=== PATIENT | male | born 1935 | race Caucasian/White ===

== ENCOUNTER → 2019-11-07 13:06 | Outpatient (BNVA) | payer MEDICARE, BC, SELFPAY | PROVIDERS: Family Provider Family Medicine; PCP Family Medicine; Visit Provider Psychiatry & Neurology Neurology | DX: G20 Parkinson's disease (principal); F02.81 Dementia in other diseases classified elsewhere, unspecified severity, with behavioral disturbance | CPT/HCPCS: 99213 ==

== ENCOUNTER → 2020-02-04 14:58 | Outpatient (BNVA) | payer MEDICARE, BC, SELFPAY | PROVIDERS: Family Provider Family Medicine; PCP Family Medicine; Visit Provider Nurse Practitioner Family | DX: N40.1 Benign prostatic hyperplasia with lower urinary tract symptoms (principal) | CPT/HCPCS: 81001 ==

== ENCOUNTER → 2020-04-08 14:56 | Outpatient (BNVA) | payer MEDICARE, BC, SELFPAY | PROVIDERS: Family Provider Family Medicine; PCP Family Medicine; Visit Provider Urology | DX: N40.1 Benign prostatic hyperplasia with lower urinary tract symptoms (principal); N39.41 Urge incontinence | CPT/HCPCS: 81001 ==

== ENCOUNTER → 2020-05-08 15:31 | Outpatient (BNVA) | payer MEDICARE, BC, SELFPAY | PROVIDERS: Family Provider Family Medicine; PCP Family Medicine; Visit Provider Psychiatry & Neurology Neurology | DX: G20 Parkinson's disease (principal) | CPT/HCPCS: 99213 ==

== ENCOUNTER 2020-06-06 15:26 | Inpatient (IN) | payer MEDICARE, BC, SELFPAY ==
[2020-06-06] VITALS (9 sets, daily range): BP systolic 98–161; BP diastolic 60–99; PULSE 69–78; RESP 15–24; TEMP 36.7; O2SAT 93–97; BMI 30.1
--- NOTE | 2020-06-06 16:01 | XRR_ITS ---
PROCEDURE INFORMATION: Exam: XR Chest, 1 View Exam date and time: 06/06/2020 5:39 PM Age: 85 years old Clinical indication: Cough and shortness of breath; Patient HX: SOB, cough, covid positive; Additional info: Positive covid, SOB TECHNIQUE: Imaging protocol: XR of the chest Views: 1 view. COMPARISON: No relevant prior studies available. FINDINGS: Lungs: Unremarkable. No consolidation. Pleural space: Unremarkable. No pleural effusion. No pneumothorax. Heart/Mediastinum: Unremarkable. No cardiomegaly. Bones/joints: Unremarkable. XR/XR chest 1V portable [id number] IMPRESSION: No acute findings.
--- NOTE | 2020-06-06 16:12 | ECG_ITS ---
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 Measurements Intervals [place] Rate: 65 P: 53 DC: 168 QRS: -50 QRSD: 92 T: 2 QT: 421 QTc: 441 Interpretive Statements SINUS RHYTHM LEFT AXIS DEVIATION [QRS AXIS < -30] No previous ECG available for comparison Electronically Signed On 06-07-2020 8:14:56 CDT by Isis Null M.D. [id number]
--- NOTE | 2020-06-06 17:34 | W.ED.SOB ---
Documented by User: Elsi Steele MD 06/09/20 12:55 HPI - SOB/Dyspnea General: Chief Complaint: Shortness of Breath/Dyspnea Stated Complaint: SOB,COVID POSITIVE PER DOCTOR OFFICE Time Seen by Provider: 06/06/20 16:12 History of Present Illness: HPI Narrative: This patient is an 85-year-old male who presents today with a positive COVID test. His is currently hospitalized in our viral ICU. He said he had a rapid COVID test done at [facility] today and it was positive. We called [facility] and confirmed that and are waiting for it to be faxed to us. His complaint to me is weakness, nausea. He does admit to some cough and some shortness of breath. He is not sure if he is had some fever or not. He has Parkinson's and reports that he has trouble with his memory. He has had trouble getting around. I asked to help some at home and he says his who is currently hospitalized. MD elicited complaint: shortness of breath and cough Pertinent past history: other (Parkinson's) Onset (ago): unknown Context: recent illness Timing: progressively worsening Severity: severe Exacerbating factors: nothing Relieving factors: nothing Associated symptoms: Reports nausea Review of Systems General: Reports: ROS unobtainable due to mental status Const: Reports: fatigue and malaise GI: Reports: nausea and diarrhea : Reports: difficulty urinating (Chronic) Neuro: Reports: weakness in extremities and difficulty walking (Secondary to Parkinson's) PFSH ED PFSH: Medical History (Updated 06/07/20 @ 01:32 by Lei Hercules MD) Balanitis 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 Depression Hypotension Parkinsons disease PVD (peripheral vascular disease) Urgency incontinence Surgical History History of bilateral knee replacement History of varicose vein stripping Hx of hemorrhoidectomy Family History Family/Other Dementia Hypertension Social History Smoking and tobacco status: never smoked Alcohol intake: never Household members: spouse Marital status: Current occupational status: retired History of recent travel: No Physical Exam Const: COMMON NORMALS: no acute distress, patient oriented x3, no limitations and alert GENERAL APPEARANCE: cooperative and comfortable HENMT: HEAD & SCALP: normal to inspection FACE & SINUS: normal facial exam Eye: GENERAL EYE: appearance normal, both eyes and all related structures Neck/C-Spine: COMMON NORMALS: supple, no meningeal signs and no JVD Chest: COMMONS NORMALS: normal inspection of the chest Resp: COMMON NORMALS: normal respiratory effort, No use of accessory muscles and clear to auscultation bilaterally AUSCULTATION: clear to auscultation bilaterally Cardio: COMMON NORMALS: no JVD, regular rate, regular rhythm and No murmurs present (Cardio) RATE: regular rate RHYTHM: regular rhythm GI: COMMON NORMALS: Normal to inspection, nondistended, normoactive bowel sounds present, Soft to palpation and non-tender INSPECTION: Yes normal to inspection AUSCULTATION: Yes normoactive bowel sounds PALPATION: Yes Soft to palpation Back/Pelvis: COMMON NORMALS: thoracic and lumbar spine normal to inspection Extremity: COMMON NORMALS: normal to inspection Neuro: COMMON NORMALS: patient oriented x3, moves all extremities, no focal motor deficits and no sensory deficits noted SENSORIUM/ORIENTATION: Yes alert MENINGEAL SIGNS: Yes no meningeal signs Psych: COMMON NORMALS: mental status grossly normal, cooperative and normal affect Skin: COMMON NORMALS: no rashes or lesions noted and turgor normal GENERAL SKIN EXAM: no rashes or lesions noted and turgor normal Course Vital Signs: Vital signs: Vital Signs Temperature 96.7 F L 06/09/20 08:00 Pulse Rate 70 06/09/20 11:00 Respiratory Rate 17 06/09/20 11:00 Blood Pressure 111/67 06/09/20 11:00 Pulse Oximetry 91 06/09/20 11:00 MDM - SOB/Dyspnea Lab Data: Labs: Lab Results 06/06/20 06/06/20 06/06/20 Range/Units 17:22 17:31 17:31 WBC 5.5 (4.0-10.0) 10^3/ uL RBC 4.24 (4.1-5.3) 10^6/u L Hgb 13.1 (11.7-16.6) g/dL Hct 40.3 L (42.0-52.0) % MCV 95.0 H (80-94) fL MCH 30.9 (28.0-34.0) pg MCHC 32.5 (30.0-36.0) g/dL RDW 13.3 (12.1-15.1) % Plt Count 299 (130-400) 10^3/c mm MPV 9.8 (7.4-10.4) fL Neut % (Auto) 74.4 % Lymph % (Auto) 14.3 % [place] % (Auto) 9.6 % Eos % (Auto) 1.1 % Baso % (Auto) 0.2 % Neut # (Auto) 4.10 (1.8-7.7) 10^3/u L Lymph # (Auto) 0.8 (0.8-4.8) 10^3/u L [place] # (Auto) 0.5 (0.2-0.9) 10^3/u L Eos # (Auto) 0.1 (0.0-0.8) 10^3/u L Baso # (Auto) 0.0 (0.0-0.1) 10^3/u L Nucleated RBC % (a uto) 0 % Nucleated RBCs # 0.0 /100WBC PT 13.30 (12.1-14.9) SECO NDS INR 0.98 (0.8-1.2) D-Dimer 2.27 H (0-0.59) ug/mIFE U Sodium (136-145) mmol/L Potassium (3.5-5.1) mmol/L Chloride (98-107) mmol/L Carbon Dioxide (22-29) mmol/L Anion Gap (5-19) BUN (8-23) mg/dL Creatinine (0.7-1.2) mg/dL GFR Calculation Glucose (65-115) mg/dL Calculated Osmolal ity (285-295) mOsm/k g Lactate (0.5-2.2) mmol/L Calcium (8.5-10.5) mg/dL Total Bilirubin (0.15-1.2) mg/dL AST (0-40) U/L ALT (0-41) U/L Alkaline Phosphata se (40-130) IU/L Troponin T Gen 5 n g/L (0-15) ng/L C-Reactive Protein (0.0-4.9) mg/L NT-Pro-B Natriuret Pep (0-450) pg/mL Total Protein (6.6-8.7) g/dL Albumin (3.5-5.2) g/dL Globulin (1.3-4.6) g/dL Procalcitonin (0-0.5) ng/mL Urine Color Yellow (Yellow) Urine Appearance Sl hazy (CLEAR) Urine pH 5 (5-7) Ur Specific Gravit y 1.025 (1.005-1.030) Urine Protein 1+ H (Negative) Urine Glucose (UA) Norm (Normal) Urine Ketones 1+ H (Negative) Urine Blood Neg (Negative) Urine Nitrate Negative (Negative) Urine Bilirubin 1+ H (Negative) Urine Urobilinogen 1 H (Negative) mg/dL Ur Leukocyte Kayy ase Negative (Negative) Urine RBC None (0-2) /hpf Urine WBC 0-4 H (0-5) /hpf Ur Squamous Epith Cells 0-4 H (0-5) /hpf Amorphous Sediment Not Reportable Urine Bacteria 1+ H (NONE) /hpf Hyaline Casts 5-10 H /lpf Fine Granular Cast s 0-4 H /lpf Urine Mucus Trace /hpf 06/06/20 06/06/20 06/06/20 Range/Units 17:31 17:31 17:31 WBC (4.0-10.0) 10^3/ uL RBC (4.1-5.3) 10^6/u L Hgb (11.7-16.6) g/dL Hct (42.0-52.0) % MCV (80-94) fL MCH (28.0-34.0) pg MCHC (30.0-36.0) g/dL RDW (12.1-15.1) % Plt Count (130-400) 10^3/c mm MPV (7.4-10.4) fL Neut % (Auto) % Lymph % (Auto) % [place] % (Auto) % Eos % (Auto) % Baso % (Auto) % Neut # (Auto) (1.8-7.7) 10^3/u L Lymph # (Auto) (0.8-4.8) 10^3/u L [place] # (Auto) (0.2-0.9) 10^3/u L Eos # (Auto) (0.0-0.8) 10^3/u L Baso # (Auto) (0.0-0.1) 10^3/u L Nucleated RBC % (a uto) % Nucleated RBCs # /100WBC PT (12.1-14.9) SECO NDS INR (0.8-1.2) D-Dimer (0-0.59) ug/mIFE U Sodium 134 L (136-145) mmol/L Potassium 3.9 (3.5-5.1) mmol/L Chloride 100 (98-107) mmol/L Carbon Dioxide 17 L (22-29) mmol/L Anion Gap 20.9 H (5-19) BUN 36 H (8-23) mg/dL Creatinine 1.7 H (0.7-1.2) mg/dL GFR Calculation Not Reportable Glucose 104 (65-115) mg/dL Calculated Osmolal ity 287 (285-295) mOsm/k g Lactate 1.3 (0.5-2.2) mmol/L Calcium 9.1 (8.5-10.5) mg/dL Total Bilirubin 0.6 (0.15-1.2) mg/dL AST 25 (0-40) U/L ALT 17 (0-41) U/L Alkaline Phosphata se 53 (40-130) IU/L Troponin T Gen 5 n g/L 147 H* (0-15) ng/L C-Reactive Protein 19.5 H (0.0-4.9) mg/L NT-Pro-B Natriuret Pep 1169 H (0-450) pg/mL Total Protein 8.5 (6.6-8.7) g/dL Albumin 4.3 (3.5-5.2) g/dL Globulin 4.2 (1.3-4.6) g/dL Procalcitonin 0.15 (0-0.5) ng/mL Urine Color (Yellow) Urine Appearance (CLEAR) Urine pH (5-7) Ur Specific Gravit y (1.005-1.030) Urine Protein (Negative) Urine Glucose (UA) (Normal) Urine Ketones (Negative) Urine Blood (Negative) Urine Nitrate (Negative) Urine Bilirubin (Negative) Urine Urobilinogen (Negative) mg/dL Ur Leukocyte Kayy ase (Negative) Urine RBC (0-2) /hpf Urine WBC (0-5) /hpf Ur Squamous Epith Cells (0-5) /hpf Amorphous Sediment Urine Bacteria (NONE) /hpf Hyaline Casts /lpf Fine Granular Cast s /lpf Urine Mucus /hpf Discharge Plan Discharge Patient Disposition: Admitted As Inpatient Admit Provider: Lei Hercules Clinical Impression: COVID-19 Condition: Stable Referrals: North Mancini MD [Primary Care Provider] - Discharge Date/Time: 06/07/20 02:46 Coding Level of Care Code ED Cooler Service Supervisor for Chg Fwd Exam Comprehensive Documented by User: Rajat Hand MD 06/07/20 00:26 HPI - SOB/Dyspnea General: Chief Complaint: Shortness of Breath/Dyspnea Stated Complaint: SOB,COVID POSITIVE PER DOCTOR OFFICE Time Seen by Provider: 06/06/20 16:12 PFSH ED PFSH: Medical History (Updated 06/07/20 @ 01:32 by Lei Hercules MD) Balanitis 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 Depression Hypotension Parkinsons disease PVD (peripheral vascular disease) Urgency incontinence Surgical History History of bilateral knee replacement History of varicose vein stripping Hx of hemorrhoidectomy Family History Family/Other Dementia Hypertension Social History Smoking and tobacco status: never smoked Alcohol intake: never Household members: spouse Marital status: Current occupational status: retired History of recent travel: No Course Vital Signs: Vital signs: Vital Signs Temperature 96.7 F L 06/09/20 08:00 Pulse Rate 70 06/09/20 11:00 Respiratory Rate 17 06/09/20 11:00 Blood Pressure 111/67 06/09/20 11:00 Pulse Oximetry 91 06/09/20 11:00 MDM - SOB/Dyspnea MDM Narrative: Medical decision making narrative: I took patient over from Dr. Steele. Patient has generalized weakness and is unable to take care of himself at home due to coronavirus. I spoke to hospitalist will admit to the viral ICU. Lab Data: Labs: Lab Results 06/06/20 06/06/20 06/06/20 Range/Units 17:22 17:31 17:31 WBC 5.5 (4.0-10.0) 10^3/ uL RBC 4.24 (4.1-5.3) 10^6/u L Hgb 13.1 (11.7-16.6) g/dL Hct 40.3 L (42.0-52.0) % MCV 95.0 H (80-94) fL MCH 30.9 (28.0-34.0) pg MCHC 32.5 (30.0-36.0) g/dL RDW 13.3 (12.1-15.1) % Plt Count 299 (130-400) 10^3/c mm MPV 9.8 (7.4-10.4) fL Neut % (Auto) 74.4 % Lymph % (Auto) 14.3 % [place] % (Auto) 9.6 % Eos % (Auto) 1.1 % Baso % (Auto) 0.2 % Neut # (Auto) 4.10 (1.8-7.7) 10^3/u L Lymph # (Auto) 0.8 (0.8-4.8) 10^3/u L [place] # (Auto) 0.5 (0.2-0.9) 10^3/u L Eos # (Auto) 0.1 (0.0-0.8) 10^3/u L Baso # (Auto) 0.0 (0.0-0.1) 10^3/u L Nucleated RBC % (a uto) 0 % Nucleated RBCs # 0.0 /100WBC PT 13.30 (12.1-14.9) SECO NDS INR 0.98 (0.8-1.2) D-Dimer 2.27 H (0-0.59) ug/mIFE U Sodium (136-145) mmol/L Potassium (3.5-5.1) mmol/L Chloride (98-107) mmol/L Carbon Dioxide (22-29) mmol/L Anion Gap (5-19) BUN (8-23) mg/dL Creatinine (0.7-1.2) mg/dL GFR Calculation Glucose (65-115) mg/dL Calculated Osmolal ity (285-295) mOsm/k g Lactate (0.5-2.2) mmol/L Calcium (8.5-10.5) mg/dL Total Bilirubin (0.15-1.2) mg/dL AST (0-40) U/L ALT (0-41) U/L Alkaline Phosphata se (40-130) IU/L Troponin T Gen 5 n g/L (0-15) ng/L C-Reactive Protein (0.0-4.9) mg/L NT-Pro-B Natriuret Pep (0-450) pg/mL Total Protein (6.6-8.7) g/dL Albumin (3.5-5.2) g/dL Globulin (1.3-4.6) g/dL Procalcitonin (0-0.5) ng/mL Urine Color Yellow (Yellow) Urine Appearance Sl hazy (CLEAR) Urine pH 5 (5-7) Ur Specific Gravit y 1.025 (1.005-1.030) Urine Protein 1+ H (Negative) Urine Glucose (UA) Norm (Normal) Urine Ketones 1+ H (Negative) Urine Blood Neg (Negative) Urine Nitrate Negative (Negative) Urine Bilirubin 1+ H (Negative) Urine Urobilinogen 1 H (Negative) mg/dL Ur Leukocyte Kayy ase Negative (Negative) Urine RBC None (0-2) /hpf Urine WBC 0-4 H (0-5) /hpf Ur Squamous Epith Cells 0-4 H (0-5) /hpf Amorphous Sediment Not Reportable Urine Bacteria 1+ H (NONE) /hpf Hyaline Casts 5-10 H /lpf Fine Granular Cast s 0-4 H /lpf Urine Mucus Trace /hpf 06/06/20 06/06/20 06/06/20 Range/Units 17:31 17:31 17:31 WBC (4.0-10.0) 10^3/ uL RBC (4.1-5.3) 10^6/u L Hgb (11.7-16.6) g/dL Hct (42.0-52.0) % MCV (80-94) fL MCH (28.0-34.0) pg MCHC (30.0-36.0) g/dL RDW (12.1-15.1) % Plt Count (130-400) 10^3/c mm MPV (7.4-10.4) fL Neut % (Auto) % Lymph % (Auto) % [place] % (Auto) % Eos % (Auto) % Baso % (Auto) % Neut # (Auto) (1.8-7.7) 10^3/u L Lymph # (Auto) (0.8-4.8) 10^3/u L [place] # (Auto) (0.2-0.9) 10^3/u L Eos # (Auto) (0.0-0.8) 10^3/u L Baso # (Auto) (0.0-0.1) 10^3/u L Nucleated RBC % (a uto) % Nucleated RBCs # /100WBC PT (12.1-14.9) SECO NDS INR (0.8-1.2) D-Dimer (0-0.59) ug/mIFE U Sodium 134 L (136-145) mmol/L Potassium 3.9 (3.5-5.1) mmol/L Chloride 100 (98-107) mmol/L Carbon Dioxide 17 L (22-29) mmol/L Anion Gap 20.9 H (5-19) BUN 36 H (8-23) mg/dL Creatinine 1.7 H (0.7-1.2) mg/dL GFR Calculation Not Reportable Glucose 104 (65-115) mg/dL Calculated Osmolal ity 287 (285-295) mOsm/k g Lactate 1.3 (0.5-2.2) mmol/L Calcium 9.1 (8.5-10.5) mg/dL Total Bilirubin 0.6 (0.15-1.2) mg/dL AST 25 (0-40) U/L ALT 17 (0-41) U/L Alkaline Phosphata se 53 (40-130) IU/L Troponin T Gen 5 n g/L 147 H* (0-15) ng/L C-Reactive Protein 19.5 H (0.0-4.9) mg/L NT-Pro-B Natriuret Pep 1169 H (0-450) pg/mL Total Protein 8.5 (6.6-8.7) g/dL Albumin 4.3 (3.5-5.2) g/dL Globulin 4.2 (1.3-4.6) g/dL Procalcitonin 0.15 (0-0.5) ng/mL Urine Color (Yellow) Urine Appearance (CLEAR) Urine pH (5-7) Ur Specific Gravit y (1.005-1.030) Urine Protein (Negative) Urine Glucose (UA) (Normal) Urine Ketones (Negative) Urine Blood (Negative) Urine Nitrate (Negative) Urine Bilirubin (Negative) Urine Urobilinogen (Negative) mg/dL Ur Leukocyte Kayy ase (Negative) Urine RBC (0-2) /hpf Urine WBC (0-5) /hpf Ur Squamous Epith Cells (0-5) /hpf Amorphous Sediment Urine Bacteria (NONE) /hpf Hyaline Casts /lpf Fine Granular Cast s /lpf Urine Mucus /hpf Imaging Data^: CT Chest: Radiologist's impression: [place] [address] CT Scan Report Signed Patient: Jay Peguero Unit #: [id number] : 1935 Age/Sex: 85 / M ADM Date: 06/06/20 Loc: ER Room/Bed: Attending Dr: Ordering Provider/Ordering MD: Rajat Hand MD Date of Service: 06/06/20 Procedure(s): CT angio chest PE protcl [id number] Accession Number(s): [id number] Report Number: [id number] PROCEDURE INFORMATION: Exam: CT Angiography Chest With Contrast Exam date and time: 06/06/2020 6:34 PM Age: 85 years old Clinical indication: Cough and shortness of breath; Patient HX: Weakness, nausea, cough, SOB, covid +, elevated d-dimer TECHNIQUE: Imaging protocol: Computed tomographic angiography of the chest with intravenous contrast. Sagittal and coronal reformatted images were created and reviewed. 3D rendering (Not supervised by radiologist): MIP and/or 3D reconstructed images were created by the technologist. Radiation optimization: All CT scans at this facility use at least one of these dose optimization techniques: automated exposure control; mA and/or kV adjustment per patient size (includes targeted exams where dose is matched to clinical indication); or iterative reconstruction. Contrast material: [id number]; Contrast volume: 95 ml; Contrast route: INTRAVENOUS (IV); COMPARISON: CR XR chest 1V portable [id number] 06/06/2020 5:28 PM RADIATION DOSE METRICS: Total DLP (mGy-cm): 566.33 FINDINGS: Limitations: Respiratory motion artifact on multiple images that can limit evaluation. Pulmonary arteries: Evaluation of peripheral pulmonary arteries is limited secondary to the phase of contrast enhancement and respiratory motion. No filling defects in the central pulmonary arteries to suggest a large pulmonary embolism. Aorta: Mild atherosclerotic changes in the visualized arteries. No evidence for aortic aneurysm. Lungs: Tracheobronchial structures are patent. Dependent atelectasis in the lungs bilaterally. Calcified granuloma in the the right middle lobe. Pleural space: No pneumothorax. No pleural effusion. Heart: Stable mild enlargement of the heart. Mild atherosclerotic calcification in the coronary arteries. Mediastinal space: The esophagus is unremarkable. No mediastinal hematoma. No pneumomediastinum. Lymph nodes: No lymphadenopathy. Left hilar calcified lymph nodes. Liver: The liver is unremarkable. Gallbladder and bile ducts: The gallbladder is unremarkable. No biliary ductal dilatation. Pancreas: Mild atrophy of the pancreatic parenchyma. 5.4 cm. Spleen: The spleen is unremarkable. Adrenals: The right and left adrenal glands are unremarkable. Kidneys and ureters: Multiple simple cysts in the visualized right and left kidneys. The largest on the right measures 4.7 cm. The largest on the left measures 5.4 cm. Bones/joints: Degenerative changes in the spine and shoulders. 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 There is also calcification of the supraspinous ligament at multiple levels. Soft tissues: No acute abnormality in the extrathoracic soft tissues. CT/CT angio chest PE protcl [id number] IMPRESSION: 1. Evaluation of peripheral pulmonary arteries is limited secondary to the phase of contrast enhancement and respiratory motion. No filling defects in the central pulmonary arteries to suggest a large pulmonary embolism. 2. Dependent atelectasis in the lungs bilaterally. 3. Incidental/nonacute findings are listed in the report. EKG Data^: EKG 1: Attestation: I personally reviewed and interpreted this EKG as follows: EKG Interpretation Date: 06/06/20 EKG interpretation time: 17:11 Interpretation: nsr hr [address] or t wave abnormalities qrs 92 qtc 433 Discharge Plan Discharge Patient Disposition: Admitted As Inpatient Admit Provider: Lei Hercules Clinical Impression: COVID-19 Condition: Stable Referrals: North Mancini MD [Primary Care Provider] - Discharge Date/Time: 06/07/20 02:46 Coding Level of Care Code ED Cooler Service Supervisor for Chg Fwd Exam Comprehensive
[2020-06-06 17:38] LABS: Basophils % 0.2 %; Eosinophils # 0.1 10^3/uL (0.0-0.8); Eosinophils % 1.1 %; Hematocrit 40.3 % (42.0-52.0); Hemoglobin 13.1 g/dL (11.7-16.6); Lymphocytes # 0.8 10^3/uL (0.8-4.8); Lymphocytes % 14.3 %; Mean Corpuscular HGB Conc 32.5 g/dL (30.0-36.0); Mean Corpuscular Hemoglobin 30.9 pg (28.0-34.0); Mean Platelet Volume 9.8 fL (7.4-10.4); Monocytes # 0.5 10^3/uL (0.2-0.9); Monocytes % 9.6 %; Neutrophils % 74.4 %; Nucleated Red Blood Cells % 0 %; Platelet Count 299 10^3/cmm (130-400); Red Blood Count 4.24 10^6/uL (4.1-5.3); Red Cell Distribution Width 13.3 % (12.1-15.1); White Blood Count 5.5 10^3/uL (4.0-10.0)
[2020-06-06 17:56] LABS: Urine Color Yellow (Yellow)
[2020-06-06 17:57] LABS: Add Urine Microscopic? YES; Bilirubin Urine 1+ (Negative); Blood Urine Neg (Negative); Glucose Urine UA Norm (Normal); Ketones Urine 1+ (Negative); Leukocyte Esterase Urine Negative (Negative); Nitrate Urine Negative (Negative); Protein Urine 1+ (Negative); Specific Gravity, Urine 1.025 (1.005-1.030); Urine Appearance SL Hazy (CLEAR); Urobilinogen Urine 1 mg/dL (Negative); pH Urine 5 (5-7)
[2020-06-06 18:02] LABS: Mucus Urine TRACE /hpf
[2020-06-06 18:03] LABS: Add Urine Culture? No; Bacteria Urine 1+ /hpf; Fine Granular Casts Urine 0-4 /lpf; Squamous Epithelial Cell Urine 0-4 /hpf (0-5); WBC Urine 0-4 /hpf (0-5)
[2020-06-06 18:03] LABS: INR 0.98 (0.8-1.2)
[2020-06-06 18:06] LABS: D Dimer 2.27 ug/mIFEU (0-0.59)
[2020-06-06 18:15] LABS: Lactate (Lactic Acid level) 1.3 mmol/L (0.5-2.2)
[2020-06-06 18:23] LABS: Troponin T (5th) Once 147 ng/L (0-15)
--- NOTE | 2020-06-06 18:25 | CTR_ITS ---
PROCEDURE INFORMATION: Exam: CT Angiography Chest With Contrast Exam date and time: 06/06/2020 6:34 PM Age: 85 years old Clinical indication: Cough and shortness of breath; Patient HX: Weakness, nausea, cough, SOB, covid +, elevated d-dimer TECHNIQUE: Imaging protocol: Computed tomographic angiography of the chest with intravenous contrast. Sagittal and coronal reformatted images were created and reviewed. 3D rendering (Not supervised by radiologist): MIP and/or 3D reconstructed images were created by the technologist. Radiation optimization: All CT scans at this facility use at least one of these dose optimization techniques: automated exposure control; mA and/or kV adjustment per patient size (includes targeted exams where dose is matched to clinical indication); or iterative reconstruction. Contrast material: [id number]; Contrast volume: 95 ml; Contrast route: INTRAVENOUS (IV); COMPARISON: CR XR chest 1V portable [id number] 06/06/2020 5:28 PM RADIATION DOSE METRICS: Total DLP (mGy-cm): 566.33 FINDINGS: Limitations: Respiratory motion artifact on multiple images that can limit evaluation. Pulmonary arteries: Evaluation of peripheral pulmonary arteries is limited secondary to the phase of contrast enhancement and respiratory motion. No filling defects in the central pulmonary arteries to suggest a large pulmonary embolism. Aorta: Mild atherosclerotic changes in the visualized arteries. No evidence for aortic aneurysm. Lungs: Tracheobronchial structures are patent. Dependent atelectasis in the lungs bilaterally. Calcified granuloma in the the right middle lobe. Pleural space: No pneumothorax. No pleural effusion. Heart: Stable mild enlargement of the heart. Mild atherosclerotic calcification in the coronary arteries. Mediastinal space: The esophagus is unremarkable. No mediastinal hematoma. No pneumomediastinum. Lymph nodes: No lymphadenopathy. Left hilar calcified lymph nodes. Liver: The liver is unremarkable. Gallbladder and bile ducts: The gallbladder is unremarkable. No biliary ductal dilatation. Pancreas: Mild atrophy of the pancreatic parenchyma. 5.4 cm. Spleen: The spleen is unremarkable. Adrenals: The right and left adrenal glands are unremarkable. Kidneys and ureters: Multiple simple cysts in the visualized right and left kidneys. The largest on the right measures 4.7 cm. The largest on the left measures 5.4 cm. Bones/joints: Degenerative changes in the spine and shoulders. 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 There is also calcification of the supraspinous ligament at multiple levels. Soft tissues: No acute abnormality in the extrathoracic soft tissues. CT/CT angio chest PE protcl [id number] IMPRESSION: 1. Evaluation of peripheral pulmonary arteries is limited secondary to the phase of contrast enhancement and respiratory motion. No filling defects in the central pulmonary arteries to suggest a large pulmonary embolism. 2. Dependent atelectasis in the lungs bilaterally. 3. Incidental/nonacute findings are listed in the report. COMMENTS: Consistent with the [employer]'s Incidental Findings Committee white paper (J Am Karol Radiol 2018): Any incidental renal lesion less than 1 cm or classified as too small to characterize, or any incidental cystic renal lesion characterized as simple-appearing, is likely benign. No follow-up imaging is recommended for these lesions per consensus recommendations based on imaging criteria. Radiation Dose CTDIVOL = (mGy): DLP = 566.33 (mGy-cm)
[2020-06-06 19:10] LABS: NT Pro B Type Natriuretic Pept 1169 pg/mL (0-450); Procalcitonin 0.15 ng/mL (0-0.5)
[2020-06-06 19:21] LABS: Alanine Aminotransferase 17 U/L (0-41); Albumin Level 4.3 g/dL (3.5-5.2); Alkaline Phosphatase 53 IU/L (40-130); Anion Gap 20.9 (5-19); Aspartate Amino Transferase 25 U/L (0-40); Blood Urea Nitrogen 36 mg/dL (8-23); C Reactive Protein 19.5 mg/L (0.0-4.9); Calcium 9.1 mg/dL (8.5-10.5); Carbon Dioxide 17 mmol/L (22-29); Chloride 100 mmol/L (98-107); Globulin 4.2 g/dL (1.3-4.6); Glucose 104 mg/dL (65-115); Osmolality Calculated 287 mOsm/kg (285-295); Potassium 3.9 mmol/L (3.5-5.1); Sodium 134 mmol/L (136-145); Total Bilirubin 0.6 mg/dL (0.15-1.2); Total Protein 8.5 g/dL (6.6-8.7)
--- NOTE | 2020-06-06 19:24 | PC.NURSE ---
REPORT GIVEN TO [facility] ASSUMED CARE.
--- NOTE | 2020-06-06 19:31 | PC.NURSE ---
report received from ELSA Stark and care transferred to ELSA Nguyen
[2020-06-06] MEDS: sodium chloride 0.9% 1,000 ML 150 ML IV (19:39)
--- NOTE | 2020-06-06 20:50 | PC.NURSE ---
patient up in room, placed patient back in bed and brought patient water to drink with hcp approval. patient covered with blanket for comfort by nurse
--- NOTE | 2020-06-06 23:29 | P.HP_ITS ---
Providers/Chief Complaint Primary Care Provider: North Mancini MD Chief Complaint: SOB,COVID POSITIVE PER DOCTOR OFFICE History of Present Illness Jay Peguero is a 85 year old male who carries history of Parkinson's disease came to the hospital after a positive COVID test which was done at the [facility]. His is currently hospitalized in our viral ICU. Mr. Peguero is stating that he has been experiencing diarrhea for last 3 weeks, his health has been deteriorating gradually now he does not have any energy to carry out daily activities on his own, prior to this his was helping him out for most of daily activities now unfortunately she is admitted in the hospital. He has been noticing respiratory distress along extreme fatigue and lethargy. He has not noticed any fever. Diagnosis in the ER revealed normal hemodynamics, he was saturating well on room air, no leukocytosis or leukopenia, high d-dimer, mild hyponatremia, JENNIE, signs of congestive heart failure with BNP 1169, UA reviewed. No active chest pain however troponin 147 EKG does not reveal ischemic or infarctive changes, CTA ruled out PE. Review of Systems Const: Reports: chills, body aches, change in appetite, fatigue and malaise Eyes: Denies: change in vision ENMT: Denies: throat pain Card: Reports: edema, swelling of feet/ankles and dyspnea on exertion; Denies: chest pain Resp: Reports: dyspnea and non-productive cough GI: Reports: diarrhea; Denies: abdominal pain, nausea or vomiting : Denies: flank pain Musc: Denies: neck pain Skin/Breast: Denies: rash Neuro: Reports: difficulty walking Psych: Reports: memory loss; Denies: anxiety Endo: Denies: polyuria Peter/Lymph: Denies: easy bruising All/Imm: Denies: urticaria Medications/Allergies Home Medications Medication Instructions Recorded Confirmed Last Taken Type gabapentin 300 mg capsule 300 mg PO DAILY 11/07/19 06/06/20 06/05/20 History carbidopa ER 25 mg-levodopa 100 mg 1 tab PO TID #90 tab 05/08/20 06/06/20 06/05/20 Rx tablet,extended release entacapone 200 mg tablet 200 mg PO TID #90 tab 05/08/20 06/06/20 06/05/20 Rx ropinirole 6 mg tablet,extended 6 mg PO DAILY #30 tab 05/08/20 06/06/20 06/05/20 Rx release 24 hr sertraline 100 mg tablet 100 mg PO DAILY #30 tab 05/08/20 06/06/20 06/05/20 Rx Allergies Allergy/AdvReac Type Severity Reaction Status Date / Time No Known Allergies Allergy Verified 05/08/20 15:47 PFSH Acute PFSH: Medical History (Updated 06/07/20 @ 01:32 by Lei Hercules MD) Balanitis 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 Depression Hypotension Parkinsons disease PVD (peripheral vascular disease) Urgency incontinence Surgical History History of bilateral knee replacement History of varicose vein stripping Hx of hemorrhoidectomy Family History Family/Other Dementia Hypertension Social History Smoking and tobacco status: never smoked Alcohol intake: never Household members: spouse Marital status: Current occupational status: retired History of recent travel: No Vitals/I&O/Wt Last Vital Signs Temp 98.1 F 06/06/20 15:57 Pulse 69 06/06/20 23:21 Resp 16 06/06/20 23:21 BP 127/63 06/06/20 22:14 Pulse Ox 97 06/06/20 23:21 Weight last 48 hrs Weight 95.254 kg Physical Exam Narrative: EXAM NARRATIVE: Mr. Peguero was standing at the bedside when I entered the room, he was saturating well on room air, no active respiratory distress Bilateral breath sounds without adventitious rhonchi or wheezing S1, S2 no tachycardia, clinical signs of heart failure with bilateral lower extremity edema Alert oriented x3 mild cognitive impairment, Resting tremors Lower extremity pedal edema Abdomen soft, distended bowel sound present EOMI No neurological deficit on gross examination Data : 06/06/20 17:31 06/06/20 17:31 Micro: Microbiology 06/06/20 22:40 Blood Culture - Preliminary Blood SPECIMEN COLLECTED 06/06/20 17:31 Blood Culture - Preliminary Blood SPECIMEN COLLECTED A&P Assessment and plan (1) COVID-19: Status: Acute (2) CHF exacerbation: Status: Acute (3) Chronic diarrhea: Status: Acute Additional A&P Information Mild SARS COVID-19 pneumonia Not requiring oxygen at this point, saturating well on room air, generalized fatigue with diarrhea I would not add dexamethasone or remdesevir at this point Managed conservatively Clinical signs of congestive heart failure exacerbation I will discontinue fluid Clinical signs of fluid overload with bilateral lower extremity edema, BNP 1200 I will give him low-dose Lasix in the morning Might benefit from limited echo study because of COVID-19 Resting tremor secondary to Parkinson's I would continue his dopaminergic medication Chronic diarrhea I do believe the symptoms are secondary to COVID-19 I would not add any antidiarrheal, he is afebrile no blood in stool, DVT prophylaxis Lovenox 40 twice daily secondary to high d-dimer Cardiac diet Attestations Medical Necessity Statement*: Stay in the hospital might cross more than 2 midnights currently need management for COVID-19 pneumonia and CHF exacerbation Time Spent in Patient Care: (>than 50% of time spent in counselling and/or direct pt care on unit) . 40 minutes Coding Level of Care Code Acute Candy Cutter Hand for Ivonne Garcia Diagnoses COVID-19 U07.1 CHF exacerbation I50.9 Chronic diarrhea K52.9
[2020-06-07] VITALS (28 sets, daily range): BP systolic 74–141; BP diastolic 48–87; PULSE 60–83; RESP 14–23; TEMP 36.5–36.8; O2SAT 90–96
--- NOTE | 2020-06-07 00:10 | PC.NURSE ---
PATIENT MOVED TO HOSPITAL BED INSTEAD OF ER BED FOR COMFORT.
[2020-06-07] MEDS: enoxaparin 40 mg/0.4 mL Syringe SUBCUT ×2 (04:14→15:06)
[2020-06-07] MEDS: gabapentin 300 mg Capsule PO ×2 (04:14→21:06)
[2020-06-07 05:52] LABS: Basophils % 0.5 %; Eosinophils # 0.1 10^3/uL (0.0-0.8); Eosinophils % 2.8 %; Hematocrit 35.8 % (42.0-52.0); Hemoglobin 11.7 g/dL (11.7-16.6); Lymphocytes # 0.8 10^3/uL (0.8-4.8); Lymphocytes % 18.3 %; Mean Corpuscular HGB Conc 32.7 g/dL (30.0-36.0); Mean Corpuscular Hemoglobin 30.9 pg (28.0-34.0); Mean Corpuscular Volume 94.5 fL (80-94); Monocytes # 0.5 10^3/uL (0.2-0.9); Monocytes % 11.9 %; Neutrophils # 2.81 10^3/uL (1.8-7.7); Neutrophils % 65.8 %; Nucleated Red Blood Cells % 0 %; Platelet Count 256 10^3/cmm (130-400); Red Blood Count 3.79 10^6/uL (4.1-5.3); Red Cell Distribution Width 13.3 % (12.1-15.1); White Blood Count 4.3 10^3/uL (4.0-10.0)
[2020-06-07 06:16] LABS: D Dimer 1.98 ug/mIFEU (0-0.59)
[2020-06-07 06:17] LABS: Fibrinogen 416 mg/dL (174-498)
[2020-06-07 06:23] LABS: Alanine Aminotransferase 16 U/L (0-41); Albumin Level 3.9 g/dL (3.5-5.2); Alkaline Phosphatase 49 IU/L (40-130); Aspartate Amino Transferase 25 U/L (0-40); Blood Urea Nitrogen 37 mg/dL (8-23); C Reactive Protein 15.8 mg/L (0.0-4.9); Calcium 8.2 mg/dL (8.5-10.5); Carbon Dioxide 17 mmol/L (22-29); Chloride 105 mmol/L (98-107); Glucose 127 mg/dL (65-115); Osmolality Calculated 292 mOsm/kg (285-295); Procalcitonin 0.12 ng/mL (0-0.5); Sodium 136 mmol/L (136-145); Total Bilirubin 0.5 mg/dL (0.15-1.2); Total Protein 6.9 g/dL (6.6-8.7)
[2020-06-07 06:44] LABS: Creatine Phosphokinase 402 U/L (39-308)
--- NOTE | 2020-06-07 06:47 | PC.NURSE ---
Shift Events: Patient arrived to [facility] from ED around 0300. Intermittently confused with memory loss. in room, since she is a patient as well. Patient had one episode of n/v that was relieved with Zofran. Bolus infusing due to hypotension. Patient placed on 2 liters as well. Comfort and safety ensured. Patient remained free of injuries this shift.
[2020-06-07 07:30] LABS: Anion Gap 17.5 (5-19); Potassium 3.5 mmol/L (3.5-5.1)
[2020-06-07] MEDS: sodium chloride 0.9% 250 ML IV (07:55)
[2020-06-07] MEDS: FUROsemide 20 mg Tablet PO (08:56)
[2020-06-07] MEDS: sertraline 100 mg Tablet PO ×2 (08:56→21:07)
[2020-06-07] MEDS: ropinirole 2 mg Tablet 6 MG PO ×2 (08:57→21:06)
[2020-06-07] MEDS: carbidopa-levodopa 25-100mg Tablet 1 EACH PO (08:57)
[2020-06-07] MEDS: iodixanol 320 mg/mL 100mL Btl IV (10:13)
--- NOTE | 2020-06-07 12:18 | PM.PN ---
Subjective Subjective: Interval history: History and physical reviewed. Patient was on oxygen last night. Coughing quite a bit. No vomiting. Attention requiring fluids last night. Medications: Reviewed: Yes Vitals/I&O/Wt Last Vital Signs Temp 98 F 06/07/20 10:46 Pulse 66 06/07/20 12:00 Resp 19 H 06/07/20 12:00 BP 113/64 06/07/20 12:00 Pulse Ox 94 06/07/20 12:00 Weight last 48 hrs Weight 95.254 kg Physical Exam Narrative: EXAM NARRATIVE: General exam is a weak appearing white male, no distress currently Cardiovascular regular rate and rhythm without murmur Lungs a few coarse breath sounds bilaterally. Tachypnea noted Abdomen soft nontender with positive bowel sounds Extremities no cyanosis clubbing or edema Data : 06/07/20 05:20 06/07/20 05:20 Micro: Microbiology 06/06/20 22:40 Blood Culture - Preliminary Blood SPECIMEN COLLECTED 06/06/20 17:31 Blood Culture - Preliminary Blood SPECIMEN COLLECTED A&P Assessment and plan (1) COVID-19: Now hypoxic consistent with Covid 19 pneumonia Initiate dexamethasone Initiate remdesivir Albuterol as needed Status: Acute (2) CHF exacerbation: Currently well compensated. No evidence of CHF exacerbation. Hold Lasix as somewhat dehydrated and hypotensive this morning. Status: Acute (3) Chronic diarrhea: Improved Status: Acute Additional A&P Information Acute respiratory failure. Wean oxygen as tolerated Parkinson's disease. Continue home medication Continue DVT prophylaxis with high dose Lovenox, secondary to concern of elevated d-dimer Full code Attestations Medical Necessity Statement*: Needs continued hospitalization secondary to Covid 19 pneumonia requiring treatment. Coding Level of Care Code Acute Life Science Technician for Chg Fwd Diagnoses COVID-19 U07.1 CHF exacerbation I50.9 Chronic diarrhea K52.9
[2020-06-07] MEDS: dexamethasone 4 mg/mL INJ 6 MG IVP (13:11)
[2020-06-07] MEDS: ondansetron 2 mg/ML SDV 2 mL 4 MG IVP (13:32)
[2020-06-08] VITALS (25 sets, daily range): BP systolic 93–135; BP diastolic 56–78; PULSE 59–80; RESP 11–22; TEMP 36.6–37.1; O2SAT 86–98
[2020-06-08] MEDS: enoxaparin 40 mg/0.4 mL Syringe SUBCUT ×2 (03:43→15:28)
[2020-06-08 05:28] LABS: Hematocrit 35.6 % (42.0-52.0); Hemoglobin 11.6 g/dL (11.7-16.6); Lymphocytes # 0.5 10^3/uL (0.8-4.8); Lymphocytes % 14.7 %; Mean Corpuscular HGB Conc 32.6 g/dL (30.0-36.0); Mean Corpuscular Hemoglobin 30.9 pg (28.0-34.0); Mean Corpuscular Volume 94.9 fL (80-94); Mean Platelet Volume 10.5 fL (7.4-10.4); Monocytes # 0.3 10^3/uL (0.2-0.9); Monocytes % 7.5 %; Neutrophils # 2.79 10^3/uL (1.8-7.7); Neutrophils % 77.2 %; Nucleated Red Blood Cells % 0 %; Platelet Count 287 10^3/cmm (130-400); Red Blood Count 3.75 10^6/uL (4.1-5.3); Red Cell Distribution Width 13.3 % (12.1-15.1); White Blood Count 3.6 10^3/uL (4.0-10.0)
[2020-06-08 05:55] LABS: Alanine Aminotransferase 12 U/L (0-41); Albumin Level 3.9 g/dL (3.5-5.2); Alkaline Phosphatase 48 IU/L (40-130); Anion Gap 20.6 (5-19); Aspartate Amino Transferase 24 U/L (0-40); Blood Urea Nitrogen 42 mg/dL (8-23); Calcium 8.3 mg/dL (8.5-10.5); Carbon Dioxide 17 mmol/L (22-29); Chloride 101 mmol/L (98-107); Globulin 3.7 g/dL (1.3-4.6); Glucose 129 mg/dL (65-115); Osmolality Calculated 292 mOsm/kg (285-295); Potassium 3.6 mmol/L (3.5-5.1); Sodium 135 mmol/L (136-145); Total Bilirubin 0.4 mg/dL (0.15-1.2); Total Protein 7.6 g/dL (6.6-8.7)
[2020-06-08] MEDS: carbidopa-levodopa 25-100mg Tablet 1 EACH PO (08:48)
[2020-06-08] MEDS: ondansetron 2 mg/ML SDV 2 mL 4 MG IVP (10:59)
--- NOTE | 2020-06-08 11:00 | PC.NURSE ---
up in recliner at this time am brk served nausea post and zofran iv given very unsteady on feet at this time
--- NOTE | 2020-06-08 12:46 | P.PN_ITS ---
Subjective Subjective: Interval history: Jay looks better today. He has no specific complaints other than the food is bad. reports he looks stronger. Medications: Reviewed: Yes Vitals/I&O/Wt Last Vital Signs Temp 98.0 F 06/08/20 04:00 Pulse 73 06/08/20 11:00 Resp 21 H 06/08/20 11:00 BP 103/58 06/08/20 11:00 Pulse Ox 94 06/08/20 11:00 06/07/20 06/08/20 06/08/20 22:59 06:59 14:59 Output Total Balance - Weight last 48 hrs Weight 95.254 kg Physical Exam Narrative: EXAM NARRATIVE: General exam no apparent distress, sitting in bed Cardiovascular regular rate and rhythm without murmur Lungs a few coarse breath sounds bilaterally. Tachypnea he had yesterday is improved Abdomen soft nontender with positive bowel sounds Extremities no cyanosis clubbing or edema Data : 06/08/20 04:00 06/08/20 04:00 Micro: Microbiology 06/06/20 22:40 Blood Culture - Preliminary Blood Gram positive cocci 06/06/20 17:31 Blood Culture - Preliminary Blood NEGATIVE TO DATE A&P Assessment and plan (1) COVID-19: Covid 19 pneumonia Continue dexamethasone and remdesivir Albuterol as needed Repeat inflammatory markers tomorrow Status: Acute (2) CHF exacerbation: Currently well compensated. No evidence of CHF exacerbation. Lasix currently secondary to lower blood pressure, decreased p.o. intake. This may need to be restarted tomorrow. Status: Acute (3) Chronic diarrhea: Improved Status: Acute Additional A&P Information Acute respiratory failure. Wean oxygen as tolerated Parkinson's disease. Continue home medication Chronic kidney disease stage III. Creatinine appears to be at baseline compared to laboratory in 2013 when creatinine was 1.8. Continue DVT prophylaxis with high dose Lovenox, secondary to concern of elevated d-dimer Full code Attestations Medical Necessity Statement*: Needs continued hospitalization for IV antiviral and dexamethasone for Covid 19 pneumonia. Coding Level of Care Code Acute Housing Project Manager for Chg Fwd Diagnoses COVID-19 U07.1 CHF exacerbation I50.9 Chronic diarrhea K52.9
[2020-06-08] MEDS: dexamethasone 4 mg/mL INJ 6 MG IVP (13:14)
[2020-06-08] MEDS: gabapentin 300 mg Capsule PO (21:00)
[2020-06-08] MEDS: sertraline 100 mg Tablet PO (21:00)
[2020-06-08] MEDS: ropinirole 2 mg Tablet 6 MG PO (21:00)
[2020-06-09] VITALS (18 sets, daily range): BP systolic 90–136; BP diastolic 51–79; PULSE 57–80; RESP 14–24; TEMP 35.9–36.3; O2SAT 88–96
[2020-06-09] MEDS: enoxaparin 40 mg/0.4 mL Syringe SUBCUT (04:30)
[2020-06-09 07:01] LABS: Basophils % 0.1 %; Eosinophils % 0.1 %; Hematocrit 35.7 % (42.0-52.0); Hemoglobin 11.8 g/dL (11.7-16.6); Lymphocytes # 0.8 10^3/uL (0.8-4.8); Lymphocytes % 11.1 %; Mean Corpuscular HGB Conc 33.1 g/dL (30.0-36.0); Mean Corpuscular Hemoglobin 31.1 pg (28.0-34.0); Mean Corpuscular Volume 94.2 fL (80-94); Monocytes # 0.6 10^3/uL (0.2-0.9); Monocytes % 8.2 %; Neutrophils # 5.53 10^3/uL (1.8-7.7); Neutrophils % 79.9 %; Nucleated Red Blood Cells % 0 %; Platelet Count 310 10^3/cmm (130-400); Red Blood Count 3.79 10^6/uL (4.1-5.3); Red Cell Distribution Width 13.3 % (12.1-15.1); White Blood Count 6.9 10^3/uL (4.0-10.0)
[2020-06-09 07:12] LABS: Alanine Aminotransferase 14 U/L (0-41); Albumin Level 3.8 g/dL (3.5-5.2); Alkaline Phosphatase 48 IU/L (40-130); Aspartate Amino Transferase 22 U/L (0-40); Blood Urea Nitrogen 41 mg/dL (8-23); Calcium 9.1 mg/dL (8.5-10.5); Carbon Dioxide 18 mmol/L (22-29); Chloride 103 mmol/L (98-107); Globulin 3.6 g/dL (1.3-4.6); Glucose 117 mg/dL (65-115); Osmolality Calculated 287 mOsm/kg (285-295); Sodium 133 mmol/L (136-145); Total Bilirubin 0.4 mg/dL (0.15-1.2); Total Protein 7.4 g/dL (6.6-8.7)
[2020-06-09 09:17] LABS: C Reactive Protein 8.9 mg/L (0.0-4.9)
[2020-06-09] MEDS: carbidopa-levodopa 25-100mg Tablet 1 EACH PO (09:40)
[2020-06-09] MEDS: dexamethasone 4 mg/mL INJ 6 MG IVP (14:34)
--- NOTE | 2020-06-09 15:43 | PM.DCS ---
Discharge Providers Date of Admission: 06/07/20 02:44 Date of Discharge: June 09, 2020 Attending Provider at Admission: Lei Hercules MD Attending Provider at Discharge: Phillip Dupont Primary Care Provider: North Mancini MD Diagnoses at Discharge Discharge Diagnosis (1) COVID-19: Status: Acute (2) CHF exacerbation: Status: Acute Problem details: Improved. No additional diuretic for now due to poor oral intake. Please reassess volume status. (3) Chronic diarrhea: Status: Acute Reason for Visit Reason for Visit: SOB,COVID POSITIVE PER DOCTOR OFFICE Hospital Course Hospital Course: Very pleasant 85-year-old gentleman with Parkinson's disease, PVD and other chronic comorbidities was admitted for assessment management due to COVID-19 viral pneumonia, with transiently worsening oxygenation after admission due to which required initiation of from dysuria and dexamethasone, however, with very rapid improvement subsequently stable saturations in the low 90s without oxygen support. Was noted to have some fluid overload on admission with concern for possible congestive heart failure and so received short course of IV Lasix treatment. CTA showed no PE. Dependent atelectasis in lungs bilaterally. Please see full report for additional incidental findings of mild pancreatic atrophy, renal cysts, degenerative changes in the spine and shoulders. He has had no chest pain or pressure, with moderate elevation up to 147 thought to be secondary to demand ischemia in the setting of chronic kidney disease. EKG was not suggestive of ischemia. No aspirin is started for now due to very high fall risk. Once he recovers from his viral pneumonia, possibly additional assessment for coronary artery disease on nonurgent basis may be considered. His renal function has been stable, creatinine down to 1.6. D-dimer has been gradually decreasing. Clinically he has been feeling better. He reports little bit better appetite, feeling well but stronger. Denies any shortness of breath, chest pain or pressure, or any other symptoms that could be associated with COVID-19. His saturations have been little bit softer in the low 90s. He did do well on home oxygen evaluation and did not require oxygen to take home. He has been walking with a walker in the room and to the restroom with supervision and minor guidance/minimal assistance. Per discussion with her who is been roomed in the same room in the hospital, she will have no trouble with this level of assistance with him returning home. As his edema has significantly improved, and due to poor oral intake with somewhat soft blood pressures further diuresis is not continued at this time. Please reassess volume status going forward. Discussed with him, spouse and his son Dr. Peguero additional plan going forward. He has so far received 2 doses of Remdesivir and Decadron. Discussed also with her hospital COVID-19 task force. Given his otherwise stable clinical status with no fever, steady oxygenation not requiring any oxygen we have discussed it is likely he would do better at home in familiar surroundings under supervision of his spouse than prolonging additional hospitalization to complete course of Remdesivir. Considering also his renal function would be rather a contraindication to this therapy. Concern would also be for additional delirium and other complications with prolonging of hospitalization in this frail gentleman. Same goes for additional steroid treatment. Family agree with this since they will be vigilant at home. Family are aware to watch out for any signs of trouble, at which he may need to return to the hospital, although currently he himself reports he is feeling much better, and clinically is doing well. Physical Exam Const: COMMON NORMALS: no acute distress EXAM LIMITATIONS: altered mental status ORIENTATION/CONSCIOUSNESS: Yes awake OTHER: Sitting up in chair. Pleasant. Conversant. Denies any complaints. Asks how long have been in [place] and where I am from. In good spirits. He is happy about returning home. HENMT: COMMON NORMALS: oropharynx normal Neck/C-Spine: COMMON NORMALS: no JVD Resp: COMMON NORMALS: normal respiratory effort and clear to auscultation bilaterally AUSCULTATION: clear to auscultation bilaterally Cardio: COMMON NORMALS: no JVD, regular rhythm, S1 normal heart sound present, S2 normal heart sound present and No murmurs present (Cardio) RHYTHM: regular rhythm HEART SOUNDS: S1 normal heart sound present and S2 normal heart sound present GI: COMMON NORMALS: Normal to inspection, nondistended, normoactive bowel sounds present, Soft to palpation and non-tender PALPATION: Yes Soft to palpation Extremity: COMMON NORMALS: no joint enlargement OTHER: Trace ankle edema. Neuro: COMMON NORMALS: moves all extremities OTHER: Mild pill-rolling tremor. Skin: COMMON NORMALS: no rashes or lesions noted GENERAL SKIN EXAM: no rashes or lesions noted Discharge Data Data Completed and Pending: Completed Studies During Hospitalization Category Date Time Status CT angio chest PE protcl [id number] Urge nt Cat Scan 06/06/20 18:25 Completed XR chest 1V angela ble [id number] Urgent Exams 06/06/20 16:01 Completed Pending at discharge Category Date Time Status Blood Culture Sta t Lab 06/06/20 22:40 Results Labs from last 24 hours 06/09/20 06/09/20 06/09/20 04:58 04:58 04:58 WBC 6.9 RBC 3.79 L Hgb 11.8 Hct 35.7 L MCV 94.2 H MCH 31.1 MCHC 33.1 RDW 13.3 Plt Count 310 MPV 11.0 H Neut % (Auto) 79.9 Lymph % (Auto) 11.1 Taylor % (Auto) 8.2 Eos % (Auto) 0.1 Baso % (Auto) 0.1 Neut # (Auto) 5.53 Lymph # (Auto) 0.8 Taylor # (Auto) 0.6 Eos # (Auto) 0.0 Baso # (Auto) 0.0 Nucleated RBC % (a uto) 0 Nucleated RBCs # 0.0 D-Dimer Sodium 133 L Potassium 4.0 Chloride 103 Carbon Dioxide 18 L Anion Gap 16.0 BUN 41 H Creatinine 1.6 H GFR Calculation Not Reportable Glucose 117 H Calculated Osmolal ity 287 Calcium 9.1 Total Bilirubin 0.4 AST 22 ALT 14 Alkaline Phosphata se 48 C-Reactive Protein Total Protein 7.4 Albumin 3.8 Globulin 3.6 Procalcitonin 0.10 06/09/20 06/09/20 04:58 04:58 WBC RBC Hgb Hct MCV MCH MCHC RDW Plt Count MPV Neut % (Auto) Lymph % (Auto) Taylor % (Auto) Eos % (Auto) Baso % (Auto) Neut # (Auto) Lymph # (Auto) Taylor # (Auto) Eos # (Auto) Baso # (Auto) Nucleated RBC % (a uto) Nucleated RBCs # D-Dimer 1.60 H Sodium Potassium Chloride Carbon Dioxide Anion Gap BUN Creatinine GFR Calculation Glucose Calculated Osmolal ity Calcium Total Bilirubin AST ALT Alkaline Phosphata se C-Reactive Protein 8.9 H Total Protein Albumin Globulin Procalcitonin Vitals: Last Vital Signs Temp 96.7 F L 06/09/20 08:00 Pulse 70 06/09/20 11:00 Resp 17 06/09/20 11:00 BP 111/67 06/09/20 11:00 Pulse Ox 94 06/09/20 14:47 Discharge Plan Discharge Patient Disposition: Home Condition: Stable Prescriptions: Continued ropinirole 6 mg tablet extended release 24 hr 6 mg PO DAILY Qty: 30 RF: 6 sertraline 100 mg tablet 100 mg PO DAILY Qty: 30 RF: 5 gabapentin 300 mg capsule 300 mg PO DAILY RF: 0 entacapone 200 mg Tablet 200 mg PO DAILY RF: 0 carbidopa-levodopa 25-100 mg Tablet 1 tab PO DAILY RF: 0 Discharge Orders: Discharge Order (Routine); Ordered 06/09/20 Ordered By: Phillip Dupont Referrals: North Mancini MD [Primary Care Provider] - 2 weeks Discharge Diet: Advance as tolerated Activity Restrictions/Additional Instructions: Please add protein shakes with meals. Encourage oral intake. Monitor oxygen saturation if possible. If oxygen saturation is decreasing below 88-90%, if you are having significant shortness of breath, chest pain or pressure, fast breathing, any skin color change in fingers lips, etc. turning blue, any dizziness or fainting, severe weakness, high fever, or other abnormal symptoms, please seek medical attention without delay. Please measure blood pressure twice daily. For now no further diuretic is given due to poor appetite. Previously soft blood pressure in the hospital, although this is improved. Please follow-up with your primary care provider with regards to congestive heart failure, as diuretic may need to be resumed in case there is again fluid overload. Follow-up with your primary care provider also with regards to chronic kidney disease. For now maintain isolation. Work with your primary care doctor as to when it is safe to discontinue isolation. Subsequently resume follow-up with regards to Parkinson's disease. Discharge Attestations Time Spent in Discharge Care*: greater than 30 min Quality Metrics Clinical Quality Measures During this hospital stay, did patient experience: None Coding Level of Care Code Acute Waterproof Coating Machine Tender for Chg Fwd Diagnoses COVID-19 U07.1 CHF exacerbation I50.9 Chronic diarrhea K52.9
--- NOTE | 2020-06-09 17:39 | PC.NURSE ---
patient discharged home at this time; patient provided discharge instructions. patient assisted to wheel chair and accompanied to private vehicle all discharge instruction and belongings in hand patient alert oriented and in stable condition,
--- NOTE | 2020-06-13 10:39 | PC.SOCIAL ---
This advertising writer spoke with patients Mrs. Nighat Peguero [phone] on the phone. She stated that both her and her were doing well, all except last night when she was having a pancreatitis attack. She stated that she is doing well now. I asked if she or her had seen their PCP since discharge she stated that their appointment is not until June 24. I informer her that if she would not care, I would like to try to see if I can get their appointment moved up sooner. She stated that she would be fine with that. I called [facility] and they were able to move both their appointments up to this Tuesday at 8:30AM and 8:45AM. I did inform the nurse that Nighat was having the pancreatitis attacks. I spoke a little while about ways to protect their selves from the COVID as well as preventing the spread of the COVID. We spoke about proper face covering, proper hand washing, cleaning surfaces with disinfected, the family plans to have the home fogged to kill any bacteria as well as the car. We also spoke a bit about ways to keep their immune systems up which include healthy eating habits, keeping up on health screenings, lowering stress, and staying up to date with immunizations such as the flu and pneumonia vaccine. Another topic that was discussed was symptoms to monitor. These symptoms were; shortness of breath, trouble breathing, lips and/or face turning blue, tightness and pressure or pain in chest lasting longer then 5 minutes, and fever of 104 or higher. She stated that they did not have any of the symptoms. I also was able to educate both the and on the benefits of plasma donation. They found the information very interesting but feel they will likely not be able to donate.
== END 2020-06-09 17:39 | disposition home or self-care (01) | DRG 177 ==
LOC: ER 06-07 00:26 → ICU 06-07 02:45
PROVIDERS: Internal Medicine; Nurse Practitioner Family; Admitting Provider Internal Medicine; Family Provider Family Medicine; PCP Family Medicine; Visit Provider Internal Medicine
DX: U07.1 COVID-19 (principal); J12.89 Other viral pneumonia; J96.00 Acute respiratory failure, unspecified whether with hypoxia or hypercapnia; N13.8 Other obstructive and reflux uropathy; K52.9 Noninfective gastroenteritis and colitis, unspecified; I50.9 Heart failure, unspecified; G20 Parkinson's disease; F32.9 Major depressive disorder, single episode, unspecified; I73.9 Peripheral vascular disease, unspecified; N40.1 Benign prostatic hyperplasia with lower urinary tract symptoms; N39.498 Other specified urinary incontinence
CPT/HCPCS: 12345; 71045; 71275; 80053; 81001; 82550; 83605; 83880; 84145; 84484; 85025; 85378; 85384; 85610; 86140; 87040; 87205; 93005; 96372; 96375; 97116; 97162; 99284; J1100; J1650; J2405; J7030; J7050; Q9967

== ENCOUNTER → 2020-08-13 13:05 | Outpatient (BNVA) | payer MEDICARE, BC, SELFPAY | PROVIDERS: Family Provider Family Medicine; PCP Family Medicine; Visit Provider Urology | DX: N40.1 Benign prostatic hyperplasia with lower urinary tract symptoms (principal); N39.41 Urge incontinence; K59.09 Other constipation | CPT/HCPCS: 81003 ==

== ENCOUNTER → 2020-10-01 13:21 | Outpatient (BNVA) | payer MEDICARE, BC, SELFPAY | PROVIDERS: Family Provider Family Medicine; PCP Family Medicine; Visit Provider Urology | DX: N39.41 Urge incontinence (principal); N40.1 Benign prostatic hyperplasia with lower urinary tract symptoms; K59.09 Other constipation | CPT/HCPCS: 81003 ==

== ENCOUNTER → 2020-12-31 14:38 | Outpatient (BNVA) | payer MEDICARE, BC, SELFPAY | PROVIDERS: Family Provider Family Medicine; PCP Family Medicine; Visit Provider Urology | DX: N40.1 Benign prostatic hyperplasia with lower urinary tract symptoms (principal); N39.41 Urge incontinence | CPT/HCPCS: 81003 ==

== ENCOUNTER → 2021-07-07 14:53 | Outpatient (BNVA) | payer MEDICARE, BC, SELFPAY | PROVIDERS: Family Provider Family Medicine; PCP Family Medicine; Visit Provider Urology | DX: N40.1 Benign prostatic hyperplasia with lower urinary tract symptoms (principal) | CPT/HCPCS: 81003 ==

== ENCOUNTER → 2021-08-31 14:55 | Outpatient (BNVA) | payer MEDICARE, BC, SELFPAY | PROVIDERS: Family Provider Family Medicine; PCP Family Medicine; Visit Provider Specialist | DX: G20 Parkinson's disease (principal); F02.80 Dementia in other diseases classified elsewhere, unspecified severity, without behavioral disturbance, psychotic disturbance, mood disturbance, and anxiety; R26.81 Unsteadiness on feet | CPT/HCPCS: 96116; 99214; 99215 ==

== ENCOUNTER 2021-11-20 12:23 | Inpatient (IN) | payer MEDICARE, BC, SELFPAY ==
[2021-11-20] VITALS (35 sets, daily range): BP systolic 98–152; BP diastolic 51–88; PULSE 52–71; RESP 12–19; TEMP 36.6–37.1; O2SAT 91–97; BMI 39.4
--- NOTE | 2021-11-20 12:27 | XR_ITS ---
WS: [id number] CHEST XRAY TECHNIQUE: Portable chest. CLINICAL INFORMATION: AMS COMPARISON: June 06, 2020 FINDINGS: Heart: Cardiomegaly. Tortuous thoracic aorta. Lungs: Elevation RIGHT hemidiaphragm. Slight atelectasis RIGHT lower lobe medially. Chronic emphysema tous changes. Bones: Normal visualized bony structures. XR/XR chest 1V portable [id number] IMPRESSION: 1. Cardiomegaly. 2. Elevation RIGHT hemidiaphragm is new from previous with slight atelectasis RIGHT lower lobe medially. 3. Chronic emphysematous changes.
--- NOTE | 2021-11-20 12:28 | ECG_ITS ---
[facility] Test Date: 2021-11-20 Pat Name: Jay Peguero Department: Room: Gender: Male Tanner [employer] Continuous Process: : 1935 Requested By: Brice Truong Order Number: [id number] Claire MD: Isis Null M.D. Measurements Intervals [place] Rate: 57 P: 18 IN: 198 QRS: -40 QRSD: 90 T: 39 QT: 446 QTc: 438 Interpretive Statements SINUS BRADYCARDIA LEFT AXIS DEVIATION [QRS AXIS < -30] LOW QRS VOLTAGE IN EXTREMITY LEADS [QRS DEFLECTION < 0.5 mV IN LIMB LEADS] Compared to ECG 06/06/2020 17:11:05 Low QRS voltage now present Sinus rhythm no longer present Electronically Signed On 11-21-2021 8:33:00 BONDING EQUIPMENT OPERATOR by Isis Null M.D. [id number]
--- NOTE | 2021-11-20 12:28 | CT_ITS ---
WS: [id number] CT HEAD TECHNIQUE: Noncontrast CT of the head obtained from the skullbase to the vertex. CLINICAL INFORMATION: Symptoms of Acute Stroke COMPARISON: None. DLP: All CT scans at [facility] use at least one of these dose optimization techniques: automated e xposure control; mA and/or kV adjustment per patient size (includes targeted exams where dose is matc hed to clinical indication); or iterative reconstruction. FINDINGS: No evidence of intracranial hemorrhage or mass effect. Ventricular system and basal cisterns are murray nt. Mild small vessel changes with mild parenchymal volume loss. 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 No extra-axial fluid collections. No evidence of mass or mass effect Paranasal sinuses and mastoid air cells are well aerated. .Normal visualized soft tissues. CT/CT head wo con* [id number] IMPRESSION: 1. No evidence of intracranial hemorrhage or mass effect. 2. Mild small vessel changes. Mild parenchymal volume loss. 3. No acute intracranial findings. Notified Brice Gomez DO at 11/20/2021 12:41 PM.
--- NOTE | 2021-11-20 12:29 | ED_ITS ---
HPI - Neuro Symptoms/Deficit General: Chief Complaint: Neuro Symptoms/Deficit Stated Complaint: STROKE LIKE SYMPTOMS Time Seen by Provider: 11/20/21 12:27 Source: family and EMS Mode of arrival: EMS Limitations: altered mental status History of Present Illness: 86-year-old male presents via EMS from home. Is a report of altered mental status and flaccid left-sided weakness of the arms and legs. As well as left-sided facial droop difficulty with speaking. Last known well was this morning at 1120 which approximately 1 hour prior to arrival. Initially there is no family at the bedside. Patient is able to answer questions has some dysarthria. Initial NIHSS score is 9. Patient does have some underlying Parkinson's as well according to the chart. Onset (ago): hour(s) (1) Time: 11:20 Timing confirmed by: family member Location: speech, left arm and left leg Severity: moderate Quality: weak and tingling Relieving factors: none Exacerbating factors: none Context: sudden onset Associated symptoms: Reports weakness; Deny chest pain, cough, diaphoresis, fevers/chills, headache(s), anorexia, malaise, nausea, seizures, short of breath, syncope, tingling, vertigo or vomiting Treatments Prior to Arrival: none Review of Systems General: Reports: Other (Review of systems repeated after TPA was given patient symptoms have marked) Const: Denies: malaise or diaphoresis ENMT: Denies: throat pain, ear or mastoid pain, nasal discharge or nasal congestion Card: Denies: chest pain or syncope Resp: Denies: dyspnea, productive cough or non-productive cough GI: Denies: nausea or vomiting : Denies: flank pain, dysuria, urinary frequency or urinary urgency Skin/Breast: Denies: rash or pruritus Neuro: Denies: headache(s) or vertigo PFSH ED PFSH: Medical History Balanitis 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 Depression Hypotension Parkinsons disease PVD (peripheral vascular disease) Urgency incontinence Surgical History History of bilateral knee replacement History of varicose vein stripping Hx of hemorrhoidectomy Family History Family/Other Dementia Hypertension Social History Smoking and tobacco status: never smoked Alcohol intake: never Household members: spouse Marital status: Current occupational status: retired History of recent travel: No NIH stroke score NIHSS: Level Of Consciousness - 1a: 1 Level Of Consciousness Questions - 1b: Both Correct Level Of Consciousness Commands - 1c: Both Correct Best Gaze - 2: Normal Visual [place] - 3: No Visual Loss Facial Palsy - 4: Normal Motor Arm Right - 5: No Drift Motor Arm Left - 5: No Effort Against [place] Motor Leg Right - 6: No Drift Motor Leg Left - 6: Drift Limb Ataxia - 7: Present In Two Limbs Sensory - 8: Mild To Moderate Loss Best Language - 9: No Aphasia Dysarthia - 10: Mild/Moderate Dysarthia Extinction And Inattention - 11: 0 Score: Total Score: 9 Physical Exam Const: GENERAL APPEARANCE: cooperative and comfortable ORIENTATION/C ONSCIOUSNESS: Yes awake, Yes oriented to person, Yes oriented to place and Yes oriented to time HENMT: COMMON NORMALS: normocephalic, atraumatic and hearing grossly normal bilaterally HEAD & SCALP: normocephalic and atraumatic Eye: COMMON NORMALS: Equal, round and reactive pupils present, EOMs intact bilaterally, conjunctivae normal and no scleral icterus CONJUNCTIVA: Yes conjunctivae normal PUPIL: Yes Equal, round and reactive pupils present Neck/C-Spine: COMMON NORMALS: full ROM, no lymphadenopathy, supple and no JVD Resp: COMMON NORMALS: normal respiratory effort, No retractions, No use of accessory muscles and clear to auscultation bilaterally AUSCULTATION: clear to auscultation bilaterally Cardio: COMMON NORMALS: no JVD, regular rate, regular rhythm and No murmurs present (Cardio) RATE: regular rate RHYTHM: regular rhythm GI: COMMON NORMALS: Soft to palpation and No hepatosplenomegaly present AUSCULTATION: Yes normoactive bowel sounds PALPATION: Yes Soft to palpation, No Tenderness to palpation present (GI), No Guarding due to palpation present (GI) and Yes No hepatosplenomegaly present Extremity: COMMON NORMALS: normal to inspection, capillary refill normal, no clubbing, cyanosis or edema, no calf tenderness and no pedal edema Neuro: SENSORIUM/ORIENTATION: Yes oriented to person, Yes oriented to place and Yes oriented to time Skin: COMMON NORMALS: no rashes or lesions noted GENERAL SKIN EXAM: no rashes or lesions noted Course Vital Signs: Vital signs: Vital Signs Temperature 97.5 F L 11/21/21 12:00 Pulse Rate 66 11/21/21 12:00 Respiratory Rate 14 11/21/21 12:00 Blood Pressure 107/63 11/21/21 12:00 Pulse Oximetry 91 11/21/21 12:00 MDM - Neuro Symptoms/Deficit Medical Decision Making Acute CVA. Discussed with radiologist he concurs there is no active bleeding. Reviewed patient's chart is not any anticoagulants there is no contraindications. Stroke score may be slightly overly estimated due to his underlying Parkinson's but even accounting for that he still has a stroke score which qualifies he certainly within the timeframe. Discussed with the patient he wishes to proceed. His son is a neurosurgeon I contacted him he also would like us to proceed with a TPA. Patient consented tPA started I also consulted Dr. Torres is on-call via phone prior to initiating TPA she also agreed. Within 30 minutes of initiating the TPA patient had significant improvement complete resolution of his arm weakness and significant relative resolution of his leg weakness. Medical Records I reviewed the patient's medical records. Lab Data I reviewed the patient's lab results. : 11/21/21 02:45 11/21/21 04:24 Radiology Impressions Chest X-Ray 11/20/21 12:27 IMPRESSION: 1. Cardiomegaly. 2. Elevation RIGHT hemidiaphragm is new from previous with slight atelectasis RIGHT lower lobe medially. 3. Chronic emphysematous changes. Head/Neck CTA 11/20/21 13:16 IMPRESSION: 1. No significant ICA stenosis bilaterally. 2. No flow-limiting intracranial stenosis. 3. LEFT dominant vertebral artery. Smaller but patent RIGHT vertebral artery which ends in PICA. Head CT 11/21/21 00:49 IMPRESSION: No acute intracranial abnormality. Laboratory Results WBC 4.4 10^3/uL (4.0-10.0) 11/20/21 12:07 RBC 3.84 10^6/uL (4.1-5.3) L 11/20/21 12:07 Hgb 12.3 g/dL (11.7-16.6) 11/20/21 12:07 Hct 38.2 % (42.0-52.0) L 11/20/21 12:07 MCV 99.5 fl (80-94) H 11/20/21 12:07 MCH 32.0 pg (28.0-34.0) 11/20/21 12:07 MCHC 32.2 g/dL (30.0-36.0) 11/20/21 12:07 RDW 13.2 % (12.1-15.1) 11/20/21 12:07 Plt Count 211 10^3/cmm (130-400) 11/20/21 12:07 MPV 10.3 fL (7.4-10.4) 11/20/21 12:07 Neut % (Auto) 54.0 % 11/20/21 12:07 Lymph % (Auto) 22.5 % 11/20/21 12:07 [place] % (Auto) 12.4 % 11/20/21 12:07 Eos % (Auto) 9.5 % 11/20/21 12:07 Baso % (Auto) 1.1 % 11/20/21 12:07 Neut # (Auto) 2.40 10^3/uL (1.8-7.7) 11/20/21 12:07 Lymph # (Auto) 1.0 10^3/uL (0.8-4.8) 11/20/21 12:07 [place] # (Auto) 0.6 10^3/uL (0.2-0.9) 11/20/21 12:07 Eos # (Auto) 0.4 10^3/uL (0.0-0.8) 11/20/21 12:07 Baso # (Auto) 0.1 10^3/uL (0.0-0.1) 11/20/21 12:07 Nucleated RBC % (auto) 0 % 11/20/21 12:07 Nucleated RBCs # 0.0 /100WBC 11/20/21 12:07 PT 14.00 SECONDS (12.1-14.9) 11/20/21 12:07 INR 1.05 (0.8-1.2) 11/20/21 12:07 APTT 29.5 SECONDS (23.9-36.7) 11/20/21 12:07 Sodium 137 mmol/L (136-145) 11/20/21 12:07 Potassium 4.1 mmol/L (3.5-5.1) 11/20/21 12:07 Chloride 102 mmol/L (98-107) 11/20/21 12:07 Carbon Dioxide 24 mmol/L (22-29) 11/20/21 12:07 Anion Gap 15.1 (5-19) 11/20/21 12:07 BUN 34 mg/dL (8-23) H 11/20/21 12:07 Creatinine 1.5 mg/dL (0.7-1.2) H 11/20/21 12:07 GFR Calculation Not Reportable 11/20/21 12:07 Glucose 115 mg/dL (65-115) 11/20/21 12:07 Calculated Osmolality 293 mOsm/kg (285-295) 11/20/21 12:07 Calcium 8.8 mg/dL (8.5-10.5) 11/20/21 12:07 Total Bilirubin 0.5 mg/dL (0.15-1.2) 11/20/21 12:07 AST 16 U/L (0-40) 11/20/21 12:07 ALT 7 U/L (0-41) 11/20/21 12:07 Alkaline Phosphatase 50 IU/L (40-130) 11/20/21 12:07 Total Protein 6.8 g/dL (6.6-8.7) 11/20/21 12:07 Albumin 4.4 g/dL (3.5-5.2) 11/20/21 12:07 Globulin 2.4 g/dL (1.3-4.6) 11/20/21 12:07 TSH 1.56 uIU/mL (0.27-4.20) 11/20/21 12:07 Critical Care Time Critical Care Time: Critical Care Time: Yes Total Critical Care Time: 45 Attestation: The high probability of a clinically significant, sudden or life threatening deterioration of the patient's neurologic system(s) required my full and direct attention, intervention and personal management. The critical care time is as shown. 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
[2021-11-20 12:38] LABS: Basophils # 0.1 10^3/uL (0.0-0.1); Basophils % 1.1 %; Eosinophils # 0.4 10^3/uL (0.0-0.8); Eosinophils % 9.5 %; Hematocrit 38.2 % (42.0-52.0); Hemoglobin 12.3 g/dL (11.7-16.6); Lymphocytes % 22.5 %; Mean Corpuscular HGB Conc 32.2 g/dL (30.0-36.0); Mean Corpuscular Volume 99.5 fl (80-94); Mean Platelet Volume 10.3 fL (7.4-10.4); Monocytes # 0.6 10^3/uL (0.2-0.9); Monocytes % 12.4 %; Nucleated Red Blood Cells % 0 %; Platelet Count 211 10^3/cmm (130-400); Red Blood Count 3.84 10^6/uL (4.1-5.3); Red Cell Distribution Width 13.2 % (12.1-15.1); White Blood Count 4.4 10^3/uL (4.0-10.0)
[2021-11-20 12:46] LABS: INR 1.05 (0.8-1.2)
[2021-11-20 12:47] LABS: Partial Thromboplastin Time 29.5 SECONDS (23.9-36.7)
[2021-11-20 12:52] LABS: Alanine Aminotransferase 7 U/L (0-41); Albumin Level 4.4 g/dL (3.5-5.2); Alkaline Phosphatase 50 IU/L (40-130); Anion Gap 15.1 (5-19); Aspartate Amino Transferase 16 U/L (0-40); Blood Urea Nitrogen 34 mg/dL (8-23); Calcium 8.8 mg/dL (8.5-10.5); Carbon Dioxide 24 mmol/L (22-29); Chloride 102 mmol/L (98-107); Globulin 2.4 g/dL (1.3-4.6); Glucose 115 mg/dL (65-115); Osmolality Calculated 293 mOsm/kg (285-295); Potassium 4.1 mmol/L (3.5-5.1); Sodium 137 mmol/L (136-145); Total Bilirubin 0.5 mg/dL (0.15-1.2); Total Protein 6.8 g/dL (6.6-8.7)
--- NOTE | 2021-11-20 13:16 | CT_ITS ---
WS: [id number] CTA HEAD AND NECK TECHNIQUE: Contrast enhanced CTA of the head and neck with coronal and sagittal reformatted images an d maximum intensity projection (MIP) images. NASCET criteria utilized. CLINICAL INFORMATION: acute CVA - TPA given COMPARISON: None. DLP: 2108.[address] scans at [facility] use at least one of these dose optimization techniques: automated e xposure control; mA and/or kV adjustment per patient size (includes targeted exams where dose is matc hed to clinical indication); or iterative reconstruction. FINDINGS: RIGHT: RIGHT common carotid artery is patent. Mild atheromatous plaque RIGHT carotid bulb extending i nto the ICA. No significant RIGHT ICA stenosis. ICA is patent to the skull base. LEFT: LEFT common carotid artery is patent. Mild atheromatous plaque LEFT carotid bulb. No significan t LEFT ICA stenosis. LEFT ICA is patent to the skull base. INTRACRANIAL CTA: LEFT dominant vertebral artery. Smaller but patent RIGHT vertebral artery ends in PICA. Mild stenosis LEFT vertebral artery origin. Basilar artery is patent. Normal vascularity to the CAREER GUIDANCE COUNSELOR territory bila terally. Persistent RIGHT CAREER GUIDANCE COUNSELOR. Both ICAs are patent at the skull base. Hypoplastic RIGHT A1 segment. Normal vascularity to the STAR a nd MCA territories bilaterally. No evidence of intracranial flow-limiting stenosis. Mastoid air cells and paranasal sinuses are well aerated. Lung apices are well aerated. Mild to mode rate spondylitic changes cervical spine. CT/CT angio headneck* [id number] IMPRESSION: 1. No significant ICA stenosis bilaterally. 2. No flow-limiting intracranial stenosis. 3. LEFT dominant vertebral artery. Smaller but patent RIGHT vertebral artery w hich ends in PICA.
--- NOTE | 2021-11-20 13:41 | PC.NURSE ---
PATIENT GIVEN BOLUS OF TPA AT 1247 AND INFUSION STARTED AT 1248 AT 68 ML/HR. 15.8 ML WASTED WITH ELSA WETZEL. [id number] NEURO CHECKS COMPLETED. SEE SCANNED DOCUMENTS FOR NEURO CHECKS.
[2021-11-20] MEDS: iodixanol 320 mg/mL 100mL Btl IV (14:02)
--- NOTE | 2021-11-20 14:12 | PC.NURSE ---
PATIENT SPEECH VERIFIED WITH FAMILY THAT SPEECH PATTERN IS NORMAL FOR PATIENT.
--- NOTE | 2021-11-20 14:28 | PC.NURSE ---
PATIENT ABLE TO PERFORM HEEL OMYA SLIDES BUT COMPLAINS OF DISCOMFORT IN HIS RIGHT HIP. PATIENT FAMILY STATES PATIENT COMPLAINS OF RIGHT HIP PAIN FREQUENTLY.
--- NOTE | 2021-11-20 15:52 | PC.NURSE ---
Arrived from ED via stretcher, transferred to bed via lift sheet, AO x3, follows commands, no deficit noted to any extremity, L pupil slightly large than Right, slight speech slur
[2021-11-20 16:45] LABS: Add Urine Microscopic? NO; Charge for UA Resulting for Rev
--- NOTE | 2021-11-20 16:48 | USCV_ITS ---
Jay Peguero Age: 86 Gender: M : 1935 Exam Date: 11/20/2021 17:32 Ordering Phys: Phillip Dupont MD Technologist: MADI Exam Location: [facility] – [place] Indication: CVA BP: 149 / 84 HR: 54 Rhythm: Sinus Technical Quality: Technically difficult study MEASUREMENTS (Male / Female) Normal Values 2D ECHO LV Diastolic Diameter PLAX 3.6 cm 4.2 - 5.9 / 3.9 - 5.3 cm IVS Diastolic Thickness 1.0 cm 0.6 - 1.0 / 0.6 - 0.9 cm LVPW Diastolic Thickness 1.4 cm 0.6 - 1.0 / 0.6 - 0.9 cm LVOT Diameter 2.0 cm LV Ejection Fraction MOD 2C 66.5 % LV Ejection Fraction 2C AL 67.7 % LA Diameter 3.5 cm Aorta at Sinotubular Diameter 3.0 cm M-MODE Aortic Annulus Diameter 3.6 cm LA Ao Ratio MM 0.9 MV E Point Septal Separation 0.7 cm DOPPLER LVOT Peak Velocity 80.0 cm/s MV Area PHT 3.9 cm squared Mitral E to A Ratio 0.8 MV E' Velocity 34.5 cm/s Mitral E to MV E' Ratio 11.8 Mitral E to LV E' Lateral Ratio 13.8 Mitral E to LV E' Septal Ratio 10.3 TR Peak Velocity 269.0 cm/s TR Peak Gradient 28.9 mmHg TV Peak E Velocity 41.0 cm/s Right Atrial Pressure 3.0 mmHg Pulmonary Artery Systolic Pressu 31.9 mmHg PV Peak Velocity 61.0 cm/s RV Acceleration Time 0.1 s RV Ejection Time 0.3 s RV AcT/ET 0.2 FINDINGS Left Ventricle Normal left ventricular cavity size. Normal left ventricular systolic function. Left ventricular ejection fraction is estimated at 60 %. Although no diagnostic regional wall motion are adequate verified, this possibility cannot be completely excluded based on the study. Grade II diastolic dysfunction, moderately elevated filling pressures. Right Ventricle Normal right ventricular size and systolic function. Right Atrium Right atrium not well visualized. Left Atrium Left atrium not well visualized. Normal left atrial size. Mitral Valve Mild mitral annular calcification. No mitral valve stenosis. Aortic Valve Structurally normal trileaflet aortic valve. Tricuspid Valve Tricuspid valve not well visualized. Pulmonic Valve Pulmonic valve not well visualized. Pericardium No pericardial effusion. Aorta Aorta not well visualized. CONCLUSIONS 1. This is a technically difficult study. 2. Normal left ventricular cavity size and systolic function. Left ventricular ejection fraction is estimated at 60 %. Although no diagnostic regional wall motion are adequate verified, this possibility cannot be completely excluded based on the study. Grade II diastolic dysfunction, moderately elevated filling pressures. 3. Normal right ventricular size and systolic function. 4. No prior similar studies to compare. Isis Null MD (Electronically Signed) Final Date: 21 November 2021 15:44 S
[2021-11-20 16:53] LABS: Bilirubin Urine Neg (Negative); Blood Urine Neg (Negative); Glucose Urine UA Norm (Normal); Ketones Urine Negative (Negative); Leukocyte Esterase Urine Negative (Negative); Nitrate Urine Negative (Negative); Protein Urine Neg (Negative); Urine Appearance Clear (CLEAR); Urine Color Yellow (Yellow); Urobilinogen Urine 1 mg/dL (Negative); pH Urine 6.5 (5-7)
[2021-11-20 16:59] LABS: Amphetamines Screen Urine Negative (Negative); Barbiturates Screen Urine Negative (Negative); Benzodiazepines Screen Urine Negative (Negative); Cocaine Screen Urine Negative (Negative); Opiate Screen Urine Negative (Negative); PCP Screen Urine Negative (Negative); THC Screen Urine Negative (Negative)
--- NOTE | 2021-11-20 17:51 | PM.HP ---
Providers/Chief Complaint Admitting Physician: Phillip Dupont Primary Care Provider: North Mancini MD Chief Complaint: STROKE LIKE SYMPTOMS History of Present Illness Pleasant 86-year-old gentleman with history of Parkinson's disease, orthostatic hypotension, recently with somewhat more orthostatic episodes, had a difficult night last night, needing to get up to urinate, but feeling dizzy, this morning around 11:20 AM he got up to try to go to the restroom, but on the way back was found slumped over towards his left side leading on the wall. With noted left side upper and lower weakness, with slurred speech was brought in to ER with confirmed finding of moderate and speech deficits, without bleed on CT head received treatment with TPA for CVA. CT angiogram head and neck obtained with no significant ICA stenosis bilaterally, no flow-limiting intracranial stenosis. Left dominant vertebral artery. Small but patent right vertebral artery which ends in PICA. HE had good response to treatment with imrpovement with resolution of weakness on L side and improvement in slurred speech with some residual although with some chroninc slurred speech with parkinson's disease. Review of Systems Const: Denies: fever(s), chills, body aches or malaise Eyes: Denies: change in vision or eye redness ENMT: Denies: throat pain, oral sores or ear or mastoid pain Card: Denies: chest pain, edema, pre-syncope or dyspnea on exertion Resp: Denies: dyspnea, productive cough, change in phlegm color or hemoptysis GI: Denies: abdominal pain, nausea, vomiting, diarrhea, constipation, hematochezia or melena : Denies: flank pain, difficulty urinating, urinary frequency or hematuria Musc: Denies: back pain, joint swelling or joint redness Skin/Breast: Denies: rash, sores or new lesions Neuro: Reports: weakness in extremities and Slurred speech present; Denies: headache(s), numbness in extremities, dizziness, confusion or seizure-like activity Endo: Denies: polyuria or polydipsia Peter/Lymph: Denies: easy bleeding or purpura All/Imm: Denies: urticaria, throat swelling or tongue swelling Medications/Allergies Home Medications Medication Instructions Recorded Confirmed Last Taken Type gabapentin 300 mg capsule 300 mg PO BEDTIME 11/07/19 11/20/2111/19/22 History Super Beta Prostate 1 cap PO QAM 11/20/21 11/20/21 11/19/21 History Vitamin B-12 1 tab PO QAM 11/20/21 11/20/21 11/19/21 History Vitamin D3 1 cap PO QAM 11/20/21 11/20/21 11/19/21 History alfuzosin 10 mg tablet,extended 10 mg PO QPM 11/20/21 11/20/21 11/19/21 History release 24 hr carbidopa 25 mg-levodopa 100 mg 2 tab PO TID@00,06,12 11/20/21 11/20/21 11/19/21 History tablet donepezil 10 mg tablet 10 mg PO QAM 11/20/21 11/20/21 11/19/21 History sertraline 100 mg tablet 100 mg PO BEDTIME 11/20/21 11/20/21 11/19/21 History Allergies Allergy/AdvReac Type Severity Reaction Status Date / Time No Known Allergies Allergy Verified 11/20/21 13:35 PFSH Acute PFSH: Medical History Balanitis 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 Depression Hypotension Parkinsons disease PVD (peripheral vascular disease) Urgency incontinence Surgical History History of bilateral knee replacement History of varicose vein stripping Hx of hemorrhoidectomy Family History Family/Other Dementia Hypertension Social History (Updated 11/20/21 @ 17:53 by Phillip Dupont MD) Smoking and tobacco status: never smoked Alcohol intake: never Household members: spouse Marital status: Current occupational status: retired History of recent travel: No Vitals/I&O/Wt Last Vital Signs Temp 98.6 F 11/20/21 16:30 Pulse 64 11/20/21 17:30 Resp 16 11/20/21 17:30 BP 149/84 11/20/21 17:30 Pulse Ox 95 11/20/21 17:00 03/01/0811/20/21 11/20/21 06:59 14:59 22:59 Intake Total 84.2 / 84.2 Output Total 200 / 200 Balance 84.2 / 84.2 -200 / -115.8 Weight last 48 hrs Weight 124.738 kg Physical Exam Narrative: 2 people from family at bedside including his Const: COMMON NORMALS: no acute distress and patient oriented x3 GENERAL APPEARANCE: cooperative and frail appearing HENMT: COMMON NORMALS: oropharynx normal Neck/C-Spine: COMMON NORMALS: no JVD Resp: COMMON NORMALS: normal respiratory effort and clear to auscultation bilaterally AUSCULTATION: clear to auscultation bilaterally Cardio: COMMON NORMALS: no JVD, regular rhythm, S1 normal heart sound present, S2 normal heart sound present and No murmurs present (Cardio) RHYTHM: regular rhythm HEART SOUNDS: S1 normal heart sound present and S2 normal heart sound present GI: COMMON NORMALS: Normal to inspection, nondistended, normoactive bowel sounds present, Soft to palpation and non-tender PALPATION: Yes Soft to palpation Extremity: COMMON NORMALS: no joint enlargement and no pedal edema Neuro: COMMON NORMALS: patient oriented x3 and moves all extremities SENSORIUM/ORIENTATION: Yes alert MENINGEAL SIGNS: Yes no meningeal signs CRANIAL NERVES: Yes CN normal except as noted COORDINATION/BALANCE: [id number] test normal SPEECH: abnormal speech Details: slurred SENSORY EXAM: Yes Normal double simultaneous stimulation for sensation MOTOR EXAM: Pronator motor function not present, Tremors during motor activity present, Abnormal muscle tone present cogwheel rigidity: all and Other motor observations present (4/5 BL UE, 3/5 BL LE) PLANTAR REFLEX: equivocal: bilateral COORDINATION: [id number] test normal OTHER: No trouble with responding or following commands. Visual smith full to confrontation. Skin: COMMON NORMALS: no rashes or lesions noted GENERAL SKIN EXAM: no rashes or lesions noted Data : 11/20/21 12:07 11/20/21 12:07 A&P Assessment and plan (1) CVA (cerebral vascular accident): Status post TPA with good improvement in symptoms resolution of left side motor deficits, some residual dysarthria, although does have some baseline dysarthria due to Parkinson's. Admitted to intensive care unit. Close monitoring after TPA. Hold aspirin for now. Monitor blood pressures. CTA without significant stenosis. Monitor on telemetry. Assess TTE. Start statin. Check lipid profile. A1c. ST, PT, OT assessment. Follow-up with neurology in office. Discussed with his family at bedside. Status: Acute Plan CKD: Appears to have CKD, creatinine appears to be at baseline, 1.5. Discussed with family. Would benefit from from follow-up. PD LBD Orthostatic hypotension BPH Depression Other chronic medical conditions also noted Attestations Medical Necessity Statement*: Admission over 2 midnights expected for assessment management of acute CVA, status post TPA. Coding Level of Care Code Acute Energy Conservation Director for Ivonne Garcia Diagnoses CVA (cerebral vascular accident) I63.9
[2021-11-20 19:46] LABS: Thyroid Stimulating Hormone 1.56 uIU/mL (0.27-4.20)
[2021-11-20] MEDS: sertraline 100 mg Tablet PO (20:44)
[2021-11-20] MEDS: gabapentin 300 mg Capsule PO (20:44)
[2021-11-20 20:53] LABS: Estmated Average Glucose 111; Hemoglobin A1C 5.5 % (4.0-6.0)
[2021-11-20] MEDS: carbidopa-levodopa 25-100mg Tablet 2 EACH PO (23:18)
[2021-11-21] VITALS (53 sets, daily range): BP systolic 78–141; BP diastolic 46–78; PULSE 59–144; RESP 1–30; TEMP 36.4–37.3; O2SAT 86–94; BMI 39.3
[2021-11-21 00:35] LABS: Glucose Point of Care 103 mg/dL (70-110)
--- NOTE | 2021-11-21 00:49 | CTR_ITS ---
PROCEDURE INFORMATION: Exam: CT Head Without Contrast Exam date and time: 11/21/2021 12:49 AM Age: 86 years old Clinical indication: Alteration of consciousness; Transient alteration of awareness; Patient HX: 10 hrs p tpa episode of unresponsiveness; Additional info: New onset of AMS post tpa TECHNIQUE: Imaging protocol: Computed tomography of the head without contrast. Radiation optimization: All CT scans at this facility use at least one of these dose optimization techniques: automated exposure control; mA and/or kV adjustment per patient size (includes targeted exams where dose is matched to clinical indication); or iterative reconstruction. COMPARISON: CT head wo con* [id number] 11/20/2021 12:24 PM RADIATION DOSE METRICS: Total DLP (mGy-cm): 1021.71 FINDINGS: Brain: Age appropriate atrophy and small vessel ischemic change. No evidence of intracranial hemorrhage, mass effect, midline shift or extra-axial fluid collections. Midline structures are normal. Joyner-white matter differentiation is normal. Cerebral ventricles: No ventriculomegaly. Paranasal sinuses: Visualized sinuses are unremarkable. No fluid levels. Mastoid air cells: Visualized mastoid air cells are well aerated. Orbital cavity: The patient has had bilateral lens replacement surgery. Vasculature: Carotid atherosclerotic calcification. Bones/joints: Unremarkable. No acute fracture. Soft tissues: Unremarkable. CT/CT head wo con* [id number] IMPRESSION: No acute intracranial abnormality.
--- NOTE | 2021-11-21 01:04 | PC.NURSE ---
0045 RN responded to call light, and pt requested assistance to bedside commode. Pt up to bsc with 2 nurse assist. Once sitting down, pt slumped over unable to support his weight and beginning to drool. RN performed quick neuro assessment. Pt unable to respond to requests by RN or able to answer name/date type questions. Second RN at bed to witness event. MD was notified. Pt placed back into bed by ICU staff. MD came to bedside at time of being placed back into bed, and performed further neuro assessments. Pt became more alert and oriented, and began answering all questions and following all commands requested of him. BG assessment was obtained by RN. New orders for STAT head CT without contrast, EKG, and to continue with previously ordered neuro assessment frequencies. Pt was phoned and updated on his status. verbalized that this occurrence happens regularly at home, to which pt has loss of consciousness. Pt taken to CT without incident by RN X2. Now resting comfortably in ICU bed. A&O3. VSS.
[2021-11-21 03:04] LABS: Basophils # 0.1 10^3/uL (0.0-0.1); Basophils % 0.8 %; Eosinophils # 0.4 10^3/uL (0.0-0.8); Eosinophils % 4.5 %; Hematocrit 38.6 % (42.0-52.0); Hemoglobin 12.5 g/dL (11.7-16.6); Lymphocytes % 10.8 %; Mean Corpuscular HGB Conc 32.4 g/dL (30.0-36.0); Mean Corpuscular Hemoglobin 32.4 pg (28.0-34.0); Mean Platelet Volume 10.7 fL (7.4-10.4); Monocytes # 0.8 10^3/uL (0.2-0.9); Monocytes % 8.5 %; Neutrophils % 75.1 %; Nucleated Red Blood Cells % 0 %; Platelet Count 198 10^3/cmm (130-400); Red Blood Count 3.86 10^6/uL (4.1-5.3); Red Cell Distribution Width 13.3 % (12.1-15.1); White Blood Count 9.2 10^3/uL (4.0-10.0)
--- NOTE | 2021-11-21 05:21 | ECG_ITS ---
[facility] Test Date: 2021-11-21 Pat Name: Jay Peguero Department: Room: ICU12 Gender: Male Advocacy Director: : 1935 Requested By: Phillip Dupont Order Number: [id number] Claire MD: Isis Null M.D. Measurements Intervals [place] Rate: 69 P: 29 WV: 143 QRS: -39 QRSD: 91 T: 30 QT: 424 QTc: 456 Interpretive Statements SINUS RHYTHM LEFT AXIS DEVIATION [QRS AXIS < -30] Compared to ECG 11/20/2021 12:49:48 Sinus bradycardia no longer present Electronically Signed On 11-21-2021 8:26:05 PLASTIC CABLEMAKING MACHINE OPERATOR by Isis Null M.D. [email or web address]
[2021-11-21 06:10] LABS: Alanine Aminotransferase < 5 U/L (0-41); Albumin Level 4.1 g/dL (3.5-5.2); Alkaline Phosphatase 49 IU/L (40-130); Anion Gap 16.3 (5-19); Aspartate Amino Transferase 14 U/L (0-40); Blood Urea Nitrogen 31 mg/dL (8-23); Calcium 9.3 mg/dL (8.5-10.5); Carbon Dioxide 22 mmol/L (22-29); Chloride 107 mmol/L (98-107); Chol HDL Ratio 3.21 mg/dL (1.0-5.00); Cholesterol 151 mg/dL (0-200); Globulin 2.6 g/dL (1.3-4.6); Glucose 77 mg/dL (65-115); HDL Cholesterol 47 mg/dL (60-100); LDL Cholesterol Calculated 88 mg/dL (50-129); LDL HDL Ratio 1.87 RATIO (0.00-3.22); Osmolality Calculated 297 mOsm/kg (285-295); Potassium 4.3 mmol/L (3.5-5.1); Sodium 141 mmol/L (136-145); Total Bilirubin 0.6 mg/dL (0.15-1.2); Total Protein 6.7 g/dL (6.6-8.7); Triglycerides 80 mg/dL (0-150)
[2021-11-21] MEDS: donepezil 5 MG Tablet 10 MG PO (06:22)
[2021-11-21] MEDS: carbidopa-levodopa 25-100mg Tablet 2 EACH PO ×2 (06:23→12:06)
[2021-11-21] MEDS: atorvastatin 40 mg Tablet PO (10:29)
--- NOTE | 2021-11-21 11:04 | P.PNCC_ITS ---
Stroke Alert Activation ED Arrival Date: 11/20/21 ED Arrival Time: 12:27 ED Physican at Bedside: 12:27 Last Known Normal/at Baseline: < 1 hour ago Other Last Known Well Infomation: He got up to get dressed and discovered that he could not move his left side. His called the ambulance. On arrival he was flaccid on the left side and had severe dysarthria. His CT scan of the head was negative. I was in communication with Dr. Gomez and ER personnel from the time that the stroke alert was called. The patient was not on a blood thinner. His blood pressure was under control. His blood sugar was unremarkable. He was treated with TPA at 1247. By the time I saw the patient in the ICU his neurologic exam was normal. His initial NIH stroke scale score was 9. The nurses called Hugh Moore from the ICU to help with protocol. Stroke Alert Activated by: [facility] Stroke Alert Activation Date: 11/20/21 Stroke Alert Activation Time: 12:25 Stroke MD @ Bedside Date: 11/20/21 Stroke MD @ Bedside Time: 12:27 NIH Stroke Scale Score: NIH Stroke Scale Score: 9 Stroke Alert Data/Treatment CT Results Time: 12:41 CT Impression: 1.? No significant ICA stenosis bilaterally. 2.? No flow-limiting intracranial stenosis. 3.? LEFT dominant vertebral artery. Smaller but patent RIGHT vertebral artery which ends in PICA. Signed By: Yoandy Hernandez MD Notified Brice Gomez DO at 11/20/2021 12:41 PM. tPA Started Date: 11/20/21 tPA Started Time: tPA Started - Time: 12:47 tPA Admin Prior to Arrival: No Standardized Stroke Orders Used: Yes Other Information: The patient has something in the Parkinson group of disorders with severe orthostatic hypotension and also suffers from peripheral neuropathy. He has no history of heart disease. 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 He was treated as soon as his CAT scan was completed and following the health syncope protocol that his blood pressure was under control, he was not on a blood thinner and his blood sugar tracer was unremarkable. I saw him an hour later in the ICU and his neurologic exam was remarkable only for chronic findings. 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
--- NOTE | 2021-11-21 11:34 | PC.NURSE ---
Patient wanted to get up to the bedside commode and to a recliner at bedside. Patient is still moderately weak, is still on TPA precautions, and has orthostatic hypotension (38 point drop is systolic bp from laying to sitting). It is not safe for the patient to get up at this time. Nurse explained risk of bleeding, and risk of fall. Patient is agreeable to a bed jones at this time.
[2021-11-21] MEDS: midodrine 5 mg TABLET PO ×3 (12:06→20:03)
--- NOTE | 2021-11-21 14:30 | CTR_ITS ---
PROCEDURE INFORMATION: Exam: CT Head Without Contrast Exam date and time: 11/21/2021 2:30 PM Age: 86 years old Clinical indication: Weakness, extremity and other: After tpa; Left TECHNIQUE: Imaging protocol: Computed tomography of the head without contrast. Radiation optimization: All CT scans at this facility use at least one of these dose optimization techniques: automated exposure control; mA and/or kV adjustment per patient size (includes targeted exams where dose is matched to clinical indication); or iterative reconstruction. COMPARISON: CT head wo con* [id number] 11/21/2021 12:52 AM RADIATION DOSE METRICS: Total DLP (mGy-cm): 922.46 FINDINGS: Brain: No hemorrhage. No edema. Moderate diffuse cerebral atrophy and sequela of chronic small vessel ischemic disease. No mass effect. Cerebral ventricles: No ventriculomegaly. Paranasal sinuses: Visualized sinuses are unremarkable. No fluid levels. Mastoid air cells: Visualized mastoid air cells are well aerated. Bones/joints: Unremarkable. No acute fracture. Soft tissues: Unremarkable. CT/CT head wo con* [id number] IMPRESSION: Stable exam, no acute intracranial abnormality.
--- NOTE | 2021-11-21 15:00 | PM.PN ---
Subjective Subjective: He passed out when he tried to stand up. His is here today and his son and I was able to find out that since I changed his medications in August, he is taken a turn for the worse. When I saw him in August I stopped ropinirole and entcapone and increased his carbidopa levodopa to 25/102 tablets at 11, 3 and 7. Apparently the next time that we can get him back into the clinic was on 01 December but he is not been doing well. He gets very dizzy when he stands up. He has been passing out when he stands up. He is taken a lot of falls. He has been very depressed. He has been more sleepy and sleeps all day now. Dr. Gamboa started him on midodrine because his blood pressure dropped from 114 supine to 85 systolic standing. There has not been no benefit in terms of his motor activity to increasing his carbidopa levodopa. Vitals/I&O/Wt Last Vital Signs Temp 97.5 F L 11/21/21 12:00 Pulse 78 11/21/21 13:58 Resp 14 11/21/21 12:00 BP 107/63 11/21/21 12:00 Pulse Ox 91 11/21/21 12:00 11/21/21 11/21/21 11/21/21 06:59 14:59 22:59 Intake Total 30 / 264.2 300 / 300 Output Total 250 / 700 150 / 150 Balance -220 / -435.8 150 / 150 Weight last 48 hrs Weight 275 lb 0.003 oz Weight 275 lb Physical Exam Narrative: He does not have any residual weakness. He is diffusely bradykinetic to a mild to moderate degree. He has masking of the face. He is mildly demented but behaviorally superior. I did not take him for a walk. Data : 11/21/21 02:45 11/21/21 04:24 Other data: CT scan of the head performed today shows nonspecific white matter disease and a use atrophy. CT angiogram yesterday showed no intracranial or extracranial stenosis. I do not see that he has had an echocardiogram. His monitor shows normal sinus rhythm. 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 Everything has worsened since his carbidopa levodopa was increased. Plan to cut back to 25/101 tablet 3 times daily which is comparable to what he was on before (since he was on entcapone). Strongly agree with midodrine 5 mg 3 times daily. Continue sertraline 100 mg daily but he may require an increase in that. I am to see him in 10 days so I can adjust his midodrine and his antidepressant at that time. It would be better if he would stay overnight and be up and moving around before discharge. Discussed with Dr. Gamboa. I took time to talk with the patient, his and son. Status: Acute (2) Right middle cerebral artery stroke: Status: Acute (3) Orthostatic hypotension: Status: Acute Attestations Medical Necessity Statement*: He has profound orthostatic hypotension to the point that he loses consciousness when he stands up. He just had an acute stroke and received TPA. I think he should spend another night in house as he is started on midodrine and cut his carbidopa levodopa back to 1 tablet instead of 2 in hopes of improving his orthostasis and I would anticipate he can go home in the morning. 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
--- NOTE | 2021-11-21 16:50 | PC.NURSE ---
Patient is off of Bleeding/TPA precautions at 1430 on 11/21/2021. Nurse asisted patient to bedside commode. Patient did experience orthostatic hypotension when going form lying to sitting (40 point systolic drop), but after sitting at side of bed for 5 minutes, his blood pressure recovered and he was able to safely ambulate with a walker and 2 person assist.
--- NOTE | 2021-11-21 17:15 | P.PN_ITS ---
Subjective Subjective: NursingHe is feeling the same. Overnight had an event of syncope when being helped up to the commode. Resolved spontaneously. He denies chest pain or pressure. Episode similar to the ones he has been having at home. Vitals/I&O/Wt Last Vital Signs Temp 97.5 F L 11/21/21 12:00 Pulse 78 11/21/21 13:58 Resp 14 11/21/21 12:00 BP 107/63 11/21/21 12:00 Pulse Ox 91 11/21/21 12:00 11/21/21 11/21/21 11/21/21 06:59 14:59 22:59 Intake Total 30 / 264.2 300 / 300 Output Total 250 / 700 150 / 150 Balance -220 / -435.8 150 / 150 Weight last 48 hrs Weight 124.738 kg Weight 124.738 kg Physical Exam Narrative: 2 people from family at bedside including his Const: COMMON NORMALS: no acute distress, patient oriented x3 and alert GENERAL APPEARANCE: cooperative and frail appearing HENMT: COMMON NORMALS: oropharynx normal Neck/C-Spine: COMMON NORMALS: no meningeal signs and no JVD Resp: COMMON NORMALS: normal respiratory effort and clear to auscultation bilaterally AUSCULTATION: clear to auscultation bilaterally Cardio: COMMON NORMALS: no JVD, regular rhythm, S1 normal heart sound present, S2 normal heart sound present and No murmurs present (Cardio) RHYTHM: regular rhythm HEART SOUNDS: S1 normal heart sound present and S2 normal heart sound present GI: COMMON NORMALS: Normal to inspection, nondistended, normoactive bowel sounds present, Soft to palpation and non-tender PALPATION: Yes Soft to palpation Extremity: COMMON NORMALS: no joint enlargement and no pedal edema Neuro: COMMON NORMALS: patient oriented x3 and moves all extremities SENSORIUM/ORIENTATION: Yes alert MENINGEAL SIGNS: Yes no meningeal signs CRANIAL NERVES: Yes CN normal except as noted COORDINATION/BALANCE: [id number] test normal SPEECH: abnormal speech Details: slurred SENS ORY EXAM: Yes Normal double simultaneous stimulation for sensation MOTOR EXAM: Pronator motor function not present, Tremors during motor activity present, Abnormal muscle tone present cogwheel rigidity: all and Other motor observations present (4/5 BL UE, 3/5 BL LE) PLANTAR REFLEX: equivocal: bilateral COORDINATION: [id number]-[id number]-dwdr test normal OTHER: No trouble with responding or following commands. Visual smith full to confrontation. Skin: COMMON NORMALS: no rashes or lesions noted GENERAL SKIN EXAM: no rashes or lesions noted Data : 11/21/21 02:45 11/21/21 04:24 A&P Assessment and plan (1) Orthostatic hypotension: Quite significant orthostatic hypotension. Systolic blood pressure laying down 116, sitting up he decreases down to 78 mmHg. Syncopal/unresponsive episode when being helped to the commode overnight. From discussions with him and his it also appears that he does not heed the symptoms and pushes through, she states frequently on that passing out when sitting himself upright and not laying back down despite being dizzy, sometimes passing out while on the toilet. Discussed possibility also of transient hypoperfusion/watershed ischemia. Discussed significant concern of risk of fall, injury especially with multiple trips to the restroom at night to urinate. Orthostasis may be multifactorial including his Parkinson's disease, LBD, medications, especially alfuzosin. We discussed different management strategies. Discussed at length to mind the symptoms and if getting lightheaded to lie down immediately as it appears even sitting up with current orthostasis is risk of syncope. Discussed keeping a urinal at the bedside. Condom catheter may be an option to consider. We are also requesting a bedside commode for him, but discussed in case symptomatic to consider bedpan instead. As discussed we are also starting midodrine 5 mg 3 times daily. We will also switch from alfuzosin to finasteride. TTE results noted, discussed with his son, technically difficult study, normal EF, grade 2 diastolic dysfunction noted. Status: Acute (2) CVA (cerebral vascular accident): He is doing well without recurrence of symptoms. Persistent dysarthria, and diet downgraded with speech therapy, but the dysarthria is at baseline from what I am getting from the family. Discussed low-dose aspirin, risk of bleeding in the setting of falls. Discussed statin. A1c is normal. Cardiac monitoring made difficult by his tremor. We will arrange for event monitor for the next 3 weeks. Status post TPA with good improvement in symptoms resolution of left side motor deficits, some residual dysarthria, although does have some baseline dysarthria due to Parkinson's. Admitted to intensive care unit. Close monitoring after TPA. CTA without significant stenosis. ST, PT, OT Follow-up with neurology in office. Discussed with his family at bedside. 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 Status: Acute Plan CKD: Appears to have CKD, creatinine appears to be at baseline, 1.5. Discussed with family. Would benefit from from follow-up. PD LBD Orthostatic hypotension BPH Depression Other chronic medical conditions also noted Attestations Medical Necessity Statement*: Continue admission for assessment management of severe orthostatic hypotension, post CVA and TPA management and monitoring. 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
--- NOTE | 2021-11-21 19:12 | PC.NURSE ---
Shift SUmmary: Uneventful shift. Patient rested in bed for about 75% of the day due to TPA precautions. Up to a chair for remaining 25% of day. Was briefly off of unit for CT which was uneventful. Started on midodrine today due to orthostatic hypotension. THroughout the day, systolic pressures dropped approximately 40 points when going form supine to sitting. Patient is eager to go home tommorow.
[2021-11-21] MEDS: gabapentin 300 mg Capsule PO (20:03)
[2021-11-21] MEDS: sertraline 100 mg Tablet PO (20:03)
[2021-11-21] MEDS: carbidopa-levodopa 25-100mg Tablet 1 EACH PO (23:09)
[2021-11-22] VITALS (32 sets, daily range): BP systolic 87–155; BP diastolic 57–87; PULSE 57–83; RESP 11–30; TEMP 36.1–36.2; O2SAT 90–94
[2021-11-22] MEDS: donepezil 5 MG Tablet 10 MG PO (05:40)
[2021-11-22] MEDS: carbidopa-levodopa 25-100mg Tablet 1 EACH PO ×2 (05:40→12:31)
[2021-11-22] MEDS: atorvastatin 40 mg Tablet PO (08:50)
[2021-11-22] MEDS: midodrine 5 mg TABLET PO ×3 (08:50→20:20)
[2021-11-22] MEDS: aspirin 81 mg EC Tablet PO (08:50)
--- NOTE | 2021-11-22 14:51 | USCV_ITS ---
Sudhir Jay Age: 86 Gender: M : 1935 Exam Date: 11/22/2021 15:33 Ordering Phys: Phillip Dupont MD Technologist: Dotty Rodas [place] [facility] [place] CV[place] BP: 148 / 73 HR: 55 Rhythm: Sinus Technical Quality: Adequate MEASUREMENTS (Male / Female) Normal Values 2D ECHO LVOT Diameter 2.1 cm LV Ejection Fraction MOD 2C 4.7 % LV Ejection Fraction 2C AL 6.9 % DOPPLER LVOT Peak Velocity 81.0 cm/s PV Peak Velocity 56.0 cm/s QpQs Shunt Ratio 1.5 RV Acceleration Time 0.0 s RV Ejection Time 0.4 s RV AcT/ET 0.1 FINDINGS Left Ventricle Right Ventricle Right Atrium Left Atrium Mitral Valve Aortic Valve Tricuspid Valve Pulmonic Valve Pericardium Aorta CONCLUSIONS 1. This is a limited echocardiogram with [employer]. 2. Normal left ventricular size and systolic function. Left ventricular ejection fraction estimated at 55%. No regional wall motion abnormality. No evidence of left ventricular apical thrombus. 3. Bubble (agitated saline) study is suggestive of intracardiac shunt. Isis Null MD (Electronically Signed) Final Date: 22 November 2021 19:18 S
[2021-11-22] MEDS: perflutren protein-a microsphr 0.22 mg/mL SDV 3 mL IV (16:06)
--- NOTE | 2021-11-22 18:51 | P.PN_ITS ---
Subjective Subjective: NursingHe is feeling the same. Overnight had an event of syncope when being helped up to the commode. Resolved spontaneously. He denies chest pain or pressure. Episode similar to the ones he has been having at home. Vitals/I&O/Wt Last Vital Signs Temp 97.0 F L 11/22/21 04:30 Pulse 58 L 11/22/21 16:00 Resp 18 11/22/21 16:00 BP 141/73 11/22/21 16:00 Pulse Ox 93 11/22/21 16:00 11/22/21 11/22/21 11/22/21 06:59 14:59 22:59 Intake Total 400 / 400 Output Total 300 / 300 Balance 400 / 400 -300 / 100 Weight last 48 hrs Weight 124.738 kg Weight 124.738 kg Physical Exam Narrative: He is finally getting some rest. at bedside. Const: COMMON NORMALS: no acute distress GENERAL APPEARANCE: frail appearing HENMT: COMMON NORMALS: oropharynx normal Neck/C-Spine: COMMON NORMALS: no JVD Resp: COMMON NORMALS: normal respiratory effort and clear to auscultation bilaterally AUSCULTATION: clear to auscultation bilaterally Cardio: COMMON NORMALS: no JVD, regular rhythm, S1 normal heart sound present, S2 normal heart sound present and No murmurs present (Cardio) RHYTHM: regular rhythm HEART SOUNDS: S1 normal heart sound present and S2 normal heart sound present GI: COMMON NORMALS: Normal to inspection, nondistended, normoactive bowel sounds present, Soft to palpation and non-tender PALPATION: Yes Soft to palpation Extremity: COMMON NORMALS: no joint enlargement and no pedal edema Neuro: CRANIAL NERVES: Yes CN normal except as noted Skin: COMMON NORMALS: no rashes or lesions noted GENERAL SKIN EXAM: no rashes or lesions noted Data : 11/21/21 02:45 11/21/21 04:24 Micro: Microbiology 11/22/21 10:01 Blood Culture - Preliminary Blood SPECIMEN COLLECTED 11/22/21 10:00 Blood Culture - Preliminary Blood SPECIMEN COLLECTED A&P Assessment and plan (1) CVA (cerebral vascular accident): Unclear etiology of CVA. On cardiac monitoring discussed with his and son noted several runs of what appears to be atrial flutter. Certainly monitoring is made more difficult by his tremor. Does appear to have on those strips extra P waves initially, subsequently with QRSs as well. Again discussed difficult to tell for sure due to uneven baseline. Would benefit from alarm security or surveillance monitor after discharge which is requested. Looking also at his prior admission 2019, it appears that the gram-positive cocci in his blood were identified as strep viridans. At that time his rep orts he had very poor dentition which had been extracted, possibly causing transient translocation. He has not been having symptoms of endocarditis, however, given otherwise unclear etiology of the CVA we are requesting additional echocardiogram assessment with contrast and bubbles. Requested blood culture. Orthostatic hypotension appears to be responding to midodrine, today on recheck orthostatics BP 145/78 lying, 137/75 sitting, 92/57 standing. That is improvement compared to previously 116 systolic laying down to 78 systolic sitting. Focal abnormalities without recurrence after TPA. Continue low-dose aspirin currently, with possible flutter if confirmed with alarm security or surveillance monitor they will be considering additional options to reduce risk of stroke recurrence. Risk of bleeding would be high with regards to anticoagulation. STAR closure may be a consideration. Continue statin. A1c is normal. Cardiac monitoring made difficult by his tremor. We will arrange for event monitor for the next 3 weeks. CTA head and neck without significant stenosis. ST, PT, OT Follow-up with neurology in office on the . Status post TPA with good improvement in symptoms resolution of left side motor deficits, some residual dysarthria, although does have some baseline dysarthria due to Parkinson's. CT head follow-up without bleed. Discussed with his at bedside and his son on the phone. Status: Acute (2) Orthostatic hypotension: Appears to be responding to midodrine. Today on recheck orthostatics BP 145/78 lying, 137/75 sitting, 92/57 standing. That is improvement compared to previously 116 systolic laying down to 78 systolic sitting. Consider reassessment, in case still significantly orthostatic, possibly of increasing midodrine dose to 10 mg may be limited by occasional bradycardia at baseline, dipping down occasionally into high 50s. If further optimization is needed, consider other agents. Quite significant orthostatic hypotension including syncopal/unresponsive episode when being helped to the commode overnight in hospital. From discussions with him and his it also appears that he does not heed the symptoms and pushes through, she states frequently on that passing out when sitting himself upright and not laying back down despite being dizzy, sometimes passing out while on the toilet. Discussed possibility also of transient hypoperfusion/watershed ischemia. Discussed significant concern of risk of fall, injury especially with multiple trips to the restroom at night to urinate. Orthostasis may be multifactorial including his Parkinson's disease, LBD, medications, especially alfuzosin. We discussed different management strategies with aggressive syncope and fall prevention Discussed at length to mind the symptoms and if getting lightheaded to lie down immediately as it appears even sitting up with current orthostasis is risk of syncope. Discussed keeping a urinal at the bedside. Condom catheter may be an option to consider. We are also requesting a bedside commode for him, but discussed in case symptomatic to consider bedpan instead. As discussed we are also starting midodrine 5 mg 3 times daily. We will also switch from alfuzosin to finasteride. TTE results noted, discussed with his son, technically difficult study, normal EF, grade 2 diastolic dysfunction noted. 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 Dose was decreased. Status: Acute Plan CKD: Appears to have CKD, creatinine appears to be at baseline, 1.5. Discussed with family. Would benefit from from follow-up. PD LBD Orthostatic hypotension BPH Depression Other chronic medical conditions also noted Attestations Medical Necessity Statement*: Continue admission for additional assessment for etiology of CVA. Optimization of control of severe orthostatic hypotension with multiple syncopal episodes, falls. 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
[2021-11-22] MEDS: gabapentin 300 mg Capsule PO (20:19)
[2021-11-22] MEDS: sertraline 100 mg Tablet PO (20:20)
[2021-11-23] VITALS (12 sets, daily range): BP systolic 90–138; BP diastolic 61–80; PULSE 55–66; RESP 11–15; TEMP 36.1–36.7; O2SAT 91–93
[2021-11-23] MEDS: carbidopa-levodopa 25-100mg Tablet 1 EACH PO ×2 (00:06→05:47)
[2021-11-23 03:31] LABS: Basophils # 0.1 10^3/uL (0.0-0.1); Basophils % 0.8 %; Eosinophils # 0.6 10^3/uL (0.0-0.8); Eosinophils % 8.8 %; Hematocrit 38.2 % (42.0-52.0); Hemoglobin 12.3 g/dL (11.7-16.6); Lymphocytes # 1.1 10^3/uL (0.8-4.8); Lymphocytes % 15.6 %; Mean Corpuscular HGB Conc 32.2 g/dL (30.0-36.0); Mean Corpuscular Hemoglobin 32.3 pg (28.0-34.0); Mean Corpuscular Volume 100.3 fl (80-94); Mean Platelet Volume 10.2 fL (7.4-10.4); Monocytes # 0.7 10^3/uL (0.2-0.9); Monocytes % 9.2 %; Neutrophils # 4.69 10^3/uL (1.8-7.7); Neutrophils % 65.3 %; Nucleated Red Blood Cells % 0 %; Platelet Count 187 10^3/cmm (130-400); Red Blood Count 3.81 10^6/uL (4.1-5.3); Red Cell Distribution Width 13.3 % (12.1-15.1); White Blood Count 7.2 10^3/uL (4.0-10.0)
[2021-11-23 03:50] LABS: Anion Gap 15.3 (5-19); Blood Urea Nitrogen 29 mg/dL (8-23); Calcium 8.5 mg/dL (8.5-10.5); Carbon Dioxide 22 mmol/L (22-29); Chloride 106 mmol/L (98-107); Glucose 89 mg/dL (65-115); Osmolality Calculated 293 mOsm/kg (285-295); Potassium 4.3 mmol/L (3.5-5.1); Sodium 139 mmol/L (136-145)
[2021-11-23] MEDS: donepezil 5 MG Tablet 10 MG PO (05:45)
--- NOTE | 2021-11-23 06:00 | USCV_ITS ---
Sudhir Jay Age: 86 Gender: M : 1935 Exam Date: 11/23/2021 06:27 Ordering Phys: Phillip Dupont MD Technologist: MIMA Exam Location: [facility] [place] Indication: poss small pfo HISTORY: poss small pfo PROCEDURES: Venous duplex imaging was performed in bilateral lower extremities. The following venous structures were evaluated: common femoral vein, profunda vein, proximal portion of the greater saphenous vein, superficial femoral vein, and the popliteal vein. In addition, the posterior tibial and peroneal trunk were evaluated. Serial compression, augmentation maneuvers, and spectral Doppler flow evaluation were performed. FINDINGS: Normal 2-D Doppler and augmentation and compressibility throughout the lower extremity venous structures. Additional imaging through the proximal calf veins also reveals no thrombus. Limited evaluation of the greater saphenous vein is patent with no thrombus. CONCLUSIONS No DVT bilateral lower extremities. Dr. Mary Robin DO (Electronically Signed) Final Date: 23 November 2021 07:55 S
[2021-11-23] MEDS: midodrine 5 mg TABLET PO (08:51)
[2021-11-23] MEDS: aspirin 81 mg EC Tablet PO (08:51)
[2021-11-23] MEDS: atorvastatin 40 mg Tablet PO (08:51)
--- NOTE | 2021-11-23 09:19 | PC.SOCIAL ---
IMM update IMM updated with patient and at bedside. Copy Pg 2 provided. Initialled, dated, timed, and placed in chart.
--- NOTE | 2021-11-23 09:38 | PM.DCS ---
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 Appears he pushes through the symptoms despite multiple falls and syncopes. Making him a very high risk for additional falls, injury, bleeding. Presented here after left-sided weakness and slurred speech noted after a trip to the restroom at night, was having particularly more trouble walking, leaned on the wall, and then was found to have the weakness. Received TPA with resolution of left side weakness. Persistent dysarthria, but this appears to be at baseline due to Parkinson's. Not a clear etiology of CVA. CT angiogram without stenosis. Thought possibly cardiogenic. Appears possibly have some runs of flutter on monitor, but difficult to interpret given his tremor. Requested event monitor for discharge to see if flutter can be confirmed. He is not a candidate for anticoagulation. Additionally it appears he used to have very poor dentition, during prior admission in 2019 it looks like the gram-positive cocci in his blood were identified as strep viridans. He has not had symptoms of endocarditis, but with unclear etiology assist additionally with echo with contrast and bubbles. PFO Present. No signs of DVT on venous Doppler. During this hospital stay we have been working also on his severe orthostasis. Initially when checked blood pressure went from 116 systolic to 78 from laying to sitting. Standing not attempted. Started on midodrine. Held his alfuzosin. Neurology cut down the dose of his Sinemet to 1 tablet 3 times a day. Blood pressure today appears to be doing better. Had extensive discussion with him and his family to aggressively avoid situations which put him at risk of syncope and fall. Recommended wheelchair, bedside commode. Discussed using urinal at night, possibly even bedpan. He had a syncopal event here while he was being helped to the commode. For his orthostatic hypotension I will add pyridostigmine on top of his midodrine. The reason I am using 2 medications is to avoid syncopal event. For his CVA continue aspirin. He will get event monitor for 3 weeks for cardiac rhythm evaluation. However he is not an ideal candidate for anticoagulation patient and his is well aware of the situation. He will see Dr. Torres in a few weeks. For intracardiac shunt considering age and underlying history I will give him referral to see Dr. Pozo outpatient. I did quote studies to his that there is 3% reduction of embolic stroke seen in people who are young and treated for intracardiac shunt cryptogenic stroke. Physical Exam Narrative: Narrative:?? Patient was laying supine, comfortab le, resting tremor s of hands noted, at bedside. ? Const:?? COMMON NORMALS: no acute distress? G ENERAL APPEARANCE: frail appearing HENMT:?? COMMON NORMALS: or opharynx normal Neck/C-Spine:?? COMMON NORMALS: no JVD Resp:?? COMMON NORMALS: no rmal respiratory e ffort and clear to auscultation bila terally? AUSCULTAT ION: clear to ausc ultation bilateral ly Cardio:?? COMMON NORMALS: no JVD, regular rhyt hm, S1 normal hear t sound present, S 2 normal heart tez nd present and No murmurs present (C ardio)? RHYTHM: re gular rhythm? HEAR T SOUNDS: S1 maegan l heart sound pres ent and S2 normal heart sound presen t GI:?? COMMON NORMALS: No rmal to inspection , nondistended, no rmoactive bowel so unds present, Soft to palpation and non-tender? PALPAT ION: Yes Soft to p alpation Extremity:?? COMMON NORMALS: no joint enlargement and no pedal joss a Neuro:?? CRANIAL NERVES: Ye s CN normal except as noted Skin:?? COMMON NORMALS: no rashes or lesions noted? GENERAL SK IN EXAM: no rashes or lesions noted Discharge Data Studies Completed and Pending Completed Studies During Hospitalization Category Date Time Status CT head wo con* [id number] Routine Cat Scan 11/21/21 14:[address] head wo con* [id number] Stat Cat Scan 11/20/21 12:[address] head wo con* [id number] Stat Cat Scan 11/21/21 00:49 Completed CTA head neck [CT angio headneck* [id number]] Stat Cat Scan 11/20/21 13:16 Completed XR chest 1V portable [id number] Stat Exams 11/20/21 12:27 Completed CV echo lmt wo/w con w color Routine Ultrasound 11/22/21 14:51 [place] [id number] Routine Ultrasound 11/23/21 06:00 Completed US echo complete [CV. echo complete* [id number]] Routine Ultrasound 11/20/21 16:48 Completed Pending at discharge Category Date Time Status Basic Metabolic Panel AM LABS Lab 11/24/21 04:00 Ordered Basic Metabolic Panel AM LABS Lab 11/25/21 04:00 Ordered Blood Culture Stat Lab 11/22/21 10:01 Results Complete Blood Count w/Auto AM LABS Lab 11/24/21 04:00 Ordered Complete Blood Count w/Auto AM LABS Lab 11/25/21 04:00 Ordered Radiology Impressions Chest X-Ray 11/20/21 12:27 IMPRESSION: 1. Cardiomegaly. 2. Elevation RIGHT hemidiaphragm is new from previous with slight atelectasis RIGHT lower lobe medially. 3. Chronic emphysematous changes. Head/Neck CTA 11/20/21 13:16 IMPRESSION: 1. No significant ICA stenosis bilaterally. 2. No flow-limiting intracranial stenosis. 3. LEFT dominant vertebral artery. Smaller but patent RIGHT vertebral artery which ends in PICA. Head CT 11/21/21 14:30 IMPRESSION: Stable exam, no acute intracranial abnormality. Laboratory Results WBC 7.2 10^3/uL (4.0-10.0) 11/23/21 03:22 RBC 3.81 10^6/uL (4.1-5.3) L 11/23/21 03:22 Hgb 12.3 g/dL (11.7-16.6) 11/23/21 03:22 Hct 38.2 % (42.0-52.0) L 11/23/21 03:22 MCV 100.3 fl (80-94) H 11/23/21 03:22 MCH 32.3 pg (28.0-34.0) 11/23/21 03: MCHC 32.2 g/dL (30.0-36.0) 11/23/21 03: RDW 13.3 % (12.1-15.1) 11/23/21 03:22 Plt Count 187 10^3/cmm (130-400) 11/23/21 03:22 MPV 10.2 fL (7.4-10.4) 11/23/21 03:22 Neut % (Auto) 65.3 % 11/23/21 03:22 Lymph % (Auto) 15.6 % 11/23/21 03:22 [place] % (Auto) 9.2 % 11/23/21 03: Eos % (Auto) 8.8 % 11/23/21 03: Baso % (Auto) 0.8 % 11/23/21 03: Neut # (Auto) 4.69 10^3/uL (1.8-7.7) 11/23/21 03:22 Lymph # (Auto) 1.1 10^3/uL (0.8-4.8) 11/23/21 03:22 [place] # (Auto) 0.7 10^3/uL (0.2-0.9) 11/23/21 03:22 Eos # (Auto) 0.6 10^3/uL (0.0-0.8) 11/23/21 03:22 Baso # (Auto) 0.1 10^3/uL (0.0-0.1) 11/23/21 03:22 Nucleated RBC % (auto) 0 % 11/23/21 03: Nucleated RBCs # 0.0 /100WBC 11/23/21 03: PT 14.00 SECONDS (12.1-14.9) 11/20/21 12:07 INR 1.05 (0.8-1.2) 11/20/21 12:07 APTT 29.5 SECONDS (23.9-36.7) 11/20/21 12:07 Sodium 139 mmol/L (136-145) 11/23/21 03:22 Potassium 4.3 mmol/L (3.5-5.1) 11/23/21 03:22 Chloride 106 mmol/L (98-107) 11/23/21 03:22 Carbon Dioxide 22 mmol/L (22-29) 11/23/21 03:22 Anion Gap 15.3 (5-19) 11/23/21 03:22 BUN 29 mg/dL (8-23) H 11/23/21 03:22 Creatinine 1.4 mg/dL (0.7-1.2) H 11/23/21 03:22 GFR Calculation Not Reportable 11/23/21 03:22 Glucose 89 mg/dL (65-115) 11/23/21 03:22 POC Glucose 103 mg/dL (70-110) 11/21/21 00:33 Estimat Average Glucose 111 11/20/21 19:10 Hemoglobin A1c 5.5 % (4.0-6.0) 11/20/21 19:10 Calculated Osmolality 293 mOsm/kg (285-295) 11/23/21 03:22 Calcium 8.5 mg/dL (8.5-10.5) 11/23/21 03:22 Total Bilirubin 0.6 mg/dL (0.15-1.2) 11/21/21 04:24 AST 14 U/L (0-40) 11/21/21 04:24 ALT < 5 U/L (0-41) 11/21/21 04:24 Alkaline Phosphatase 49 IU/L (40-130) 11/21/21 04:24 Total Protein 6.7 g/dL (6.6-8.7) 11/21/21 04:24 Albumin 4.1 g/dL (3.5-5.2) 11/21/21 04:24 Globulin 2.6 g/dL (1.3-4.6) 11/21/21 04:24 Triglycerides 80 mg/dL (0-150) 11/21/21 04:24 Cholesterol 151 mg/dL (0-200) 11/21/21 04:24 LDL Cholesterol, Calc 88 mg/dL (50-129) 11/21/21 04:24 HDL Cholesterol 47 mg/dL (60-100) L 11/21/21 04:24 LDL/HDL Ratio 1.87 RATIO (0.00-3.22) 11/21/21 04:24 Cholesterol/HDL Ratio 3.21 mg/dL (1.0-5.00) 11/21/21 04:24 TSH 1.56 uIU/mL (0.27-4.20) 11/20/21 12:07 Urine Color Yellow (Yellow) 11/20/21 15:05 Urine Appearance Clear (CLEAR) 11/20/21 15:05 Urine pH 6.5 (5-7) 11/20/21 15:05 Ur Specific [place] 1.010 (1.005-1.030) 11/20/21 15:05 Urine Protein Neg (Negative) 11/20/21 15:05 Urine Glucose (UA) Norm (Normal) 11/20/21 15:05 Urine Ketones Negative (Negative) 11/20/21 15:05 Urine Blood Neg (Negative) 11/20/21 15:05 Urine Nitrate Negative (Negative) 11/20/21 15:05 Urine Bilirubin Neg (Negative) 11/20/21 15:05 Urine Urobilinogen 1 mg/dL (Negative) H 11/20/21 15:05 Ur Leukocyte Esterase Negative (Negative) 11/20/21 15:05 Urine Opiates Screen Negative ng/mL (Negative) 11/20/21 15:05 Ur Barbiturates Screen Negative ng/mL (Negative) 11/20/21 15:05 Ur Phencyclidine Scrn Negative ng/mL (Negative) 11/20/21 15:05 Ur Amphetamines Screen Negative ng/mL (Negative) 11/20/21 15:05 U Benzodiazepines Scrn Negative ng/mL (Negative) 11/20/21 15:05 Urine Cocaine Screen Negative ng/mL (Negative) 11/20/21 15:05 U Marijuana (THC) Screen Negative ng/mL (Negative) 11/20/21 15:05 Vitals Last Vital Signs Temp 98.0 F 11/23/21 08:00 Pulse 55 L 11/23/21 08:00 Resp 13 11/23/21 08:00 BP 121/70 11/23/21 08:00 Pulse Ox 91 11/23/21 05:00 Discharge Plan Discharge Patient Disposition: Home Condition: Stable Prescriptions: New atorvastatin 40 mg Tablet 40 mg PO DAILY Qty: 90 0RF midodrine 5 mg Tablet 5 mg PO TID Qty: 90 0RF aspirin 81 mg capsule 81 mg PO DAILY Qty: 90 0RF finasteride 5 mg tablet 5 mg PO DAILY Qty: 90 0RF pyridostigmine bromide 60 mg tablet 60 mg PO BID Qty: 120 1RF carbidopa-levodopa 25-100 mg tablet 1 tab PO TID Qty: 90 0RF Continued gabapentin 300 mg capsule 300 mg PO BEDTIME 0RF donepezil 10 mg tablet 10 mg PO QAM 0RF Vitamin B-12 1 tab PO QAM 0RF Vitamin D3 1 cap PO QAM 0RF Super Beta Prostate 1 cap PO QAM 0RF Changed sertraline 100 mg tablet 100 mg PO BEDTIME Qty: 30 0RF Rx Instructions: APPOINTMENT REQUIRED FOR FUTURE REFILLS Discontinued carbidopa-levodopa 25-100 mg tablet 2 tab PO TID@00,06,12 0RF alfuzosin 10 mg tablet extended release 24 hr 10 mg PO QPM 0RF Rx Instructions: administer after the same meal each day Discharge Orders: Discharge Order (Routine); Ordered 11/23/21 Ordered By: Lei Hercules Other Ambulatory Orders: MCT/Event Monitor 21 Days (Routine) Timeframe: 2 Days Facility: [facility] - Location: Radiology Ordered By: Phillip Dupont DME: Commode (Order) Location: None Selected Ordered By: Phillip Dupont DME: Wheelchair (Order) Location: None Selected Ordered By: Lei Hercules Referrals: [facility] [place] [facility] ([facility]) [Outside] ([facility] has accepted you for services and will be calling you about setting up a time to admit you to their services. If you have any questions or concerns please call them at [phone].) Bethany Torres MD [Physician] - 12/01/21 Donell Pozo MD [Physician] - 12/24/21 1:15 pm (this appointment will be with ) North Mancini MD [Primary Care Provider] - 11/27/21 1:15 pm Discharge Diet: Regular Discharge Activity: Limit activity as instructed Patient Instructions: Aspirin (By mouth), Finasteride (By mouth), Pyridostigmine [place] (By mouth), Midodrine (By mouth), Atorvastatin (By mouth) (Lipitor), Chronic Kidney Disease (GEN), Ischemic Stroke (GEN), Self Care Measures After a Stroke (DC), Hypotension (GEN), Opioid Safety Discharge Attestations Time Spent in Discharge Care*: less than 30 min Quality Metrics Clinical Quality Measures [ Cerebrovascular Accident { Contraindication to Antithrombotic: None; antithrombotic prescribed; Contraindication to Anticoagulation: Medical contraindication; Contraindication to Statin: None; Statin prescribed; Contraindication to antithrombotic day 2: None; Antithrombotic given day 2; Contraindication to tPA: None; TPA given; Reason stroke education not provided: Stroke education provided to patient, Stroke education refused by patient and Stroke education refused by family/guardian;}. 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
--- NOTE | 2021-11-23 11:05 | PC.CHAP ---
Pastoral Care Encounter/Spiritual Assessment Type of Contact [] Declined director stars visit [] Patient/Family/Request visit [] Outpatient visit [] Follow-up visit [] Physician referral [] Code/Alert [x] Routine visit [] Staff referral [] Actively dying [] Patient sleeping [] Family support [] [] Out of room [] Palliative care [] [x] Receiving care in room [] Pre-surgical visit [] Trauma [] Long length of stay [x] ICU visit [] Other: Relational/Emotional Strength [] Patient feels connected with others/family/visitors/staff [] Distress [] Loneliness/isolation [] Abandonment Spirituality of Patient [] Person of Taty [] Attends [employer] of their [place] [] Believes in Prayer [] Reads Bible or Protestant materials [] There are Spiritual issues to be addressed Junior Brand Manager Interventions [x] Prayer [] Active listening [] Non-anxious presence [] Spiritual/emotional support [] Crisis/trauma care [] Spiritual counseling [] Bereavement support [] Provided bereavement packet [] Provided Bible/devotional materials [] Provided toy/stuffed animal, coloring book to patient or family member [] Provided Communion [] Anointing/[place] [] Salvation [x] Completed spiritual assessment [] Other: Impact on Illness or Injury [] Angry [] Fearful [] Anxious [] Often cries [] Exhaustion [] Unable to work [] Unable to attend presybeterian [] Unable to walk/stand [] Unable to read [] Unable to drive [] Unable to eat/drink [] Unable to sleep [] Unable to be with family [] Patient intubated [] Other: Summary Time spent with patient
--- NOTE | 2021-11-23 12:30 | PC.NURSE ---
Discharge Pt was discharged today at 1230 with via wheelchair. Pt was taken to heart care services to get a heart monitor placed and would leave after appointment. All questions answered. Medications brought by pharmacy.
== END 2021-11-23 12:30 | disposition home health service (06) | DRG 63 ==
LOC: ER 13:05 → ICU 14:59
PROVIDERS: Admitting Provider Internal Medicine; Emergency Provider Family Medicine; Family Provider Family Medicine; PCP Family Medicine; Visit Provider Internal Medicine
DX: I63.89 Other cerebral infarction (principal); I95.1 Orthostatic hypotension; G31.83 Neurocognitive disorder with Lewy bodies; F02.80 Dementia in other diseases classified elsewhere, unspecified severity, without behavioral disturbance, psychotic disturbance, mood disturbance, and anxiety; R47.81 Slurred speech; R53.1 Weakness; R29.6 Repeated falls; R29.709 NIHSS score 9; R47.1 Dysarthria and anarthria; N40.1 Benign prostatic hyperplasia with lower urinary tract symptoms; I73.9 Peripheral vascular disease, unspecified; F32.A Depression, unspecified; N18.9 Chronic kidney disease, unspecified; G62.9 Polyneuropathy, unspecified; Z91.81 History of falling; Z96.653 Presence of artificial knee joint, bilateral; Z79.899 Other long term (current) drug therapy
CPT/HCPCS: 36415; 36416; 70450; 70496; 70498; 71045; 80048; 80053; 80061; 80306; 81003; 82962; 83036; 84443; 85025; 85610; 85730; 87040; 92523; 92610; 93005; 93306; 93325; 93970; 97161; 97165; 97530; 99285; C8924; J2997; Q9956; Q9967

== ENCOUNTER → 2021-11-23 12:40 | Outpatient (BNVA) | payer MEDICARE, BC, SELFPAY | PROVIDERS: Family Provider Family Medicine; PCP Family Medicine; Visit Provider Internal Medicine Cardiovascular Disease | DX: Z53.9 Procedure and treatment not carried out, unspecified reason (principal) ==

== ENCOUNTER 2021-11-30 17:24 | Outpatient (CLI) | payer MEDICARE, BC, SELFPAY ==
[2021-11-30 18:26] LABS: Anion Gap 16.4 (5-19); Blood Urea Nitrogen 41 mg/dL (8-23); Calcium 9.9 mg/dL (8.5-10.5); Carbon Dioxide 23 mmol/L (22-29); Chloride 103 mmol/L (98-107); Glucose 128 mg/dL (65-115); Osmolality Calculated 298 mOsm/kg (285-295); Potassium 4.4 mmol/L (3.5-5.1); Sodium 138 mmol/L (136-145)
== END 2021-11-30 17:25 | disposition home or self-care (01) ==
LOC: LAB 17:34
PROVIDERS: PCP Family Medicine; Visit Provider Internal Medicine
DX: N18.9 Chronic kidney disease, unspecified (principal)
CPT/HCPCS: 80048

== ENCOUNTER → 2021-12-02 07:59 | Outpatient (BNVA) | payer MEDICARE, BC, SELFPAY | PROVIDERS: PCP Family Medicine; Visit Provider Specialist | DX: G20 Parkinson's disease (principal); F32.A Depression, unspecified; Z86.73 Personal history of transient ischemic attack (TIA), and cerebral infarction without residual deficits; I95.1 Orthostatic hypotension | CPT/HCPCS: 99214; 99215 ==

== ENCOUNTER → 2021-12-03 08:33 | Outpatient (BNVA) | payer MEDICARE, BC, SELFPAY | PROVIDERS: PCP Family Medicine; Visit Provider Nurse Practitioner Family | DX: N40.1 Benign prostatic hyperplasia with lower urinary tract symptoms (principal) | CPT/HCPCS: 81003 ==

== ENCOUNTER → 2021-12-23 08:34 | Outpatient (BNVA) | payer MEDICARE, BC, SELFPAY | PROVIDERS: PCP Family Medicine; Referring Provider Specialist; Visit Provider Specialist | DX: G20 Parkinson's disease (principal); F02.80 Dementia in other diseases classified elsewhere, unspecified severity, without behavioral disturbance, psychotic disturbance, mood disturbance, and anxiety; G90.3 Multi-system degeneration of the autonomic nervous system; Z86.73 Personal history of transient ischemic attack (TIA), and cerebral infarction without residual deficits | CPT/HCPCS: 99214; 99215 ==

== ENCOUNTER → 2021-12-24 13:11 | Outpatient (BNVA) | payer MEDICARE, BC, SELFPAY | PROVIDERS: PCP Family Medicine; Visit Provider Internal Medicine Cardiovascular Disease | DX: Z09 Encounter for follow-up examination after completed treatment for conditions other than malignant neoplasm (principal); I95.9 Hypotension, unspecified; I63.9 Cerebral infarction, unspecified; N18.9 Chronic kidney disease, unspecified; G31.83 Neurocognitive disorder with Lewy bodies; F02.80 Dementia in other diseases classified elsewhere, unspecified severity, without behavioral disturbance, psychotic disturbance, mood disturbance, and anxiety | CPT/HCPCS: 99204 ==

== ENCOUNTER 2022-02-01 21:45 | Inpatient (IN) | payer MEDICARE, BC, SELFPAY ==
[2022-02-01 21:58] VITALS: BP 98/63; PULSE 83; RESP 16; TEMP 36.6; O2SAT 95; BMI 24.3
[2022-02-02] VITALS (17 sets, daily range): BP systolic 102–164; BP diastolic 59–79; PULSE 61–85; RESP 16–18; TEMP 36.7–37; O2SAT 90–94
[2022-02-02 00:09] LABS: Basophils # 0.1 10^3/uL (0.0-0.1); Basophils % 0.6 %; Eosinophils # 0.3 10^3/uL (0.0-0.8); Hematocrit 37.4 % (42.0-52.0); Hemoglobin 12.3 g/dL (11.7-16.6); Lymphocytes # 1.4 10^3/uL (0.8-4.8); Lymphocytes % 16.1 %; Mean Corpuscular HGB Conc 32.9 g/dL (30.0-36.0); Mean Corpuscular Hemoglobin 32.5 pg (28.0-34.0); Mean Corpuscular Volume 98.9 fl (80-94); Monocytes # 0.6 10^3/uL (0.2-0.9); Monocytes % 6.4 %; Neutrophils % 73.7 %; Nucleated Red Blood Cells % 0 %; Platelet Count 223 10^3/cmm (130-400); Red Blood Count 3.78 10^6/uL (4.1-5.3); Red Cell Distribution Width 13.2 % (12.1-15.1); White Blood Count 8.8 10^3/uL (4.0-10.0)
--- NOTE | 2022-02-02 00:13 | CTR_ITS ---
PROCEDURE INFORMATION: Exam: CT Chest With Contrast; Diagnostic Exam date and time: 02/02/2022 1:11 AM Age: 86 years old Clinical indication: Abdominal pain; Localized; Other: Lower chest and upper abdomen; Patient HX: Diffuse left abd pain. No bm for 3 days; Additional info: Lower chest and abdominal pain, mid abd TECHNIQUE: Imaging protocol: Diagnostic computed tomography of the chest with contrast. Radiation optimization: All CT scans at this facility use at least one of these dose optimization techniques: automated exposure control; mA and/or kV adjustment per patient size (includes targeted exams where dose is matched to clinical indication); or iterative reconstruction. Contrast material: VISI; Contrast volume: 96 ml; Contrast route: INTRAVENOUS (IV); COMPARISON: CT angio chest PE protcl [id number] 06/06/2020 7:46 PM RADIATION DOSE METRICS: Total DLP (mGy-cm): 1211.32 FINDINGS: Lungs: Small densely calcified nodules in the left lower lobe. Negative for airspace consolidation. No spiculated lesion. Negative for endobronchial obstruction. No peripheral honeycombing. Pleural spaces: Unremarkable. No pneumothorax. No pleural effusion. Heart: Unremarkable. No cardiomegaly. No pericardial effusion. Lymph nodes: Unremarkable. No enlarged lymph nodes. Vasculature: Unremarkable. No aortic aneurysm. Bones/joints: Unremarkable. No acute fracture. Soft tissues: Unremarkable. PROCEDURE INFORMATION: Exam: CT Abdomen And Pelvis With Contrast Exam date and time: 02/02/2022 1:11 AM Age: 86 years old Clinical indication: Abdominal pain; Localized; Other: Lower chest and upper abdomen; Patient HX: Diffuse left abd pain. No bm for 3 days; Additional info: Lower chest and abdominal pain, mid abd TECHNIQUE: Imaging protocol: Computed tomography of the abdomen and pelvis with contrast. Radiation optimization: All CT scans at this facility use at least one of these dose optimization techniques: automated exposure control; mA and/or kV adjustment per patient size (includes targeted exams where dose is matched to clinical indication); or iterative reconstruction. Contrast material: VISI; Contrast volume: 96 ml; Contrast route: INTRAVENOUS (IV); COMPARISON: CT angio chest PE protcl [id number] 06/06/2020 7:46 PM RADIATION DOSE METRICS: Total DLP (mGy-cm): 1211.32 FINDINGS: Liver: Normal. No mass. Gallbladder and bile ducts: Normal. No calcified stones. No ductal dilation. Pancreas: Moderately atrophic pancreas without focal lesion. Spleen: Several small subcentimeter hypoattenuating lesions in the spleen which may represent cysts or hemangiomas. Negative for splenomegaly. Adrenal glands: Normal. No mass. Kidneys and ureters: Numerous simple cystic lesions in both kidneys. Moderate cortical volume loss. Nonobstructing right lower pole stone. Nonobstructing right upper pole stone. Negative for hydroureteronephrosis. Negative for perinephric inflammation. Stomach and bowel: Progressive dilation of small bowel loops in the mid abdomen. Decompression of distal small bowel loops. Distinct transition point visible in the left mid abdomen on axial series 3, image 50, coronal image 37, and sagittal image 26. No focal bowel wall mass. Negative for bowel perforation. Appendix: No evidence of appendicitis. Intraperitoneal space: Trace pelvic free fluid without loculation. No free air. Vasculature: Unremarkable. No abdominal aortic aneurysm. Lymph nodes: Unremarkable. No enlarged lymph nodes. Urinary bladder: Unremarkable as visualized. Reproductive: Unremarkable as visualized. 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 No acute fractures. Soft tissues: Unremarkable. CT/CT chest abd pel w con* IMPRESSION: Negative CT chest. No acute abnormality. IMPRESSION: Suspect small bowel obstruction. Distinct transition point visible in the left mid abdomen. COMMENTS: Consistent with the [employer]'s Incidental Findings Committee white paper (J Am Karol Radiol 2018): Any incidental renal lesion less than 1 cm or classified as too small to characterize, or any incidental cystic renal lesion characterized as simple-appearing, is likely benign. No follow-up imaging is recommended for these lesions per consensus recommendations based on imaging criteria.
--- NOTE | 2022-02-02 00:17 | ED_ITS ---
HPI - Abdominal Pain General: Chief Complaint: Abdominal Pain Stated Complaint: abd pain Time Seen by Provider: 02/01/22 23:36 History of Present Illness: Mr. Peguero is an 86-year-old gentleman with significant past medical history of CKD, history of Parkinson's, history of dementia presenting to the emergency department due to abdominal pain. He reports symptom onset was acute on onset approximately 10 day ago. He endorses sharp pain on the left side of his abdomen. He has nausea but no vomiting. He does endorse last bowel movement was a number of days ago and has had issues with constipation in the past. Overall symptoms have been worsening. Intensity is moderate to severe. 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 Parkinsons disease PVD (peripheral vascular disease) PVD (peripheral vascular disease) Right middle cerebral artery stroke Urgency incontinence Surgical History History of bilateral knee replacement History of varicose vein stripping Hx of hemorrhoidectomy Family History Family/Other Dementia Hypertension Social History Smoking and tobacco status: never smoked Alcohol intake: never Household members: spouse Marital status: Current occupational status: retired History of recent travel: No Physical Exam Const: COMMON NORMALS: alert GENERAL APPEARANCE: cooperative and well developed HENMT: COMMON NORMALS: normocephalic and atraumatic HEAD & SCALP: normocephalic and atraumatic Eye: COMMON NORMALS: conjunctivae normal CONJUNCTIVA: Yes conjunctivae normal SCLERA: sclerae normal Neck/C-Spine: COMMON NORMALS: supple GENERAL: Yes trachea midline Resp: COMMON NORMALS: normal respiratory effort EFFORT & INSPECTION: Yes able to speak in complete sentences Cardio: COMMON NORMALS: regular rate and regular rhythm RATE: regular rate RHYTHM: regular rhythm GI: COMMON NORMALS: Soft to palpation PALPATION: Yes Soft to palpation, Yes Tenderness to palpation present (GI), No Guarding due to palpation present (GI) and No Rigid due to palpation PERCUSSION: normal to percussion Extremity: GENERAL: Yes normal exam except as noted and No edema Neuro: COMMON NORMALS: moves all extremities SENSORIUM/ORIENTATION: Yes alert and No Orientation impaired Psych: COMMON NORMALS: mental status grossly normal and Normal thought process present THOUGHT PROCESS: Normal thought process present Course ED course: - Patient was seen and evaluated by me at bedside - Patient placed on cardiac monitors, IV access obtained - Initial evaluation notable for exam as above - Labs personally interpreted by me -Analgesia given - Labs notable for no leukocytosis, normal hemoglobin. Metabolic panel with mild evidence of dehydration, creatinine 1.7 which is slightly increased from baseline. - Imaging notable for no acute pathology identified in chest. CT abdomen notable for small bowel obstruction - Discussed with general surgery who will consult on the patient - Upon serial reexamination after treatment the patient was mildly improved - Based on patient history, evaluation, and testing as interpreted the most likely cause of the patient's condition is small bowel obstruction - The results of ED evaluation were discussed with the patient including plan for admission due to requirement for level of care not available if discharged to prevent significant worsening/deterioration. - Admitting service was contacted and Dr Malagon with the hospitalist service agreed to admit the patient - Patient was admitted without further deterioration or significant events. Note: Click bubbles or prepopulated smith in note writing are used for assistance with data collection and billing and are inherently more limited than narrative and other text portions of this note. Please use narrative for additional clini juan carlos history and defer to narrative/free test for any case of contradictory information. If information appears in only free text or click bubble it should be considered present or absent as reported. Please contact note blog writer for clarifications of clinical information or contradictory information. MDM is a brief summary, contradictory or erroneous seeming information should be clarified and full note should be reviewed. Vital Signs: Vital signs: Vital Signs Temperature 98.6 F 02/08/22 02:45 Pulse Rate 76 02/08/22 03:00 Respiratory Rate 23 H 02/08/22 03:00 Blood Pressure 129/65 02/08/22 03:00 Pulse Oximetry 82 L 02/08/22 03:00 MDM - Abdominal Pain Medical Decision Making 86-year-old gentleman with complex past medical history presenting to the emergency department due to abdominal pain. Patient found to have small bowel obstruction and admitted to the hospital service for further management with surgical consultation. Medical Records I reviewed the patient's medical records. Lab Data I reviewed the patient's lab results. : 02/07/22 05:15 02/07/22 05:15 Labs/Radiology: Radiology Impressions Chest/Abdomen/Pelvis CT 02/02/22 00:13 IMPRESSION: Negative CT chest. No acute abnormality. IMPRESSION: Suspect small bowel obstruction. Distinct transition point visible in the left mid abdomen. COMMENTS: Consistent with the [employer]'s Incidental Findings Committee white paper (J Am Karol Radiol 2018): Any incidental renal lesion less than 1 cm or classified as too small to characterize, or any incidental cystic renal lesion characterized as simple-appearing, is likely benign. No follow-up imaging is recommended for these lesions per consensus recommendations based on imaging criteria. Abdomen X-Ray 02/02/22 08:47 IMPRESSION: 1. The nasogastric tube projects on the stomach. 2. Small-bowel dilatation consistent with obstruction. Small Bowel X-Ray 02/05/22 08:17 Impression: 1. Small bowel obstruction with little progress of Gastrografin into the distal small bowel. 2. Recommend KUB tomorrow morning. Chest X-Ray 02/06/22 00:39 IMPRESSION: Low lung volumes with mild bibasilar atelectasis versus pneumonia. KUB X-Ray 02/07/22 06:00 IMPRESSION: Nonobstructive bowel gas pattern. Enteric contrast is seen in the rectum. Laboratory Results WBC 8.8 10^3/uL (4.0-10.0) 02/01/22 23:59 RBC 3.78 10^6/uL (4.1-5.3) L 02/01/22 23:59 Hgb 12.3 g/dL (11.7-16.6) 02/01/22 23:59 Hct 37.4 % (42.0-52.0) L 02/01/22 23:59 MCV 98.9 fl (80-94) H 02/01/22 23:59 MCH 32.5 pg (28.0-34.0) 02/01/22 23:59 MCHC 32.9 g/dL (30.0-36.0) 02/01/22 23:59 RDW 13.2 % (12.1-15.1) 02/01/22 23:59 Plt Count 223 10^3/cmm (130-400) 02/01/22 23:59 MPV 10.0 fL (7.4-10.4) 02/01/22 23:59 Neut % (Auto) 73.7 % 02/01/22 23:59 Lymph % (Auto) 16.1 % 02/01/22 23:59 [place] % (Auto) 6.4 % 02/01/22 23:59 Eos % (Auto) 3.0 % 02/01/22 23:59 Baso % (Auto) 0.6 % 02/01/22 23:59 Neut # (Auto) 6.50 10^3/uL (1.8-7.7) 02/01/22 23:59 Lymph # (Auto) 1.4 10^3/uL (0.8-4.8) 02/01/22 23:59 [place] # (Auto) 0.6 10^3/uL (0.2-0.9) 02/01/22 23:59 Eos # (Auto) 0.3 10^3/uL (0.0-0.8) 02/01/22 23:59 Baso # (Auto) 0.1 10^3/uL (0.0-0.1) 02/01/22 23:59 Nucleated RBC % (auto) 0 % 02/01/22 23:59 Nucleated RBCs # 0.0 /100WBC 02/01/22 23:59 Sodium 133 mmol/L (136-145) L 02/01/22 23:59 Potassium 4.5 mmol/L (3.5-5.1) 02/01/22 23:59 Chloride 98 mmol/L (98-107) 02/01/22 23:59 Carbon Dioxide 24 mmol/L (22-29) 02/01/22 23:59 Anion Gap 15.5 (5-19) 02/01/22 23:59 BUN 36 mg/dL (8-23) H 02/01/22 23:59 Creatinine 1.7 mg/dL (0.7-1.2) H 02/01/22 23:59 GFR Calculation Not Reportable 02/01/22 23:59 Glucose 109 mg/dL (65-115) 02/01/22 23:59 Calculated Osmolality 285 mOsm/kg (285-295) 02/01/22 23:59 Lactate 0.8 mmol/L (0.5-2.2) 02/02/22 01:25 Calcium 8.9 mg/dL (8.5-10.5) 02/01/22 23:59 Total Bilirubin 0.6 mg/dL (0.15-1.2) 02/01/22 23:59 AST 21 U/L (0-40) 02/01/22 23:59 ALT 6 U/L (0-41) 02/01/22 23:59 Alkaline Phosphatase 47 IU/L (40-130) 02/01/22 23:59 Total Protein 7.3 g/dL (6.6-8.7) 02/01/22 23:59 Albumin 4.6 g/dL (3.5-5.2) 02/01/22 23:59 Globulin 2.7 g/dL (1.3-4.6) 02/01/22 23:59 Lipase 25 U/L (13-60) 02/01/22 23:59 Vitamin B12 1154 pg/mL (232-1245) 02/01/22 23:59 Folate 9.4 ng/mL (4.5-32.2) 02/01/22 23:59 TSH 2.14 uIU/mL (0.27-4.20) 02/01/22 23:59 Free T4 1.19 ng/dL (0.82-1.77) 02/01/22 23:59 Discharge Plan Discharge Patient Disposition: Admitted As Inpatient Admit Provider: See Malagon Clinical Impression: Small bowel obstruction Condition: Stable Coding Level of Care Code ED Deaf Interpreter for Ivonne Garcia
[2022-02-02 00:30] LABS: Alanine Aminotransferase 6 U/L (0-41); Albumin Level 4.6 g/dL (3.5-5.2); Alkaline Phosphatase 47 IU/L (40-130); Anion Gap 15.5 (5-19); Aspartate Amino Transferase 21 U/L (0-40); Blood Urea Nitrogen 36 mg/dL (8-23); Calcium 8.9 mg/dL (8.5-10.5); Carbon Dioxide 24 mmol/L (22-29); Chloride 98 mmol/L (98-107); Globulin 2.7 g/dL (1.3-4.6); Glucose 109 mg/dL (65-115); Lipase 25 U/L (13-60); Osmolality Calculated 285 mOsm/kg (285-295); Potassium 4.5 mmol/L (3.5-5.1); Sodium 133 mmol/L (136-145); Total Bilirubin 0.6 mg/dL (0.15-1.2); Total Protein 7.3 g/dL (6.6-8.7)
[2022-02-02] MEDS: morphine 4 mg/mL SDV 1 mL IVP (00:32)
[2022-02-02] MEDS: iodixanol 320 mg/mL 100mL Btl IV (01:12)
[2022-02-02 01:59] LABS: Lactate (Lactic Acid level) 0.8 mmol/L (0.5-2.2)
--- NOTE | 2022-02-02 03:56 | P.HP_ITS ---
Providers/Chief Complaint Primary Care Provider: North Mancini MD Chief Complaint: abd pain History of Present Illness the patient is an 86-year-old male who percent to Ava abdominal pain which started at noon up on February 01, 2022. He localizes the pain to the suprapubic area. He states it was of sudden onset described as sharp and since the time of onset's been constant. He took Tylenol at home which did not improve the pain. He denies fever, rigors, nausea, vomiting. He denies diarrhea, melena, hematochezia. Indicates that his last bowel movement was possibly 3 days prior to hospitalization. He presents for further evaluation Review of Systems General: Reports: 10 or more systems reviewed and unremarkable except in HPI and below Medications/Allergies Home Medications Medication Instructions Recorded Confirmed Last Taken Type gabapentin 300 mg capsule 300 mg PO BEDTIME 11/07/19 12/23/21 11/19/21 History Super Beta Prostate 1 cap PO QAM 11/20/21 12/23/21 11/19/21 History Vitamin B-12 1 tab PO QAM 11/20/21 12/23/21 11/19/21 History Vitamin D3 1 cap PO QAM 11/20/21 12/23/21 11/19/21 History aspirin 81 mg capsule 81 mg PO DAILY #90 cap 11/21/21 12/23/21 Unknown Rx finasteride 5 mg tablet 5 mg PO DAILY #90 tab 11/21/21 12/23/21 Unknown Rx carbidopa 25 mg-levodopa 100 mg 1 tab PO TID #270 tab 12/23/21 12/23/21 Unknown Rx tablet citalopram 40 mg tablet See Rx Instructions .ROUTE 12/23/21 12/23/21 Unknown Rx .COMPLEX #135 tab galantamine 4 mg tablet 4 mg PO BID #180 tab 12/23/21 12/23/21 Unknown Rx midodrine 10 mg tablet 5 mg PO TID tab 12/24/21 Unknown History Allergies Allergy/AdvReac Type Severity Reaction Status Date / Time No Known Allergies Allergy Verified 12/03/21 08:24 PFSH Acute PFSH: Medical History Balanitis BPH NOS w ur obs/LUTS CKD (chronic kidney disease) 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 CVA (cerebral vascular accident) Depression Hypotension Lewy body dementia 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 Parkinsons disease PVD (peripheral vascular disease) PVD (peripheral vascular disease) Right middle cerebral artery stroke Urgency incontinence Surgical History History of bilateral knee replacement History of varicose vein stripping Hx of hemorrhoidectomy Family History Family/Other Dementia Hypertension Social History Smoking and tobacco status: never smoked Alcohol intake: never Household members: spouse Marital status: Current occupational status: retired History of recent travel: No Vitals/I&O/Wt Last Vital Signs Temp 97.8 F 02/01/22 21:58 Pulse 65 02/02/22 02:32 Resp 18 02/02/22 02:32 BP 105/65 02/02/22 02:32 Pulse Ox 90 02/02/22 02:32 Weight last 48 hrs Weight 77.111 kg Physical Exam Narrative: General: -Alert -No acute distress -No dyspnea -No tachypnea Head: -Atraumatic -Normocephalic Eyes: -Pupils equally round and reactive to light and accommodation -Extraocular muscles intact Neurological: -Cranial nerves II-XII intact Neck: -No jugular venous distention -No thyromegaly -No cervical lymphadenopathy Heart: -Regular rate -Regular rhythm -No murmurs -No gallops -No rubs Lungs: -No wheeze -No rhonchi -No rales ? Abdomen: -Normal bowel sounds in all four quadrants -No rebound -No guarding -No tenderness Extremities: -2/4 pulse in all four extremities -No clubbing -No cyanosis -No edema -No calf tenderness present bilaterally -Negative Christina?s sign bilaterally Musculoskeletal: -5/5 bilateral upper extremity strength -5/5 bilateral lower extremity strength -Sensorium of bilateral upper extremities are equal and intact -Sensorium of bilateral lower extremities are equal and intact ? Additional Details / Additional Findings / Exceptions / Miscellaneous: Data : 02/01/22 23:59 02/01/22 23:59 A&P Assessment and plan (1) Small bowel obstruction: Status: Acute Plan small bowel obstruction. I have been notified by the emergency department physician that a nasogastric tube will be inserted in the emergency department. Will set nasogastric tube to low intermittent suction. Nothing by mouth. IV normal saline at 75 ML's per hour Chronic kidney disease, baseline creatinine [place] 1.6. Will monitor cre atinine intermittently. IV normal saline at 75 ML's per hour Hyponatremia. We will monitor sodium level intermittently. IV normal saline 75 ML's per hour Neuropathy BPH Lewy body dementia Parkinson's disease Constipation History of CVA Orthostatic hypotension Macrocytosis. TSH, free T4, B12, folate level pending Nephrolithiasis, asymptomatic Peripheral vascular disease Patent foramen ovale DVT Proflex is. Heparin 5000 units subcutaneous leak every 12 hours Attestations Medical Necessity Statement*: the patient's anticipate length of stay is greater than 2 midnights for treatment of a small bowel obstruction Coding Level of Care Code Acute Retirement Actuary for Ivonne Garcia Diagnoses Small bowel obstruction K56.609
[2022-02-02 04:41] LABS: Thyroid Stimulating Hormone 2.14 uIU/mL (0.27-4.20); Vitamin B12 1154 pg/mL (232-1245)
[2022-02-02 04:42] LABS: Folate Level 9.4 ng/mL (4.5-32.2)
[2022-02-02 04:48] LABS: Free T4 Free Thyroxine 1.19 ng/dL (0.82-1.77)
--- NOTE | 2022-02-02 04:53 | PC.NURSE ---
Attempted to place 16f NG tube. Right nare coiled in mouth and left nare coil in stomach and was unable to retract tube into correct position. Pt now refusing NG tube. Dr Parks updated
[2022-02-02] MEDS: sodium chloride 0.9% 1,000 ML 75 ML IV (05:35)
[2022-02-02] MEDS: heparin 5,000 unit/mL INJ 1 mL 5000 UNIT SUBCUT (05:35)
[2022-02-02 06:54] LABS: Anion Gap 14.4 (5-19); Blood Urea Nitrogen 38 mg/dL (8-23); Calcium 8.7 mg/dL (8.5-10.5); Carbon Dioxide 26 mmol/L (22-29); Chloride 100 mmol/L (98-107); Glucose 110 mg/dL (65-115); Osmolality Calculated 292 mOsm/kg (285-295); Potassium 4.4 mmol/L (3.5-5.1); Sodium 136 mmol/L (136-145)
[2022-02-02 07:10] LABS: Creatinine Clr Calc Pharmacy 38.0134
--- NOTE | 2022-02-02 08:47 | XRR_ITS ---
PROCEDURE INFORMATION: Exam: XR Abdomen Exam date and time: 02/02/2022 8:58 AM Age: 86 years old Clinical indication: Device placement; Gi device; Nasogastric tube; Additional info: S/P ngt placement TECHNIQUE: Imaging protocol: XR of the abdomen. Views: Frontal supine view of the abdomen. 1 View. COMPARISON: CT chest abd pel w con* 02/02/2022 1:11 AM FINDINGS: Tubes, catheters and devices: A nasogastric tube is present in the projection of the stomach. Gastrointestinal tract: There is dilatation of the small bowel which is similar to what can be seen on the recent CT scan. This is consistent with small bowel obstruction. Bones/joints: Unremarkable. XR/XR abdomen 1V* [id number] IMPRESSION: 1. The nasogastric tube projects on the stomach. 2. Small-bowel dilatation consistent with obstruction.
--- NOTE | 2022-02-02 08:49 | PM.PROC ---
Procedure Note: Pre-procedure diagnosis: small bowel obstruction Post-procedure diagnosis: same Procedure: NGT insertion Performing Provider: Rick Silva Complications: none Other Information: NGT placed to 65 cm by myself. Post placement xray ordered. Coding Level of Care Code Acute Human Resource Consultant for Ivonne Garcia
--- NOTE | 2022-02-02 08:51 | P.CONIM_ITS ---
Providers/Reason For Consult Consulting Physician/Specialty*: Dr. Rick Silva/ General Surgery Reason for Consult*: Small bowel obstruction Attending Physician: Lei Hercules MD Primary Care Provider: North Mancini MD History of Present Illness History of Present Illness Jay Peguero is a 86 year old male who presented to the hospital with a 2-week history of left-sided abdominal pain. He reports that yesterday about noon his pain became sharp and constant, prompting him to come to the hospital. The pain does not radiate. Palpation makes the pain worse. Nothing makes it better. he reports nausea but no emesis. He reports his last bowel movement was 2 or 3 d ays ago and that he has not passed flatus for the last 24 hours. He denies any sick contacts. Denies any fever or chills. Denies hematochezia or melena. He denies any sick contacts. He has never had abdominal surgery. Review of Systems General: Reports: 10 or more systems reviewed and unremarkable except in HPI and below Medications/Allergies Home Medications Medication Instructions Recorded Confirmed Last Taken Type gabapentin 300 mg capsule 300 mg PO BEDTIME 11/07/19 12/23/21 11/19/21 History Super Beta Prostate 1 cap PO QAM 11/20/21 12/23/21 11/19/21 History Vitamin B-12 1 tab PO QAM 11/20/21 12/23/21 11/19/21 History Vitamin D3 1 cap PO QAM 11/20/21 12/23/21 11/19/21 History aspirin 81 mg capsule 81 mg PO DAILY #90 cap 11/21/21 12/23/21 Unknown Rx finasteride 5 mg tablet 5 mg PO DAILY #90 tab 11/21/21 12/23/21 Unknown Rx carbidopa 25 mg-levodopa 100 mg 1 tab PO TID #270 tab 12/23/21 12/23/21 Unknown Rx tablet citalopram 40 mg tablet See Rx Instructions .ROUTE 12/23/21 12/23/21 Unknown Rx .COMPLEX #135 tab galantamine 4 mg tablet 4 mg PO BID #180 tab 12/23/21 12/23/21 Unknown Rx midodrine 10 mg tablet 5 mg PO TID tab 12/24/21 Unknown History Allergies Allergy/AdvReac Type Severity Reaction Status Date / Time No Known Allergies Allergy Verified 12/03/21 08:24 Current Medications Generic Name Dose Route Start Last Admin Trade Name Christianq PRN Reason Stop Dose Admin Heparin Sodium (Porcine) 5,000 unit 02/02/22 05:14 02/02/22 05:35 Heparin 5,000 Unit/Ml Inj 1 Ml SUBCUT 5,000 unit Q12H BRANDY Administration Sodium Chloride 1,000 mls @ 125 mls/hr 02/02/22 05:14 02/02/22 05:35 Sodium Chloride 0.9% IV 75 mls/hr .Q8H BRANDY Administration PFSH Acute PFSH: Medical History Balanitis BPH NOS w ur obs/LUTS CKD (chronic kidney disease) 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 CVA (cerebral vascular accident) Depression Hypotension Lewy body dementia 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 Parkinsons disease PVD (peripheral vascular disease) PVD (peripheral vascular disease) Right middle cerebral artery stroke Urgency incontinence Surgical History History of bilateral knee replacement History of varicose vein stripping Hx of hemorrhoidectomy Family History Family/Other Dementia Hypertension Social History Smoking and tobacco status: never smoked Alcohol intake: never Household members: spouse Marital status: Current occupational status: retired History of recent travel: No Vitals/I&O/Wt Last Vital Signs Temp 98.1 F 02/02/22 07:43 Pulse 65 02/02/22 07:43 Resp 16 02/02/22 07:43 BP 112/67 02/02/22 07:43 Pulse Ox 93 02/02/22 07:43 Weight last 48 hrs Weight 170 lb Physical Exam Narrative: General : Patient is well developed , no acute distress, oriented x3 Head : Normal cephalic, a-traumatic. Ears : TM's are without erythema or bulging, Pinnae and external canal are normal. Hearing is normal. Eyes : PERRLA, Sclera and injection are normal. No conjunctival discharge. Nose : Mucous membranes are without erythema. Throat : buccal mucosa is normal, gums are without significant recession or hypertrophy. Lungs : Equal chest rise bilaterally, no use of accessory muscles, trachea is midline. Cor : Rate and rhythm are normal. Abdomen : Soft, mild distension, moderate left-sided tenderness, no g/r/m Extremities : No edema, no cyanosis or clubbing, dorsalis pedis pulses are present bilaterally, non-tender to palpation of calves. Upper extremities are normal bilaterally. Back : non-tender to palpation, no CVA tenderness. Neuro : CN II - XII intact, Upper and lower extremities have equal and full strength Data : 02/01/22 23:59 02/02/22 06:00 A&P Assessment and plan (1) Small bowel obstruction: Status: Acute Plan IVF and NGT are mainstays of SBO treatment. IVF to 125cc/hr (I would do 150-200 in a younger person) NGT placed by myself, keep to LIWS post-placement xray ordered. Await return of bowel function If he does not open up in the next few days or so (he does have a virgin belly) we will need to consider surgery No acute surgical intervention Thank you for this consultation Coding Level of Care Code New Pt Acute Airline Lounge Receptionist for Chg Fwd Patient Type New History Expanded Problem Focused Exam Expanded Problem Focused Medical Decision Making Low Complexity Diagnoses Small bowel obstruction K56.609
[2022-02-02 08:58] LABS: Add Urine Microscopic? YES; Bilirubin Urine Neg (Negative); Blood Urine 2+ (Negative); Glucose Urine UA Norm (Normal); Ketones Urine Negative (Negative); Leukocyte Esterase Urine Negative (Negative); Nitrate Urine Negative (Negative); Protein Urine Neg (Negative); Urine Appearance Clear (CLEAR); Urine Color Yellow (Yellow); Urobilinogen Urine 4 mg/dL (Negative); pH Urine 7 (5-7)
[2022-02-02 09:07] LABS: Bacteria Urine TRACE /hpf; Mucus Urine TRACE /hpf; Squamous Epithelial Cell Urine 0-4 /hpf (0-5); WBC Urine 0-4 /hpf (0-5)
[2022-02-02 09:08] LABS: Add Urine Culture? Yes
[2022-02-02] MEDS: morphine 4 mg/mL SDV 1 mL 2 MG IVP ×2 (09:15→20:58)
--- NOTE | 2022-02-02 09:27 | PC.PHAR ---
pts verified pts medications-pts states the lipitor 10mg ,pyridostigmine 60mg bid,zoloft 100mg daily,donepezil 10mg daily was all dced-notes are made in the pharmacy comments
--- NOTE | 2022-02-02 10:51 | PC.CHAP ---
Pastoral Care Encounter/Spiritual Assessment Type of Contact [] Declined dinkey engine operator visit [] Patient/Family/Request visit [] Outpatient visit [] Follow-up visit [] Physician referral [] Code/Alert [x] Routine visit [] Staff referral [] Actively dying [x] Patient sleeping [] Family support [] [] Out of room [] Palliative care [] [] Receiving care in room [] Pre-surgical visit [] Trauma [] Long length of stay [] ICU visit [] Other: Relational/Emotional Strength [] Patient feels connected with others/family/visitors/staff [] Distress [] Loneliness/isolation [] Abandonment Spirituality of Patient [] Person of Taty [] Attends Pentecostalism of their Taty [] Believes in Prayer [] Reads Bible or Quaker materials [] There are Spiritual issues to be addressed Bi Technical Lead Interventions [] Prayer [] Active listening [] Non-anxious presence [] Spiritual/emotional support [] Crisis/trauma care [] Spiritual counseling [] Bereavement support [] Provided bereavement packet [] Provided Bible/devotional materials [] Provided toy/stuffed animal, coloring book to patient or family member [] Provided Communion [] Anointing/[place] [] Salvation [] Completed spiritual assessment [] Other: Impact on Illness or Injury [] Angry [] Fearful [] Anxious [] Often cries [] Exhaustion [] Unable to work [] Unable to attend yazidism [] Unable to walk/stand [] Unable to read [] Unable to drive [] Unable to eat/drink [] Unable to sleep [] Unable to be with family [] Patient intubated [] Other: Summary Time spent with patient
--- NOTE | 2022-02-02 12:21 | PM.MISC ---
Miscellaneous Note Note: Patient examined, KUB reviewed, appreciate general surgery recommendations Patient is stating that his last bowel movement was 3 days ago, He is endorsing passing of flatus Patient is laying supine Abdomen is tender to palpate No bowel sounds Does not look extremely dehydrated S1, S2 Nonfocal neuro exam Patient is fatigued and lethargic is at the bedside For SBO conservative management with NG to low intermittent suction, feculent material noted in the container, container has been emptied this morning, serial abdominal exam and KUB, tried to update Dr. Peguero, number is not in service DVT prophylaxis SCDs Chronic kidney disease without acute worsening Continue IV fluid General surgery wants to do aggressive fluid management with monitoring for another hour would like to monitor 4 hours to see if we need to de-escalate to what fluid overload state EF 55% Patient has history of intracardiac shunt
[2022-02-02] MEDS: sodium chloride 0.9% 1,000 ML 125 ML IV ×2 (14:58→22:39)
[2022-02-02] MEDS: diphenhydrAMINE 50 mg/mL SDV 1mL 25 MG IVP (21:01)
[2022-02-03] VITALS (7 sets, daily range): BP systolic 115–157; BP diastolic 63–80; PULSE 70–89; RESP 16–20; TEMP 36.6–37.6; O2SAT 93–96
--- NOTE | 2022-02-03 04:00 | XR_ITS ---
WS: [id number] KUB, AP portable supine, 02/03/2022 Clinical Data: sbo Comparison: KUB, 02/02/2022 Findings: The small bowel remains dilated. There is fecal material in the colon. There is contrast material wit hin the bladder. 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 XR/XR KUB portable [id number] Impression: No change in dilated small bowel.
[2022-02-03] MEDS: sodium chloride 0.9% 1,000 ML 125 ML IV (05:29)
[2022-02-03 06:58] LABS: Basophils % 0.3 %; Eosinophils # 0.1 10^3/uL (0.0-0.8); Eosinophils % 1.5 %; Hematocrit 35.5 % (42.0-52.0); Hemoglobin 11.5 g/dL (11.7-16.6); Lymphocytes # 0.9 10^3/uL (0.8-4.8); Lymphocytes % 10.5 %; Mean Corpuscular HGB Conc 32.4 g/dL (30.0-36.0); Mean Corpuscular Hemoglobin 32.8 pg (28.0-34.0); Mean Corpuscular Volume 101.1 fl (80-94); Mean Platelet Volume 10.2 fL (7.4-10.4); Monocytes # 0.6 10^3/uL (0.2-0.9); Monocytes % 7.2 %; Neutrophils # 6.93 10^3/uL (1.8-7.7); Neutrophils % 80.2 %; Nucleated Red Blood Cells % 0 %; Platelet Count 214 10^3/cmm (130-400); Red Blood Count 3.51 10^6/uL (4.1-5.3); Red Cell Distribution Width 13.2 % (12.1-15.1); White Blood Count 8.7 10^3/uL (4.0-10.0)
[2022-02-03 08:01] LABS: Anion Gap 16.2 (5-19); Blood Urea Nitrogen 30 mg/dL (8-23); Calcium 8.3 mg/dL (8.5-10.5); Carbon Dioxide 21 mmol/L (22-29); Chloride 104 mmol/L (98-107); Glucose 85 mg/dL (65-115); Osmolality Calculated 289 mOsm/kg (285-295); Potassium 4.2 mmol/L (3.5-5.1); Sodium 137 mmol/L (136-145)
--- NOTE | 2022-02-03 10:27 | PM.PN ---
Subjective Subjective: Patient seen and examined. No N/V since NGT insertion. NGT with minimal output overnight. Output increased when suction was increased this morning. Patient is unsure if he has passed flatus. Denies BM. Vitals/I&O/Wt Last Vital Signs Temp 97.9 F 02/03/22 07:49 Pulse 71 02/03/22 07:49 Resp 16 02/03/22 07:49 BP 133/75 02/03/22 07:49 Pulse Ox 93 02/03/22 07:49 02/02/22 02/03/22 02/03/22 22:59 06:59 14:59 Intake Total 960.417 / 2389.504 1006.167 / 3044.167 Output Total 150 / 200 Balance 810.417 / 9141.292 0791.167 / 2844.167 Weight last 48 hrs Weight 170 lb Physical Exam Narrative: Gen: NAD, AAOx3 Abd: S, moderate distension, mild left-sided tenderness, no g/r/m Data : 02/03/22 06:36 02/03/22 06:36 Micro: Microbiology 02/02/22 08:24 Urine Culture - Preliminary Urine,Clean Catch A&P Assessment and plan (1) Small bowel obstruction: Status: Acute Plan IVF and NGT are mainstays of SBO treatment. IVF to 125cc/hr (I would do 150-200 in a younger person) NGT placed by myself, keep to LIWS Await return of bowel function If he does not open up in the next couple days or so (he does have a virgin belly) we will need to consider surgery Ambulate in halls with NGT clamped for 30 minutes at a time No acute surgical intervention Attestations Medical Necessity Statement*: NGT still in place Coding Level of Care Code Acute Executive Officer Special Warfare Team for Ivonne Garcia Diagnoses Small bowel obstruction K56.609
--- NOTE | 2022-02-03 10:29 | PM.PN ---
Subjective Subjective: Repeat KUB has not shown improvement in dilated small bowel, however bowel sounds present today No active emesis Mr. Peguero is stating that his abdominal pain is not too bad, he is not endorsing passage of flatus, he is not endorsing active discomfort as well I increase his suction which drained 70 cc right away it still looks like feculent material Mrs. Peguero asked me whether we can resume his Parkinson's meds, it is very risky at this point to give him anything p.o. because of active drainage from his NG tube, hold off on p.o. medications Change IV fluids to D5 LR blood sugar 85 mg/dL Vitals/I&O/Wt Last Vital Signs Temp 97.9 F 02/03/22 07:49 Pulse 71 02/03/22 07:49 Resp 16 02/03/22 07:49 BP 133/75 02/03/22 07:49 Pulse Ox 93 02/03/22 07:49 02/02/22 02/03/22 02/03/22 22:59 06:59 14:59 Intake Total 960.417 / 2496.608 1466.167 / 3044.167 Output Total 150 / 200 Balance 810.417 / 5766.221 0108.167 / 2844.167 Weight last 48 hrs Weight 77.111 kg Physical Exam Narrative: Patient is laying supine Abdomen is distended, I could hear hyperactive bowel sounds today No signs of edema Signs of dehydration present Patient is lethargic and fatigued No active signs of stroke Muffled voice Verbally redirectable is at the bedside Feculent material suctioned in the container Saturating well on room air Data : 02/03/22 06:36 02/03/22 06:36 Micro: Microbiology 02/02/22 08:24 Urine Culture - Preliminary Urine,Clean Catch A&P Assessment and plan (1) Small bowel obstruction: Status: Acute (2) Lewy body dementia: Status: Acute (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 Potassium 4.2 Magnesium 2.0 Chronic kidney disease creatinine around baseline Hypoglycemia Patient is fatigued lethargic No active signs of confusion, I will change IV fluids to D5 LR DVT prophylaxis SCDs Will follow up with general surgery recommendations today We will continue to monitor with serial abdominal exam and KUB History of Parkinson's: No acute exacerbation hold antiparkinsonian medications for now Intracardiac shunt history Limited resuscitation goals of care Attestations Medical Necessity Statement*: Anticipating stay in continue medical management Time Spent in Patient Care: 35mins Coding Level of Care Code Acute Water Team Leader for [facility] Fwd Diagnoses Small bowel obstruction K56.609 Lewy body dementia G31.83; F02.80 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
[2022-02-03] MEDS: dextrose 5%-lactated ringers 1,000 ML 100 ML IV ×2 (12:02→22:36)
--- NOTE | 2022-02-03 16:14 | XRR_ITS ---
PROCEDURE INFORMATION: Exam: XR Chest Exam date and time: 02/03/2022 4:03 PM Age: 86 years old Clinical indication: Device placement; Ng tube; Additional info: Ng tube placement TECHNIQUE: Imaging protocol: XR of the chest. Views: 1 view. COMPARISON: CT chest abd pel w con* 02/02/2022 1:11 AM FINDINGS: Tubes, catheters and devices: NG tube terminates in the stomach. Lungs: No consolidation. Pleural spaces: No pleural effusion. No pneumothorax. Heart/Mediastinum: No cardiomegaly. Bones/joints: Visualized osseous structures are intact. XR/XR chest 1V portable [id number] IMPRESSION: NG tube terminates in the stomach.
[2022-02-03] MEDS: morphine 4 mg/mL SDV 1 mL 2 MG IVP (20:44)
[2022-02-03] MEDS: diphenhydrAMINE 50 mg/mL SDV 1mL 25 MG IVP (20:44)
[2022-02-03] MEDS: LORazepam 2 mg/mL INJ 1 mL 1 MG IVP (23:12)
[2022-02-04] VITALS (7 sets, daily range): BP systolic 117–157; BP diastolic 68–80; PULSE 70–86; RESP 17–22; TEMP 36.7–37.6; O2SAT 92–95
--- NOTE | 2022-02-04 04:00 | XR_ITS ---
WS: [id number] KUB, AP view, 02/04/2022 Clinical Data: sbo Comparison: KUB, 02/03/2022. Findings: The upper abdominal small bowel loops remain dilated. There is a nasogastric tube which is probably c urled in the fundus of the stomach and barely entering the stomach. There is a calcification overlying the midportion of the right kidney. 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 XR/XR KUB portable [id number] Impression: No change in small bowel obstruction.
[2022-02-04 05:14] LABS: Basophils % 0.2 %; Eosinophils # 0.2 10^3/uL (0.0-0.8); Eosinophils % 2.6 %; Hematocrit 33.9 % (42.0-52.0); Hemoglobin 10.9 g/dL (11.7-16.6); Lymphocytes % 15.8 %; Mean Corpuscular HGB Conc 32.2 g/dL (30.0-36.0); Mean Corpuscular Hemoglobin 32.2 pg (28.0-34.0); Mean Corpuscular Volume 100.3 fl (80-94); Mean Platelet Volume 10.4 fL (7.4-10.4); Monocytes # 0.7 10^3/uL (0.2-0.9); Monocytes % 10.1 %; Neutrophils # 4.59 10^3/uL (1.8-7.7); Nucleated Red Blood Cells % 0 %; Platelet Count 200 10^3/cmm (130-400); Red Blood Count 3.38 10^6/uL (4.1-5.3); Red Cell Distribution Width 13.1 % (12.1-15.1); White Blood Count 6.5 10^3/uL (4.0-10.0)
[2022-02-04 05:40] LABS: Anion Gap 12.7 (5-19); Blood Urea Nitrogen 27 mg/dL (8-23); Calcium 8.9 mg/dL (8.5-10.5); Carbon Dioxide 26 mmol/L (22-29); Chloride 101 mmol/L (98-107); Glucose 153 mg/dL (65-115); Osmolality Calculated 290 mOsm/kg (285-295); Potassium 3.7 mmol/L (3.5-5.1); Sodium 136 mmol/L (136-145)
[2022-02-04] MEDS: dextrose 5%-lactated ringers 1,000 ML 100 ML IV ×2 (07:47→17:50)
--- NOTE | 2022-02-04 10:49 | P.PN_ITS ---
Subjective Subjective: Mr. Peguero is in private room today NG tube was reinserted yesterday Minimal output noted from the NG tube today Abdomen is not severely distended I was able to hear bowel sounds in left lower quadrant however not so any midepigastric or right lower quadrants Mr. Peguero seems very agitated trying to pull his NG tube, He is also showing signs of visual hallucinations He is also clinically out of the bed is at the bedside Also spoke to his son I would only use low-dose intramuscular 5 mg of Zyprexa I have spoken with Dr. Alas who has put him on schedule for tomorrow if his bowel function does not return however family is leaning towards conservative measures and only opt for surgery if it is absolutely necessary Vitals/I&O/Wt Last Vital Signs Temp 98.1 F 02/04/22 04:00 Pulse 72 02/04/22 07:22 Resp 20 H 02/04/22 07:22 BP 119/68 02/04/22 07:22 Pulse Ox 93 02/04/22 07:22 02/03/22 02/04/22 02/04/22 22:59 06:59 14:59 Intake Total 999 918.333 / 918.333 Balance 999 918.333 / 918.333 Physical Exam Narrative: Mr. Peguero is laying flat Signs of dehydration He is agitated Trying to get out of the bed is at the bedside Mr. Peguero does try to pull his NG tube I did not notice significant output from his NG tube today Abdomen does not look severely distended Bowel sound present in left lower quadrant only Abdomen is nontender no signs guarding rigidity or peritonitis Some tenderness elicited with deep palpation in left lower quadrant I do not see active signs of stroke Is verbally redirectable No signs of edema Hemodynamically stable Afebrile Data : 02/04/22 04:36 02/04/22 04:36 Micro: Microbiology 02/02/22 08:24 Urine Culture - Final Urine,Clean Catch A&P Assessment and plan (1) Small bowel obstruction: Status: Acute (2) Lewy body dementia: Status: Acute (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 Silva is aware Dr. Silva is leaning towards surgical intervention if there is no return of bowel function the next 24 hours however Mrs. Peguero is very reluctant and would like to pursue conservative measures for now N.p.o. 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
[2022-02-04] MEDS: OLANZapine 10 mg VIAL 5 MG IM ×2 (12:21→18:38)
--- NOTE | 2022-02-04 18:45 | P.PCN_ITS ---
Procedure Note: Pre-procedure diagnosis: Small bowel obstruction Post- procedure diagnosis: same Procedure: NGT placed to 65 cm by myself. Post placement xray ordered. Coding Level of Care Code Acute Nursing Informatics Clinical Analyst for Ivonne Garcia
--- NOTE | 2022-02-04 18:45 | P.PN_ITS ---
Subjective Subjective: Patient pulled out his NGT due to confusion this morning. He has had no N/V since NGT insertion. Pain improved. Denies BM. He is unsure if he has passed flatus. His spent all night with him. Vitals/I&O/Wt Last Vital Signs Temp 98.2 F 02/04/22 15:50 Pulse 70 02/04/22 15:50 Resp 18 02/04/22 11:11 BP 124/71 02/04/22 15:50 Pulse Ox 95 02/04/22 15:50 02/04/22 02/04/22 02/04/22 06:59 14:59 22:59 Intake Total 918.333 / 234.448 3848 / 1917.333 Balance 918.333 / 897.806 2668 / 1917.333 Physical Exam Narrative: Gen: NAD, well nourished Abd: S, mildly distended (improved), mild diffuse tenderness, no g/r/m Urinary Catheter Management: [place]: Cath Placed During This Visit: yes Urinary Catheter Date of Insertion: 02/04/22 Urinary Catheter Time of Insertion: 13:00 Data : 02/04/22 04:36 02/04/22 04:36 Micro: Microbiology 02/02/22 08:24 Urine Culture - Final Urine,Clean Catch A&P Assessment and plan (1) Small bowel obstruction: Status: Acute Plan IVF and NGT are mainstays of SBO treatment. NGT replaced by myself, keep to LIWS Await return of bowel function His abdominal exam has improved. I spoke at length with Radha Sudhir, Mr. Peguero and Dr. Peguero (his son) about his condition. I offerred diagnostic laparoscopy with possible laparotomy tomorrow if he doesn't regain bowel function by the morning. They would prefer to allow more time for bowel function to return and consider possible surgery Tuesday. Since his abdominal exam has improved and he has a virgin belly, I think this is a reasonable option. I would like to start PPN tomorrow, however, if he doesn't regain bowel function by that time. Ambulate in halls with NGT clamped for 30 minutes at a time No acute surgical intervention Attestations Medical Necessity Statement*: NGT still in place Coding Level of Care Code Acute Development Vice President for g Fwd Diagnoses Small bowel obstruction K56.609
[2022-02-05] VITALS (8 sets, daily range): BP systolic 110–147; BP diastolic 67–76; PULSE 77–83; RESP 16–22; TEMP 36.8–37.6; O2SAT 90–92
[2022-02-05] MEDS: OLANZapine 10 mg VIAL 5 MG IM ×3 (02:16→16:46)
[2022-02-05] MEDS: dextrose 5%-lactated ringers 1,000 ML 100 ML IV (03:49)
--- NOTE | 2022-02-05 04:00 | XR_ITS ---
WS: [id number] KUB, AP supine portable, 02/05/2022 Clinical Data: sbo Comparison: Portable KUB, 02/04/2022 Findings: The upper abdominal small bowel loops remain dilated. The nasogastric tube is probably curled in the fundus of the stomach. There is a calcification overlying the right kidney. There is a small amount of colon gas present. Th ere is osteoarthritic change of both hips. XR/XR KUB portable [id number] Impression: No change in small bowel obstruction.
[2022-02-05 05:10] LABS: Basophils % 0.4 %; Eosinophils # 0.3 10^3/uL (0.0-0.8); Eosinophils % 6.9 %; Hematocrit 32.7 % (42.0-52.0); Hemoglobin 10.6 g/dL (11.7-16.6); Lymphocytes # 1.2 10^3/uL (0.8-4.8); Lymphocytes % 23.5 %; Mean Corpuscular HGB Conc 32.4 g/dL (30.0-36.0); Mean Corpuscular Hemoglobin 32.2 pg (28.0-34.0); Mean Corpuscular Volume 99.4 fl (80-94); Mean Platelet Volume 10.4 fL (7.4-10.4); Monocytes # 0.7 10^3/uL (0.2-0.9); Neutrophils # 2.66 10^3/uL (1.8-7.7); Nucleated Red Blood Cells % 0 %; Platelet Count 207 10^3/cmm (130-400); Red Blood Count 3.29 10^6/uL (4.1-5.3); Red Cell Distribution Width 12.9 % (12.1-15.1); White Blood Count 4.9 10^3/uL (4.0-10.0)
[2022-02-05 05:31] LABS: Anion Gap 13.4 (5-19); Blood Urea Nitrogen 22 mg/dL (8-23); Calcium 8.2 mg/dL (8.5-10.5); Carbon Dioxide 23 mmol/L (22-29); Chloride 102 mmol/L (98-107); Glucose 123 mg/dL (65-115); Osmolality Calculated 285 mOsm/kg (285-295); Potassium 3.4 mmol/L (3.5-5.1); Sodium 135 mmol/L (136-145)
--- NOTE | 2022-02-05 08:17 | FL_ITS ---
WS: [email or web address] Small bowel series, 02/05/2022 Clinical Data: Small bowel obstruction Comparison: KUB, 02/05/2022. Findings: The preliminary film shows dilated small bowel. There is a calcification overlying the right kidney. The nasogastric tube is curled in the fundus of the stomach. Sequential imaging of the abdomen was ob tained after injection of Gastrografin via the nasogastric tube at 15 minute intervals until 45 minut es post injection. Then a 1 hour and 45 minute image was obtained. Gastrografin remains in the stomac h and the dilated proximal small bowel. However there was minimal progress after 1 hour and 45 minute s. FL/[place] gastro [id number] Impression: 1. Small bowel obstruction with little progress of Gastrografin into the distal small bowel. 2. Recommend KUB tomorrow morning.
--- NOTE | 2022-02-05 08:25 | P.PN_ITS ---
Subjective Subjective: Patient reports that his mouth is dry this morning. He has had no N/V since NGT insertion. Pain improved. Denies BM and/or flatus. Family is in the room with hime Vitals/I&O/Wt Last Vital Signs Temp 98.7 F 02/05/22 07:05 Pulse 77 02/05/22 07:05 Resp 16 02/05/22 07:05 BP 120/76 02/05/22 07:05 Pulse Ox 90 02/05/22 07:05 02/04/22 02/05/22 02/05/22 22:59 06:59 14:59 Intake Total 1000 / 1917.333 998.333 / 2916.666 458.333 / 458.333 Output Total 1100 / 1100 Balance 1000 / 1917.333 -101.667 / 1816.666 458.333 / 458.333 Physical Exam Narrative: Gen: NAD, well nourished Abd: S, nondistended (improved), very mild left-sided tenderness, no g/r/m Urinary Catheter Management: [place]: Cath Placed During This Visit: yes Reason for Continuing Indwelling Catheter: Other Urinary Catheter Date of Insertion: 02/04/22 Urinary Catheter Time of Insertion: 13:00 Data : 02/05/22 04:45 02/05/22 04:45 Micro: Microbiology 02/02/22 08:24 Urine Culture - Final Urine,Clean Catch A&P Assessment and plan (1) Small bowel obstruction: Status: Acute Plan IVF and NGT are mainstays of SBO treatment. NGT on LIWS Await return of bowel function I spoke with the hospitalist regarding his electrolytes. We will be starting PPN. I ordered a Gastrografin Challenge Ambulate in halls with NGT clamped for 30 minutes at a time His abdominal exam has improved. I spoke at length with Radha Sudhir, Mr. Peguero and Dr. Peguero (his son) about his condition. I offerred diagnostic laparoscopy with possible laparotomy. They would prefer to allow more time for bowel function to return and consider possible surgery Tuesday. Since his abdominal exam has improved and he has a virgin belly, I think this is a reasonable option for now. The Gastrografin Challenge will give us more information. Dr. England will be covering over the weekend. Attestations Medical Necessity Statement*: Patient still with SBO. Coding Level of Care Code Acute Machine Gunner for [facility] Fwd Diagnoses Small bowel obstruction K56.609
[2022-02-05] MEDS: lidocaine 1% 5 ML in potassium chloride premix 100 ML 25 ML IV (08:46)
[2022-02-05] MEDS: sodium chloride 0.9% 1,000 ML 75 ML IV ×2 (08:48→21:29)
--- NOTE | 2022-02-05 09:05 | PC.SOCIAL ---
IMM update IMM updated with patient's and son at bedside. Verbalized an understanding. Copy Pg 2 provided. Initialled, dated, timed, and placed in chart.
--- NOTE | 2022-02-05 09:23 | PM.PN ---
Subjective Subjective: Mr. Peguero is endorsing that he is hurting in right hip area As per Mrs. Peguero's agitation improved with use of Zyprexa 500 mL dark green output from the NG Abdomen does not seem distended, bowel sound present in all quadrants Today there is plan to start PPN For hyponatremia and hypokalemia change IV fluids to normal saline Dietary consult Potassium repleted this morning Discussed plan in detail with Dr. Peguero and Mrs. Peguero NG tube has been replaced twice by Dr. Silva Vitals/I&O/Wt Last Vital Signs Temp 98.7 F 02/05/22 07:05 Pulse 77 02/05/22 07:05 Resp 16 02/05/22 07:05 BP 120/76 02/05/22 07:05 Pulse Ox 90 02/05/22 07:05 02/04/22 02/05/22 02/05/22 22:59 06:59 14:59 Intake Total 1000 / 8.333 998.333 / 2916.666 458.333 / 458.333 Output Total 1100 / 1100 Balance 1000 / 1918.333 -101.667 / 1816.666 458.333 / 458.333 Physical Exam Narrative: Mr. Peguero is laying supine in his bed No signs of sacral ulcer Saturating well on room air NG tube with dark green output 500 mL Abdomen is nondistended Bowel sound present in all quadrants No signs of edema S1, S2 Clinical signs of dehydration Nonfocal neuro exam He is only oriented to himself Not able to follow commands Urinary Catheter Management: [place]: Cath Placed During This Visit: yes Reason for Continuing Indwelling Catheter: Other Urinary Catheter Date of Insertion: 02/04/22 Urinary Catheter Time of Insertion: 13:00 Data : 02/05/22 04:45 02/05/22 04:45 Micro: Microbiology 02/02/22 08:24 Urine Culture - Final Urine,Clean Catch A&P Assessment and plan (1) Small bowel obstruction: Status: Acute (2) Lewy body dementia: Status: Acute (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: Status: Acute (4) CVA (cerebral vascular accident): Status: Acute (5) CKD (chronic kidney disease): Status: Acute Plan Small bowel obstruction No previous history abdominal surgeries NG tube has been replaced twice Noticing dark green content/output from the NG Abdomen soft Bowel sound present Gastrografin study today Start PPN Change D5 LR IV fluid to normal saline Hyponatremia: Hypokalemia: Repleted Family updated He is hemodynamically stable Afebrile He carries history of Lewy body dementia with Parkinson's, he is only oriented to himself for his agitation I have continued Zyprexa for as needed use along Ativan Is full code N.p.o. Updated family, spoke with Dr. 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
[2022-02-05] MEDS: diatrizoate meglumine 120 mL Sol PO (13:56)
--- NOTE | 2022-02-05 19:08 | PC.NURSE ---
Patient sleepy part of shift with restlessness responding well to medication per NOV. VSS, cui in place and patent with good UOP. Patient repositioned as allowed while remaining 30 degrees or higher. Patient awakens and can verbally answer some questions and makes jokes with eyes closed. Opens them from time to time, c/o pain when being moved or touched. NG clamped since AM when left for SBFT and remains clamped as gastrograffin remains in stomach and patient tolerating being clamped. Not feeling n/v, family at bedside, started PPN/Lipids during shift with oncoming nurse given schedule increases for PPN. Room clean and clutter free with call light in reach. No new events, report at bedside to oncoming nurse.
[2022-02-05] MEDS: LORazepam 2 mg/mL INJ 1 mL 0.5 MG IVP (21:30)
--- NOTE | 2022-02-05 23:02 | PC.NURSE ---
Addendum entered by Beba Mcqueen RN 02/06/22 02:21: Per report from day shift nurse, NG tube was clamped and was to remind clamped. Dr. Gonzalez contacted due to there being no current order in patient chart for NG to be clamped. Original Note: NG tube clamped upon my arrival on shift. I am currently unable to see an order for NG tube to be clamped. Dr. Gonzalez contacted to verify if NG tube needs to stay clamped. Ordered to leave NG tube clamped tonight unless patient c/o nausea/vomiting. If patient c/o nausea/vomiting, ordered to hook back to suction.
[2022-02-06] VITALS (63 sets, daily range): BP systolic 66–137; BP diastolic 39–86; PULSE 78–119; RESP 16–38; TEMP 36.8–39.6; O2SAT 85–100
--- NOTE | 2022-02-06 00:39 | XRR_ITS ---
PROCEDURE INFORMATION: Exam: XR Chest Exam date and time: 02/06/2022 12:57 AM Age: 86 years old Clinical indication: Patient HX: Possible aspiration due to suction issue with ng tube. TECHNIQUE: Imaging protocol: XR of the chest. Views: 1 view. COMPARISON: CR XR chest 1V portable [id number] 02/03/2022 4:03 PM FINDINGS: Tubes, catheters and devices: NG tube in place within the gastric fundus. Lungs: Low lung volumes with mild bibasilar atelectasis versus pneumonia. Pleural spaces: No significant costophrenic angle blunting. No pneumothorax. Heart/Mediastinum: Heart size is normal. Vasculature: Atherosclerotic tortuosity of the thoracic aorta. Bones/joints: No acute osseous abnormality. XR/XR chest 1V portable [id number] IMPRESSION: Low lung volumes with mild bibasilar atelectasis versus pneumonia.
--- NOTE | 2022-02-06 01:46 | PC.NURSE ---
Patient asked twice during shift if his stomach hurt. Patient shook his head no both times. Family member at bedside. During report from day shift nurse, told that patient is oriented x1 and is mostly non-verbal, but will sometimes respond. Family member at bedside stated that he is not like this at baseline, but has been like this during his hospital stay. At beginning of shift, patient's oxygen saturation 92 percent on room air. Patient appeared to be resting comfortably. MEDICAL INFORMATION OFFICER in room to take vital signs around midnight. MEDICAL INFORMATION OFFICER notified nurse of oxygen saturation of 78 percent on room air. Nurse placed nasal cannula on patient. Oxygen saturation came up to 83 percent. Patient vomited witnessed by nurse and MEDICAL INFORMATION OFFICER. It appeared that patient possibly aspirated some. Respiratory to bedside and placed patient on non-rebreather. Oxygen saturation came up to 89 percent. Due to vomiting, NG tube hooked back to suction. Two canisters were filled with brown emesis. Prior to this, no vomiting witnessed by staff or family member since NG tube was clamped. No emesis on gown or linens. Dr. Malagon notified of possible aspiration and increased oxygen need/low oxygen saturation. Ordered to transfer to ICU, [facility], blood cultures, chest x-ray. When NG was hooked back to suction, family member at bedside stated, that is not supposed to be hooked back up, it's supposed to stay clamped because there going to do that image again in the morning and if you hook it up to suction, it will get rid of that dye. Dr. Gonzalez notified. Priority at this time is to keep patient comfortable and prevent aspiration of emesis.
[2022-02-06] MEDS: piperacillin-tazobactam 3.375 GM in sodium chloride 0.9% (plus) 50 ML IV ×3 (03:19→17:39)
--- NOTE | 2022-02-06 04:00 | XRR_ITS ---
PROCEDURE INFORMATION: Exam: XR Abdomen Exam date and time: 02/06/2022 5:26 AM Age: 86 years old Clinical indication: Bloating and constipation; Patient HX: F/u for sbo. Patient had fluoro sb series procedure on 02/05/2022. TECHNIQUE: Imaging protocol: XR of the abdomen. Views: Frontal supine view of the abdomen. 1 View. COMPARISON: CR (ABDOMEN, ) 02/05/2022 5:15 AM FINDINGS: Gastrointestinal tract: No significant or disproportionate large or small bowel distention. Nonspecific nonobstructive bowel gas pattern with GI contrast now seen throughout the colon and rectum. Bones/joints: Multilevel spondylosis, degenerative bony changes and severe right hip arthrosis. XR/XR KUB portable [id number] IMPRESSION: Nonspecific nonobstructive bowel gas pattern with GI contrast now seen throughout the colon and rectum.
--- NOTE | 2022-02-06 04:23 | PC.PHAR ---
Pharmacokinetic dosing service Date: 02/06/22 Time: 429 Objective: Patient: Jay Peguero Floor: ICU-12 Age: 86 yo Serum creatinine: 1.3 mg/dL Height: 70.0 Inches Weight (kg): 77.111 Diagnosis: Relevant medical/social history: Cultures and sensitivities: Other labs: Assessment: IBW (kg): 73.00 Dosing wt(kg): 77.111 Estimated Creatinine clearance (ml/min): 42.9 CRCL method: Cockcroft and Gault using ibw(default). Drug selected: Vancomycin Loading dose (mg): 0 Vd (liters): 69.4 (factor used: 0.9 L/kg) Juan (hr-1): 0.040 Half life (hrs): 17.33 Recommended dose: 1250 mg Interval: 24 hrs Infusion time (hrs): 1.5 Predicted peak (mcg/mL): 28.3 Predicted trough (mcg/mL): 11.51 Total body weight is being used for vancomycin dosing. Renal function is stable [ ] /unstable [ ] Recommendations: Give Vancomycin 1250 mg q 24 hrs with an expected Cpeak of 28.3 mcg/ml and an expected Ctrough of 11.51 mcg/ml Renal dosing of other antibiotics (review renal dosing of other medications and list guidelines here): Thank you for the consult, will continue to follow. Signature: Hiwot Bonilla [facility]
[2022-02-06] MEDS: vancomycin 1,250 MG/250 ML PIGGYBACK 250 MG IV (04:43)
[2022-02-06] MEDS: acetaminophen 650 mg Supp PR (04:43)
[2022-02-06 05:13] LABS: Basophils % 0.6 %; Eosinophils % 0.3 %; Hematocrit 35.3 % (42.0-52.0); Hemoglobin 11.3 g/dL (11.7-16.6); Lymphocytes # 0.5 10^3/uL (0.8-4.8); Lymphocytes % 15.1 %; Mean Corpuscular Hemoglobin 32.9 pg (28.0-34.0); Mean Corpuscular Volume 102.9 fl (80-94); Mean Platelet Volume 10.1 fL (7.4-10.4); Monocytes # 0.2 10^3/uL (0.2-0.9); Monocytes % 4.2 %; Neutrophils # 2.84 10^3/uL (1.8-7.7); Neutrophils % 79.5 %; Nucleated Red Blood Cells % 0 %; Platelet Count 200 10^3/cmm (130-400); Red Blood Count 3.43 10^6/uL (4.1-5.3); White Blood Count 3.6 10^3/uL (4.0-10.0)
[2022-02-06 05:28] LABS: Anion Gap 16.7 (5-19); Blood Urea Nitrogen 30 mg/dL (8-23); Calcium 8.6 mg/dL (8.5-10.5); Carbon Dioxide 23 mmol/L (22-29); Chloride 102 mmol/L (98-107); Glucose 129 mg/dL (65-115); Magnesium 1.7 mg/dL (1.7-2.3); Osmolality Calculated 294 mOsm/kg (285-295); Potassium 3.7 mmol/L (3.5-5.1); Sodium 138 mmol/L (136-145)
[2022-02-06] MEDS: ipratropium-albuterol 3 mL Neb INHALATION (08:20)
[2022-02-06] MEDS: sodium chloride 0.9% 1,000 ML 999 ML IV (09:09)
--- NOTE | 2022-02-06 09:25 | PM.PN ---
Subjective Subjective: First time to interact with the patient, apparently the patient had NG clamped and he started vomiting so it was hooked back to low intermittent wall suction and had a large amount in the canister. There is no evidence of passage of gas or bowel movement. KUB was obtained today and showed contrast all the way to the rectum and the final report came back: Nonspecific nonobstructive bowel gas pattern with GI contrast now seen throughout the colon and rectum. Because of the risk of aspiration patient was moved to the ICU for closer observation. Medications: Reviewed: Yes Vitals/I&O/Wt Last Vital Signs Temp 101.1 F H 02/06/22 08:30 Pulse 101 H 02/06/22 09:00 Resp 20 H 02/06/22 09:00 BP 97/39 02/06/22 09:00 Pulse Ox 96 02/06/22 09:00 02/05/22 02/06/22 02/06/22 22:59 06:59 14:59 Intake Total 1070.467 / 1592.133 558.617 / 2150.750 53.556 / 53.556 Output Total 200 / 200 Balance 1070.467 / 1592.133 358.617 / 1950.750 53.556 / 53.556 Physical Exam Narrative: Patient is sleepy and harder to arouse BMI 24.4 Head and neck examination PERRLA no masses no cervical lymphadenopathy no jaundice NG in place with gastric contents in the canister about 200 and Cardiac examination audible S1-S2 no murmurs no gallops no arrhythmias Chest bilateral rhonchi Abdomen nontender nondistended soft no organomegaly guarding or rigidity/no signs of peritonitis. No previous scars Vegas catheter in place Extremities no cyanosis no clubbing no edema Urinary Catheter Management: Vegas: Cath Placed During This Visit: yes Reason for Continuing Indwelling Catheter: Accurate Measurement of Urinary Output in Critically Ill Patients Urinary Catheter Date of Insertion: 02/04/22 Urinary Catheter Time of Insertion: 13:00 Data : 02/06/22 05:01 02/06/22 05:01 Micro: Microbiology 02/06/22 02:00 Blood Culture - Preliminary Blood SPECIMEN COLLECTED 02/06/22 02:00 Blood Culture - Preliminary Blood SPECIMEN COLLECTED A&P Assessment and plan (1) Small bowel obstruction: After further history taking from the family and physical examination and per my personal interpretation of the KUB I can appreciate the contrast going all the way to the rectum. I do believe that the patient is backed up with a large burden of stool in the colon, having a baseline constipation In the presence of caring nurse Carissa a bedside fecal disimpaction was done by me revealed hard pellets of stool and a gush of liquidy dark green stool in addition to gas were revealed. Digital rectal examination showed no rectal masses. Or blood per rectum. Will monitor the patient closely We will continue NG to low intermittent wall suction until patient demonstrates more bowel function Continue coordinating with Dr. Hercules Appropriate hydration Strict I's and O's Aspiration precautions Concerning for aspiration pneumonitis will defer to Dr. Erickson for further care Assurance and education All questions have been answered and all concerns have been addressed to patient's family satisfaction. Status: Resolved Attestations Medical Necessity Statement*: Continue inpatient hospitalization for medical and surgical care Coding Level of Care Code Acute Gum Scoring Machine Operator for Chg Fwd Diagnoses Small bowel obstruction K56.609
[2022-02-06 09:34] LABS: Lactate (Lactic Acid level) 1.7 mmol/L (0.5-2.2)
[2022-02-06] MEDS: sodium chloride 0.9% 1,000 ML 75 ML IV (11:14)
--- NOTE | 2022-02-06 11:40 | P.PN_ITS ---
Subjective Subjective: Overnight events noted Signs of aspiration pneumonia present Signs of sepsis present Requested lactic acid Leukopenia, fever, tachypnea, tachycardia and low blood pressure creatinine at baseline 1.4 Continue vancomycin and Zosyn for now Disimpaction done by Dr. England at the bedside Obstruction: Resolved Continue NGT suction, did speak with Dr. England this morning Chest x-ray showing aspiration pneumonia Vitals/I&O/Wt Last Vital Signs Temp 101.1 F H 02/06/22 08:30 Pulse 101 H 02/06/22 09:00 Resp 20 H 02/06/22 09:00 BP 97/39 02/06/22 09:00 Pulse Ox 96 02/06/22 09:00 02/05/22 02/06/22 02/06/22 22:59 06:59 14:59 Intake Total 1070.467 / 1592.133 558.617 / 2150.750 1068.542 / 1068.542 Output Total 200 / 200 Balance 1070.467 / 1592.133 358.617 / 7424.497 7183.542 / 1068.542 Physical Exam 2 Narrative: Mr. Peguero is laying supine in his bed NG is draining green bile now Abdomen has bowel sounds in all quadrants Nondistended He is keeping his eyes closed Oriented to himself only Looks dehydrated Tachycardic Nonfocal neuro exam Saturating well on oxygen at 15 L Urinary Catheter Management: [place]: Cath Placed During This Visit: yes Reason for Continuing Indwelling Catheter: Accurate Measurement of Urinary Output in Critically Ill Patients Urinary Catheter Date of Insertion: 02/04/22 Urinary Catheter Time of Insertion: 13:00 Data : 02/06/22 05:01 02/06/22 05:01 Micro: Microbiology 02/06/22 02:00 Blood Culture - Preliminary Blood SPECIMEN COLLECTED 02/06/22 02:00 Blood Culture - Preliminary Blood SPECIMEN COLLECTED A&P Assessment and plan (1) Aspiration pneumonia: Status: Acute (2) Small bowel obstruction: Status: Resolved (3) Lewy body dementia: Status: Acute (4) Sepsis: Status: Acute (5) Hypotension: Status: Acute (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 England this morning Continue IV fluids Sepsis with aspiration pneumonia Continue vancomycin and Zosyn Currently on 15 L oxygen mask which for acute hypoxia related to aspiration NG to suction Sepsis criteria met with fever tachypnea tachycardia and leukopenia Monitor for signs of septic shock and hypoperfusion, will keep Levophed on board in case MAP drops below 65 Please note his blood pressure improved after fecal manual disimpaction Lactic acid 1.7 Monitor for electrolyte imbalance, potassium 3.7, magnesium 1.7 as well :- will replete Patient is full code Family at the bedside Chronic kidney disease creatinine seems to be around baseline Continue ICU management Attestations Medical Necessity Statement*: Continue ICU management for aspiration pneumonia sepsis Time Spent in Patient Care: 35mins Coding Level of Care Code Acute Nurse Tech for [facility] Fwd Diagnoses Aspiration pneumonia J69.0 Small bowel obstruction K56.609 Lewy body dementia G31.83; F02.80 Sepsis A41.9 Hypotension I95.9 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
[2022-02-06] MEDS: lidocaine 1% 5 ML in potassium chloride premix 100 ML 25 ML IV (12:16)
[2022-02-06 12:39] LABS: Procalcitonin 1.54 ng/mL (0-0.5)
[2022-02-06 12:51] LABS: C Reactive Protein 118.7 mg/L (0.0-4.9)
[2022-02-06] MEDS: magnesium citrate Btl 296 mL 50 ML NG-TUBE ×4 (15:56→20:29)
[2022-02-06] MEDS: heparin 5,000 unit/mL INJ 1 mL 5000 UNIT SUBCUT (17:42)
[2022-02-07] VITALS (62 sets, daily range): BP systolic 84–144; BP diastolic 48–88; PULSE 72–109; RESP 16–29; TEMP 36.3–37.6; O2SAT 86–98
[2022-02-07] MEDS: sodium chloride 0.9% 1,000 ML 75 ML IV (00:46)
[2022-02-07] MEDS: piperacillin-tazobactam 3.375 GM in sodium chloride 0.9% (plus) 50 ML IV ×3 (02:53→17:48)
[2022-02-07 03:04] LABS: Glucose Point of Care 103 mg/dL (70-110)
[2022-02-07] MEDS: heparin 5,000 unit/mL INJ 1 mL 5000 UNIT SUBCUT ×2 (04:26→17:48)
[2022-02-07] MEDS: vancomycin 1,250 MG/250 ML PIGGYBACK 250 MG IV (04:33)
[2022-02-07 05:49] LABS: Basophils % 0.4 %; Eosinophils # 0.3 10^3/uL (0.0-0.8); Eosinophils % 2.7 %; Hematocrit 32.2 % (42.0-52.0); Hemoglobin 9.9 g/dL (11.7-16.6); Lymphocytes # 1.2 10^3/uL (0.8-4.8); Mean Corpuscular HGB Conc 30.7 g/dL (30.0-36.0); Mean Corpuscular Volume 104.2 fl (80-94); Mean Platelet Volume 10.4 fL (7.4-10.4); Monocytes # 0.5 10^3/uL (0.2-0.9); Monocytes % 5.1 %; Neutrophils # 7.85 10^3/uL (1.8-7.7); Neutrophils % 78.7 %; Nucleated Red Blood Cells % 0 %; Platelet Count 196 10^3/cmm (130-400); Red Blood Count 3.09 10^6/uL (4.1-5.3); Red Cell Distribution Width 13.2 % (12.1-15.1)
--- NOTE | 2022-02-07 06:00 | XRR_ITS ---
PROCEDURE INFORMATION: Exam: XR Abdomen Exam date and time: 02/07/2022 8:00 AM Age: 86 years old Clinical indication: Other: Sbo TECHNIQUE: Imaging protocol: XR of the abdomen. Views: Frontal supine view of the abdomen. 1 View. COMPARISON: CR (ABDOMEN, ) 02/06/2022 5:26 AM FINDINGS: Tubes, catheters and devices: NG tube terminates in the region of the gastric cardia. Gastrointestinal tract: Nonobstructive bowel gas pattern. Enteric contrast is seen in the rectum. Bones/joints: Severe right hip degenerative changes. XR/XR KUB portable [id number] IMPRESSION: Nonobstructive bowel gas pattern. Enteric contrast is seen in the rectum.
[2022-02-07 06:16] LABS: Anion Gap 11.7 (5-19); Blood Urea Nitrogen 28 mg/dL (8-23); Calcium 7.8 mg/dL (8.5-10.5); Carbon Dioxide 24 mmol/L (22-29); Chloride 106 mmol/L (98-107); Glucose 120 mg/dL (65-115); Magnesium 2.1 mg/dL (1.7-2.3); Osmolality Calculated 293 mOsm/kg (285-295); Potassium 3.7 mmol/L (3.5-5.1); Sodium 138 mmol/L (136-145)
[2022-02-07 06:18] LABS: Slide Review Slide Review Perform
[2022-02-07] MEDS: acetaminophen 325 mg Tablet 650 MG PO (09:00)
--- NOTE | 2022-02-07 09:09 | PC.NURSE ---
NG tube removed per Dr. England.
--- NOTE | 2022-02-07 09:33 | P.PN_ITS ---
Subjective Subjective: Patient remarkably improving, had passed a lot of gas and had multiple bowel movements liquidy brown in nature, not having much in NG. patient responded well to fecal disimpaction at bedside.Also,Responded well to magnesium citrate. Repeat KUB today showed; Nonobstructive bowel gas pattern. Enteric contrast is seen in the rectum. Conscious alert oriented and interacting with the surrounding family members nursing staff and myself, complains of no pain Vitals/I&O/Wt Last Vital Signs Temp 99.2 F 02/07/22 08:00 Pulse 74 02/07/22 08:00 Resp 22 H 02/07/22 08:00 BP 102/60 02/07/22 08:00 Pulse Ox 93 02/07/22 08:00 02/06/22 02/07/22 02/07/22 22:59 06:59 14:59 Intake Total 392.287 / 2555.120 2150.964 / 4706.084 50 / 50 Output Total 575 / 575 725 / 1300 Balance -182.713 / 6882.539 8179.964 / 3406.084 50 / 50 Physical Exam Narrative: Patient is conscious alert oriented X3 No apparent distress BMI 24.4 Head and neck examination PERRLA no masses no cervical lymphadenopathy no jaundice NG in place with gastric content Cardiac examination audible S1-S2 no murmurs no gallops no arrhythmias Chest is clear bilateral,abscence of Rhonchi or wheezes,no surgical emphysema Abdomen nontender nondistended soft no organomegaly guarding or rigidity/no signs of peritonitis, bowel sounds are positive Extremities no cyanosis no clubbing no edema Urinary Catheter Management: [place]: Cath Placed During This Visit: yes Reason for Continuing Indwelling Catheter: Accurate Measurement of Urinary Output in Critically Ill Patients Urinary Catheter Date of Insertion: 02/04/22 Urinary Catheter Time of Insertion: 13:00 Data : 02/07/22 05:15 02/07/22 05:15 Micro: Microbiology 02/06/22 02:00 Blood Culture - Preliminary Blood NEGATIVE TO DATE 02/06/22 02:00 Blood Culture - Preliminary Blood NEGATIVE TO DATE A&P Assessment and plan (1) Small bowel obstruction: Based on history taking physical examination and personal interpretation of the KUB. From surgical standpoint reviewed,condition resolved and will clamp NG for 2 hours and will check residuals if less than 200 will discontinue NG tube. We will follow on speech pathology recommendation and then will start feeding the patient with aspiration precautions. Will continue coordinating with Dr. Hercules Appropriate hydration Strict I's and O's Incentive spirometer every hour Assurance and education All questions have been answered and all concerns have been addressed to patient's family satisfaction. Status: Resolved (2) Dysphagia: Highly recommend to have the patient have speech pathology evaluation and formal modified barium swallow and follow on recommendations. I did discuss with the family on the plan of care and he agreed to proceed accordingly Assurance and education All questions have been answered and all concerns have been addressed to patient's satisfaction. Status: Suspected (3) Impaired mobility: Recommend physical therapy to assist and evaluate the patient. Status: Acute Attestations Medical Necessity Statement*: Per admitting service Time Spent in Patient Care: 16 - 35 minutes Coding Level of Care Code Acute Electronic Scanner Operator for Chg Fwd Diagnoses Small bowel obstruction K56.609 Dysphagia R13.10 Impaired mobility Z74.09
--- NOTE | 2022-02-07 09:52 | PC.SOCIAL ---
IMM UPDATED IMM dated and initialed and copy given to patient
--- NOTE | 2022-02-07 10:52 | P.PN_ITS ---
Subjective Subjective: 86-year-old male who was admitted for management evaluation of emesis, he was diagnosed with small bowel obstruction. He Never had any abdominal surgeries in the past. Father of Dr. Peguero. He was managed conservatively by Dr. Alas. Over the weekend Dr. England took over, Dr. England did manual fecal disimpaction on 02/06, gave him mag citrate, bowel movement regained, NG tube removed on 02/07. Of note his NGT was replaced twice by Dr. Alas, Mr. Peguero does carry history of Parkinson's with Lewy body dementia, he pulled his NG tube because of underlying neuro psychiatric history. Initially there was plan for surgical intervention because of failure to regain bowel movement however family decided to pursue conservative approach and fortunately he has regained his bowel function today. Of note, after Gastrografin study his NG got clamped, he experienced 1 episode of emesis and developed aspiration pneumonia, he has been spiking fever for the last 48 hours, I have kept him on broad-spectrum antibiotics for septic shock, currently he is doing well on room air, vasopressors have been turned off. Today I will discontinue his PPN which was started on third day of his admission for nutrition. Mr. Peguero had 2 bowel movements as per the family last night, semisolid stool Abdomen is much more softer, bowel sounds normal in all quadrants NG tube has been removed by Dr. England We will start diet after speech evaluation today as per Mrs. Peguero he is on soft modified diet at home since his previous stroke Low-grade fever 100.5, white count 10.0 He required Levophed for about 2 to 3 hours between 2 AM to 4 AM This morning he was off vasopressors Mr. Peguero was awake and alert was able to answer my questions appropriately He did not endorse any abdominal pain, he is endorsing feeling hungry and thirsty. Vitals/I&O/Wt Last Vital Signs Temp 99.2 F 02/07/22 08:00 Pulse 74 02/07/22 08:00 Resp 22 H 02/07/22 08:00 BP 102/60 02/07/22 08:00 Pulse Ox 93 02/07/22 08:00 02/06/22 02/07/22 02/07/22 22:59 06:59 14:59 Intake Total 392.287 / 2555.120 2150.964 / 4706.084 273.6 / 273.6 Output Total 575 / 575 725 / 1300 Balance -182.713 / 6694.014 4289.964 / 3406.084 273.6 / 273.6 Physical Exam Narrative: Very pleasant cooperative early male He is answering the question appropriately today Family at the bedside He is much more calm and cooperative today Doing well on room air Abdomen is soft Bowel sound present in all quadrants No signs of edema Clinically does not look dehydrated Urinary Catheter Management: [place]: Cath Placed During This Visit: yes Reason for Continuing Indwelling Catheter: Accurate Measurement of Urinary Output in Critically Ill Patients Urinary Catheter Date of Insertion: 02/04/22 Urinary Catheter Time of Insertion: 13:00 Data : 02/07/22 05:15 02/07/22 05:15 Micro: Microbiology 02/06/22 02:00 Blood Culture - Preliminary Blood NEGATIVE TO DATE 02/06/22 02:00 Blood Culture - Preliminary Blood NEGATIVE TO DATE A&P Assessment and plan (1) Impaired mobility: Status: Acute (2) Dysphagia: Status: Suspected (3) Sepsis: Status: Acute (4) Aspiration pneumonia: Status: Acute (5) Small bowel obstruction: Status: Resolved (6) Lewy body dementia: Status: Acute (7) Hypotension: Status: Acute (8) 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 Lewy body dementia: Waxing and waning mentation today he is mature pleasant and awake, I have kept him on Zyprexa and Ativan for as needed agitation BPH: Resume finasteride once he is able to take p.o. 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
[2022-02-07] MEDS: carbidopa-levodopa 25-100mg Tablet 1 EACH PO ×2 (12:29→17:49)
[2022-02-07 15:35] LABS: C Reactive Protein 214.1 mg/L (0.0-4.9)
[2022-02-07 15:42] LABS: Procalcitonin 9.92 ng/mL (0-0.5)
[2022-02-07] MEDS: midodrine 5 mg TABLET PO ×2 (15:48→20:14)
[2022-02-08] VITALS (25 sets, daily range): BP systolic 99–140; BP diastolic 65–104; PULSE 74–85; RESP 16–31; TEMP 36.9–37.3; O2SAT 82–94
[2022-02-08] MEDS: piperacillin-tazobactam 3.375 GM in sodium chloride 0.9% (plus) 50 ML IV (02:35)
[2022-02-08 04:56] LABS: Basophils % 0.3 %; Eosinophils # 0.5 10^3/uL (0.0-0.8); Eosinophils % 4.9 %; Hematocrit 33.6 % (42.0-52.0); Hemoglobin 10.3 g/dL (11.7-16.6); Lymphocytes # 1.1 10^3/uL (0.8-4.8); Lymphocytes % 10.1 %; Mean Corpuscular HGB Conc 30.7 g/dL (30.0-36.0); Mean Corpuscular Hemoglobin 31.7 pg (28.0-34.0); Mean Corpuscular Volume 103.4 fl (80-94); Mean Platelet Volume 10.8 fL (7.4-10.4); Monocytes # 0.6 10^3/uL (0.2-0.9); Monocytes % 5.4 %; Neutrophils # 8.54 10^3/uL (1.8-7.7); Nucleated Red Blood Cells % 0 %; Platelet Count 208 10^3/cmm (130-400); Red Blood Count 3.25 10^6/uL (4.1-5.3); Red Cell Distribution Width 13.2 % (12.1-15.1); White Blood Count 10.9 10^3/uL (4.0-10.0)
[2022-02-08 05:14] LABS: Anion Gap 15.3 (5-19); Blood Urea Nitrogen 30 mg/dL (8-23); Calcium 8.5 mg/dL (8.5-10.5); Carbon Dioxide 21 mmol/L (22-29); Chloride 106 mmol/L (98-107); Glucose 106 mg/dL (65-115); Osmolality Calculated 295 mOsm/kg (285-295); Potassium 3.3 mmol/L (3.5-5.1); Sodium 139 mmol/L (136-145); Vancomycin Trough 12.2 ug/mL (10-15)
[2022-02-08] MEDS: heparin 5,000 unit/mL INJ 1 mL 5000 UNIT SUBCUT (05:16)
[2022-02-08] MEDS: acetaminophen 325 mg Tablet 650 MG PO (05:16)
[2022-02-08] MEDS: carbidopa-levodopa 25-100mg Tablet 1 EACH PO ×2 (05:17→12:24)
[2022-02-08] MEDS: vancomycin 1,250 MG/250 ML PIGGYBACK 200 MG IV (05:17)
[2022-02-08] MEDS: midodrine 5 mg TABLET PO ×2 (08:47→15:26)
[2022-02-08] MEDS: sennosides-docusate Tablet 1 TAB PO (08:47)
--- NOTE | 2022-02-08 09:45 | P.PN_ITS ---
Subjective Subjective: Mr. Peguero is doing very well this morning. He is doing well on clear liquids with nectar thickened liquids. He denies any nausea or vomiting. He is passing flatus and having bowel movements. Denies any abdominal pain. He has been treated for aspiration pneumonia and is oxygen saturation did drop to 82% at 3:00 this morning. He is pulling 2L on IS this morning. Vitals/I&O/Wt Last Vital Signs Temp 98.4 F 02/08/22 09:22 Pulse 78 02/08/22 09:00 Resp 16 02/08/22 09:00 BP 103/67 02/08/22 09:00 Pulse Ox 90 02/08/22 09:00 02/07/22 02/08/22 02/08/22 22:59 06:59 14:59 Intake Total 954.667 / 2468.267 716.733 / 3185.000 360 / 360 Output Total 650 / 650 400 / 1050 Balance 304.667 / 1818.267 316.733 / 2135.000 360 / 360 Physical Exam Narrative: Gen: NAD, alert Abd: S, NT, ND, no g/r/m Urinary Catheter Management: [place]: Cath Placed During This Visit: yes Reason for Continuing Indwelling Catheter: Accurate Measurement of Urinary Output in Critically Ill Patients Urinary Catheter Date of Insertion: 02/04/22 Urinary Catheter Time of Insertion: 13:00 Data : 02/08/22 04:15 02/08/22 04:15 Micro: Microbiology 02/07/22 11:55 MRSA Culture - Final Nose A&P Assessment and plan (1) Dysphagia: Status: Suspected (2) Small bowel obstruction: Status: Resolved (3) Aspiration pneumonia: Status: Acute Plan SBO has resolved. Will advance to GI Soft diet with nectar thickened liquids Speech path eval pending IS use Abx and medical management per medicine No acute surgical intervention Attestations Medical Necessity Statement*: needs further medical management Coding Level of Care Code Acute Metal Shaping Machine Operator for tanya Garcia Diagnoses Dysphagia R13.10 Small bowel obstruction K56.609 Aspiration pneumonia J69.0
--- NOTE | 2022-02-08 10:18 | PC.CHAP ---
Pastoral Care Encounter/Spiritual Assessment Type of Contact [] Declined men's designer visit [] Patient/Family/Request visit [] Outpatient visit [] Follow-up visit [] Physician referral [] Code/Alert [x] Routine visit [] Staff referral [] Actively dying [] Patient sleeping [] Family support [] [] Out of room [] Palliative care [] [x] Receiving care in room [] Pre-surgical visit [] Trauma [] Long length of stay [x] ICU visit [] Other: Relational/Emotional Strength [] Patient feels connected with others/family/visitors/staff [] Distress [] Loneliness/isolation [] Abandonment Spirituality of Patient [] Person of Taty [] Attends Islam of their Taty [] Believes in Prayer [] Reads Bible or Hoahaoism materials [] There are Spiritual issues to be addressed Personnel Analyst Interventions [x] Prayer [] Active listening [] Non-anxious presence [] Spiritual/emotional support [] Crisis/trauma care [] Spiritual counseling [] Bereavement support [] Provided bereavement packet [] Provided Bible/devotional materials [] Provided toy/stuffed animal, coloring book to patient or family member [] Provided Communion [] Anointing/Trinity [] Salvation [x] Completed spiritual assessment [] Other: Impact on Illness or Injury [] Angry [] Fearful [] Anxious [] Often cries [] Exhaustion [] Unable to work [] Unable to attend catholic [] Unable to walk/stand [] Unable to read [] Unable to drive [] Unable to eat/drink [] Unable to sleep [] Unable to be with family [] Patient intubated [] Other: Summary Time spent with patient
--- NOTE | 2022-02-08 11:14 | P.DS_ITS ---
Discharge Providers Date of Admission: 02/02/22 03:19 Date of Discharge: February 08, 2022 Attending Provider at Admission: See Malagon DO Attending Provider at Discharge: Austin Erickson MD Primary Care Provider: North Mancini MD Diagnoses at Discharge Discharge Diagnosis (1) Dysphagia: Status: Suspected Permanent problem details: pending speech pathology evaluation. (2) Small bowel obstruction: Status: Resolved (3) Aspiration pneumonia: Status: Acute Reason for Visit Reason for Visit: abd pain Hospital Course Hospital Course 86-year-old male with past medical history of Parkinson disease , Lewy body dementia , CVA, chronic hypotension on midodrine, PVD,BPH NOS w ur obs/LUTS, CKD stage III , came in with chief complaint of abdominal pain, was admitted for the management of small bowel obstruction, was managed conservatively With NG tube , IV hydration , he also underwent fecal disimpaction, was also given laxatives, Hospital course was complicated by development of septic shock secondary to aspiration pneumonia, For which she was transiently placed on vasopressors, broad-spectrum antibiotics, blood cultures have been negative so far. At the time of discharge patient was tolerating p.o. intake, he was on GI soft diet, Was not having any nausea vomiting abdominal pain.He was afebrile for more than 48 hours, blood pressure was soft for which he was started on midodrine p.o. Family was interested in taking the patient home today, since he has been fairly stable and has shown significant improvement, he is being discharged home on p.o. Augmentin for another 7 days. Patient will continue to follow with primary care physician as an outpatient. Physical Exam Narrative: Alert awake not in acute distress HENMT: COMMON NORMALS: normocephalic and atraumatic HEAD & SCALP: normocephalic and atraumatic Chest: CHEST: Yes Symmetrical chest wall rise Resp: COMMON NORMALS: normal respiratory effort, No retractions, No use of accessory muscles and clear to auscultation bilaterally EFFORT & INSPECTION: Yes symmetric chest movement AUSCULTATION: clear to auscultation bilaterally Cardio: COMMON NORMALS: regular rate, regular rhythm, S1 normal heart sound present, S2 normal heart sound present, No gallops present (Cardio), No murmurs present (Cardio), No rub (Cardio) and Peripheral pulses 2+ throughout RATE: regular rate RHYTHM: regular rhythm HEART SOUNDS: S1 normal heart sound present and S2 normal heart sound present PERIPHERAL PULSES: Peripheral pulses 2+ throughout GI: COMMON NORMALS: Normal to inspection, nondistended, normoactive bowel sounds present, Soft to palpation, non-tender, No hepatosplenomegaly present and no masses AUSCULTATION: Yes normoactive bowel sounds PALPATION: Yes Soft to palpation and Yes No hepatosplenomegaly present RECTAL EXAM: Yes deferred Extremity: COMMON NORMALS: no clubbing, cyanosis or edema and no pedal edema Urinary Catheter Management: [place]: Cath Placed During This Visit: yes Reason for Continuing Indwelling Catheter: Accurate Measurement of Urinary Output in Critically Ill Patients Urinary Catheter Date of Insertion: 02/04/22 Urinary Catheter Time of Insertion: 13:00 Discharge Data Studies Completed and Pending Completed Studies During Hospitalization Category Date Time Status CT chest abd pel w con* Urgent Cat Scan 02/02/22 00:13 Completed FL small bowel series gastro [FL small bowel FT gastro Exams 02/05/22 08:17 Completed [id number]] Routine XR KUB portable [id number] Routine Exams 02/03/22 04:00 Completed XR KUB portable [id number] Routine Exams 02/04/22 04:00 Completed XR KUB portable [id number] Routine Exams 02/05/22 04:00 Completed XR KUB portable [id number] Routine Exams 02/06/22 04:00 Completed XR KUB portable [id number] Routine Exams 02/07/22 06:00 Completed XR abdomen 1V* [id number] Routine Exams 02/02/22 08:47 Completed XR chest 1V portable [id number] Stat Exams 02/03/22 16:14 Completed XR chest 1V portable [id number] Stat Exams 02/06/22 00:39 Completed Pending at discharge Category Date Time Status Blood Culture Stat Lab 02/06/22 02:00 Results Radiology Impressions Chest/Abdomen/Pelvis CT 02/02/22 00:13 IMPRESSION: Negative CT chest. No acute abnormality. IMPRESSION: Suspect small bowel obstruction. Distinct transition point visible in the left mid abdomen. COMMENTS: Consistent with the [employer]'s Incidental Findings Committee white paper (J Am Karol Radiol 2018): Any incidental renal lesion less than 1 cm or classified as too small to characterize, or any incidental cystic renal lesion characterized as simple-appearing, is likely benign. No follow-up imaging is recommended for these lesions per consensus recommendations based on imaging criteria. Abdomen X-Ray 02/02/22 08:47 IMPRESSION: 1. The nasogastric tube projects on the stomach. 2. Small-bowel dilatation consistent with obstruction. Small Bowel X-Ray 02/05/22 08:17 Impression: 1. Small bowel obstruction with little progress of Gastrografin into the distal small bowel. 2. Recommend KUB tomorrow morning. Chest X-Ray 02/06/22 00:39 IMPRESSION: Low lung volumes with mild bibasilar atelectasis versus pneumonia. KUB X-Ray 02/07/22 06:00 IMPRESSION: Nonobstructive bowel gas pattern. Enteric contrast is seen in the rectum. Laboratory Results WBC 10.9 10^3/uL (4.0-10.0) H 02/08/22 04:15 RBC 3.25 10^6/uL (4.1-5.3) L 02/08/22 04:15 Hgb 10.3 g/dL (11.7-16.6) L 02/08/22 04:15 Hct 33.6 % (42.0-52.0) L 02/08/22 04:15 MCV 103.4 fl (80-94) H 02/08/22 04:15 MCH 31.7 pg (28.0-34.0) 02/08/22 04:15 MCHC 30.7 g/dL (30.0-36.0) 02/08/22 04:15 RDW 13.2 % (12.1-15.1) 02/08/22 04:15 Plt Count 208 10^3/cmm (130-400) 02/08/22 04:15 MPV 10.8 fL (7.4-10.4) H 02/08/22 04:15 Neut % (Auto) 78.0 % 02/08/22 04:15 Lymph % (Auto) 10.1 % 02/08/22 04:15 [place] % (Auto) 5.4 % 02/08/22 04:15 Eos % (Auto) 4.9 % 02/08/22 04:15 Baso % (Auto) 0.3 % 02/08/22 04:15 Neut # (Auto) 8.54 10^3/uL (1.8-7.7) H 02/08/22 04:15 Lymph # (Auto) 1.1 10^3/uL (0.8-4.8) 02/08/22 04:15 [place] # (Auto) 0.6 10^3/uL (0.2-0.9) 02/08/22 04:15 Eos # (Auto) 0.5 10^3/uL (0.0-0.8) 02/08/22 04:15 Baso # (Auto) 0.0 10^3/uL (0.0-0.1) 02/08/22 04:15 Nucleated RBC % (auto) 0 % 02/08/22 04:15 Nucleated RBCs # 0.0 /100WBC 02/08/22 04:15 Sodium 139 mmol/L (136-145) 02/08/22 04:15 Potassium 3.3 mmol/L (3.5-5.1) L 02/08/22 04:15 Chloride 106 mmol/L (98-107) 02/08/22 04:15 Carbon Dioxide 21 mmol/L (22-29) L 02/08/22 04:15 Anion Gap 15.3 (5-19) 02/08/22 04:15 BUN 30 mg/dL (8-23) H 02/08/22 04:15 Creatinine 1.3 mg/dL (0.7-1.2) H 02/08/22 04:15 GFR Calculation Not Reportable 02/08/22 04:15 Glucose 106 mg/dL (65-115) 02/08/22 04:15 POC Glucose 103 mg/dL (70-110) 02/07/22 02:59 Calculated Osmolality 295 mOsm/kg (285-295) 02/08/22 04:15 Lactate 1.7 mmol/L (0.5-2.2) 02/06/22 09:00 Calcium 8.5 mg/dL (8.5-10.5) 02/08/22 04:15 Magnesium 2.1 mg/dL (1.7-2.3) 02/07/22 05:15 Total Bilirubin 0.6 mg/dL (0.15-1.2) 02/01/22 23:59 AST 21 U/L (0-40) 02/01/22 23:59 ALT 6 U/L (0-41) 02/01/22 23:59 Alkaline Phosphatase 47 IU/L (40-130) 02/01/22 23:59 C-Reactive Protein 214.1 mg/L (0.0-4.9) H 02/07/22 14:02 Total Protein 7.3 g/dL (6.6-8.7) 02/01/22 23:59 Albumin 4.6 g/dL (3.5-5.2) 02/01/22 23:59 Globulin 2.7 g/dL (1.3-4.6) 02/01/22 23:59 Lipase 25 U/L (13-60) 02/01/22 23:59 Vitamin B12 1154 pg/mL (232-1245) 02/01/22 23:59 Folate 9.4 ng/mL (4.5-32.2) 02/01/22 23:59 Procalcitonin 9.92 ng/mL (0-0.5) H 02/07/22 14:02 TSH 2.14 uIU/mL (0.27-4.20) 02/01/22 23:59 Free T4 1.19 ng/dL (0.82-1.77) 02/01/22 23:59 Urine Color Yellow (Yellow) 02/02/22 08:24 Urine Appearance Clear (CLEAR) 02/02/22 08:24 Urine pH 7 (5-7) 02/02/22 08:24 Ur Specific [place] 1.010 (1.005-1.030) 02/02/22 08:24 Urine Protein Neg (Negative) 02/02/22 08:24 Urine Glucose (UA) Norm (Normal) 02/02/22 08:24 Urine Ketones Negative (Negative) 02/02/22 08:24 Urine Blood 2+ (Negative) H 02/02/22 08:24 Urine Nitrate Negative (Negative) 02/02/22 08:24 Urine Bilirubin Neg (Negative) 02/02/22 08:24 Urine Urobilinogen 4 mg/dL (Negative) H 02/02/22 08:24 Ur Leukocyte Esterase Negative (Negative) 02/02/22 08:24 Urine RBC 10-15 /hpf (0-2) H 02/02/22 08:24 Urine WBC 0-4 /hpf (0-5) H 02/02/22 08:24 Ur Squamous Epith Cells 0-4 /hpf (0-5) H 02/02/22 08:24 Calcium Oxalate Crystal 5-10 /hpf H 02/02/22 08:24 Amorphous Sediment Not Reportable 02/02/22 08:24 Urine Bacteria Trace /hpf (NONE) 02/02/22 08:24 Urine Mucus Trace /hpf 02/02/22 08:24 Vancomycin Trough 12.2 ug/mL (10-15) 02/08/22 04:15 Vitals Last Vital Signs Temp 98.4 F 02/08/22 10:43 Pulse 81 02/08/22 10:43 Resp 22 H 02/08/22 10:43 BP 99/65 02/08/22 10:43 Pulse Ox 92 02/08/22 10:43 Discharge Plan Discharge Patient Disposition: Home Condition: Stable Prescriptions: New Augmentin 500-125 mg tablet 1 tab PO BID 7 Days Qty: 14 0RF Continued gabapentin 300 mg capsule 300 mg PO BEDTIME 0RF carbidopa-levodopa 25-100 mg tablet 1 tab PO TID Qty: 270 2RF Rx Instructions: Take 1 at 630AM, 1 at 12PM, and 1 at 5PM. galantamine 4 mg tablet 4 mg PO BID Qty: 180 0RF Rx Instructions: administer with AM and PM meals Vitamin B-12 1 tab PO QAM 0RF Vitamin D3 1 cap PO QAM 0RF Super Beta Prostate 1 cap PO QPM 0RF citalopram 40 mg tablet 60 mg PO QAM 0RF midodrine 5 mg tablet 5 mg PO TID 0RF aspirin 81 mg Tablet,Delayed Release (Dr/Ec) 81 mg PO BEDTIME 0RF finasteride 5 mg tablet 5 mg PO BEDTIME 0RF Discharge Orders: Discharge Order (Routine); Ordered 02/08/22 Ordered By: Austin Erickson Referrals: [facility] [place] [facility] ([facility]) [Outside] North Mancini MD [Primary Care Provider] - 1 week Discharge Diet: GI Soft Patient Instructions: Aspiration, Constipation - Adult, Amoxicillin/Clavulanate Potassium (By mouth) (Augmentin, Augmentin..., Opioid Safety Discharge Attestations Time Spent in Discharge Care*: less than 30 min Quality Metrics Clinical Quality Measures [ No reported AMI, CVA or VTE this stay] Coding Level of Care Code Acute Chg FW DC note Diagnoses Dysphagia R13.10 Small bowel obstruction K56.609 Aspiration pneumonia J69.0
--- NOTE | 2022-02-08 15:53 | PC.NURSE ---
Discharge instructions given to patient and , IVs removed, cui removed (has voided on his own since then). Patient and belongings wheeled to private vehicle by this nurse, accompanied by .
== END 2022-02-08 15:45 | disposition home health service (06) | DRG 388 ==
LOC: ER 02-02 03:18 → MEDSURG 02-02 04:58 → ICU 02-06 01:28
PROVIDERS: Emergency Medicine; Internal Medicine; Admitting Provider Internal Medicine; Emergency Provider Emergency Medicine; PCP Family Medicine; Visit Provider Internal Medicine
DX: K56.609 Unspecified intestinal obstruction, unspecified as to partial versus complete obstruction (principal); R65.21 Severe sepsis with septic shock; A41.9 Sepsis, unspecified organism; J69.0 Pneumonitis due to inhalation of food and vomit; N13.8 Other obstructive and reflux uropathy; E87.1 Hypo-osmolality and hyponatremia; N40.1 Benign prostatic hyperplasia with lower urinary tract symptoms; N39.41 Urge incontinence; N18.30 Chronic kidney disease, stage 3 unspecified; G31.83 Neurocognitive disorder with Lewy bodies; F02.80 Dementia in other diseases classified elsewhere, unspecified severity, without behavioral disturbance, psychotic disturbance, mood disturbance, and anxiety; I69.991 Dysphagia following unspecified cerebrovascular disease; R13.10 Dysphagia, unspecified; F32.A Depression, unspecified; I73.9 Peripheral vascular disease, unspecified; Z96.653 Presence of artificial knee joint, bilateral; G62.9 Polyneuropathy, unspecified; K59.00 Constipation, unspecified; I95.1 Orthostatic hypotension; E87.6 Hypokalemia; Z79.82 Long term (current) use of aspirin
CPT/HCPCS: 36415; 36416; 51702; 71045; 71260; 74018; 74177; 74250; 80048; 80053; 80202; 81001; 82607; 82746; 82962; 83605; 83690; 83735; 84145; 84439; 84443; 85025; 86140; 87040; 87086; 87641; 92523; 92526; 92610; 94640; 96372; 96374; 97116; 97161; 99285; J1200; J1644; J2060; J2270; J2543; J3370; J3475; J3480; J3490; J7030; Q9963; Q9967

== ENCOUNTER → 2022-02-11 14:33 | Outpatient (BNVA) | payer MEDICARE, BC, SELFPAY | PROVIDERS: PCP Family Medicine; Visit Provider Specialist | DX: G31.83 Neurocognitive disorder with Lewy bodies (principal); F02.80 Dementia in other diseases classified elsewhere, unspecified severity, without behavioral disturbance, psychotic disturbance, mood disturbance, and anxiety; K59.09 Other constipation; G90.3 Multi-system degeneration of the autonomic nervous system | CPT/HCPCS: 99214 ==

== ENCOUNTER 2022-03-02 15:35 | Emergency (ER) | payer MEDICARE, BC, SELFPAY ==
[2022-03-02 15:42] VITALS: BP 93/60; PULSE 74; RESP 16; TEMP 36.6; O2SAT 94; BMI 23.9
--- NOTE | 2022-03-02 15:48 | ECG_ITS ---
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 Measurements Intervals [place] Rate: 70 P: -40 FL: 198 QRS: -37 QRSD: 93 T: 86 QT: 381 QTc: 412 Interpretive Statements SINUS RHYTHM LEFT AXIS DEVIATION [QRS AXIS < -30] LOW QRS VOLTAGE IN EXTREMITY LEADS [QRS DEFLECTION < 0.5 mV IN LIMB LEADS] NONSPECIFIC T-WAVE ABNORMALITY Compared to ECG 11/21/2021 00:38:13 Low QRS voltage now present T-wave abnormality now present Electronically Signed On 03-02-2022 18:30:10 CDT by Maxwell Pond M.D. [id number]
[2022-03-02 16:55] LABS: Alanine Aminotransferase < 5 U/L (0-41); Albumin Level 4.2 g/dL (3.5-5.2); Alkaline Phosphatase 49 IU/L (40-130); Anion Gap 16.3 (5-19); Aspartate Amino Transferase 15 U/L (0-40); Blood Urea Nitrogen 30 mg/dL (8-23); Calcium 9.6 mg/dL (8.5-10.5); Carbon Dioxide 24 mmol/L (22-29); Chloride 103 mmol/L (98-107); Globulin 2.5 g/dL (1.3-4.6); Glucose 115 mg/dL (65-115); Osmolality Calculated 295 mOsm/kg (285-295); Potassium 4.3 mmol/L (3.5-5.1); Sodium 139 mmol/L (136-145); Total Bilirubin 0.4 mg/dL (0.15-1.2); Total Protein 6.7 g/dL (6.6-8.7)
[2022-03-02] MEDS: sodium chloride 0.9% 1,000 ML 999 ML IV (16:58)
--- NOTE | 2022-03-02 17:10 | W.ED.GENADLT ---
HPI - General Adult General: Chief complaint: General Medical Stated complaint: low BP Time Seen by Provider: 03/02/22 15:47 Source: patient Mode of arrival: ambulatory Limitations: physical limitation History of Present Illness: 86-year-old male presents emergency room with complaint of generalized weakness severe Parkinson's so little bit of diarrhea after he was given some laxatives. Patient has some Lewy body dementia according to his old records. He has not been eating or drinking well been extremely or orthostatic. Its recorded blood pressures in the 40s systolic today after standing up. He was sent in by his primary care doctor. Patient is adamant about not being admitted today from the start. He is hoping just to receive fluids and discharged home. He had several falls at home. Mostly related to orthostatic events from the description of them. This been going on for the last several days. Progressively worse. Denies ever striking his head denies any full loss consciousness. Family is at the bedside and has been actively participating in his care last several days is excellent historians. Onset (ago): day(s) Severity: moderate Relieving factors: rest Exacerbating factors: other (Change in body position) Associated symptoms: Reports confusion and weakness; Deny chest pain, cough, diaphoresis, decreased appetite, dyspnea, fevers/chills, headache(s), malaise, nausea, rash, palpitations, seizures, short of breath, syncope or vomiting Treatments prior to arrival: none Review of Systems Const: Denies: fever(s), chills, fatigue, malaise or diaphoresis ENMT: Denies: throat pain, ear or mastoid pain, nasal discharge or nasal congestion Card: Denies: chest pain, palpitations or syncope Resp: Denies: dyspnea GI: Denies: abdominal pain, nausea or vomiting : Denies: flank pain, difficulty urinating, dysuria, urinary frequency or urinary urgency Skin/Breast: Denies: rash Neuro: Reports: confusion; Denies: headache(s) PFSH ED PFSH: Medical History Aspiration pneumonia Balanitis BPH NOS w ur obs/LUTS CKD (chronic kidney disease) 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 CVA (cerebral vascular accident) Depression Dysphagia pending speech pathology evaluation. 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 Parkinsons disease PVD (peripheral vascular disease) PVD (peripheral vascular disease) Right middle cerebral artery stroke Sepsis Small bowel obstruction Urgency incontinence Surgical History History of bilateral knee replacement History of varicose vein stripping Hx of hemorrhoidectomy Family History Family/Other Dementia Hypertension Social History Smoking and tobacco status: never smoked Alcohol intake: never Household members: spouse Marital status: Current occupational status: retired History of recent travel: No Physical Exam Const: GENERAL APPEARANCE: cooperative and comfortable ORIENTATION/CONSCIOUSNESS: Yes awake HENMT: COMMON NORMALS: normocephalic and atraumatic HEAD & SCALP: normocephalic and atraumatic Eye: COMMON NORMALS: Equal, round and reactive pupils present, EOMs intact bilaterally, conjunctivae normal and no scleral icterus CONJUNCTIVA: Yes conjunctivae normal PUPIL: Yes Equal, round and reactive pupils present Neck/C-Spine: COMMON NORMALS: full ROM, no lymphadenopathy, supple and no JVD Lymph: LYMPHATIC: no lymphadenopathy noted and no lymphedema noted Resp: COMMON NORMALS: normal respiratory effort, No retractions, No use of accessory muscles and clear to auscultation bilaterally AUSCULTATION: clear to auscultation bilaterally Cardio: COMMON NORMALS: no JVD, regular rate, regular rhythm and No murmurs present (Cardio) RATE: regular rate RHYTHM: regular rhythm GI: COMMON NORMALS: Soft to palpation and No hepatosplenomegaly present AUSCULTATION: Yes normoactive bowel sounds PALPATION: Yes Soft to palpation, No Tenderness to palpation present (GI), No Guarding due to palpation present (GI) and Yes No hepatosplenomegaly present Extremity: COMMON NORMALS: normal to inspection, capillary refill normal, no clubbing, cyanosis or edema, no calf tenderness and no pedal edema Neuro: OTHER: The right handPill-rolling tremor at rest and. Skin: COMMON NORMALS: no rashes or lesions noted GENERAL SKIN EXAM: no rashes or lesions noted Course Vital Signs: Vital signs: Vital Signs Temperature 98 F 03/02/22 15:42 Pulse Rate 65 03/02/22 20:29 Respiratory Rate 15 03/02/22 20:29 Blood Pressure 124/66 03/02/22 20:29 Pulse Oximetry 93 03/02/22 20:29 MDM - General Adult Medical Decision Making Reviewed lab findings with the patient and the family. He was given IV fluids he preferred to discharged home [place] discharge home and can follow-up with his primary care doctor discussed hospice referral. Medical Records I reviewed the patient's medical records. Lab Data I reviewed the patient's lab results. : 03/02/22 17:06 03/02/22 16:10 Laboratory Results WBC 5.9 10^3/uL (4.0-10.0) 03/02/22 17:06 Corrected WBC Cancelled 03/02/22 16:10 RBC 3.34 10^6/uL (4.1-5.3) L 03/02/22 17:06 Hgb 10.8 g/dL (11.7-16.6) L 03/02/22 17:06 Hct 32.3 % (42.0-52.0) L 03/02/22 17:06 MCV 96.7 fl (80-94) H 03/02/22 17:06 MCH 32.3 pg (28.0-34.0) 03/02/22 17:06 MCHC 33.4 g/dL (30.0-36.0) 03/02/22 17:06 RDW 13.8 % (12.1-15.1) 03/02/22 17:06 Plt Count 237 10^3/cmm (130-400) 03/02/22 17:06 MPV 10.6 fL (7.4-10.4) H 03/02/22 17:06 Gran % Cancelled 03/02/22 16:10 Neut % (Auto) 60.5 % 03/02/22 17:06 Lymph % (Auto) 21.0 % 03/02/22 17:06 [place] % (Auto) 10.8 % 03/02/22 17:06 Eos % (Auto) 6.5 % 03/02/22 17:06 Baso % (Auto) 1.0 % 03/02/22 17:06 Neut # (Auto) 3.54 10^3/uL (1.8-7.7) 03/02/22 17:06 Lymph # (Auto) 1.2 10^3/uL (0.8-4.8) 03/02/22 17:06 [place] # (Auto) 0.6 10^3/uL (0.2-0.9) 03/02/22 17:06 Eos # (Auto) 0.4 10^3/uL (0.0-0.8) 03/02/22 17:06 Baso # (Auto) 0.1 10^3/uL (0.0-0.1) 03/02/22 17:06 Absolute Gran (auto) Cancelled 03/02/22 16:10 Nucleated RBC % (auto) 0 % 03/02/22 17:06 Nucleated RBCs # 0.0 /100WBC 03/02/22 17:06 Sodium 139 mmol/L (136-145) 03/02/22 16:10 Potassium 4.3 mmol/L (3.5-5.1) 03/02/22 16:10 Chloride 103 mmol/L (98-107) 03/02/22 16:10 Carbon Dioxide 24 mmol/L (22-29) 03/02/22 16:10 Anion Gap 16.3 (5-19) 03/02/22 16:10 BUN 30 mg/dL (8-23) H 03/02/22 16:10 Creatinine 1.6 mg/dL (0.7-1.2) H 03/02/22 16:10 GFR Calculation Not Reportable 03/02/22 16:10 Glucose 115 mg/dL (65-115) 03/02/22 16:10 Calculated Osmolality 295 mOsm/kg (285-295) 03/02/22 16:10 Calcium 9.6 mg/dL (8.5-10.5) 03/02/22 16:10 Total Bilirubin 0.4 mg/dL (0.15-1.2) 03/02/22 16:10 AST 15 U/L (0-40) 03/02/22 16:10 ALT < 5 U/L (0-41) 03/02/22 16:10 Alkaline Phosphatase 49 IU/L (40-130) 03/02/22 16:10 Total Protein 6.7 g/dL (6.6-8.7) 03/02/22 16:10 Albumin 4.2 g/dL (3.5-5.2) 03/02/22 16:10 Globulin 2.5 g/dL (1.3-4.6) 03/02/22 16:10 Discharge Plan Discharge Patient Disposition: Home Clinical Impression: Orthostasis, Lewy body dementia Condition: Stable Prescriptions: No Action gabapentin 300 mg capsule 300 mg PO BEDTIME 0RF carbidopa-levodopa 25-100 mg tablet 1 tab PO TID Qty: 270 2RF Rx Instructions: Take 1 at 630AM, 1 at 12PM, and 1 at 5PM. galantamine 4 mg tablet 4 mg PO BID Qty: 180 0RF Rx Instructions: administer with AM and PM meals Vitamin B-12 1 tab PO QAM 0RF Vitamin D3 1 cap PO QAM 0RF Super Beta Prostate 1 cap PO QPM 0RF citalopram 40 mg tablet 60 mg PO QAM 0RF midodrine 5 mg tablet 5 mg PO TID 0RF aspirin 81 mg Tablet,Delayed Release (Dr/Ec) 81 mg PO BEDTIME 0RF finasteride 5 mg tablet 5 mg PO BEDTIME 0RF Discharge Orders: Discharge ED (Routine); Ordered 03/02/22 Ordered By: Brice Gomez Referrals: North Mancini MD [Primary Care Provider] - Discharge Diet: Usual diet Discharge Activity: Increase activity as tolerated Patient Instructions: Opioid Safety Activity Restrictions/Additional Instructions: Follow-up with your primary care doctor within the next week. Coding Level of Care Code ED Supervisor Screen Printing for Ivonne Fwd Exam Comprehensive
[2022-03-02 17:55] VITALS: BP 124/66; PULSE 65; RESP 15; O2SAT 93
[2022-03-02 17:59] LABS: Basophils # 0.1 10^3/uL (0.0-0.1); Eosinophils # 0.4 10^3/uL (0.0-0.8); Eosinophils % 6.5 %; Hematocrit 32.3 % (42.0-52.0); Hemoglobin 10.8 g/dL (11.7-16.6); Lymphocytes # 1.2 10^3/uL (0.8-4.8); Mean Corpuscular HGB Conc 33.4 g/dL (30.0-36.0); Mean Corpuscular Hemoglobin 32.3 pg (28.0-34.0); Mean Corpuscular Volume 96.7 fl (80-94); Mean Platelet Volume 10.6 fL (7.4-10.4); Monocytes # 0.6 10^3/uL (0.2-0.9); Monocytes % 10.8 %; Neutrophils # 3.54 10^3/uL (1.8-7.7); Neutrophils % 60.5 %; Nucleated Red Blood Cells % 0 %; Platelet Count 237 10^3/cmm (130-400); Red Blood Count 3.34 10^6/uL (4.1-5.3); Red Cell Distribution Width 13.8 % (12.1-15.1); White Blood Count 5.9 10^3/uL (4.0-10.0)
[2022-03-02 20:29] VITALS: BP 124/66; PULSE 65; RESP 15; O2SAT 93
== END 2022-03-02 20:32 | disposition home or self-care (01) ==
PROVIDERS: Emergency Provider Family Medicine; PCP Family Medicine
DX: I95.9 Hypotension, unspecified (principal); I95.1 Orthostatic hypotension; G31.83 Neurocognitive disorder with Lewy bodies; F02.80 Dementia in other diseases classified elsewhere, unspecified severity, without behavioral disturbance, psychotic disturbance, mood disturbance, and anxiety
CPT/HCPCS: 80053; 85025; 93005; 96360; 99283; J7030

== ENCOUNTER → 2022-04-07 15:23 | Outpatient (BNVA) | payer MEDICARE, BC, SELFPAY | PROVIDERS: PCP Family Medicine; Visit Provider Specialist | DX: G23.2 Striatonigral degeneration (principal); G20 Parkinson's disease; G90.3 Multi-system degeneration of the autonomic nervous system | CPT/HCPCS: 99215 ==

== ENCOUNTER → 2022-04-08 12:24 | Day surgery (SDC) | payer MEDICARE, BC, SELFPAY ==
--- NOTE | 2022-04-08 07:16 | XR_ITS ---
WS: [id number] PORTABLE CHEST HISTORY: Post PICC insertion COMPARISON: 02/06/2022 Right-sided PICC line with tip in the distal SVC. No complications. Lungs are clear and well expanded. No pleural effusion or pneumothorax. Cardiac size: Normal. Mediastinum/Aorta: Mild atherosclerosis aorta. No osseous abnormality seen. XR/XR chest 1V portable [id number] IMPRESSION: Satisfactory placement right-sided PICC line.
[2022-04-08 12:30] VITALS: BP 83/53; PULSE 73; RESP 18; TEMP 36.5; O2SAT 94
== END ==
PROVIDERS: PCP Family Medicine; Visit Provider Family Medicine
DX: Z45.2 Encounter for adjustment and management of vascular access device (principal)
CPT/HCPCS: 36569; 71045

== ENCOUNTER 2022-06-23 | Outpatient (CLI) | payer OTHER, SELFPAY ==
[2022-06-23 13:25] LABS: Add Urine Microscopic? NO; Charge for UA Resulting for Rev
[2022-06-23 13:57] LABS: Bilirubin Urine Neg (Negative); Blood Urine Neg (Negative); Glucose Urine UA Norm (Normal); Ketones Urine Negative (Negative); Leukocyte Esterase Urine Negative (Negative); Nitrate Urine Negative (Negative); Protein Urine Neg (Negative); Urine Appearance Clear (CLEAR); Urine Color Yellow (Yellow); Urobilinogen Urine Norm (Negative); pH Urine 5 (5-7)
== END 2022-06-23 23:00 | disposition home or self-care (01) ==
LOC: LAB 07-19 22:04
PROVIDERS: PCP Family Medicine; Visit Provider Student in an Organized Health Care Education/Training Program
DX: N18.30 Chronic kidney disease, stage 3 unspecified (principal)
CPT/HCPCS: 81003

== ENCOUNTER → 2022-08-05 10:56 | Outpatient (BNVA) | payer OTHER, SELFPAY | PROVIDERS: PCP Family Medicine; Visit Provider Podiatrist Foot & Ankle Surgery | DX: I73.9 Peripheral vascular disease, unspecified (principal); L60.3 Nail dystrophy; G20 Parkinson's disease; G90.3 Multi-system degeneration of the autonomic nervous system | CPT/HCPCS: 11721 ==

== ENCOUNTER → 2022-12-08 13:12 | Outpatient (BNVA) | payer MEDICARE, BC, SELFPAY | PROVIDERS: PCP Family Medicine; Visit Provider Podiatrist Foot & Ankle Surgery | DX: G20 Parkinson's disease (principal); L60.3 Nail dystrophy; G90.3 Multi-system degeneration of the autonomic nervous system; I73.9 Peripheral vascular disease, unspecified | CPT/HCPCS: 11721 ==

== ENCOUNTER 2022-12-16 18:40 | Inpatient (IN) | payer MEDICARE, BC, SELFPAY ==
[2022-12-16] VITALS (7 sets, daily range): BP systolic 83–114; BP diastolic 50–71; PULSE 76–89; RESP 17–27; O2SAT 94–97
--- NOTE | 2022-12-16 18:42 | XRR_ITS ---
PROCEDURE INFORMATION: Exam: XR Chest Exam date and time: 12/16/2022 6:52 PM Age: 87 years old Clinical indication: Other: AMS; Additional info: AMS, hypoxia TECHNIQUE: Imaging protocol: Radiologic exam of the chest. Views: 1 view. COMPARISON: CR XR chest 1V portable [id number] 02/06/2022 12:57 AM FINDINGS: Tubes, catheters and devices: Right PICC is in satisfactory position, with distal tip at the level of the SVC/RA junction. Lungs: There is mildly increased lung markings, which can be seen with mild pulmonary congestion or low lung volumes. Streaky bibasilar atelectasis seen. Pneumonia should be excluded clinically. Possible trace left pleural effusion. No pneumothorax. Pleural spaces: See Lungs finding. Heart/Mediastinum: Stable cardiomediastinal silhouette. Bones/joints: Degenerative changes of the spine seen. XR/XR chest 1V portable [id number] IMPRESSION: Low lung volumes versus mild pulmonary congestion. Pneumonia should be excluded clinically.
--- NOTE | 2022-12-16 18:42 | ED_ITS ---
HPI - Altered Mental Status General: Chief Complaint: General Medical Stated Complaint: UNRESPONSIVE/ AMS Time Seen by Provider: 12/16/22 18:41 Limitations: altered mental status History of Present Illness: Mr Peguero is an 87-year-old gentleman with significant past medical history of Parkinson's disease presenting to the emergency department for altered mental status. He has had increased fatigue and somnolence over the past week however over the past day or so has had significant decline. He at baseline is able to ambulate however has been unable to ambulate secondary to weakness. He also seems to be more confused than baseline. He has had diarrhea and abdominal distention. Per report [facility] [place] blood and noted that his hemoglobin was low. History is otherwise limited by patient's mental state. 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 Parkinsons disease PVD (peripheral vascular disease) PVD (peripheral vascular disease) Right middle cerebral artery stroke Sepsis Small bowel obstruction Urgency incontinence Surgical History History of bilateral knee replacement History of varicose vein stripping Hx of hemorrhoidectomy Family History Family/Other Dementia Hypertension Social History Smoking and tobacco status: never smoked Alcohol intake: never Household members: spouse Marital status: Current occupational status: retired Physical Exam Const: GENERAL APPEARANCE: cooperative and well developed HENMT: COMMON NORMALS: normocephalic and atraumatic HEAD & SCALP: normocephalic and atraumatic THROAT: posterior oropharynx normal Eye: COMMON NORMALS: conjunctivae normal CONJUNCTIVA: Yes conjunctivae normal SCLERA: sclerae normal Neck/C-Spine: COMMON NORMALS: supple GENERAL: Yes trachea midline Resp: COMMON NORMALS: clear to auscultation bilaterally EFFORT & INSPECTION: Yes able to speak in complete sentences AUSCULTATION: clear to auscultation bilaterally Cardio: COMMON NORMALS: regular rate and regular rhythm RATE: regular rate RHYTHM: regular rhythm GI: COMMON NORMALS: Soft to palpation PALPATION: Yes Soft to palpation and No Tenderness to palpation present (GI) Extremity: GENERAL: Yes normal exam except as noted and No edema Neuro: COMMON NORMALS: moves all extremities SENSORIUM/ORIENTATION: Yes Orientation impaired Course Vital Signs: Vital signs: Vital Signs Temperature 98.5 F 12/20/22 15:35 Pulse Rate 77 12/20/22 15:35 Respiratory Rate 18 12/20/22 15:35 Blood Pressure 147/76 12/20/22 15:35 Pulse Oximetry 93 12/20/22 15:35 Oxygen Delivery Me thod 12/20/22 11:40 Oxygen Flow Rate 1 12/17/22 08:45 MDM - Altered Mental Status Medical Decision Making 87-year-old gentleman presenting to the emergency department for abnormal labs. Patient is confused and provides limited history and somewhat somnolent though no focal neurologic deficits are appreciated and he is nontoxic. EKG notable for sinus rhythm with borderline axis deviation, nonspecific ST se gment abnormalities, no STEMI. Labs notable for leukocytosis, hemoglobin is normal. Metabolic panel with hypokalemia, elevated creatinine, elevated lactic acid with improvement on repeat. Initial troponin elevated with negative range 2-hour delta. Procalcitonin is elevated. Possible pneumonia on chest x-ray. CT head negative for acute pathology. CT chest abdomen pelvis with possible findings of proctitis and pneumonia. Patient treated with fluids and antibiotics. Most likely etiology of patient's symptoms is pneumonia and urinary tract infection. This is an unrelated problem to his reason for being on hospice and therefore inpatient management is appropriate. The results of ED evaluation were discussed with the patient including plan for admission due to requirement for level of care not available if discharged to prevent significant worsening/deterioration. Patient agreeable with plan. Discussed with hospitalist service who was agreeable to admit patient. Medical Records I reviewed the patient's medical records. Lab Data I reviewed the patient's lab results. 12/20/22 05:47 12/20/22 05:47 Radiology Impressions Chest/Abdomen/Pelvis CT 12/16/22 19:12 IMPRESSION: 1. Basilar atelectasis 2. Small right pleural effusion 3. No evidence of pulmonary embolism. 4. Question of small areas of infectious bronchiolitis in the left lung. IMPRESSION: 1. Nonspecific gaseous distention of the colon 2. Findings suggestive of proctitis. 3. Other chronic findings not significantly changed. COMMENTS: Consistent with the [employer]'s Incidental Findings Committee white paper (J Am Karol Radiol 2018): Any incidental renal lesion less than 1 cm or classified as too small to characterize, or any incidental cystic renal lesion characterized as simple-appearing, is likely benign. No follow-up imaging is recommended for these lesions per consensus recommendations based on imaging criteria. Head CT 12/16/22 19:12 IMPRESSION: 1. Volume loss and moderate chronic microvascular disease. 2. No acute intracranial lesion or injury and no change from prior scan Chest X-Ray 12/17/22 08:00 IMPRESSION: 1. Right basal plaque atelectasis. No acute infiltrates noted. 2. Decreased lung volumes probably secondary to limited inspiration. 3. Right-sided PICC line in satisfactory position. Laboratory Results WBC 17.9 10^3/uL (4.0-10.0) H 12/16/22 18:53 RBC 3.64 10^6/uL (4.1-5.3) L 12/16/22 18:53 Hgb 12.0 g/dL (11.7-16.6) 12/16/22 18:53 Hct 37.1 % (42.0-52.0) L 12/16/22 18:53 MCV 101.9 fl (80-94) H 12/16/22 18:53 MCH 33.0 pg (28.0-34.0) 12/16/22 18:53 MCHC 32.3 g/dL (30.0-36.0) 12/16/22 18:53 RDW 13.3 % (12.1-15.1) 12/16/22 18:53 Plt Count 214 10^3/cmm (130-400) 12/16/22 18:53 MPV 11.0 fL (7.4-10.4) H 12/16/22 18:53 Neut % (Auto) 87.3 % 12/16/22 18:53 Lymph % (Auto) 4.4 % 12/16/22 18:53 [place] % (Auto) 7.6 % 12/16/22 18:53 Eos % (Auto) 0.1 % 12/16/22 18:53 Baso % (Auto) 0.2 % 12/16/22 18:53 Neut # (Auto) 15.67 10^3/uL (1.8-7.7) H 12/16/22 18:53 Lymph # (Auto) 0.8 10^3/uL (0.8-4.8) 12/16/22 18:53 [place] # (Auto) 1.4 10^3/uL (0.2-0.9) H 12/16/22 18:53 Eos # (Auto) 0.0 10^3/uL (0.0-0.8) 12/16/22 18:53 Baso # (Auto) 0.0 10^3/uL (0.0-0.1) 12/16/22 18:53 Nucleated RBC % (auto) 0 % 12/16/22 18:53 Nucleated RBCs # 0.0 /100WBC 12/16/22 18:53 Specimen Type Arterial 12/16/22 18:39 Sample Site Radial, left 12/16/22 18:39 ABG pH 7.45 (7.35-7.45) 12/16/22 18:39 ABG pCO2 37.0 mmHg (35-45) 12/16/22 18:39 ABG pO2 73.8 mmHg (80.0-100.0) L 12/16/22 18:39 ABG HCO3 25.7 mmol/L (22-26) 12/16/22 18:39 ABG O2 Saturation 96.3 12/16/22 18:39 ABG Base Excess 1.8 mmol/L (-2.0-2.0) 12/16/22 18:39 [place] Test Pos 12/16/22 18:39 A-a O2 Gradient 3.8 mmHg (5-10) L 12/16/22 18:39 Hematocrit 38.1 % (42-52) L 12/16/22 18:39 Hgb O2 Saturation 94.4 % (95-100) L 12/16/22 18:39 Carboxyhemoglobin 1.3 %THgb (0.4-20.1) 12/16/22 18:39 Methemoglobin 0.6 % (0.4-1.5) 12/16/22 18:39 Total Hemoglobin 12.4 g/dL (14-18) L 12/16/22 18:39 Sodium 141.0 mmol/L (131-143) 12/16/22 18:39 Potassium 3.0 mmol/L (3.5-5.0) L 12/16/22 18:39 Glucose 170.0 mg/dL (70-115) H 12/16/22 18:39 Ionized Calcium 1.2 mmol/L (1.1-1.4) 12/16/22 18:39 O2 Delivery Device Nc 12/16/22 18:39 O2 Liters/Min 6.0 % 12/16/22 18:39 Diathermy Equipment Repairer ID Cak 12/16/22 18:39 Sodium 139 mmol/L (136-145) 12/16/22 18:53 Potassium 3.1 mmol/L (3.5-5.1) L 12/16/22 18:53 Chloride 99 mmol/L (98-107) 12/16/22 18:53 Carbon Dioxide 23 mmol/L (22-29) 12/16/22 18:53 Anion Gap 20.1 (5-19) H 12/16/22 18:53 BUN 44 mg/dL (8-23) H 12/16/22 18:53 Creatinine 1.4 mg/dL (0.7-1.2) H 12/16/22 18:53 GFR Calculation Not Reportable 12/16/22 18:53 Glucose 156 mg/dL (65-115) H 12/16/22 18:53 Calculated Osmolality 302 mOsm/kg (285-295) H 12/16/22 18:53 Lactic Acid 2.8 mmol/L (0.5-2.2) H 12/16/22 18:53 Lactic Acid (Sepsis) 2.0 mmol/L (0.5-2.2) 12/16/22 21:19 Calcium 8.6 mg/dL (8.5-10.5) 12/16/22 18:53 Total Bilirubin 0.6 mg/dL (0.15-1.2) 12/16/22 18:53 AST 22 U/L (0-40) 12/16/22 18:53 ALT < 5 U/L (0-41) 12/16/22 18:53 Alkaline Phosphatase 70 U/L (40-130) 12/16/22 18:53 Troponin T Baseline 75 ng/L (0-15) H 12/16/22 18:53 Troponin T 120 Minute 66.22 ng/L (0-15) H 12/16/22 21:19 Delta Troponin T -8.78 ABS# (0-10) L 12/16/22 21:19 C-Reactive Protein 88.1 mg/L (0.0-4.9) H 12/16/22 18:53 Total Protein 6.7 g/dL (6.6-8.7) 12/16/22 18:53 Albumin 3.4 g/dL (3.5-5.2) L 12/16/22 18:53 Globulin 3.3 g/dL (1.3-4.6) 12/16/22 18:53 Procalcitonin 0.65 ng/mL (0-0.5) H 12/16/22 18:53 TSH 5.75 uIU/mL (0.27-4.20) H 12/16/22 18:53 Free T4 1.22 ng/dL (0.82-1.77) 12/16/22 18:53 Urine Color Dark yellow (Yellow) 12/16/22 20:21 Urine Appearance Clear (CLEAR) 12/16/22 20:21 Urine pH 5 (5-7) 12/16/22 20:21 Ur Specific [place] 1.020 (1.005-1.030) 12/16/22 20:21 Urine Protein 1+ (Negative) H 12/16/22 20:21 Urine Glucose (UA) Norm (Normal) 12/16/22 20:21 Urine Ketones 1+ (Negative) H 12/16/22 20:21 Urine Blood Trace (Negative) H 12/16/22 20:21 Urine Nitrate Negative (Negative) 12/16/22 20: Urine Bilirubin 2+ (Negative) H 12/16/22 20:21 Urine Urobilinogen 1 mg/dL (Negative) H 12/16/22 20:21 Ur Leukocyte Esterase Trace (Negative) H 12/16/22 20:21 Urine RBC 0-4 /hpf (0-2) H 12/16/22 20:21 Urine WBC 0-4 /hpf (0-5) H 12/16/22 20:21 Ur Squamous Epith Cells 0-4 /hpf (0-5) H 12/16/22 20:21 Amorphous Sediment Not Reportable 12/16/22 20:21 Urine Bacteria 4+ /hpf (NONE) H 12/16/22 20:21 Urine Mucus 1+ /hpf 12/16/22 20:21 Critical Care Time Critical Care Time: Critical Care Time: Yes Total Critical Care Time: 35 Attestation: Due to a high probability of clinically significant, possibly life threatening deterioration, the patient required my highest level of attention and preparedness to intervene emergently and I personally spent this critical care time directly and personally managing the patient. This critical care time included obtaining a history; examining the patient; pulse oximetry; ordering and review of laboratory and imaging studies; arranging urgent treatment with development of a management plan; evaluation of patient's response to treatment; frequent reassessment; and, discussions with other providers as applicable. It was exclusive of separately billable procedures. Primary system involved is infectious disease Discharge Plan Discharge Patient Disposition: Admitted As Inpatient Admit Provider: Ximena Mckinney Clinical Impression: Acute UTI, Sepsis, Pneumonia, Acute alteration in mental status Condition: Stable Discharge Diet: As Directed Discharge Activity: Resume usual activity and Increase activity as tolerated Coding Level of Care Code ED [employer] Manager for Ivonne Garcia
[2022-12-16 18:50] LABS: ABG PH Result 7.45 (7.35-7.45); Alveolar-Arterial Oxygen Gradi 3.8 mmHg (5-10); Arterial Blood Gas Hematocrit 38.1 % (42-52); Base Excess ABG 1.8 mmol/L (-2.0-2.0); Blood Gas Allen Test Pos; Blood Gas Operator Identificat CAK; Blood Gas Sample Site Radial, left; Blood Gas Sample Type Arterial; Carboxyhemoglobin 1.3 %THgb (0.4-20.1); HCO3 ABG 25.7 mmol/L (22-26); HGB O2 Sat 94.4 % (95-100); Ionized Calcium Level - ABG 1.2 mmol/L (1.1-1.4); Methemoglobin 0.6 % (0.4-1.5); Oxygen Device NC; Oxygen Saturation ABG 96.3; PO2 ABG 73.8 mmHg (80.0-100.0); Total Hemoglobin 12.4 g/dL (14-18)
--- NOTE | 2022-12-16 18:58 | ECG_ITS ---
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 Measurements Intervals [place] Rate: 89 P: 3 [place]: 172 QRS: -23 QRSD: 90 T: 53 QT: 373 QTc: 456 Interpretive Statements SINUS RHYTHM WITH SINUS ARRHYTHMIA INDETERMINATE AXIS PATTERN CONSISTENT WITH PULMONARY DISEASE MODERATE VOLTAGE CRITERIA FOR LVH, CONSIDER NORMAL VARIANT [MEETS CRITERIA IN ONE OF: R(aVL), S(V1), R(V5), R(V5/V6)+S(V1)] INFERIOR MYOCARDIAL INFARCTION , PROBABLY OLD [40+ ms Q WAVE AND/OR ST/T ABNORMALITY IN II/aVF] Compared to ECG 03/02/2022 16:12:13 Indeterminate axis now present Myocardial infarct finding now present Left-axis deviation no longer present T-wave abnormality no longer present Electronically Signed On 12-17-2022 15:54:26 CDT by Maxwell Pond M.D. [id number]
[2022-12-16 19:08] LABS: Basophils % 0.2 %; Eosinophils % 0.1 %; Hematocrit 37.1 % (42.0-52.0); Lymphocytes # 0.8 10^3/uL (0.8-4.8); Lymphocytes % 4.4 %; Mean Corpuscular HGB Conc 32.3 g/dL (30.0-36.0); Mean Corpuscular Volume 101.9 fl (80-94); Monocytes # 1.4 10^3/uL (0.2-0.9); Monocytes % 7.6 %; Neutrophils # 15.67 10^3/uL (1.8-7.7); Neutrophils % 87.3 %; Nucleated Red Blood Cells % 0 %; Platelet Count 214 10^3/cmm (130-400); Red Blood Count 3.64 10^6/uL (4.1-5.3); Red Cell Distribution Width 13.3 % (12.1-15.1); White Blood Count 17.9 10^3/uL (4.0-10.0)
--- NOTE | 2022-12-16 19:12 | CTR_ITS ---
PROCEDURE INFORMATION: Exam: CT Head Without Contrast Exam date and time: 12/16/2022 8:32 PM Age: 87 years old Clinical indication: Altered mental status/memory loss; Additional info: AMS TECHNIQUE: Imaging protocol: Computed tomography of the head without contrast. Radiation optimization: All CT scans at this facility use at least one of these dose optimization techniques: automated exposure control; mA and/or kV adjustment per patient size (includes targeted exams where dose is matched to clinical indication); or iterative reconstruction. REPORTING DATA: Count of CT and Cardiac NM exams in prior 12 months: This patient has received 2 known CTs and 0 known cardiac nuclear medicine studies in the 12 months prior to the current study. COMPARISON: CT head wo con* [id number] 11/21/2021 3:03 PM RADIATION DOSE METRICS: Total DLP (mGy-cm): 1856.78 FINDINGS: Brain: There is volume loss. There is white matter lucency consistent with chronic microvascular disease. There are small old subinsular lacunar infarcts. No evidence of acute infarct. No hemorrhage or extra-axial collection. No mass. Cerebral ventricles: Ventricular size is proportionate to prominence of the sulci Paranasal sinuses: Visualized sinuses are unremarkable. No fluid levels. Mastoid air cells: Visualized mastoid air cells are well aerated. Bones/joints: Unremarkable. No acute fracture. Soft tissues: Unremarkable. CT/CT head wo con* [id number] IMPRESSION: 1. Volume loss and moderate chronic microvascular disease. 2. No acute intracranial lesion or injury and no change from prior scan
--- NOTE | 2022-12-16 19:12 | CTR_ITS ---
PROCEDURE INFORMATION: Exam: CTA Chest With Contrast Exam date and time: 12/16/2022 8:56 PM Age: 87 years old Clinical indication: Bloating and constipation; Other: New oxygen requirment; Additional info: AMS, tachypnea, new oxygen req TECHNIQUE: Imaging protocol: Computed tomographic angiography of the chest with contrast. 3D rendering (Not supervised by radiologist): MIP and/or 3D reconstructed images were created by the technologist. Radiation optimization: All CT scans at this facility use at least one of these dose optimization techniques: automated exposure control; mA and/or kV adjustment per patient size (includes targeted exams where dose is matched to clinical indication); or iterative reconstruction. Contrast material: OMNI 350; Contrast volume: 200 ml; Contrast route: INTRAVENOUS (IV); REPORTING DATA: Count of CT and Cardiac NM exams in prior 12 months: This patient has received 2 known CTs and 0 known cardiac nuclear medicine studies in the 12 months prior to the current study. COMPARISON: CT angio chest PE protcl [id number] 06/06/2020 7:46 PM RADIATION DOSE METRICS: Total DLP (mGy-cm): 1138.12 FINDINGS: Pulmonary arteries: There is no evidence of filling defects within the pulmonary arterial circulation to suggest pulmonary embolism. Aorta: There is atherosclerotic calcification of the aortic arch and descending thoracic aorta. There is no thoracic aortic aneurysm or dissection. Lungs: There are calcified granulomas in both lungs. There is dependent atelectasis at both lung bases. Superimposed pneumonia not entirely excluded. There is some minimal tree-in-bud type nodular opacity in the lingula which may represent some foci of infectious bronchiolitis. Pleural spaces: There is small right pleural effusion. Heart: Unremarkable. No cardiomegaly. No pericardial effusion. Coronary arteries: There is moderate atherosclerotic calcification of the coronary arteries. Lymph nodes: There is some mildly prominent precarinal and subcarinal lymph nodes but no adenopathy. There are calcified left hilar lymph nodes in keeping with old granulomatous disease. Bones/joints: Unremarkable. No acute fracture. Soft tissues: Unremarkable. PROCEDURE INFORMATION: Exam: CT Abdomen And Pelvis With Contrast Exam date and time: 12/16/2022 8:56 PM Age: 87 years old Clinical indication: Bloating and constipation; Other: New oxygen requirment; Additional info: AMS, tachypnea, new oxygen req TECHNIQUE: Imaging protocol: Computed tomography of the abdomen and pelvis with contrast. Radiation optimization: All CT scans at this facility use at least one of these dose optimization techniques: automated exposure control; mA and/or kV adjustment per patient size (includes targeted exams where dose is matched to clinical indication); or iterative reconstruction. Contrast material: OMNI 350; Contrast volume: 200 ml; Contrast route: INTRAVENOUS (IV); REPORTING DATA: Count of CT and Cardiac NM exams in prior 12 months: This patient has received 2 known CTs and 0 known cardiac nuclear medicine studies in the 12 months prior to the current study. COMPARISON: CT chest abdpel w/*[id number] 02/02/2022 1:11 AM RADIATION DOSE METRICS: Total DLP (mGy-cm): 1138.12 FINDINGS: Liver: There is no focal abnormality within the liver. Gallbladder and bile ducts: The gallbladder is normal. Pancreas: Pancreas is moderately atrophic. No focal pancreatic mass is identified. This is not changed. Spleen: There are several small hypodensities in the spleen, likely small cysts not significantly changed from 02/02/2022. Adrenal glands: Normal. No mass. Kidneys and ureters: There are multiple simple renal cysts. Largest cyst is in the upper pole of left kidney measuring 6 cm. The benign simple cysts in both kidneys not significantly changed from previous. There is no evidence of hydronephrosis. Stomach and bowel: There is mild thickening of the rectal wall in mild adjacent inflammatory stranding which may represent some proctitis. There is no evidence of diverticulitis. There is moderate gaseous distention of the colon. There is no evidence of obstruction. Appendix: Not identified Intraperitoneal space: There is no evidence of free intraperitoneal fluid. Vasculature: The aorta demonstrates mild atherosclerotic calcification. There is no evidence of an abdominal aortic aneurysm. Lymph nodes: There is no evidence of lymphadenopathy. Urinary bladder: Unremarkable as visualized. Reproductive: Unremarkable as visualized. 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 This is not changed from previous. No acute fracture is identified Soft tissues: Unremarkable. CT/CT angio chest w abd pel w con IMPRESSION: 1. Basilar atelectasis 2. Small right pleural effusion 3. No evidence of pulmonary embolism. 4. Question of small areas of infectious bronchiolitis in the left lung. IMPRESSION: 1. Nonspecific gaseous distention of the colon 2. Findings suggestive of proctitis. 3. Other chronic findings not significantly changed. COMMENTS: Consistent with the [place] [employer]'s Incidental Findings Committee white paper (J Am Karol Radiol 2018): Any incidental renal lesion less than 1 cm or classified as too small to characterize, or any incidental cystic renal lesion characterized as simple-appearing, is likely benign. No follow-up imaging is recommended for these lesions per consensus recommendations based on imaging criteria.
[2022-12-16] MEDS: sodium chloride 0.9% 1,000 ML 999 ML IV ×2 (19:27→20:43)
[2022-12-16 19:29] LABS: Lactic Sepsis W/Reflex 2.8 mmol/L (0.5-2.2)
[2022-12-16 19:31] LABS: Troponin(5th) Baseline 75 ng/L (0-15)
[2022-12-16 19:41] LABS: Procalcitonin 0.65 ng/mL (0-0.5); Thyroid Stimulating Hormone 5.75 uIU/mL (0.27-4.20)
[2022-12-16 19:52] LABS: Alanine Aminotransferase < 5 U/L (0-41); Albumin Level 3.4 g/dL (3.5-5.2); Alkaline Phosphatase 70 U/L (40-130); Anion Gap 20.1 (5-19); Aspartate Amino Transferase 22 U/L (0-40); Blood Urea Nitrogen 44 mg/dL (8-23); C Reactive Protein 88.1 mg/L (0.0-4.9); Calcium 8.6 mg/dL (8.5-10.5); Carbon Dioxide 23 mmol/L (22-29); Chloride 99 mmol/L (98-107); Globulin 3.3 g/dL (1.3-4.6); Glucose 156 mg/dL (65-115); Osmolality Calculated 302 mOsm/kg (285-295); Potassium 3.1 mmol/L (3.5-5.1); Sodium 139 mmol/L (136-145); Total Bilirubin 0.6 mg/dL (0.15-1.2); Total Protein 6.7 g/dL (6.6-8.7)
[2022-12-16] MEDS: piperacillin-tazobactam 4.5 GM in sodium chloride 0.9% (plus) 50 ML IV (19:54)
[2022-12-16] MEDS: hydrocortisone 100 mg/2 mL SDV IVP (19:55)
[2022-12-16 20:48] LABS: Free T4 Free Thyroxine 1.22 ng/dL (0.82-1.77); Reflex Lactate Order REFLEX LACTIC ORDERD
[2022-12-16 20:54] LABS: Blood Urine Trace (Negative); Glucose Urine UA Norm (Normal); Ketones Urine 1+ (Negative); Protein Urine 1+ (Negative); Urine Appearance Clear (CLEAR); Urine Color Dark Yellow (Yellow); pH Urine 5 (5-7)
[2022-12-16 20:55] LABS: Add Urine Microscopic? YES; Bilirubin Urine 2+ (Negative); Leukocyte Esterase Urine Trace (Negative); Nitrate Urine Negative (Negative); Urobilinogen Urine 1 mg/dL (Negative)
[2022-12-16 21:08] LABS: Bacteria Urine 4+ /hpf; Mucus Urine 1+ /hpf; RBC Urine 0-4 /hpf (0-2); Squamous Epithelial Cell Urine 0-4 /hpf (0-5); WBC Urine 0-4 /hpf (0-5)
[2022-12-16 21:09] LABS: Add Urine Culture? Yes
[2022-12-16] MEDS: iohexol 350 mg/mL 500 mL Btl (per mL) IV (21:09)
--- NOTE | 2022-12-16 21:12 | ECG_ITS ---
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 Measurements Intervals [place] Rate: 79 P: 0 [place]: 0 QRS: -21 QRSD: 97 T: 250 QT: 401 QTc: 462 Interpretive Statements SUPRAVENTRICULAR RHYTHM INDETERMINATE AXIS NONSPECIFIC T-WAVE ABNORMALITY Compared to ECG 12/16/2022 18:58:08 Supraventricular rhythm now present T-wave abnormality now present Sinus rhythm no longer present Sinus arrhythmia no longer present Myocardial infarct finding no longer present Electronically Signed On 12-17-2022 15:55:31 CDT by Maxwell Pond M.D. [id number]
[2022-12-16] MEDS: vancomycin 1,500 MG/300 ML PIGGYBACK 200 MG IV (21:19)
[2022-12-16] MEDS: lidocaine 1% 5 ML in potassium chloride premix 100 ML 26.25 ML IV (21:37)
[2022-12-16 21:42] LABS: Troponin 5 2HR 66.22 ng/L (0-15)
[2022-12-16 21:43] LABS: Troponin 5 2HR Delta -8.78 ABS# (0-10)
--- NOTE | 2022-12-16 22:30 | P.HP_ITS ---
Providers/Chief Complaint Primary Care Provider: North Mancini MD Chief Complaint: UNRESPONSIVE/ AMS History of Present Illness Jay Peguero is a 87 year old male with past medical history of Parkinson disease currently on hospice, CKD, stroke, depression, Lewy body dementia, peripheral vascular disease presented to the hospital today for altered mental status. He has had increased fatigue and somnolence over the past week off over the past 1 to 2 days he has declined. At baseline patient is able to ambulate but recently has been unable to ambulate secondary to generalized weakness. He is more confused than his baseline. Abdomen is distended and he has had diarrhea as well. Hospice nurse stated that his hemoglobin was low at outpatient labs. Patient unable to provide any history at this time. History obtained from chart and ER physician and . Patient's states that he went to [place] recently and has been fine. Drinks 500-calorie boost 2 bottles a day and drinks 4 bottles of Ensure at times. For the last 2 days he has had poor oral intake. When he gets up and walks with a walker he passes gas and gets incontinent with stool. She states the diarrhea has been going on for the last few weeks however it has acutely worsened. He was taken to his primary care doctor this morning and was started on penicillin with suspicion of UTI. He has had acute change in mental status in the last 48 hours. They state that they have morphine Haldol and Ativan in the fridge however has not had to use it at all. Patient has been doing fine at home. Daughter also present at bedside. states that patient is DNR/DNI, does not want dialysis either but is okay with IV fluids and antibiotics and all other treatment required. They have not really addressed a feeding tube issue but she was discussed with family if they would be agreeable to it in case needed. ED course: On arrival blood pressure 83/50, pulse 89, saturating 97% on room air, patient given 100 mg hydrocortisone x1, potassium infusion, Zosyn, vancomycin, 2 L normal saline bolus with improvement in blood pressure. Now 114/65. Patient had straight cath done to obtain urinary sample. It does show mild leukocyte esterase and 4+ bacteria. Urine culture ordered stat, blood culture ordered stat. WBC 17.9, hemoglobin 12, ABG obtained 7.4 5/37/70 3.8/25.7, potassium 3.1, sodium 139, creatinine 1.4, glucose 156, lactic acid 2.8. Lactic acid got better after fluids to 2.0. Baseline troponin 75, 2-hour troponin 66.2 with a delta of -8.78. C-reactive protein 88.1. Procalcitonin 0.65, TSH 5.75, free T41.22. Head CT obtained which shows volume loss and moderate chronic microvascular disease, no acute intracranial lesion or injury and no change from prior scan. CT chest abdomen pelvis shows basilar atelectasis, small right pleural effusion, no evidence of PE, question of small areas of infectious bronchiolitis in left l mary carmen, nonspecific gaseous distention of colon, finding suggestive of proctitis, other chronic findings not significantly changed. Multiple renal cysts. No evidence of hydronephrosis. Mild thickening of rectal wall and mild adjacent inflammatory stranding which may represent from proctitis. No evidence of diverticulitis, moderate gaseous distention of the colon present. Gallbladder normal, no focal abnormality in the liver at this time. Medications/Allergies Home Medications Medication Instructions Recorded Confirmed Last Taken Type gabapentin 300 mg capsule 300 mg PO BEDTIME 11/07/19 12/08/22 04/07/22 History Super Beta Prostate 1 cap PO QPM 11/20/21 12/08/22 04/07/22 History Vitamin B-12 1 tab PO QAM 11/20/21 12/08/22 04/07/22 History Vitamin D3 1 cap PO QAM 11/20/21 12/08/22 04/07/22 History carbidopa 25 mg-levodopa 100 mg 1 tab PO TID #270 tabs 12/23/21 12/08/22 04/07/22 Rx tablet aspirin 81 mg tablet,delayed 81 mg PO BEDTIME 02/02/22 12/08/22 04/07/22 History release finasteride 5 mg tablet 5 mg PO BEDTIME 02/02/22 12/08/22 04/07/22 History atropine 1 % eye drops 4 drp sublingual Q4-5H PRN 04/07/22 12/08/22 04/07/22 Rx secretions #5 mL bisacodyl 10 mg rectal suppository [address] DAILY PRN constipation #5 04/07/22 12/08/22 04/07/22 Rx ea citalopram 40 mg tablet 60 mg PO QAM #90 tabs 04/07/22 12/08/22 04/07/22 Rx fludrocortisone 0.1 mg tablet 0.1 mg PO DAILY #30 tabs 04/07/22 12/08/22 04/07/22 Rx haloperidol lactate 2 mg/mL oral 2 mg PO Q4-5H PRN agitation #15 mL 04/07/22 12/08/22 04/07/22 Rx concentrate lorazepam 2 mg/mL oral concentrate 2 mg sublingual Q4-5H PRN anxiety 04/07/22 12/08/22 04/07/22 Rx #30 mL morphine concentrate 100 mg/5 mL 20 mg sublingual DIRECTED PRN 04/07/22 12/08/22 04/07/22 Rx (20 mg/mL) oral solution pain 14 days #30 mL ondansetron 4 mg disintegrating 4 mg translingual Q4-5H PRN nausea 04/07/22 12/08/22 04/07/22 Rx tablet #5 tabs midodrine 10 mg tablet See Rx Instructions .Route 06/22/22 12/08/22 Unknown Rx .COMPLEX #90 tabs Allergies Allergy/AdvReac Type Severity Reaction Status Date / Time No Known Allergies Allergy Verified 12/08/22 13:15 PFSH Acute PFSH: Medical History Aspiration pneumonia Balanitis BPH NOS w ur obs/LUTS CKD (chronic kidney disease) 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 CVA (cerebral vascular accident) Depression Dysphagia pending speech pathology evaluation. 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 Parkinsons disease PVD (peripheral vascular disease) PVD (peripheral vascular disease) Right middle cerebral artery stroke Sepsis Small bowel obstruction Urgency incontinence Surgical History History of bilateral knee replacement History of varicose vein stripping Hx of hemorrhoidectomy Family History Family/Other Dementia Hypertension Social History Smoking and tobacco status: never smoked Alcohol intake: never Household members: spouse Marital status: Current occupational status: retired Vitals/I&O/Wt Last Vital Signs Pulse 77 12/16/22 20:00 Resp 23 H 12/16/22 20:00 BP 114/65 12/16/22 20:22 Pulse Ox 97 12/16/22 20:00 12/16/22 12/16/22 12/16/22 06:59 14:59 22:59 Intake Total 1050 / 1050 Balance 1050 / 1050 Weight last 48 hrs Weight 63.503 kg Physical Exam Narrative: General: Altered, alert but not oriented. Patient seen laying in bed at this time on room air. No acute respiratory distress, no conversational dyspnea at this time. On 6 L nasal cannula at this time. Does not use oxygen at home. Patient appears dehydrated and dry oral mucosa HEENT: Normocephalic, atraumatic, EOMI Cardio: Regular rate rhythm, normal S1-S2 Respiratory: Mild crackles at right base, diminished at left base, otherwise grossly clear to auscultation. GI: Abdomen soft, nontender, mild distention noted, bowel sounds + Extremities: No lower extremity edema noted. thickened toenails noted. 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 Procalcitonin 0.65.. Patient given 2 L normal saline bolus, lactic acid improved to 2.0. Patient currently altered. UA shows leukocyte esterase. On labs reviewed please see HPI section. - Reviewed chest xray, agree with radiology report, EKG reviewed, did not see any acute ischemic changes ? Potassium 3.1, repleted with 40 IV x1 ? Patient was started on broad-spectrum antibiotics vancomycin and Zosyn ? Check blood cultures, urine culture, sputum Gram stain culture ? Check ova parasite screen, stool culture, C. difficile stool sample - Check procalcitonin in AM - Descalate antibiotics as clinical improvement and culture data available - Continue fludracortisone, carbidopa levodopa, midodrine 10, zofran aspirin - Continue haloperidol PRN, morphine PRN - Hold vitamins at this time - Patient currently with [facility] at home. Reviewed hospice records. ? Does not use Haldol and morphine or Ativan at home. He has not really required any doses as per . ? Goals of care discussion with . Patient is DNR/DNI, no dialysis. Feeding tube to be discussed at a later time. Okay with IV fluids, antibiotics and any other treatment that is required at this time. SCDS, Heparin subc BID I spent 65 minutes on this encounter before, during and after the visit, examining the patient, reviewing labs, writing orders and documenting the note and discussing with nursing staff taking care of the patient. 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
[2022-12-17] VITALS (72 sets, daily range): BP systolic 75–133; BP diastolic 46–86; PULSE 70–115; RESP 11–26; TEMP 36.6–36.8; O2SAT 88–96; BMI 25.9
[2022-12-17] MEDS: heparin 5,000 unit/mL INJ 1 mL 5000 UNIT SUBCUT ×2 (00:06→12:42)
--- NOTE | 2022-12-17 00:29 | PC.NURSE ---
patient has known bed sore on bottom, notified me of it and when changing pt brief the bed sore was cleaned and ensured no feces was on it.
[2022-12-17] MEDS: sodium chloride 0.9% 1,000 ML 75 ML IV ×2 (00:39→12:43)
--- NOTE | 2022-12-17 00:43 | ECG_ITS ---
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 Measurements Intervals [place] Rate: 70 P: 36 NE: 194 QRS: -5 QRSD: 90 T: 0 QT: 458 QTc: 497 Interpretive Statements SINUS RHYTHM LOW QRS VOLTAGE IN EXTREMITY LEADS [QRS DEFLECTION < 0.5 mV IN LIMB LEADS] ST DEVIATION AND MODERATE T-WAVE ABNORMALITY, CONSIDER LATERAL ISCHEMIA [-0.1+ mV T-WAVE IN I/aVL/V5/V6] Compared to ECG 12/16/2022 21:12:31 Low QRS voltage now present Possible ischemia now present Supraventricular rhythm no longer present Indeterminate axis no longer present T-wave abnormality still present Electronically Signed On 12-17-2022 15:55:11 CDT by Maxwell Pond M.D. [email or web address]
[2022-12-17 01:36] LABS: Basophils % 0.1 %; Hematocrit 35.6 % (42.0-52.0); Hemoglobin 11.3 g/dL (11.7-16.6); Lymphocytes # 0.7 10^3/uL (0.8-4.8); Lymphocytes % 4.6 %; Mean Corpuscular HGB Conc 31.7 g/dL (30.0-36.0); Mean Corpuscular Hemoglobin 32.7 pg (28.0-34.0); Mean Corpuscular Volume 102.9 fl (80-94); Mean Platelet Volume 10.9 fL (7.4-10.4); Monocytes # 0.8 10^3/uL (0.2-0.9); Monocytes % 5.7 %; Neutrophils # 12.92 10^3/uL (1.8-7.7); Neutrophils % 89.3 %; Nucleated Red Blood Cells % 0 %; Platelet Count 189 10^3/cmm (130-400); Red Blood Count 3.46 10^6/uL (4.1-5.3); Red Cell Distribution Width 13.3 % (12.1-15.1); White Blood Count 14.5 10^3/uL (4.0-10.0)
[2022-12-17 01:55] LABS: Troponin 5 6HR 60.38 ng/L (0-15)
[2022-12-17 01:58] LABS: Alanine Aminotransferase 6 U/L (0-41); Alkaline Phosphatase 66 U/L (40-130); Anion Gap 15.9 (5-19); Aspartate Amino Transferase 19 U/L (0-40); Blood Urea Nitrogen 43 mg/dL (8-23); Calcium 8.2 mg/dL (8.5-10.5); Carbon Dioxide 23 mmol/L (22-29); Chloride 106 mmol/L (98-107); Glucose 145 mg/dL (65-115); Magnesium 2.3 mg/dL (1.7-2.3); Osmolality Calculated 305 mOsm/kg (285-295); Potassium 3.9 mmol/L (3.5-5.1); Sodium 141 mmol/L (136-145); Total Bilirubin 0.5 mg/dL (0.15-1.2)
[2022-12-17] MEDS: piperacillin-tazobactam 3.375 GM in sodium chloride 0.9% (plus) 50 ML IV ×3 (02:48→18:20)
[2022-12-17] MEDS: citalopram 20 mg Tablet 60 MG PO (05:37)
[2022-12-17 06:34] LABS: Glucose Point of Care 190 mg/dL (70-110)
--- NOTE | 2022-12-17 08:00 | XR_ITS ---
WS: [id number] Exam: XR chest 1V portable [id number] Date/Time of Exam: 12/17/2022 8:06 AM Reason For Exam: hypoxia Comparison 12/16/2022. The lungs are fully inflated. No consolidating infiltrates. Plaque atelectasis in the right base. Low lung volumes appear to be secondary to limited inspiration. Right-sided PICC line ends at the cavoat rial junction. Cardiomediastinal silhouette is unremarkable for portable technique. XR/XR chest 1V portable [id number] IMPRESSION: 1. Right basal plaque atelectasis. No acute infiltrates noted. 2. Decreased lung volumes probably secondary to limited inspiration. 3. Right-sided PICC line in satisfactory position.
[2022-12-17] MEDS: pantoprazole 40 mg SDV IVP (09:54)
[2022-12-17] MEDS: midodrine 5 mg TABLET 10 MG PO ×3 (09:54→20:34)
[2022-12-17] MEDS: carbidopa-levodopa 25-100mg Tablet 1 EACH PO ×3 (09:54→20:39)
[2022-12-17] MEDS: fludrocortisone 0.1 mg Tablet PO (09:54)
--- NOTE | 2022-12-17 10:32 | P.PN_ITS ---
Subjective Subjective: Patient is very fatigued and lethargic Able to answer few questions is at the bedside does not want any feeding tube placement or PEG tube is stating that he was supposed to get modified barium swallow next week, I asked him if they would opt for any surgical intervention or feeding tube placement after abnormal modified barium swallow, answer was no, I recommended we should just continue with speech therapy for now because diagnosing him with aspiration with modified barium swallow would eventually need speech therapy and there is no plan for surgical intervention, family agreed Continue IV fluids and antibiotics Added morphine for pain management Requested speech therapy As per the for last 5 months he he is only taking liquid in the form of Ensure and boost He is on hospice right now Had 1 bowel movement today Vitals/I&O/Wt Last Vital Signs Temp 98.2 F 12/17/22 00:52 Pulse 76 12/17/22 08:45 Resp 17 12/17/22 02:30 BP 93/55 12/17/22 02:30 Pulse Ox 92 12/17/22 08:45 O2 Del Method 12/17/22 08:45 O2 Flow Rate 1 12/17/22 08:45 12/16/22 12/17/22 12/17/22 22:59 06:59 14:59 Intake Total 1050 / 1050 50 / 1100 Output Total 200 / 200 Balance 1050 / 1050 -150 / 900 Weight last 48 hrs Weight 75 kg Weight 75 kg Weight 63.503 kg Physical Exam Narrative: Patient fatigued and lethargic Able to answer a few questions Oriented to place time and person Significant muscle mass loss Clinically dry S1, S2 Hemodynamically stable IV fluids running at the bedside Patient saturating well on 1 L nasal cannula Urinary Catheter Management: [place]: Cath Placed During This Visit: yes Reason for Continuing Indwelling Catheter: Accurate Measurement of Urinary Output in Critically Ill Patients Urinary Catheter Date of Insertion: 12/17/22 Urinary Catheter Time of Insertion: 02:37 Data 12/17/22 01:07 12/17/22 01:07 Micro: Microbiology 12/16/22 19:44 Blood Culture - Preliminary Blood SPECIMEN COLLECTED 12/16/22 19:30 Blood Culture - Preliminary Blood SPECIMEN COLLECTED A&P Assessment and plan (1) Acute UTI: (2) Sepsis: (3) Pneumonia: (4) Acute alteration in mental status: (5) PVD (peripheral vascular disease): (6) 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: (9) 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: (10) Chronic constipation: (11) Proctitis: (12) Dysphagia: Plan Sepsis related to proctitis and pneumonia Concern for UTI however no significant pyuria noted on UA Continue broad-spectrum antibiotics for now He is on IV fluids He does have history of labile blood pressure related to Shy-Drager syndrome Not on pressors at this point Concern for aspiration pneumonia Dysphagia Requested speech therapy He is only on liquid diet at home is stating they do not want any feeding tube or PEG tube I do not think modified barium swallow would play a significant role if there is no plan for any kind of intervention afterwards, just knowing the diagnosis of aspiration for modified barium swallow will need speech therapy which I would continue for now Lewy body dementia No acute exacerbation Continue Parkinson's carbidopa levodopa medication 1 bowel movement today History of constipation Chronic hypotension patient requires [facility] Hospice care at home Guarded prognosis We will repeat labs for tomorrow only I would not like to repeat labs on daily basis on hospice patient History of stroke, peripheral vascular disease DVT prophylaxis on board Most of the information provided by his who is at the bedside patient not able to provide much history Self interpretation of the EKG from today low voltage EKG sinus rhythm with T wave inversions patient not complaining of active chest pain negative delta troponin Attestations Medical Necessity Statement*: Continue medical management, he can be transferred out of ICU by tomorrow Diagnoses Acute UTI N39.0 Sepsis A41.9 Pneumonia J18.9 Acute alteration in mental status R41.82 PVD (peripheral vascular disease) I73.9 Multiple system atrophy with predominant parkinsonism G23.2 Shy-Drager syndrome G90.3 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
[2022-12-17] MEDS: artificial tears Op Soln 15 mL Btl 1 DROP EYE-BOTH (13:18)
[2022-12-17] MEDS: morphine 4 mg/mL SDV 1 mL 2 MG IVP ×2 (16:18→20:33)
[2022-12-17] MEDS: finasteride 5 mg Tablet PO (20:34)
[2022-12-17] MEDS: aspirin 81 mg EC Tablet PO (20:34)
[2022-12-17] MEDS: vancomycin 750 MG in sodium chloride 0.9% 250 ML 250 MG IV (20:34)
[2022-12-18] VITALS (89 sets, daily range): BP systolic 89–149; BP diastolic 49–88; PULSE 67–117; RESP 13–25; TEMP 36.3; O2SAT 70–97
[2022-12-18] MEDS: heparin 5,000 unit/mL INJ 1 mL 5000 UNIT SUBCUT ×3 (00:20→22:38)
[2022-12-18] MEDS: piperacillin-tazobactam 3.375 GM in sodium chloride 0.9% (plus) 50 ML IV ×2 (01:23→09:12)
[2022-12-18] MEDS: sodium chloride 0.9% 1,000 ML 75 ML IV (01:23)
[2022-12-18] MEDS: hydrocortisone 100 mg/2 mL SDV 50 MG IVP ×4 (02:03→22:38)
--- NOTE | 2022-12-18 02:35 | PC.NURSE ---
0130 Patient heart rate increased to [address] Mckinney to report change in patient condition. Patient's heart rate returned to normal, 70-80 bpm, while on the phone with Dr. Mckinney. Orders for IV hydrocortisone.
[2022-12-18 05:12] LABS: Basophils % 0.3 %; Eosinophils % 0.3 %; Hematocrit 32.2 % (42.0-52.0); Hemoglobin 10.5 g/dL (11.7-16.6); Lymphocytes # 0.8 10^3/uL (0.8-4.8); Lymphocytes % 5.9 %; Mean Corpuscular HGB Conc 32.6 g/dL (30.0-36.0); Mean Corpuscular Hemoglobin 33.3 pg (28.0-34.0); Mean Corpuscular Volume 102.2 fl (80-94); Mean Platelet Volume 10.8 fL (7.4-10.4); Monocytes # 0.8 10^3/uL (0.2-0.9); Monocytes % 5.8 %; Neutrophils # 11.59 10^3/uL (1.8-7.7); Neutrophils % 87.2 %; Nucleated Red Blood Cells % 0 %; Platelet Count 208 10^3/cmm (130-400); Red Blood Count 3.15 10^6/uL (4.1-5.3); Red Cell Distribution Width 13.4 % (12.1-15.1); White Blood Count 13.3 10^3/uL (4.0-10.0)
[2022-12-18 05:37] LABS: Blood Urea Nitrogen 50 mg/dL (8-23); Calcium 7.9 mg/dL (8.5-10.5); Carbon Dioxide 22 mmol/L (22-29); Chloride 113 mmol/L (98-107); Glucose 120 mg/dL (65-115); Osmolality Calculated 319 mOsm/kg (285-295); Sodium 147 mmol/L (136-145)
[2022-12-18] MEDS: citalopram 20 mg Tablet 60 MG PO (05:55)
[2022-12-18] MEDS: carbidopa-levodopa 25-100mg Tablet 1 EACH PO ×3 (09:02→20:30)
[2022-12-18] MEDS: fludrocortisone 0.1 mg Tablet PO (09:02)
[2022-12-18] MEDS: midodrine 5 mg TABLET 10 MG PO ×3 (09:02→20:30)
[2022-12-18] MEDS: pantoprazole 40 mg SDV IVP (09:12)
[2022-12-18 10:29] LABS: Percent Saturation 26.5 % (20-50); Total Iron Binding Capacity 147 mcg/dl
[2022-12-18] MEDS: meropenem 1,000 MG in sodium chloride 0.9% (plus) 50 ML 100 MG IV ×2 (10:33→22:37)
[2022-12-18] MEDS: D5-NS 0.45% + KCL 20 mEq 20 MEQ/1,000 ML BAG 75 MEQ IV (10:34)
[2022-12-18 10:56] LABS: Iron 39 ug/dL (59-158)
[2022-12-18 10:58] LABS: Unsaturated Iron Binding 108 ug/dL (112-347); Vitamin B12 > 2000 pg/mL (232-1245)
[2022-12-18] MEDS: insulin lispro 100 unit/1 mL SUBCUT ×2 (11:57→18:23)
[2022-12-18 12:08] LABS: Glucose Point of Care 143 mg/dL (70-110)
[2022-12-18 12:47] LABS: Folate Level 16.7 ng/mL (4.5-32.2)
--- NOTE | 2022-12-18 18:02 | P.PN_ITS ---
Subjective Subjective: Hospital course, labs appreciated. Seen in the ICU with son and at bedside. Patient seems to be at his baseline mentation. Continued on Levophed of overnight. On removing Levophed patient mean blood pressure is dropping below 60 with a lowest of around 45. Otherwise patient has remained afebrile. Documented urine output of around 1300 cc in last 24 hours. Vitals/I&O/Wt Last Vital Signs Temp 97.9 F 12/17/22 19:00 Pulse 78 12/18/22 15:45 Resp 19 H 12/18/22 16:00 BP 105/59 12/18/22 16:00 Pulse Ox 82 L 12/18/22 15:15 O2 Del Method 12/18/22 10:56 O2 Flow Rate 1 12/17/22 08:45 12/18/22 12/18/22 12/18/22 06:59 14:59 22:59 Intake Total 1028.575 / 2338.947 770 / 770 Output Total 300 / 1350 Balance 728.575 / 988.947 770 / 770 Weight last 48 hrs Weight 76.204 kg Weight 75 kg Weight 75 kg Weight 63.503 kg Physical Exam Narrative: General: No acute distress, chronically sick appearing, confused, AO x1-2, dehydrated HEENT: PERRLA, pupils bilaterally equal and reactive Chest: Normal vesicular breath sounds, no added sounds, equal good air entry bilaterally CVS: S1-S2 regular, no murmurs, no tachycardia, no gallops, no rubs Abdomen: Soft, nontender, no organomegaly, bowel sounds present Neuro: No focal deficits, no facial deformity, AO x3, power 5/5 in all limbs Urinary Catheter Management: [place]: Cath Placed During This Visit: yes Reason for Continuing Indwelling Catheter: Accurate Measurement of Urinary Output in Critically Ill Patients Urinary Catheter Date of Insertion: 12/17/22 Urinary Catheter Time of Insertion: 02:37 Data 12/18/22 04:43 12/18/22 04:43 Micro: Microbiology 12/16/22 20:21 Urine Culture - Preliminary Urine,Clean Catch 12/16/22 19:44 Blood Culture - Preliminary Blood NEGATIVE TO DATE 12/16/22 19:30 Blood Culture - Preliminary Blood NEGATIVE TO DATE 12/17/22 04:09 Enteric Pathogens (PCR) - Final Stool Routine Collection Parasite Antigen Panel - Final A&P Assessment and plan (1) Septic shock: Present on admission. Ruled in setting of lactic acidosis, low blood pressures requiring vasopressors, leukocytosis target organ dysfunction with altered mental status. Wean off Levophed keeping mean arterial pressure over 65. Monitor urine output, saturations. Most likely in setting of prostatitis along with possibility of aspiration pneumonia. Follow-up blood cultures, urine cultures. Check MRSA swab. Check C. difficile. For now continue with vancomycin. Escalate to meropenem given persistent leukocytosis. Dose antibiotics as per creatinine clearance. Follow-up trough levels. Patient takes midodrine 10 mg 3 times daily along with fludrocortisone 0.1 mg daily at home. Continue with midodrine. Switch fludrocortisone to stress dose steroids for now with hydrocortisone 50 mg every 6 hourly. Continue with IV hydration at 75 cc/h. (2) Proctitis: (3) Acute UTI: (4) Sepsis: (5) Hypernatremia: Most likely in setting of dehydration. Switch fluid to D5 half NS at 75 cc/h. Repeat BMP in evening. Monitor urine output. (6) Dysphagia: At risk given Parkinson's. Speech evaluation. Advance diet accordingly. Currently on level 4 dysphagia diet. (7) Pneumonia: Oxygen supplementation maintaining saturation over 88 to 90%. (8) Acute alteration in mental status: Frequent reorientation. Aspiration and fall precautions. Haldol 1 mg IM every 4 hourly as needed. 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 Patient is on hospice at home. Patient is DNR/DNI. As per the family members he would want to treat the reversible conditions like infections if and when possible. They are also okay with patient being on vasopressors to maintain and prolong life as possible. Patient will return home with hospice on discharge. Level 4 dysphagia diet. Protonix for PUD prophylaxis Heparin 5000 every 12 hourly for DVT prophylaxis. Attestations Medical Necessity Statement*: Patient requires further hospitalization for management of septic shock in setting of proctitis, possible aspiration pneumonia in a patient with baseline severe Parkinson's, hypernatremia all leading to altered mental status Coding Level of Care Code Critical Care >/= 30 minutes Critical care time (in minutes): 70 The high probability of a clinically significant, sudden or life threatening det erioration, as referenced in this documentation, required my full and direct attention, intervention and personal management. The critical care time shown is in addition to time spent performing any reported separately billable procedures and includes the following: [x] Data and vital sign review and interpretation [x ] Patient assessment, examination and intervention [x] Medication orders and management [x] Patient/Family updates as able [x] Care Coordination and Documentation. Other Coding Information This patient has a high probability of clinically significant, sudden or life threatening deterioration of the patient's (neurological/pulmonary/cardiac/renal/ID/endocrine) systems required my full, direct attention, the highest level of physician preparedness for urgent intervention and personal management. I managed/supervised life or organ supporting interventions that required frequent physician assessment. I devoted my full attention in the ICU to the direct care of this patient for the period of time indicated above. Time I spent with family or surrogate(s) is included only if the patient was incapable of providing necessary information or participating in decision making. This time includes the following services provided: Telemetry review Hemodynamic interpretation, assessment and management Review and interpretation of CXR Review and interpretation of lab values Review and interpretation of microbiologic data and culture results Review of medications and administration Review and interpretation of Nutrition requirements and management Discussion of management with other consultants and services Clinical update to family members Diagnoses Septic shock A41.9; R65.21 Proctitis K62.89 Acute UTI N39.0 Sepsis A41.9 Hypernatremia E87.0 Dysphagia R13.10 Pneumonia J18.9 Acute alteration in mental status R41.82 PVD (peripheral vascular disease) I73.9 Multiple system atrophy with predominant parkinsonism G23.2 Shy-Drager syndrome G90.3 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
[2022-12-18 18:21] LABS: Glucose Point of Care 182 mg/dL (70-110)
[2022-12-18 19:01] LABS: Blood Urea Nitrogen 45 mg/dL (8-23); Carbon Dioxide 21 mmol/L (22-29); Chloride 112 mmol/L (98-107); Glucose 175 mg/dL (65-115); Osmolality Calculated 312 mOsm/kg (285-295); Sodium 143 mmol/L (136-145)
[2022-12-18 20:25] LABS: Glucose Point of Care 137 mg/dL (70-110)
[2022-12-18] MEDS: finasteride 5 mg Tablet PO (20:30)
[2022-12-18] MEDS: aspirin 81 mg EC Tablet PO (20:31)
[2022-12-18] MEDS: vancomycin 750 MG in sodium chloride 0.9% 250 ML 250 MG IV (20:48)
[2022-12-19] VITALS (35 sets, daily range): BP systolic 114–158; BP diastolic 63–92; PULSE 66–150; RESP 8–28; TEMP 36.5–37; O2SAT 89–99; BMI 26.3
[2022-12-19] MEDS: D5-NS 0.45% + KCL 20 mEq 20 MEQ/1,000 ML BAG 75 MEQ IV ×2 (01:13→14:43)
[2022-12-19] MEDS: hydrocortisone 100 mg/2 mL SDV 50 MG IVP ×2 (03:10→17:44)
[2022-12-19 04:14] LABS: Basophils % 0.2 %; Hematocrit 32.5 % (42.0-52.0); Hemoglobin 10.5 g/dL (11.7-16.6); Lymphocytes # 0.8 10^3/uL (0.8-4.8); Lymphocytes % 6.8 %; Mean Corpuscular HGB Conc 32.3 g/dL (30.0-36.0); Mean Corpuscular Hemoglobin 32.9 pg (28.0-34.0); Mean Corpuscular Volume 101.9 fl (80-94); Mean Platelet Volume 11.3 fL (7.4-10.4); Monocytes # 0.4 10^3/uL (0.2-0.9); Monocytes % 3.1 %; Neutrophils % 89.1 %; Nucleated Red Blood Cells % 0 %; Platelet Count 239 10^3/cmm (130-400); Red Blood Count 3.19 10^6/uL (4.1-5.3); Red Cell Distribution Width 13.4 % (12.1-15.1); White Blood Count 11.6 10^3/uL (4.0-10.0)
[2022-12-19 04:32] LABS: Alanine Aminotransferase < 5 U/L (0-41); Albumin Level 2.8 g/dL (3.5-5.2); Alkaline Phosphatase 57 U/L (40-130); Anion Gap 11.6 (5-19); Aspartate Amino Transferase 15 U/L (0-40); Blood Urea Nitrogen 43 mg/dL (8-23); Carbon Dioxide 21 mmol/L (22-29); Chloride 108 mmol/L (98-107); Globulin 2.8 g/dL (1.3-4.6); Glucose 152 mg/dL (65-115); Osmolality Calculated 300 mOsm/kg (285-295); Sodium 138 mmol/L (136-145); Total Bilirubin 0.3 mg/dL (0.15-1.2); Total Protein 5.6 g/dL (6.6-8.7)
[2022-12-19 04:56] LABS: Estmated Average Glucose 103; Hemoglobin A1C 5.2 % (4.0-6.0)
[2022-12-19 05:07] LABS: Potassium 2.6 mmol/L (3.5-5.1)
--- NOTE | 2022-12-19 05:25 | PC.NURSE ---
Potassium Potassium level critical at 2.[address] Mckinney contacted and order received for 40 meq KCL PO once. See MAR for details.
[2022-12-19] MEDS: morphine 4 mg/mL SDV 1 mL 2 MG IVP (05:44)
[2022-12-19] MEDS: potassium chloride oral liq 20 mEq/15 mL UDC 40 MEQ PO (05:53)
[2022-12-19] MEDS: citalopram 20 mg Tablet 60 MG PO (05:53)
[2022-12-19 07:56] LABS: Glucose Point of Care 189 mg/dL (70-110)
[2022-12-19] MEDS: midodrine 5 mg TABLET 10 MG PO ×3 (08:14→20:30)
[2022-12-19] MEDS: insulin lispro 100 unit/1 mL SUBCUT ×4 (08:15→21:56)
[2022-12-19] MEDS: pantoprazole 40 mg SDV IVP (08:15)
[2022-12-19] MEDS: carbidopa-levodopa 25-100mg Tablet 1 EACH PO ×3 (08:15→20:30)
[2022-12-19] MEDS: magnesium hydroxide 30 mL UDC PO (10:15)
[2022-12-19] MEDS: potassium chloride ER 20 mEq Tablet 40 MEQ PO ×3 (10:15→12:19)
[2022-12-19] MEDS: meropenem 1,000 MG in sodium chloride 0.9% (plus) 50 ML 100 MG IV ×2 (10:16→21:23)
--- NOTE | 2022-12-19 10:44 | PC.SOCIAL ---
imm update Imm updated with patient's at bedside. Copy of page 2 provided. verbalized understanding. Copy in chart initialed, dated and timed.
[2022-12-19] MEDS: heparin 5,000 unit/mL INJ 1 mL 5000 UNIT SUBCUT ×2 (11:11→23:31)
[2022-12-19 11:26] LABS: Glucose Point of Care 167 mg/dL (70-110)
--- NOTE | 2022-12-19 14:57 | P.PN_ITS ---
Subjective Subjective: No acute events overnight. Seen with at bedside. Patient has remained hemodynamically stable. Off Levophed. Afebrile. Vitals/I&O/Wt Last Vital Signs Temp 98.6 F 12/19/22 08:00 Pulse 79 12/19/22 12:00 Resp 14 12/19/22 12:00 BP 158/87 12/19/22 12:00 Pulse Ox 97 12/19/22 12:00 O2 Del Method 12/19/22 08:00 O2 Flow Rate 1 12/17/22 08:45 12/18/22 12/19/22 12/19/22 22:59 06:59 14:59 Intake Total 750 / 0928.212 9957 / 2847.368 1050 / 1050 Output Total 500 / 500 525 / 1025 Balance 250 / 1047.368 775 / 5049.683 9428 / 1050 Weight last 48 hrs Weight 76.34 kg Weight 76.204 kg Physical Exam Narrative: General: No acute distress, chronically sick appearing, confused, AO x1-2, HEENT: PERRLA, pupils bilaterally equal and reactive Chest: Normal vesicular breath sounds, no added sounds, equal good air entry bilaterally CVS: S1-S2 regular, no murmurs, no tachycardia, no gallops, no rubs Abdomen: Soft, nontender, no organomegaly, bowel sounds present Neuro: No focal deficits, no facial deformity, moving all limbs Urinary Catheter Management: [place]: Cath Placed During This Visit: yes Reason for Continuing Indwelling Catheter: Accurate Measurement of Urinary Output in Critically Ill Patients Urinary Catheter Date of Insertion: 12/17/22 Urinary Catheter Time of Insertion: 02:37 Data 12/19/22 03:10 12/19/22 03:10 Micro: Microbiology 12/18/22 10:37 MRSA Culture - Final Nose 12/16/22 20:21 Urine Culture - Final Urine,Clean Catch A&P Assessment and plan (1) Septic shock: Present on admission. Ruled in setting of lactic acidosis, low blood pressures requiring vasopressors, leukocytosis target organ dysfunction with altered mental status. Wean off Levophed keeping mean arterial pressure over 65. Monitor urine output, saturations. Most likely in setting of prostatitis along with possibility of aspiration pneumonia. Follow-up blood cultures, urine cultures. Check MRSA swab. Check C. difficile. For now continue with vancomycin. Escalate to meropenem given persistent leukocytosis. Dose antibiotics as per creatinine clearance. Follow-up trough l evels. Patient takes midodrine 10 mg 3 times daily along with fludrocortisone 0.1 mg daily at home. Continue with midodrine. Switch fludrocortisone to stress dose steroids for now with hydrocortisone 50 mg every 6 hourly. Continue with IV hydration at 75 cc/h. (2) Proctitis: (3) Acute UTI: (4) Sepsis: (5) Hypernatremia: Most likely in setting of dehydration. Switch fluid to D5 half NS at 75 cc/h. Repeat BMP in evening. Monitor urine output. (6) Dysphagia: At risk given Parkinson's. Speech evaluation. Advance diet accordingly. Currently on level 4 dysphagia diet. (7) Pneumonia: Oxygen supplementation maintaining saturation over 88 to 90%. (8) Acute alteration in mental status: Frequent reorientation. Aspiration and fall precautions. Haldol 1 mg IM every 4 hourly as needed. 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 Henry carrera is on hospice at home. Patient is DNR/DNI. As per the family members he would want to treat the reversible conditions like infections if and when possible. They are also okay with patient being on vasopressors to maintain and prolong life as possible. Patient will return home with hospice on discharge. Level 4 dysphagia diet. Protonix for PUD prophylaxis Heparin 5000 every 12 hourly for DVT prophylaxis. Plan for the day: Follow-up blood cultures and urine culture. C. difficile panel pending. MRSA negative. Stop vancomycin. Continue with meropenem. Wean hydrocortisone 50 mg every 12 hourly. Hypernatremia has resolved. Continue with D5 half NS with 20 mg of potassium at 75 cc/h. Replete 40 mg of oral potassium. Bowel regimen with milk of magnesia. Remove [place] catheter. Continue with dysphagia level 4 diet as per aspiration precautions and speech evaluation. Start on tramadol 50 mg every 6 hourly for pain. Transfer to [facility]. 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
--- NOTE | 2022-12-19 17:00 | PC.NURSE ---
Transfer Note Patient transferred to med-surg room 263 from ICU via bed. Handoff report given to Nicole. Patient oriented to environment and equipment. Covering service notified. Orders reviewed and will continue to monitor. Upon transfer patient is on room air and alert to self.
[2022-12-19 17:33] LABS: Glucose Point of Care 147 mg/dL (70-110)
[2022-12-19] MEDS: aspirin 81 mg EC Tablet PO (20:30)
[2022-12-19] MEDS: finasteride 5 mg Tablet PO (20:30)
[2022-12-19 21:36] LABS: Glucose Point of Care 160 mg/dL (70-110)
--- NOTE | 2022-12-19 23:02 | PC.NURSE ---
This nurse discussed with the at bedside that the pt is not currently hooked up to the heart monitor and asked if she would like him to be hooked back up. The stated he is finally resting comfortably, I do not see it necessary for him to have it on at this time. This nurse educated the the reasons why monitoring is important and she understood and still chooses to leave it off of her .
[2022-12-20 00:10] VITALS: BP 163/97; PULSE 85; RESP 16; TEMP 37.2; O2SAT 94
--- NOTE | 2022-12-20 02:02 | PC.NURSE ---
This nurse went into the pts room to change the dressing on the pts picc line. This nurse discovered the entire picc line removed from the pt and laying in the bed next to him. The tip of the line was immediately inspected and found to be intact. at bedside was notified about this and she stated that's okay, I am surprised he hasn't pulled it out sooner has been notified of the situation and no new orders have been received. The does not want this nurse to attempt any new IV access at this time and is fully aware the pt is without any IV access at this time.
[2022-12-20 02:22] VITALS: O2SAT 91
[2022-12-20 04:02] VITALS: BP 164/86; PULSE 78; RESP 16; TEMP 36.7; O2SAT 92
[2022-12-20] MEDS: citalopram 20 mg Tablet 60 MG PO (05:53)
[2022-12-20 06:12] LABS: Basophils % 0.1 %; Lymphocytes # 1.6 10^3/uL (0.8-4.8); Lymphocytes % 15.1 %; Mean Corpuscular HGB Conc 31.4 g/dL (30.0-36.0); Mean Corpuscular Hemoglobin 33.1 pg (28.0-34.0); Mean Corpuscular Volume 105.4 fl (80-94); Mean Platelet Volume 10.7 fL (7.4-10.4); Monocytes # 0.7 10^3/uL (0.2-0.9); Monocytes % 6.9 %; Neutrophils # 7.98 10^3/uL (1.8-7.7); Neutrophils % 76.5 %; Nucleated Red Blood Cells % 0 %; Platelet Count 242 10^3/cmm (130-400); Red Blood Count 3.32 10^6/uL (4.1-5.3); Red Cell Distribution Width 13.5 % (12.1-15.1); White Blood Count 10.4 10^3/uL (4.0-10.0)
[2022-12-20 06:32] LABS: Alanine Aminotransferase 7 U/L (0-41); Alkaline Phosphatase 55 U/L (40-130); Aspartate Amino Transferase 27 U/L (0-40); Blood Urea Nitrogen 32 mg/dL (8-23); Calcium 8.4 mg/dL (8.5-10.5); Carbon Dioxide 21 mmol/L (22-29); Chloride 120 mmol/L (98-107); Globulin 3.1 g/dL (1.3-4.6); Glucose 113 mg/dL (65-115); Osmolality Calculated 316 mOsm/kg (285-295); Sodium 149 mmol/L (136-145); Total Bilirubin 0.4 mg/dL (0.15-1.2); Total Protein 6.1 g/dL (6.6-8.7)
[2022-12-20 06:34] LABS: Glucose Point of Care 113 mg/dL (70-110)
[2022-12-20 06:35] LABS: Anion Gap 12.1 (5-19); Potassium 4.1 mmol/L (3.5-5.1)
[2022-12-20 08:00] VITALS: BP 141/64; PULSE 75; RESP 20; TEMP 37.5; O2SAT 92
[2022-12-20] MEDS: midodrine 5 mg TABLET 10 MG PO (08:22)
[2022-12-20] MEDS: carbidopa-levodopa 25-100mg Tablet 1 EACH PO (08:22)
[2022-12-20 11:40] VITALS: BP 147/76; PULSE 77; RESP 18; TEMP 36.9; O2SAT 93
--- NOTE | 2022-12-20 12:04 | PM.DCS ---
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 He has had increased fatigue and somnolence over the past week off over the past 1 to 2 days he has declined.? At baseline patient is able to ambulate but recently has been unable to ambulate secondary to generalized weakness.? He is more confused than his baseline.? Abdomen is distended and he has had diarrhea as well.? Hospice nurse stated that his hemoglobin was low at outpatient labs.? Patient unable to provide any history at this time.? History obtained from chart and ER physician and .? Patient's states that he went to [place] recently and has been fine.? Drinks 500-calorie boost 2 bottles a day and drinks 4 bottles of Ensure at times.? For the last 2 days he has had poor oral intake.? When he gets up and walks with a walker he passes gas and gets incontinent with stool.? She states the diarrhea has been going on for the last few weeks however it has acutely worsened.? He was taken to his primary care doctor this morning and was started on penicillin with suspicion of UTI.? He has had acute change in mental status in the last 48 hours.? They state that they have morphine Haldol and Ativan in the fridge however has not had to use it at all.? Patient has been doing fine at home.? Daughter also present at bedside.? states that patient is DNR/DNI, does not want dialysis either but is okay with IV fluids and antibiotics and all other treatment required.? They have not really addressed a feeding tube issue but she was discussed with family if they would be agreeable to it in case needed. ED course: On arrival blood pressure 83/50, pulse 89, saturating 97% on room air, patient given 100 mg hydrocortisone x1, potassium infusion, Zosyn, vancomycin, 2 L normal saline bolus with improvement in blood pressure.? Now 114/65.? Patient had straight cath done to obtain urinary sample.? It does show mild leukocyte esterase and 4+ bacteria.? Urine culture ordered stat, blood culture ordered stat.? WBC 17.9, hemoglobin 12, ABG obtained 7.4 5/37/70 3.8/25.7, potassium 3.1, sodium 139, creatinine 1.4, glucose 156, lactic acid 2.8.? Lactic acid got better after fluids to 2.0.? Baseline troponin 75, 2-hour troponin 66.2 with a delta of -8.78.? C-reactive protein 88.1.? Procalcitonin 0.65, TSH 5.75, free T41.22. Head CT obtained which shows volume loss and moderate chronic microvascular disease, no acute intracranial lesion or injury and no change from prior scan. CT chest abdomen pelvis shows basilar atelectasis, small right pleural effusion, no evidence of PE, question of small areas of infectious bronchiolitis in left lung, nonspecific gaseous distention of colon, finding suggestive of proctitis, other chronic findings not significantly changed.? Multiple renal cysts.? No evidence of hydronephrosis.? Mild thickening of rectal wall and mild adjacent inflammatory stranding which may represent from proctitis.? No evidence of diverticulitis, moderate gaseous distention of the colon present.? Gallbladder normal, no focal abnormality in the liver at this time. Hospital Course Hospital Course Patient was admitted to the hospital further evaluation and management of severe sepsis with concerns for proctitis. He was started on broad-spectrum antibiotics. Goals of cares were discussed in detail with patient and son who are also the DPOA at bedside. Patient's goals are to be treated for reversible conditions like infection if and when possible. Family is also okay with patient getting vasopressors to maintain and prolong life as possible. Patient is not agreeable to artificial feeds. At first patient required IV Levophed which was eventually weaned off. His home dose of fludrocortisone was changed to IV hydrocortisone which was gradually weaned off. Patient's hospitalization was complicated by him developing on and off hypernatremia secondary to poor oral intake. His blood cultures and urine cultures remain negative. Safe discharge plan and goals of care were further discussed with patient's at bedside. We discussed for the possibility of placement of PEG tube as PICC has been pulled out by patient. As per the patient has refused PEG tube in the past and for PICC line they would want to wait and see how he does in the future before making a definitive decision. We also discussed that patient is always at a high risk of aspiration along with developing more severe dehydration and hypernatremia secondary to poor oral intake. He has been discharged in hemodynamically stable condition back to home with hospice on oral Augmentin and Levaquin which we will continue for 3-5 more days. He has been discharged on oral antibiotics for 3 more days to finish a course of antibiotics. Physical Exam Narrative: General: No acute distress, chronically sick appearing, confused, AO x1-2, HEENT: PERRLA, pupils bilaterally equal and reactive Chest: Normal vesicular breath sounds, no added sounds, equal good air entry bilaterally CVS: S1-S2 regular, no murmurs, no tachycardia, no gallops, no rubs Abdomen: Soft, nontender, no organomegaly, bowel sounds present Neuro: No focal deficits, no facial deformity, moving all limbs Urinary Catheter Management: [place]: Cath Placed During This Visit: yes, but has since been removed by the nurse Reason for Continuing Indwelling Catheter: Not indwelling catheter Urinary Catheter Date of Insertion: 12/17/22 Urinary Catheter Time of Insertion: 02:37 Date Urinary Catheter Removed: 12/19/22 Discharge Data Studies Completed and Pending Completed Studies During Hospitalization Category Date Time Status CT angio chest w abd pel w con Stat Cat Scan 12/16/22 19:[address] head wo con* [id number] Stat Cat Scan 12/16/22 19:12 Completed XR chest 1V portable [id number] Routine Exams 12/17/22 08:00 Completed XR chest 1V portable [id number] Stat Exams 12/16/22 18:42 Completed Pending at discharge Category Date Time Status Blood Culture Stat Lab 12/16/22 19:44 Results CDIFF [Clostridioides Difficile PCR] Routine Lab 12/18/22 18:05 Ordered Complete Blood Count w/Auto AM LABS Lab 12/21/22 04:00 Ordered Comprehensive Metabolic Panel AM LABS Lab 12/21/22 04:00 Ordered Sputum Culture and Gram Stain Stat Lab 12/16/22 23:29 Uncollected Radiology Impressions Chest/Abdomen/Pelvis CT 12/16/22 19:12 IMPRESSION: 1. Basilar atelectasis 2. Small right pleural effusion 3. No evidence of pulmonary embolism. 4. Question of small areas of infectious bronchiolitis in the left lung. IMPRESSION: 1. Nonspecific gaseous distention of the colon 2. Findings suggestive of proctitis. 3. Other chronic findings not significantly changed. COMMENTS: Consistent with the [employer]'s Incidental Findings Committee white paper (J Am Karol Radiol 2018): Any incidental renal lesion less than 1 cm or classified as too small to characterize, or any incidental cystic renal lesion characterized as simple-appearing, is likely benign. No follow-up imaging is recommended for these lesions per consensus recommendations based on imaging criteria. Head CT 12/16/22 19:12 IMPRESSION: 1. Volume loss and moderate chronic microvascular disease. 2. No acute intracranial lesion or injury and no change from prior scan Chest X-Ray 12/17/22 08:00 IMPRESSION: 1. Right basal plaque atelectasis. No acute infiltrates noted. 2. Decreased lung volumes probably secondary to limited inspiration. 3. Right-sided PICC line in satisfactory position. Microbiology 12/18/22 10:37 Nose MRSA Culture - Final 12/16/22 20:21 Urine,Clean Catch Urine Culture - Final 12/16/22 19:44 Blood Blood Culture - Preliminary NEGATIVE TO DATE 12/16/22 19:30 Blood Blood Culture - Preliminary NEGATIVE TO DATE 12/17/22 04:09 Stool Routine Collection Enteric Pathogens (PCR) - Final 12/17/22 04:09 Stool Routine Collection Parasite Antigen Panel - Final Laboratory Results WBC 10.4 10^3/uL (4.0-10.0) H 12/20/22 05:47 RBC 3.32 10^6/uL (4.1-5.3) L 12/20/22 05:47 Hgb 11.0 g/dL (11.7-16.6) L 12/20/22 05:47 Hct 35.0 % (42.0-52.0) L 12/20/22 05:47 MCV 105.4 fl (80-94) H 12/20/22 05:47 MCH 33.1 pg (28.0-34.0) 12/20/22 05:47 MCHC 31.4 g/dL (30.0-36.0) 12/20/22 05:47 RDW 13.5 % (12.1-15.1) 12/20/22 05:47 Plt Count 242 10^3/cmm (130-400) 12/20/22 05:47 MPV 10.7 fL (7.4-10.4) H 12/20/22 05:47 Neut % (Auto) 76.5 % 12/20/22 05:47 Lymph % (Auto) 15.1 % 12/20/22 05:47 Upson % (Auto) 6.9 % 12/20/22 05:47 Eos % (Auto) 0.0 % 12/20/22 05:47 Baso % (Auto) 0.1 % 12/20/22 05:47 Neut # (Auto) 7.98 10^3/uL (1.8-7.7) H 12/20/22 05:47 Lymph # (Auto) 1.6 10^3/uL (0.8-4.8) 12/20/22 05:47 Upson # (Auto) 0.7 10^3/uL (0.2-0.9) 12/20/22 05:47 Eos # (Auto) 0.0 10^3/uL (0.0-0.8) 12/20/22 05:47 Baso # (Auto) 0.0 10^3/uL (0.0-0.1) 12/20/22 05:47 Nucleated RBC % (auto) 0 % 12/20/22 05:47 Nucleated RBCs # 0.0 /100WBC 12/20/22 05:47 Specimen Type Arterial 12/16/22 18:39 Sample Site Radial, left 12/16/22 18:39 ABG pH 7.45 (7.35-7.45) 12/16/22 18:39 ABG pCO2 37.0 mmHg (35-45) 12/16/22 18:39 ABG pO2 73.8 mmHg (80.0-100.0) L 12/16/22 18:39 ABG HCO3 25.7 mmol/L (22-26) 12/16/22 18:39 ABG O2 Saturation 96.3 12/16/22 18:39 ABG Base Excess 1.8 mmol/L (-2.0-2.0) 12/16/22 18:39 Garland Test Pos 12/16/22 18:39 A-a O2 Gradient 3.8 mmHg (5-10) L 12/16/22 18:39 Hematocrit 38.1 % (42-52) L 12/16/22 18:39 Hgb O2 Saturation 94.4 % (95-100) L 12/16/22 18:39 Carboxyhemoglobin 1.3 %THgb (0.4-20.1) 12/16/22 18:39 Methemoglobin 0.6 % (0.4-1.5) 12/16/22 18:39 Total Hemoglobin 12.4 g/dL (14-18) L 12/16/22 18:39 Sodium 141.0 mmol/L (131-143) 12/16/22 18:39 Potassium 3.0 mmol/L (3.5-5.0) L 12/16/22 18:39 Glucose 170.0 mg/dL (70-115) H 12/16/22 18:39 Ionized Calcium 1.2 mmol/L (1.1-1.4) 12/16/22 18:39 O2 Delivery Device Nc 12/16/22 18:39 O2 Liters/Min 6.0 % 12/16/22 18:39 Environmental Engineering Aide ID Cak 12/16/22 18:39 Sodium 149 mmol/L (136-145) H 12/20/22 05:47 Potassium 4.1 mmol/L (3.5-5.1) 12/20/22 05:47 Chloride 120 mmol/L (98-107) H 12/20/22 05:47 Carbon Dioxide 21 mmol/L (22-29) L 12/20/22 05:47 Anion Gap 12.1 (5-19) 12/20/22 05:47 BUN 32 mg/dL (8-23) H 12/20/22 05:47 Creatinine 1.2 mg/dL (0.7-1.2) 12/20/22 05:47 GFR Calculation Not Reportable 12/20/22 05:47 Glucose 113 mg/dL (65-115) 12/20/22 05:47 POC Glucose 113 mg/dL (70-110) H 12/20/22 06:18 Estimat Average Glucose 103 12/19/22 03:10 Hemoglobin A1c 5.2 % (4.0-6.0) 12/19/22 03:10 Calculated Osmolality 316 mOsm/kg (285-295) H 12/20/22 05:47 Lactic Acid 2.8 mmol/L (0.5-2.2) H 12/16/22 18:53 Lactic Acid (Sepsis) 2.0 mmol/L (0.5-2.2) 12/16/22 21:19 Calcium 8.4 mg/dL (8.5-10.5) L 12/20/22 05:47 Magnesium 2.3 mg/dL (1.7-2.3) 12/17/22 01:07 Iron 39 ug/dL (59-158) L 12/18/22 04:43 TIBC 147 mcg/dl 12/18/22 04:43 % Saturation 26.5 % (20-50) 12/18/22 04:43 Unsat Iron Binding 108 ug/dL (112-347) L 12/18/22 04:43 Total Bilirubin 0.4 mg/dL (0.15-1.2) 12/20/22 05:47 AST 27 U/L (0-40) 12/20/22 05:47 ALT 7 U/L (0-41) 12/20/22 05:47 Alkaline Phosphatase 55 U/L (40-130) 12/20/22 05:47 Troponin T Baseline 75 ng/L (0-15) H 12/16/22 18:53 Troponin T 120 Minute 66.22 ng/L (0-15) H 12/16/22 21:19 Delta Troponin T -8.78 ABS# (0-10) L 12/16/22 21:19 Troponin T Hi Sens 6Hr 60.38 ng/L (0-15) H 12/17/22 01:07 Troponin T Hi Sens 6Hr Delta -14.62 ng/L (0-12) L 12/17/22 01:07 C-Reactive Protein 88.1 mg/L (0.0-4.9) H 12/16/22 18:53 Total Protein 6.1 g/dL (6.6-8.7) L 12/20/22 05:47 Albumin 3.0 g/dL (3.5-5.2) L 12/20/22 05:47 Globulin 3.1 g/dL (1.3-4.6) 12/20/22 05:47 Vitamin B12 > 2000 pg/mL (232-1245) H 12/18/22 04:43 Folate 16.7 ng/mL (4.5-32.2) 12/18/22 10:40 Procalcitonin 0.40 ng/mL (0-0.5) 12/18/22 04:43 TSH 5.75 uIU/mL (0.27-4.20) H 12/16/22 18:53 Free T4 1.22 ng/dL (0.82-1.77) 12/16/22 18:53 Urine Color Dark yellow (Yellow) 12/16/22 20:21 Urine Appearance Clear (CLEAR) 12/16/22 20:21 Urine pH 5 (5-7) 12/16/22 20:21 Ur Specific [place] 1.020 (1.005-1.030) 12/16/22 20:21 Urine Protein 1+ (Negative) H 12/16/22 20:21 Urine Glucose (UA) Norm (Normal) 12/16/22 20:21 Urine Ketones 1+ (Negative) H 12/16/22 20:21 Urine Blood Trace (Negative) H 12/16/22 20:21 Urine Nitrate Negative (Negative) 12/16/22 20:21 Urine Bilirubin 2+ (Negative) H 12/16/22 20:21 Urine Urobilinogen 1 mg/dL (Negative) H 12/16/22 20:21 Ur Leukocyte Esterase Trace (Negative) H 12/16/22 20:21 Urine RBC 0-4 /hpf (0-2) H 12/16/22 20:21 Urine WBC 0-4 /hpf (0-5) H 12/16/22 20:21 Ur Squamous Epith Cells 0-4 /hpf (0-5) H 12/16/22 20:21 Amorphous Sediment Not Reportable 12/16/22 20:21 Urine Bacteria 4+ /hpf (NONE) H 12/16/22 20:21 Urine Mucus 1+ /hpf 12/16/22 20:21 Vancomycin Trough 10.0 ug/mL (10-15) 12/18/22 19:38 Vitals Last Vital Signs Temp 98.5 F 12/20/22 11:40 Pulse 77 12/20/22 11:40 Resp 18 12/20/22 11:40 BP 147/76 12/20/22 11:40 Pulse Ox 93 12/20/22 11:40 O2 Del Method 12/20/22 11:40 O2 Flow Rate 1 12/17/22 08:45 Discharge Plan Discharge Patient Disposition: Hospice - Home Condition: Stable Prescriptions: New Augmentin 500-125 mg tablet 1 tab PO BID Qty: 6 0RF levofloxacin 500 mg tablet 500 mg PO Q24H 3 Days Qty: 3 0RF Continued gabapentin 300 mg capsule 300 mg PO BEDTIME carbidopa-levodopa 25-100 mg tablet 1 tab PO TID Qty: 270 2RF Rx Instructions: Take 1 at 630AM, 1 at 12PM, and 1 at 5PM. citalopram 40 mg tablet 60 mg PO QAM Qty: 90 3RF fludrocortisone 0.1 mg tablet 0.1 mg PO DAILY Qty: 30 3RF ondansetron 4 mg tablet,disintegrating 4 mg translingual Q4-5H PRN (Reason: nausea) Qty: 5 0RF Rx Instructions: Dissolve 1 tablet under tongue every 4 hours PRN for nausea morphine concentrate 100 mg/5 mL (20 mg/mL) solution 20 mg sublingual DIRECTED PRN (Reason: pain) 14 Days Qty: 30 0RF Rx Instructions: 0.25-1ml q2H PRN pain/SOB. Start 0.25ml, may repeat 0.25ml up to a max of 1ml q2H midodrine 10 mg tablet See Rx Instructions .ROUTE .COMPLEX Qty: 90 3RF Dose Instruction: TAKE 1 TABLET BY MOUTH THREE TIMES DAILY Rx Instructions: TAKE 1 TABLET BY MOUTH THREE TIMES DAILY Vitamin B-12 1 tab PO QAM Vitamin D3 1 cap PO QAM aspirin 81 mg Tablet,Delayed Release (Dr/Ec) 81 mg PO BEDTIME finasteride 5 mg tablet 5 mg PO BEDTIME Discharge Orders: Discharge Order (Routine); Ordered 12/20/22 Ordered By: Srinivasa Duarte Referrals: North Mancini MD [Primary Care Provider] - 12/27/22 10:50 am Discharge Diet: As Directed Discharge Activity: Resume usual activity and Increase activity as tolerated Patient Instructions: Amoxicillin/Clavulanate Potassium (By mouth), Levofloxacin (By mouth), Pneumonia (GEN), Opioid Safety, Pneumonia Stoplight Activity Restrictions/Additional Instructions: Home hospice. Continue with Augmentin and Levaquin for 3 more days to finish a course of antibiotics. Please continue to maintain your oral hydration as discussed in detail. Patient has been have a repeat CMP in next 3 to 4 days. Discharge Attestations Time Spent in Discharge Care*: greater than 30 min Specific Discharge Activities: educating and/or supporting family/caregiver, discussing with pcp/other providers, discussing with hospice case manager/social workers/dc planners, documenting/other paperwork and evaluating patient/reviewing data Status at Discharge: Cognitive status at discharge: moderately impaired cognition, Behavioral status at discharge: can be uncooperative, Functional status at discharge: other assisted ambulation, Overall status at discharge: patient is back to baseline Quality Metrics Clinical Quality Measures [ No reported AMI, CVA or VTE this stay] Coding Level of Care Code 41134 Total time (in minutes) for Discharge: 60 Diagnoses Septic shock A41.9; R65.21 Proctitis K62.89 Acute UTI N39.0 Sepsis A41.9 Hypernatremia E87.0 Dysphagia R13.10 Pneumonia J18.9 Acute alteration in mental status R41.82 PVD (peripheral vascular disease) I73.9 Multiple system atrophy with predominant parkinsonism G23.2 Shy-Drager syndrome G90.3 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
[2022-12-20 12:23] LABS: Glucose Point of Care 116 mg/dL (70-110)
[2022-12-20 15:35] VITALS: BP 147/76; PULSE 77; RESP 18; TEMP 36.9; O2SAT 93
== END 2022-12-20 15:37 | disposition hospice, home (50) | DRG 871 ==
LOC: ER 22:31 → ICU 23:41 → MEDSURG 12-19 17:02
PROVIDERS: Internal Medicine; Admitting Provider Internal Medicine; Emergency Provider Emergency Medicine; PCP Family Medicine; Visit Provider Student in an Organized Health Care Education/Training Program
DX: A41.9 Sepsis, unspecified organism (principal); J69.0 Pneumonitis due to inhalation of food and vomit; R65.21 Severe sepsis with septic shock; N39.0 Urinary tract infection, site not specified; E87.0 Hyperosmolality and hypernatremia; G90.3 Multi-system degeneration of the autonomic nervous system; G20 Parkinson's disease; G31.83 Neurocognitive disorder with Lewy bodies; F02.80 Dementia in other diseases classified elsewhere, unspecified severity, without behavioral disturbance, psychotic disturbance, mood disturbance, and anxiety; N18.9 Chronic kidney disease, unspecified; Z86.73 Personal history of transient ischemic attack (TIA), and cerebral infarction without residual deficits; F32.A Depression, unspecified; I73.9 Peripheral vascular disease, unspecified; Z66 Do not resuscitate; K62.89 Other specified diseases of anus and rectum; Z79.891 Long term (current) use of opiate analgesic; Z79.82 Long term (current) use of aspirin; N40.1 Benign prostatic hyperplasia with lower urinary tract symptoms; N39.498 Other specified urinary incontinence; Z96.653 Presence of artificial knee joint, bilateral; E86.0 Dehydration; R13.10 Dysphagia, unspecified; Z91.81 History of falling; E87.6 Hypokalemia; K59.09 Other constipation
CPT/HCPCS: 36415; 36416; 36600; 51701; 51702; 70450; 71045; 71275; 74177; 80048; 80051; 80053; 80202; 81001; 82330; 82607; 82746; 82805; 82962; 83036; 83540; 83550; 83605; 83735; 84145; 84439; 84443; 84484; 85025; 86140; 87040; 87086; 87506; 87641; 92523; 92610; 93005; 94664; 94762; 96365; 96366; 96367; 96372; 96375; 96376; 99285; C9113; J1644; J1720; J1815; J2185; J2270; J2543; J3370; J3480; J7030; J7050; J7060; Q9967

== ENCOUNTER 2024-02-25 18:35 | Inpatient (IN) | payer MEDICARE, BC, SELFPAY ==
[2024-02-25 18:38] VITALS: BP 113/69; PULSE 77; RESP 18; TEMP 36.7; O2SAT 93
--- NOTE | 2024-02-25 18:46 | XRR_ITS ---
PROCEDURE INFORMATION: Exam: XR Abdomen Exam date and time: 02/25/2024 6:57 PM Age: 88 years old Clinical indication: Abdominal pain; Generalized; Patient HX: Constipation; Abdominal distention TECHNIQUE: Imaging protocol: Radiologic exam of the abdomen. Views: Frontal supine view of the abdomen. 1 View. COMPARISON: CT angio chest w abd pel w con 12/16/2022 8:56 PM FINDINGS: Gastrointestinal tract: There is marked diffuse gas distension of the colon. There is stool in the cecum. The rectum is not visible. There is no visibly dilated small bowel. Intraperitoneal space: No gross free air is visible but evaluation for free air is limited. Bones/joints: There is moderate degenerative disease of both hips. There is moderate degenerative disease in the lumbar spine. XR/XR KUB [id number] IMPRESSION: Diffuse gas distension of the colon. Possible distal obstruction or ileus.
--- NOTE | 2024-02-25 18:55 | ED_ITS ---
HPI - Abdominal Pain 2 General: Chief Complaint: Abdominal Pain Stated Complaint: ABD PAIN Time Seen by Provider: 02/25/24 18:39 Source: patient and EMS Mode of arrival: EMS Limitations: no limitations History of Present Illness: 88-year-old male states that he is on ho spice due to Parkinson's states he has not had a bowel movement in 4 days been having some abdominal distention along with vomiting and abdominal pain. 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 PVD (peripheral vascular disease) Parkinsons disease Urgency incontinence PVD (peripheral vascular disease) Balanitis Hypotension Depression 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 Surgical History History of varicose vein stripping Hx of hemorrhoidectomy History of bilateral knee replacement Family History Family/Other Dementia Hypertension Social History Smoking and tobacco/nicotine status: never used tobacco/nicotine Alcohol intake: never Substance/Drug Use: never Household members: spouse Marital status: Current occupational status: retired Physical Exam 2 Const: COMMON NORMALS: patient oriented x3 HENMT: COMMON NORMALS: normocephalic and atraumatic HEAD & SCALP: n ormocephalic and atraumatic Eye: COMMON NORMALS: Equal, round and reactive pupils present and EOMs intact bilaterally PUPIL: Yes Equal, round and reactive pupils present Neck/C-Spine: COMMON NORMALS: full ROM and supple Chest: COMMONS NORMALS: normal inspection of the chest Resp: COMMON NORMALS: normal respiratory effort, No retractions, No use of accessory muscles and clear to auscultation bilaterally AUSCULTATION: clear to auscultation bilaterally Cardio: COMMON NORMALS: regular rate, regular rhythm and No murmurs present (Cardio) RATE: regular rate RHYTHM: regular rhythm GI: COMMON NORMALS: Soft to palpation, non-tender and no masses PALPATION: Yes Soft to palpation OTHER: Distended abdomen with bowel sounds present Extremity: COMMON NORMALS: normal to inspection and full ROM Neuro: COMMON NORMALS: patient oriented x3, moves all extremities and no focal motor deficits Psych: COMMON NORMALS: mental status grossly normal, Normal thought process present and cooperative THOUGHT PROCESS: Normal thought process present Skin: COMMON NORMALS: no rashes or lesions noted and no wounds GENERAL SKIN EXAM: no rashes or lesions noted Course 2 Vital Signs: Vital signs: Vital Signs Temperature 98.0 F 02/25/24 18:38 Pulse Rate 78 02/25/24 20:30 Respiratory Rate 18 02/25/24 18:38 Blood Pressure 121/86 02/25/24 20:30 Pulse Oximetry 91 02/25/24 20:30 Oxygen Delivery Me thod Room Air 02/25/24 19:30 MDM - Abdominal Pain Medical Decision Making Patient presents here with abdominal pain he is found to have sigmoid volvulus patient seen by surgery in the ER he is decided to have surgery Dr. Cade is taken patient OR at this time Medical Records I reviewed the patient's medical records. Lab Data I reviewed the patient's lab results. 02/25/24 19:56 02/25/24 19:56 Labs/Radiology: Radiology Impressions KUB X-Ray 02/25/24 18:46 IMPRESSION: Diffuse gas distension of the colon. Possible distal obstruction or ileus. Abdomen/Pelvis CT 02/25/24 19:04 IMPRESSION: 1. High-grade obstruction of the distal sigmoid colon due to sigmoid volvulus. 2. Rectal mucosal thickening and perirectal edema consistent with proctitis. No sign of bowel necrosis or perforation. 3. Small simple dependent bilateral pleural effusions and associated atelectasis in both lower lobes. Superimposed infection cannot be excluded. 4. Incidental findings above. COMMENTS: Consistent with the [employer]'s Incidental Findings Committee white paper (J Am Karol Radiol 2018): Any incidental renal lesion less than 1 cm or classified as too small to characterize, or any incidental cystic renal lesion characterized as simple-appearing, is likely benign. No follow-up imaging is recommended for these lesions per consensus recommendations based on imaging criteria. ADDENDUM: 02/25/242019 THIS REPORT CONTAINS FINDINGS THAT MAY BE CRITICAL TO PATIENT CARE. The findings and recommendations were verbally communicated by me via telephone conference with KENZIE METCALF at 8:18 PM CDT on 02/25/2024. The findings were acknowledged and understood. Laboratory Results WBC 9.72 10^3/uL (3.29-11.43) 02/25/24 19:56 RBC 3.38 10^6/uL (3.85-5.65) L 02/25/24 19:56 Hgb 11.40 g/dL (11.27-16.99) 02/25/24 19:56 Hct 35.2 % (37-53) L 02/25/24 19:56 MCV 104.1 fl (82-101) H 02/25/24 19:56 MCH 33.7 pg (27-33) H 02/25/24 19:56 MCHC 32.4 g/dL (30-55) 02/25/24 19:56 RDW 13.2 % (12.1-15.1) 02/25/24 19:56 Plt Count 270 10^3/cmm (157-399) 02/25/24 19:56 MPV 10.7 fL (7.4-10.4) H 02/25/24 19:56 Neut % (Auto) 82.0 % 02/25/24 19:56 Lymph % (Auto) 11.1 % 02/25/24 19:56 [place] % (Auto) 6.0 % 02/25/24 19:56 Eos % (Auto) 0.2 % 02/25/24 19:56 Baso % (Auto) 0.2 % 02/25/24 19:56 Neut # (Auto) 7.97 10^3/uL (1.8-7.7) H 02/25/24 19:56 Lymph # (Auto) 1.1 10^3/uL (0.8-4.8) 02/25/24 19:56 [place] # (Auto) 0.6 10^3/uL (0.2-0.9) 02/25/24 19:56 Eos # (Auto) 0.0 10^3/uL (0.0-0.8) 02/25/24 19:56 Baso # (Auto) 0.0 10^3/uL (0.0-0.1) 02/25/24 19:56 Nucleated RBC % (auto) 0 % 02/25/24 19:56 Nucleated RBCs # 0.0 /100WBC 02/25/24 19:56 Sodium 141 mmol/L (136-145) 02/25/24 19:56 Potassium 3.5 mmol/L (3.5-5.1) 02/25/24 19:56 Chloride 104 mmol/L (98-107) 02/25/24 19:56 Carbon Dioxide 25 mmol/L (22-29) 02/25/24 19:56 Anion Gap 15.5 (5-19) 02/25/24 19:56 BUN 41 mg/dL (8-23) H 02/25/24 19:56 Creatinine 1.6 mg/dL (0.7-1.2) H 02/25/24 19:56 GFR Calculation Not Reportable 02/25/24 19:56 Glucose 120 mg/dL (65-115) H 02/25/24 19:56 Calculated Osmolality 303 mOsm/kg (285-295) H 02/25/24 19:56 Calcium 9.7 mg/dL (8.5-10.5) 02/25/24 19:56 Total Bilirubin 0.5 mg/dL (0.15-1.2) 02/25/24 19:56 AST 25 U/L (0-40) 02/25/24 19:56 ALT 10 U/L (0-41) 02/25/24 19:56 Alkaline Phosphatase 124 U/L (40-130) 02/25/24 19:56 Total Protein 7.7 g/dL (6.6-8.7) 02/25/24 19:56 Albumin 4.0 g/dL (3.5-5.2) 02/25/24 19:56 Globulin 3.7 g/dL (1.3-4.6) 02/25/24 19:56 Lipase 26 U/L (13-60) 02/25/24 19:56 All radiology interpretation(s) finalized by discharge Critical Care Time 2 Critical Care Time: Critical Care Time: Yes Total Critical Care Time: 45 Attestation: The high probability of a clinically significant, sudden or life threatening deterioration of the patient's gi system(s) required my full and direct attention, intervention and personal management. The critical care time is as shown. This time is in addition to time spent performing any reported procedures but includes the following: [x] Data and vital sign review and interpretation [x] Patient assessment, examination and intervention [x] Documentation [x] Medication orders and management Discharge Plan Discharge Patient Disposition: Admitted As Inpatient Clinical Impression: Sigmoid volvulus Condition: Stable Prescriptions: No Action gabapentin 300 mg capsule 300 mg PO BEDTIME carbidopa-levodopa 25-100 mg tablet 1 tab PO TID Qty: 270 2RF Rx Instructions: Take 1 at 630AM, 1 at 12PM, and 1 at 5PM. citalopram 40 mg tablet 60 mg PO QAM Qty: 90 3RF fludrocortisone 0.1 mg tablet 0.1 mg PO DAILY Qty: 30 3RF ondansetron 4 mg tablet,disintegrating 4 mg translingual Q4-5H PRN (Reason: nausea) Qty: 5 0RF Rx Instructions: Dissolve 1 tablet under tongue every 4 hours PRN for nausea morphine concentrate 100 mg/5 mL (20 mg/mL) solution 20 mg sublingual DIRECTED PRN (Reason: pain) 14 Days Qty: 30 0RF Rx Instructions: 0.25-1ml q2H PRN pain/SOB. Start 0.25ml, may repeat 0.25ml up to a max of 1ml q2H midodrine 10 mg tablet See Rx Instructions .ROUTE .COMPLEX Qty: 90 3RF Dose Instruction: TAKE 1 TABLET BY MOUTH THREE TIMES DAILY Rx Instructions: TAKE 1 TABLET BY MOUTH THREE TIMES DAILY Vitamin B-12 1 tab PO QAM Vitamin D3 1 cap PO QAM aspirin 81 mg Tablet,Delayed Release (Dr/Ec) 81 mg PO BEDTIME finasteride 5 mg tablet 5 mg PO BEDTIME Augmentin 500-125 mg tablet 1 tab PO BID Qty: 6 0RF Referrals: North Mancini MD [Primary Care Provider] - Coding Level of Care Code ED [employer] Operator for Ivonne Garcia
--- NOTE | 2024-02-25 19:04 | CTR_ITS ---
PROCEDURE INFORMATION: Exam: CT Abdomen And Pelvis With Contrast Exam date and time: 02/25/2024 7:16 PM Age: 88 years old Clinical indication: Abdominal pain; Generalized; Prior surgery; Surgery date: 6+ months; Surgery type: Hemorrhoidectomy; Patient HX: Diffuse abd pain with constipation x 3 days. History of ckd and chf. TECHNIQUE: Imaging protocol: Computed tomography of the abdomen and pelvis with contrast. Radiation optimization: All CT scans at this facility use at least one of these dose optimization techniques: automated exposure control; mA and/or kV adjustment per patient size (includes targeted exams where dose is matched to clinical indication); or iterative reconstruction. Contrast material: OMNI 350; Contrast volume: 80 ml; Contrast route: INTRAVENOUS (IV); COMPARISON: CT angio chest w abd pel w con 12/16/2022 8:56 PM RADIATION DOSE METRICS: Total DLP (mGy-cm): 1864.53 FINDINGS: Lungs: There is dependent segmental atelectasis in both lower lobes. Pleural spaces: There are small simple dependent bilateral pleural effusions. Liver: The liver is normal. Gallbladder and bile ducts: The gallbladder is normal. There is no biliary dilation. Pancreas: There is marked atrophy of the pancreas. Spleen: The spleen is normal in size. There are scattered hypodense splenic nodules measuring 6-8 mm, stable since 12/16/2022. No follow-up imaging is necessary. Adrenal glands: The adrenal glands are unremarkable. Kidneys and ureters: There are simple cysts in both kidneys. There are nonobstructive stones in the right kidney measuring up to 9 mm. No stones on the left. There is no hydronephrosis or ureteral dilation. Stomach and bowel: The stomach is nondistended, limiting assessment of wall thickness. There is a non-inflamed diverticulum in the proximal duodenum. The small bowel is nondilated. The ascending colon is distended with stool and gas. The transverse colon is distended with gas. The descending colon is distended with gas and a small volume of fluid. There is a tortuous course of the mildly gas distended proximal sigmoid colon to the sigmoid apex in the right upper quadrant. The distal sigmoid colon is dilated and predominantly gas-filled. There is an air-fluid level above an abrupt transition point in the distal sigmoid colon visible on axial series 4, image 63. At and beyond the transition point there is a 360 degree twist of the sigmoid colon and surrounding mesentery (see coronal series 6, image 33 through 16). The far distal sigmoid colon and rectum is decompressed. There is diffuse mucosal thickening in the rectal wall and mild perirectal edema. Appendix: The appendix is not visible. Intraperitoneal space: There is no free air or significant intraperitoneal free fluid. Vasculature: There is mild aortic atherosclerotic disease. The portal, splenic and superior mesenteric veins are patent. Lymph nodes: There is no lymphadenopathy in the retroperitoneum, mesentery, pelvis or inguinal regions. Urinary bladder: The urinary bladder is nondistended, limiting assessment of wall thickness. Reproductive: The prostate and seminal vesicles are unremarkable. Bones/joints: There is mild degenerative disease in the lumbar spine. There is severe degenerative disease at the right hip. There is moderate degenerative disease at the left hip. The bony pelvis is intact. Soft tissues: The abdominal wall is intact. CT/CT abdomen pelvis w con* [id number] IMPRESSION: 1. High-grade obstruction of the distal sigmoid colon due to sigmoid volvulus. 2. Rectal mucosal thickening and perirectal edema consistent with proctitis. No sign of bowel necrosis or perforation. 3. Small simple dependent bilateral pleural effusions and associated atelectasis in both lower lobes. Superimposed infection cannot be excluded. 4. Incidental findings above. COMMENTS: Consistent with the [employer]'s Incidental Findings Committee white paper (J Am Karol Radiol 2018): Any incidental renal lesion less than 1 cm or classified as too small to characterize, or any incidental cystic renal lesion characterized as simple-appearing, is likely benign. No follow-up imaging is recommended for these lesions per consensus recommendations based on imaging criteria.
[2024-02-25] MEDS: iohexol 350 mg/mL 500 mL Btl (per mL) IV (19:17)
[2024-02-25 19:30] VITALS: BP 130/77; PULSE 77; O2SAT 90
[2024-02-25 20:00] VITALS: BP 129/80; PULSE 77; O2SAT 91
[2024-02-25 20:13] LABS: Basophils % 0.2 %; Eosinophils % 0.2 %; Hematocrit 35.2 % (37-53); Lymphocytes # 1.1 10^3/uL (0.8-4.8); Lymphocytes % 11.1 %; Mean Corpuscular HGB Conc 32.4 g/dL (30-55); Mean Corpuscular Hemoglobin 33.7 pg (27-33); Mean Corpuscular Volume 104.1 fl (82-101); Mean Platelet Volume 10.7 fL (7.4-10.4); Monocytes # 0.6 10^3/uL (0.2-0.9); Neutrophils # 7.97 10^3/uL (1.8-7.7); Nucleated Red Blood Cells % 0 %; Platelet Count 270 10^3/cmm (157-399); Red Blood Count 3.38 10^6/uL (3.85-5.65); Red Cell Distribution Width 13.2 % (12.1-15.1); White Blood Count 9.72 10^3/uL (3.29-11.43)
[2024-02-25 20:29] LABS: Alanine Aminotransferase 10 U/L (0-41); Alkaline Phosphatase 124 U/L (40-130); Anion Gap 15.5 (5-19); Aspartate Amino Transferase 25 U/L (0-40); Blood Urea Nitrogen 41 mg/dL (8-23); Calcium 9.7 mg/dL (8.5-10.5); Carbon Dioxide 25 mmol/L (22-29); Chloride 104 mmol/L (98-107); Creatinine Clr Calc Pharmacy 31.6022; Globulin 3.7 g/dL (1.3-4.6); Glucose 120 mg/dL (65-115); Lipase 26 U/L (13-60); Osmolality Calculated 303 mOsm/kg (285-295); Potassium 3.5 mmol/L (3.5-5.1); Sodium 141 mmol/L (136-145); Total Bilirubin 0.5 mg/dL (0.15-1.2); Total Protein 7.7 g/dL (6.6-8.7)
[2024-02-25 20:30] VITALS: BP 121/86; PULSE 78; O2SAT 91
--- NOTE | 2024-02-25 20:35 | P.HP_ITS ---
Providers/Chief Complaint 2 Primary Care Provider: North Mancini MD Chief Complaint: ABD PAIN History of Present Illness Jay Peguero is a 88 year old male with past medical history significant for Parkinson's disease, dysphagia, Lewy body dementia, chronic constipation, multiple other comorbidities who presents with abdominal pain and distention associated with nausea and vomiting. Patient reported last bowel movement was 4 days ago. Suppositories have been given without success. Denies other alleviating or aggravating factors. Denies fevers or chills. In the emergency department, patient was found to have sigmoid volvulus. General surgery consulted and patient going to surgery. Review of Systems 2 Narrative: A complete review of systems was obtained and is negative except as stated in HPI. Medications/Allergies Home Medications Medication Instructions Recorded Confirmed Last Taken Type gabapentin 300 mg capsule 300 mg PO BEDTIME 11/07/19 02/22/23 04/07/22 History Vitamin B-12 1 tab PO QAM 11/20/21 02/22/23 04/07/22 History Vitamin D3 1 cap PO QAM 11/20/21 02/22/23 04/07/22 History carbidopa 25 mg-levodopa 100 mg 1 tab PO TID #270 tabs 12/23/21 02/22/23 04/07/22 Rx tablet aspirin 81 mg tablet,delayed 81 mg PO BEDTIME 02/02/22 02/22/23 04/07/22 History release finasteride 5 mg tablet 5 mg PO BEDTIME 02/02/22 02/22/23 04/07/22 History citalopram 40 mg tablet 60 mg (1.5 x 40 mg) PO QAM #90 tabs 04/07/22 02/22/23 04/07/22 Rx fludrocortisone 0.1 mg tablet 0.1 mg PO DAILY #30 tabs 04/07/22 02/22/23 04/07/22 Rx morphine concentrate 100 mg/5 mL 20 mg sublingual DIRECTED PRN 04/07/22 02/22/23 04/07/22 Rx (20 mg/mL) oral solution pain 14 days #30 mL ondansetron 4 mg disintegrating 4 mg translingual Q4-5H PRN nausea 04/07/22 02/22/23 04/07/22 Rx tablet #5 tabs midodrine 10 mg tablet See Rx Instructions .Route 06/22/22 02/22/23 Unknown Rx .COMPLEX #90 tabs amoxicillin 500 mg-potassium 1 tab PO BID #6 tabs 12/20/22 02/22/23 Unknown Rx clavulanate 125 mg tablet (Augmentin) Allergies Allergy/AdvReac Type Severity Reaction Status Date / Time No Known Allergies Allergy Verified 02/22/23 12:53 PFSH Acute 2 PFSH: Medical History (Updated 02/25/24 @ 23:42 by Brian Mansfield MD) Hypernatremia Septic shock Proctitis Acute alteration in mental status Pneumonia Sepsis Acute UTI Onychodystrophy COVID-19 Plantar porokeratosis, acquired Heloma molle PVD (peripheral vascular disease) 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 PVD (peripheral vascular disease) Parkinsons disease Urgency incontinence PVD (peripheral vascular disease) Balanitis Hypotension Depression 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 Surgical History History of varicose vein stripping Hx of hemorrhoidectomy History of bilateral knee replacement Family History Family/Other Dementia Hypertension Social History Smoking and tobacco/nicotine status: never used tobacco/nicotine Alcohol intake: never Substance/Drug Use: never Household members: spouse Marital status: Current occupational status: retired Vitals/I&O/Wt Last Vital Signs Temp 98.0 F 02/25/24 18:38 Pulse 77 02/25/24 19:30 Resp 18 02/25/24 18:38 BP 130/77 02/25/24 19:30 Pulse Ox 90 02/25/24 19:30 O2 Del Method Room Air 02/25/24 19:30 Weight last 48 hrs Weight 72.575 kg Physical Exam 2 Narrative: General: Patient is awake. Frail-appearing. Head: Normocephalic. Atraumatic. EOM intact. Neck: No JVD. Cardiovascular: RRR. No gallops. No murmurs. Lungs: Breath sounds diminished bilateral bases, no use of accessory muscles, no crackles or wheezes. Skin: No jaundice. No rashes. Abdomen: Abdomen is distended. Tender to palpation in left lower quadrant. Hypoactive bowel sounds. Genito Urinary: Genital exam not performed since complaints not related. Rectal: Rectal exam not performed since no symptoms indicated blood loss. Extremities: No cyanosis or clubbing. Musculoskeletal: No erythematous joints. Neurological: Moves all 4 extremities. No myoclonus. Parkinsonian features present. Data 02/25/24 19:56 02/25/24 19:56 A&P Assessment and plan (1) Sigmoid volvulus: CT imaging reviewed General surgery consulted, going for surgery this evening Antiemetics as needed Analgesics as needed N.p.o. 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: Plan continue home Sinemet postoperatively (3) Lewy body dementia: Patient is very high risk for delirium Delirium precautions (4) BPH NOS w ur obs/LUTS: Hold home finasteride for now, restart when able (5) Chronic constipation: Plan for bowel regiment when postop milestones are met (6) Dysphagia: Monitor for aspiration when diet is started Plan DVT prophylaxis: SCD, holding pharmacological prophylaxis due to surgery Attestations 2 Medical Necessity Statement*: Patient presents with abdominal pain, nausea and vomiting, found to have sigmoidal volvulus going for surgery this evening with expected hospitalization to cross 2 midnights. 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
[2024-02-25] MEDS: piperacillin-tazobactam 3.375 GM in sodium chloride 0.9% (plus) 50 ML IV (20:59)
[2024-02-25 21:01] VITALS: BP 122/72; PULSE 79; O2SAT 92
--- NOTE | 2024-02-25 21:10 | P.CONIM_ITS ---
Providers/Reason For Consult 2 Consulting Physician/Specialty*: General surgery Reason for Consult*: Sigmoid volvulus Primary Care Provider: North Mancini MD History of Present Illness History of Present Illness Jay Peguero is a 88 year old male with a history of parkinsonian who is currently in hospice, presents to the emergency room with abdominal pain and vomiting, has not had a bowel movement in about 4 to 5 days. Imaging in the emergency department show evidence of a sigmoid volvulus. I was consulted for this finding. Patient communicates very little family members are the main decision makers. Review of Systems 2 General: Reports: ROS unobtainable due to medical condition Medications/Allergies Home Medications Medication Instructions Recorded Confirmed Last Taken Type gabapentin 300 mg capsule 300 mg PO BEDTIME 11/07/19 02/22/23 04/07/22 History Vitamin B-12 1 tab PO QAM 11/20/21 02/22/23 04/07/22 History Vitamin D3 1 cap PO QAM 11/20/21 02/22/23 04/07/22 History carbidopa 25 mg-levodopa 100 mg 1 tab PO TID #270 tabs 12/23/21 02/22/23 04/07/22 Rx tablet aspirin 81 mg tablet,delayed 81 mg PO BEDTIME 02/02/22 02/22/23 04/07/22 History release finasteride 5 mg tablet 5 mg PO BEDTIME 02/02/22 02/22/23 04/07/22 History citalopram 40 mg tablet 60 mg (1.5 x 40 mg) PO QAM #90 tabs 04/07/22 02/22/23 04/07/22 Rx fludrocortisone 0.1 mg tablet 0.1 mg PO DAILY #30 tabs 04/07/22 02/22/23 04/07/22 Rx morphine concentrate 100 mg/5 mL 20 mg sublingual DIRECTED PRN 04/07/22 02/22/23 04/07/22 Rx (20 mg/mL) oral solution pain 14 days #30 mL ondansetron 4 mg disintegrating 4 mg translingual Q4-5H PRN nausea 04/07/22 02/22/23 04/07/22 Rx tablet #5 tabs midodrine 10 mg tablet See Rx Instructions .Route 06/22/22 02/22/23 Unknown Rx .COMPLEX #90 tabs amoxicillin 500 mg-potassium 1 tab PO BID #6 tabs 12/20/22 02/22/23 Unknown Rx clavulanate 125 mg tablet (Augmentin) Allergies Allergy/AdvReac Type Severity Reaction Status Date / Time No Known Allergies Allergy Verified 02/22/23 12:53 PFSH Acute 2 PFSH: Medical History PVD (peripheral vascular disease) 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 PVD (peripheral vascular disease) Parkinsons disease Urgency incontinence PVD (peripheral vascular disease) Balanitis Hypotension Depression 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 Surgical History History of varicose vein stripping Hx of hemorrhoidectomy History of bilateral knee replacement Family History Family/Other Dementia Hypertension Social History Smoking and tobacco/nicotine status: never used tobacco/nicotine Alcohol intake: never Substance/Drug Use: never Household members: spouse Marital status: Current occupational status: retired Vitals/I&O/Wt Last Vital Signs Temp 98.0 F 02/25/24 18:38 Pulse 78 02/25/24 20:30 Resp 18 02/25/24 18:38 BP 121/86 02/25/24 20:30 Pulse Ox 91 02/25/24 20:30 O2 Del Method Room Air 02/25/24 19:30 Weight last 48 hrs Weight 160 lb Physical Exam 2 GI: OTHER: Abdomen is distended, tender, nonperitoneal at time of examination. 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 I discussed with the family members and the patient the potential treatments and outcomes for this condition. We explained that we do not know GI capabilities to provide an endoscopic decompression as first-line of treatment and therefore if they want to go forward with additional treatment the only thing I can offer them is an exploratory laparotomy with a possible Rosa Elena procedure. I explained to the family that this is a definitive treatment but that has very high risk of morbidity and mortality both intraoperative as well as postoperative. I explained to the family that the patient has a very low chance of meaningful recovery after this. Due to baseline medical condition as well as surgical trauma and current sepsis. I discussed with the patient all the risk and benefits of the operation including the risk of , sepsis, polyp viscus perforation, injury to surrounding structures including the ureter, blood vessels, small and large intestine. Ostomy related complications including necrosis, ischemia, primary nonfunction, possibility of intra-abdominal abscess and sepsis, possibility of wound infection or deep space infection, possibility of needing additional surgical interventions, possibility of open abdomen and requiring continued intubation in the ICU. I had extensive discussion regarding the possible outcome for the patient and family members are agreeable that despite the very low chance of success and meaningful recovery per the patient they would like to proceed with surgery as a lifesaving tool. I have discussed regarding CODE STATUS patient and family member do not want resuscitation but I informed them that there is a chance that after surgery patient will need to remain intubated and they agree. Patient will be admitted to the hospitalist team for additional management of multiple comorbidities and we will be taking him right now to the operating room for exploration and possible Rosa Elena procedure. Case was discussed with ER team and with hospitalist team. -N.p.o. 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
[2024-02-25 21:30] VITALS: BP 116/72; PULSE 78; O2SAT 89
--- NOTE | 2024-02-25 22:58 | SUR.OPER ---
2240 family updated of surgical status. hd
--- NOTE | 2024-02-25 23:38 | SUR.OPER ---
6010 family updated of surgical status. hd
[2024-02-26] VITALS (55 sets, daily range): BP systolic 116–133; BP diastolic 68–90; PULSE 71–85; RESP 13–23; TEMP 36.6–37.4; O2SAT 95–100
[2024-02-26] MEDS: lidocaine-epi 1% 20 mL INJ INJECTION (00:27)
[2024-02-26] MEDS: BUPivacaine 0.25% INJ 10 mL INJECTION (00:27)
--- NOTE | 2024-02-26 00:38 | SUR.OPER ---
0039 family updated of surgical status. hd
--- NOTE | 2024-02-26 01:28 | PM.OP ---
Operative Report Date of procedure: February 26, 2024 Pre-op diagnosis: Sigmoid volvulus Post-op diagnosis: Same Post-op findings: There was a sigmoid volvulus, no evidence of bowel necrosis, some free fluid in the abdomen by the heart and had no other intra-abdominal pathology. Procedure done: Exploratory laparotomy, sigmoid colectomy with end colostomy. Specimens removed/disposition: Sigmoid colon Surgeon: Luis Carlos Cade MD Line Service Attendant: CHEKO OR STaff Estimated blood loss: 50 Complications: none apparent Brief History: Is a 88-year-old male with history of Parkinson disease who presented with sigmoid volvulus. After discussion of all risk and benefits as documented in my preop note we decided to proceed to the OR for exploratory laparotomy sigmoid colectomy and ostomy creation. Procedure: Patient was brought into the OR. He was placed in the supine position. General anesthesia was given. The abdomen was prepped and draped in the usual sterile fashion. Midline laparotomy incision measuring 20 cm was made from the supraumbilical region to just above the pubis. The incision was deepened anterior fascia was identified, the fascia was opened with electrocautery and a finger was inserted in the abdominal cavity. I then proceeded to open the rest of the fascia protecting the bowel with my finger. No evidence of visceral injury during entry was noted after the incision was completed. The sigmoid colon was delivered through the wound and rotated clockwise to relieve the torsion. Once that torsion was relieved I then proceeded to transect the distal sigmoid colon at the level of the sigmoid rectal junction without 100 mm blue load MICHELLE stapler. The mesentery of the sigmoid colon was then taken down using LigaSure. A total of about 30 cm of sigmoid colon was completely mobilized for removal. Before transecting the specimen I decided to decompress the colon in a pacing outside the operative field, upon opening the end of the specimen copious amounts of gas was liberated from the colon, no feculent contamination was noted. I then proceeded to transect the specimen in the proximal sigmoid and the specimen was passed to the nurse to be sent to pathology. The sigmoid colon was then carefully mobilized from the white line of Toldt with electrocautery to allow for adequate length for ostomy creation. Once the mobilization was completed hemostasis was verified. I then proceeded to oversew the rectal stump staple line with #3-0 Vicryl. Subsequently, a 19 Swiss Sabino drain was placed in the pelvis and delivered through the right lower quadrant. The drain was fixed to the skin using nylon. I then proceeded to create my ostomy in an area that was marked in the preoperative period. I did this by elevating the skin with an Allis clamp and then creating a circular wound that was deepened to the level of the anterior rectus sheath fascia. The anterior rectus sheath fascia was then opened with electrocautery in an X configuration, the rectus muscle was then split longitudinally and the posterior rectus sheath was opened bluntly. Once the ostomy was created I ensured adequate passage and size of the wound was at least 2 fingers to allow for a good ostomy creation. The sigmoid colon was then delivered through the ostomy making sure the mesentery was in a straight position. I then proceeded to irrigate the abdomen with saline. And then I proceeded to close the midline laparotomy incision in layers using #1 looped PDS for the fascia and mora for the skin. The fascia was irrigated before closure of the skin and a different set of gloves was used for closure. A sterile dressing was then applied. I then proceeded to mature the ostomy in an standard fashion. After maturing the ostomy, this was pink and viable without any signs of congestion or ischemia. Ostomy appliance was applied. At the end of the procedure all counts were correct, 2 separate counts were done once before closing the fascia on 1 after finishing the procedure. The patient tolerated well the procedure was extubated and transferred to the PACU in stable condition.
[2024-02-26] MEDS: piperacillin-tazobactam 3.375 GM in sodium chloride 0.9% (plus) 50 ML IV (02:50)
[2024-02-26 06:16] LABS: Alanine Aminotransferase 11 U/L (0-41); Albumin Level 3.5 g/dL (3.5-5.2); Alkaline Phosphatase 97 U/L (40-130); Anion Gap 15.9 (5-19); Aspartate Amino Transferase 22 U/L (0-40); Blood Urea Nitrogen 37 mg/dL (8-23); Calcium 8.8 mg/dL (8.5-10.5); Carbon Dioxide 22 mmol/L (22-29); Chloride 110 mmol/L (98-107); Creatinine Clr Calc Pharmacy 31.3184; Globulin 3.3 g/dL (1.3-4.6); Glucose 135 mg/dL (65-115); Osmolality Calculated 309 mOsm/kg (285-295); Phosphorus 3.8 mg/dL (2.5-4.5); Potassium 3.9 mmol/L (3.5-5.1); Sodium 144 mmol/L (136-145); Total Bilirubin 0.8 mg/dL (0.15-1.2); Total Protein 6.8 g/dL (6.6-8.7)
[2024-02-26 06:42] LABS: Basophils % 0.2 %; Lymphocytes # 0.7 10^3/uL (0.8-4.8); Lymphocytes % 5.2 %; Mean Corpuscular HGB Conc 32.1 g/dL (30-55); Mean Corpuscular Hemoglobin 33.8 pg (27-33); Mean Corpuscular Volume 105.1 fl (82-101); Mean Platelet Volume 10.8 fL (7.4-10.4); Monocytes # 0.5 10^3/uL (0.2-0.9); Monocytes % 4.3 %; Neutrophils # 11.24 10^3/uL (1.8-7.7); Neutrophils % 88.8 %; Nucleated Red Blood Cells % 0 %; Platelet Count 234 10^3/cmm (157-399); Red Blood Count 3.14 10^6/uL (3.85-5.65); Red Cell Distribution Width 13.2 % (12.1-15.1); White Blood Count 12.66 10^3/uL (3.29-11.43)
[2024-02-26] MEDS: carbidopa-levodopa 25-100mg Tablet 1 EACH PO ×3 (08:39→20:49)
[2024-02-26] MEDS: fludrocortisone 0.1 mg Tablet 0.100000000000000006 MG PO (08:39)
[2024-02-26] MEDS: midodrine 5 mg TABLET 10 MG PO ×3 (08:39→20:49)
[2024-02-26] MEDS: piperacillin-tazobactam 3.375 GM in sodium chloride 0.9% (plus) 100 ML IV ×2 (09:45→17:32)
--- NOTE | 2024-02-26 10:45 | P.PN_ITS ---
Subjective 2 Subjective: No active pain Patient will stay n.p.o. as per general surgery I will keep him on IV fluids Patient is on hospice at home Does not walk On pur?ed diet at home which is on hold Vitals/I&O/Wt Last Vital Signs Temp 99.4 F 02/26/24 08:30 Pulse 82 02/26/24 08:30 Resp 18 02/26/24 08:30 BP 126/76 02/26/24 08:30 Pulse Ox 100 02/26/24 08:30 O2 Del Method Nasal Cannula 02/26/24 08:30 O2 Flow Rate 2 02/26/24 08:30 02/25/24 02/26/24 02/26/24 22:59 06:59 14:59 Intake Total 50 / 50 50 / 100 Output Total 350 / 350 50 / 50 Balance 50 / 50 -300 / -250 -50 / -50 Weight last 48 hrs Weight 71.033 kg Weight 71.033 kg Weight 72.575 kg Physical Exam 2 Narrative: Colostomy bag in place Healthy looking colostomy tissue Drain in place Nonfocal neuroexam GCS 15 No active tremors Hemodynamic stable Looks dehydrated Family at the bedside He is awake and alert able to answer simple questions Urinary Catheter Management: Vegas Latex: Cath Placed During This Visit: yes Reason for Continuing Indwelling Catheter: Perioperative Use in Selected Surgeries Urinary Catheter Date of Insertion: 02/25/24 Urinary Catheter Time of Insertion: 22:30 Data 02/26/24 05:50 02/26/24 05:50 A&P Assessment and plan (1) Dysphagia: (2) Chronic constipation: (3) Sigmoid volvulus: (4) BPH NOS w ur obs/LUTS: (5) 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
--- NOTE | 2024-02-26 11:01 | P.PN_ITS ---
Subjective 2 Subjective: Patient is postoperative day 1 status post exploratory laparotomy Rosa Elena procedure for sigmoid volvulus. Patient has been stable overnight, vital signs are stable, no significant abdominal pain. Has been noted in the ostomy bag. Overnight output from the MARYJANE drain is being about 50 cc of serosanguineous fluid. Vitals/I&O/Wt Last Vital Signs Temp 99.4 F 02/26/24 08:30 Pulse 82 02/26/24 08:30 Resp 18 02/26/24 08:30 BP 126/76 02/26/24 08:30 Pulse Ox 100 02/26/24 08:30 O2 Del Method Nasal Cannula 02/26/24 08:30 O2 Flow Rate 2 02/26/24 08:30 02/25/24 02/26/24 02/26/24 22:59 06:59 14:59 Intake Total 50 / 50 50 / 100 Output Total 350 / 350 50 / 50 Balance 50 / 50 -300 / -250 -50 / -50 Weight last 48 hrs Weight 156 lb 9.6 oz Weight 156 lb 9.6 oz Weight 160 lb Physical Exam 2 GI: OTHER: Abdomen is soft, tender to palpation, surgical incisions covered with dressing. Ostomy bag is in place that is not passing the ostomy bag. Ostomy appears pink no significant congestion. MARYJANE drain is in place with serosanguineous output. 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 Gas in the ostomy bag indicates that there is some bowel function with the arm. Despite this I would like to be very stable and advancing the diet we will keep the patient n.p.o. today with just p.o. medications and from tomorrow if things remain stable we will start advancement of diet. She is having adequate urine output, MARYJANE drain output is appropriate, no clinical significant issues. Recommend that we continue Zosyn at least for 3 days postop. due to Nature of the surgery. General surgery will continue to follow on a daily basis. Management per medical ICU team is highly appreciated. 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
[2024-02-26] MEDS: dextrose 5%-sod chloride 0.9% 1,000 ML 30 ML IV (11:09)
[2024-02-26] MEDS: morphine 4 mg/mL SDV 1 mL 2 MG IVP ×2 (14:08→21:09)
[2024-02-27] VITALS (42 sets, daily range): BP systolic 108–134; BP diastolic 58–102; PULSE 67–106; RESP 12–24; TEMP 36.4–36.9; O2SAT 90–98
[2024-02-27] MEDS: piperacillin-tazobactam 3.375 GM in sodium chloride 0.9% (plus) 100 ML IV ×3 (02:10→17:56)
[2024-02-27] MEDS: morphine 4 mg/mL SDV 1 mL 2 MG IVP ×5 (02:32→21:51)
[2024-02-27 07:33] LABS: Basophils % 0.3 %; Eosinophils # 0.1 10^3/uL (0.0-0.8); Hematocrit 33.2 % (37-53); Lymphocytes # 1.3 10^3/uL (0.8-4.8); Mean Corpuscular HGB Conc 31.3 g/dL (30-55); Mean Corpuscular Hemoglobin 34.1 pg (27-33); Mean Corpuscular Volume 108.9 fl (82-101); Mean Platelet Volume 10.5 fL (7.4-10.4); Monocytes # 0.8 10^3/uL (0.2-0.9); Monocytes % 6.5 %; Neutrophils # 10.26 10^3/uL (1.8-7.7); Neutrophils % 81.8 %; Nucleated Red Blood Cells % 0 %; Platelet Count 229 10^3/cmm (157-399); Red Blood Count 3.05 10^6/uL (3.85-5.65); Red Cell Distribution Width 13.2 % (12.1-15.1); White Blood Count 12.55 10^3/uL (3.29-11.43)
[2024-02-27 07:51] LABS: Anion Gap 14.8 (5-19); Blood Urea Nitrogen 32 mg/dL (8-23); Calcium 8.7 mg/dL (8.5-10.5); Carbon Dioxide 24 mmol/L (22-29); Chloride 111 mmol/L (98-107); Creatinine Clr Calc Pharmacy 33.5131; Glucose 103 mg/dL (65-115); Osmolality Calculated 309 mOsm/kg (285-295); Potassium 3.8 mmol/L (3.5-5.1); Sodium 146 mmol/L (136-145)
[2024-02-27] MEDS: midodrine 5 mg TABLET 10 MG PO ×3 (09:03→21:49)
[2024-02-27] MEDS: fludrocortisone 0.1 mg Tablet 0.100000000000000006 MG PO (09:04)
[2024-02-27] MEDS: carbidopa-levodopa 25-100mg Tablet 1 EACH PO ×3 (09:04→21:49)
--- NOTE | 2024-02-27 09:27 | PC.CHAP ---
Pastoral Care Encounter/Spiritual Assessment Type of Contact [] Declined utility inspector visit [] Patient/Family/Request visit [] Outpatient visit [] Follow-up visit [] Physician referral [] Code/Alert [x] Routine visit [] Staff referral [] Actively dying [x] Patient sleeping [] Family support [] [] Out of room [] Palliative care [] [] Receiving care in room [] Pre-surgical visit [] Trauma [] Long length of stay [] ICU visit [] Other: Relational/Emotional Strength [] Patient feels connected with others/family/visitors/staff [] Distress [] Loneliness/isolation [] Abandonment Spirituality of Patient [] Person of Taty [] Attends Taoism of their Taty [] Believes in Prayer [] Reads Bible or Zoroastrian materials [] There are Spiritual issues to be addressed Director Of Outside Sales Interventions [x] Prayer [] Active listening [] Non-anxious presence [] Spiritual/emotional support [] Crisis/trauma care [] Spiritual counseling [] Bereavement support [] Provided bereavement packet [] Provided Bible/devotional materials [] Provided toy/stuffed animal, coloring book to patient or family member [] Provided Communion [] Anointing/Richardson [] Salvation [] Completed spiritual assessment [] Other: Impact on Illness or Injury [] Angry [] Fearful [] Anxious [] Often cries [] Exhaustion [] Unable to work [] Unable to attend holiness [] Unable to walk/stand [] Unable to read [] Unable to drive [] Unable to eat/drink [] Unable to sleep [] Unable to be with family [] Patient intubated [] Other: Summary Time spent with patient
--- NOTE | 2024-02-27 11:31 | P.PN_ITS ---
Subjective 2 Subjective: Good output noted from the colostomy bag, flatus present as well Most likely diet will be advanced today Will touch with general surgery Patient is showing signs of dehydration with hyponatremia currently on D5 normal saline we have increased the rate to 50 mill per hr Patient resting comfortably Not complaining of pain at this point Likely will be able to go home within next 24 to 48 hours Can transfer out of ICU to [facility] Vitals/I&O/Wt Last Vital Signs Temp 98.3 F 02/27/24 08:15 Pulse 73 02/27/24 08:00 Resp 14 02/27/24 09:05 BP 112/62 02/27/24 07:00 Pulse Ox 95 02/27/24 08:00 O2 Del Method Nasal Cannula 02/26/24 08:30 O2 Flow Rate 2 02/26/24 08:30 02/26/24 02/27/24 02/27/24 22:59 06:59 14:59 Intake Total 100 / 200 100 / 300 Output Total 700 / 1100 390 / 1490 Balance -600 / -900 -290 / -1190 Weight last 48 hrs Weight 71.577 kg Weight 71.033 kg Weight 71.033 kg Weight 72.575 kg Physical Exam 2 Narrative: Patient laying supine Colostomy bag has air and liquid stool Patient is not complaining of any active pain Looks dehydrated Hemodynamic stable Currently on room air at the bedside Vegas catheter in place Urinary Catheter Management: Vegas Latex: Cath Placed During This Visit: yes Reason for Continuing Indwelling Catheter: Perioperative Use in Selected Surgeries Urinary Catheter Date of Insertion: 02/25/24 Urinary Catheter Time of Insertion: 22:30 Data 02/27/24 07:10 02/27/24 07:10 A&P Assessment and plan (1) Hospice care patient: (2) Dysphagia: (3) Chronic constipation: (4) 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: (7) Lewy body dementia: Plan Most likely we will advance diet today will touch with general surgery Continue IV fluids increase rate to 50 mill per hour Signs of dehydration hypernatremia improving Patient will be discharged back to home with hospice [facility] DNR/no Transfer out of ICU Attestations 2 Medical Necessity Statement*: Continue medical management Coding Level of Care Code Acute Code for Chg Fwd Diagnoses Hospice care patient Z51.5 Dysphagia R13.10 Chronic constipation K59.09 Sigmoid volvulus K56.2 BPH NOS w ur obs/LUTS N40.1 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
--- NOTE | 2024-02-27 12:19 | P.PN_ITS ---
Subjective 2 Subjective: Postoperative day 2 status post Rosa Elena procedure for sigmoid volvulus. Patient has been doing well overnight. He has Stable vital signs, no significant complaints of pain. Ostomy is productive of gas and is weeping. MARYJANE drain output has decreased and is serosanguineous in nature. Vitals/I&O/Wt Last Vital Signs Temp 97.7 F 02/27/24 12:00 Pulse 72 02/27/24 12:00 Resp 12 02/27/24 12:00 BP 123/64 02/27/24 12:00 Pulse Ox 94 02/27/24 12:00 O2 Del Method Nasal Cannula 02/26/24 08:30 O2 Flow Rate 2 02/26/24 08:30 02/26/24 02/27/24 02/27/24 22:59 06:59 14:59 Intake Total 100 / 200 100 / 300 Output Total 700 / 1100 390 / 1490 Balance -600 / -900 -290 / -1190 Weight last 48 hrs Weight 157 lb 12.8 oz Weight 156 lb 9.6 oz Weight 156 lb 9.6 oz Weight 160 lb Physical Exam 2 GI: OTHER: Abdomen is soft, appropriately tender to palpation, ostomy in the left lower quadrant is productive of gas and some liquid. MARYJANE drain is in place and is putting out serosanguineous output. Urinary Catheter Management: Vegas Latex: Cath Placed During This Visit: yes Reason for Continuing Indwelling Catheter: Perioperative Use in Selected Surgeries Urinary Catheter Date of Insertion: 02/25/24 Urinary Catheter Time of Insertion: 22:30 Data 02/27/24 07:10 02/27/24 07:10 A&P Assessment and plan (1) Sigmoid volvulus: Plan Patient is having good progression on a postoperative day 2 after sigmoid colectomy and end colostomy for sigmoid volvulus. Ostomy appears to be productive is pink and healthy. I think at this point it will be okay to advance the diet to a full liquid diet. Patient will require physical therapy to help him ambulate and recover his function. I will also order incentive spirometer for him. Vegas catheter should remain in place until the patient starts mobilizing. All other management per medical team. Should continue antibiotics at least for another 24 hours -Can be advanced to full liquid diet -Continue antibiotics -Monitor MARYJANE drain output -Physical therapy evaluation -Incentive spirometer All other care per medical team- Attestations 2 Medical Necessity Statement*: patient will require 24 to 40 hours of hospital stay to ensure adequate progression after sigmoid colectomy and end colostomy. Coding Level of Care Code Acute Code for Chg Fwd Diagnoses Sigmoid volvulus K56.2
[2024-02-27] MEDS: dextrose 5%-sod chloride 0.9% 1,000 ML 30 ML IV (17:57)
[2024-02-27] MEDS: dextrose 5%-sod chloride 0.9% 1,000 ML 50 ML IV (18:43)
[2024-02-28] VITALS (8 sets, daily range): BP systolic 122–150; BP diastolic 67–75; PULSE 73–90; RESP 16–19; TEMP 36.9–38.2; O2SAT 88–93
[2024-02-28] MEDS: piperacillin-tazobactam 3.375 GM in sodium chloride 0.9% (plus) 100 ML IV ×3 (01:56→18:24)
--- NOTE | 2024-02-28 03:35 | PC.NURSE ---
Offered to turn and reposition patient. at bedside refused this, stating that she thinks it would cause the patient pain. Ostomy bag has been full of air x2 and has been burped x2.
[2024-02-28 05:32] LABS: Basophils # 0.1 10^3/uL (0.0-0.1); Basophils % 0.6 %; Eosinophils # 0.5 10^3/uL (0.0-0.8); Eosinophils % 5.7 %; Hematocrit 31.4 % (37-53); Lymphocytes # 1.3 10^3/uL (0.8-4.8); Lymphocytes % 15.7 %; Mean Corpuscular HGB Conc 31.5 g/dL (30-55); Mean Corpuscular Hemoglobin 33.7 pg (27-33); Mean Corpuscular Volume 106.8 fl (82-101); Mean Platelet Volume 10.5 fL (7.4-10.4); Monocytes # 0.7 10^3/uL (0.2-0.9); Monocytes % 8.8 %; Neutrophils # 5.69 10^3/uL (1.8-7.7); Neutrophils % 68.7 %; Nucleated Red Blood Cells % 0 %; Platelet Count 206 10^3/cmm (157-399); Red Blood Count 2.94 10^6/uL (3.85-5.65); Red Cell Distribution Width 13.2 % (12.1-15.1); White Blood Count 8.28 10^3/uL (3.29-11.43)
[2024-02-28 06:17] LABS: Anion Gap 15.5 (5-19); Blood Urea Nitrogen 30 mg/dL (8-23); Calcium 8.4 mg/dL (8.5-10.5); Carbon Dioxide 24 mmol/L (22-29); Chloride 115 mmol/L (98-107); Creatinine Clr Calc Pharmacy 42.4496; Glucose 97 mg/dL (65-115); Osmolality Calculated 318 mOsm/kg (285-295); Potassium 3.5 mmol/L (3.5-5.1); Sodium 151 mmol/L (136-145)
[2024-02-28] MEDS: carbidopa-levodopa 25-100mg Tablet 1 EACH PO ×3 (08:52→20:31)
[2024-02-28] MEDS: fludrocortisone 0.1 mg Tablet 0.100000000000000006 MG PO (08:52)
[2024-02-28] MEDS: midodrine 5 mg TABLET 10 MG PO ×3 (08:52→20:31)
--- NOTE | 2024-02-28 11:03 | P.PN_ITS ---
Subjective 2 Subjective: Sodium 151 today Start D5 IV fluid Discontinued D5 normal saline Good urine output from colostomy bag Vitals/I&O/Wt Last Vital Signs Temp 99.1 F 02/28/24 07:06 Pulse 75 02/28/24 07:06 Resp 16 02/28/24 07:06 BP 150/75 02/28/24 07:06 Pulse Ox 92 02/28/24 07:06 O2 Del Method Nasal Cannula 02/26/24 08:30 O2 Flow Rate 2 02/26/24 08:30 02/27/24 02/28/24 02/28/24 22:59 06:59 14:59 Intake Total 1335 / 1435 100 / 1535 120 / 120 Output Total 480 / 480 475 / 955 Balance 855 / 955 -375 / 580 120 / 120 Weight last 48 hrs Weight 88.269 kg Weight 71.577 kg Physical Exam 2 Narrative: Patient is laying supine Colostomy bag in place Good output noted Patient oriented to himself at the bedside Signs of dehydration present S1, S2 Currently on 2 L Urinary Catheter Management: Vegas Latex: Cath Placed During This Visit: yes Reason for Continuing Indwelling Catheter: Hospice/Comfort/Palliative Care Urinary Catheter Date of Insertion: 02/25/24 Urinary Catheter Time of Insertion: 22:30 Data 02/28/24 04:54 02/28/24 04:54 A&P Assessment and plan (1) Hospice care patient: (2) Dysphagia: (3) Chronic constipation: (4) 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
[2024-02-28] MEDS: dextrose 5% 1,000 ML 75 ML IV (11:41)
--- NOTE | 2024-02-28 13:01 | P.PN_ITS ---
Subjective 2 Subjective: Patient is postoperative day 3 status post exploratory laparotomy sigmoid colectomy and end colostomy for sigmoid volvulus. Patient is doing very well. Abdominal exam has remained benign, he is passing gas and stool into the ostomy bag. MARYJANE drain with about 80 cc of serosanguineous fluid daily. No significant complaints. Vitals/I&O/Wt Last Vital Signs Temp 99.7 F H 02/28/24 11:35 Pulse 81 02/28/24 11:35 Resp 18 02/28/24 11:35 BP 145/73 02/28/24 11:35 Pulse Ox 91 02/28/24 11:35 O2 Del Method Room Air 02/28/24 11:35 O2 Flow Rate 2 02/26/24 08:30 02/27/24 02/28/24 02/28/24 22:59 06:59 14:59 Intake Total 1335 / 1435 100 / 1535 834.167 / 834.167 Output Total 480 / 480 475 / 955 Balance 855 / 955 -375 / 580 834.167 / 834.167 Weight last 48 hrs Weight 194 lb 9.6 oz Weight 157 lb 12.8 oz Physical Exam 2 GI: OTHER: Abdomen is soft, nontender, nondistended. Surgical incisions covered with dressing, MARYJANE drain in place with serosanguineous output. Ostomy bag productive of gas and stool in ostomy appears pink and viable Urinary Catheter Management: Vegas Latex: Cath Placed During This Visit: yes Reason for Continuing Indwelling Catheter: Hospice/Comfort/Palliative Care Urinary Catheter Date of Insertion: 02/25/24 Urinary Catheter Time of Insertion: 22:30 Data 02/28/24 04:54 02/28/24 04:54 A&P Assessment and plan (1) Sigmoid volvulus: Plan Patient is having good progression after sigmoid colectomy and end colostomy for sigmoid volvulus. I will ask physical therapy to evaluate him today as he appears to be deconditioned. Once he is moving around might consider removing Vegas catheter versus sending him with a Vegas catheter to rehab facility and then plan for removal. MARYJANE drain is in place will be removed the last day of hospital stay. I have advanced his diet to dysphagia level 7 pending recommendations from speech pathology. All other management per primary team -Advance diet to dysphagia level 7 -Physical therapy evaluation and treatment -Pain control as needed -Will remove MARYJANE last day of hospital stay -All other management per medical team. Attestations 2 Medical Necessity Statement*: Patient will require 24 to 48 hours of hospital stay for continued management of the postoperative period after a sigmoid colectomy. Coding Level of Care Code Acute Code for Chg Fwd Diagnoses Sigmoid volvulus K56.2
[2024-02-28] MEDS: morphine 4 mg/mL SDV 1 mL 2 MG IVP (13:25)
[2024-02-29] VITALS: BP 134/69; PULSE 73; RESP 17; TEMP 37.3; O2SAT 92
[2024-02-29] MEDS: dextrose 5% 1,000 ML 75 ML IV (00:36)
[2024-02-29] MEDS: piperacillin-tazobactam 3.375 GM in sodium chloride 0.9% (plus) 100 ML IV ×3 (02:10→20:54)
[2024-02-29 04:00] VITALS: BP 136/69; PULSE 69; RESP 20; TEMP 37.3; O2SAT 94
[2024-02-29 06:01] LABS: Basophils % 0.4 %; Eosinophils # 0.6 10^3/uL (0.0-0.8); Eosinophils % 6.4 %; Hematocrit 31.5 % (37-53); Lymphocytes # 1.2 10^3/uL (0.8-4.8); Lymphocytes % 13.3 %; Mean Corpuscular HGB Conc 31.1 g/dL (30-55); Mean Corpuscular Hemoglobin 33.1 pg (27-33); Mean Corpuscular Volume 106.4 fl (82-101); Mean Platelet Volume 10.6 fL (7.4-10.4); Monocytes # 0.6 10^3/uL (0.2-0.9); Monocytes % 6.5 %; Neutrophils # 6.64 10^3/uL (1.8-7.7); Neutrophils % 73.1 %; Nucleated Red Blood Cells % 0 %; Platelet Count 223 10^3/cmm (157-399); Red Blood Count 2.96 10^6/uL (3.85-5.65); Red Cell Distribution Width 13.1 % (12.1-15.1); White Blood Count 9.09 10^3/uL (3.29-11.43)
[2024-02-29 06:17] LABS: Anion Gap 11.6 (5-19); Blood Urea Nitrogen 21 mg/dL (8-23); Calcium 8.5 mg/dL (8.5-10.5); Carbon Dioxide 26 mmol/L (22-29); Chloride 109 mmol/L (98-107); Creatinine Clr Calc Pharmacy 45.3194; Glucose 109 mg/dL (65-115); Osmolality Calculated 302 mOsm/kg (285-295); Sodium 144 mmol/L (136-145)
[2024-02-29 06:31] LABS: Potassium 2.6 mmol/L (3.5-5.1)
[2024-02-29 07:36] VITALS: BP 152/80; PULSE 60; RESP 17; TEMP 37.1; O2SAT 93
[2024-02-29] MEDS: fludrocortisone 0.1 mg Tablet 0.100000000000000006 MG PO (07:54)
[2024-02-29] MEDS: potassium chloride ER 20 mEq Tablet 60 MEQ PO (07:54)
[2024-02-29] MEDS: midodrine 5 mg TABLET 10 MG PO ×3 (07:55→20:29)
[2024-02-29] MEDS: carbidopa-levodopa 25-100mg Tablet 1 EACH PO ×3 (07:55→20:30)
--- NOTE | 2024-02-29 09:22 | PC.SOCIAL ---
IMM Update pg 2 of IMM updated and reviewed w/ patients . Copy provided and copy dated, initialed and placed in chart.
[2024-02-29 09:23] LABS: Magnesium 1.8 mg/dL (1.7-2.3)
--- NOTE | 2024-02-29 10:21 | P.PN_ITS ---
Subjective 2 Subjective: Patient is postoperative day 4 status post exploratory laparotomy, sigmoid colectomy and end colostomy for sigmoid volvulus. Patient is having a very good progression from the surgical standpoint his white count is normal, he is tolerating diet, having bowel function through the ostomy. MARYJANE drain with serosanguineous output. Vitals/I&O/Wt Last Vital Signs Temp 98.8 F 02/29/24 07:36 Pulse 60 02/29/24 07:36 Resp 17 02/29/24 07:36 BP 152/80 02/29/24 07:36 Pulse Ox 93 02/29/24 07:36 O2 Del Method Room Air 02/29/24 07:36 O2 Flow Rate 2 02/26/24 08:30 02/28/24 02/29/24 02/29/24 22:59 06:59 14:59 Intake Total 250 / 7449.858 3822.75 / 2272.917 Output Total 840 / 1315 705 / 2020 850 / 850 Balance -590 / -110.833 363.75 / 252.917 -850 / -850 Weight last 48 hrs Weight 188 lb 9.6 oz Weight 194 lb 9.6 oz Physical Exam 2 GI: OTHER: Abdominal exam is benign, abdomen is soft and appropriately tender, surgical incisions healing well. Ostomy appliance in place ostomy looks pink and productive of gas and large amount of stool. MARYJANE drain with serosanguineous output Urinary Catheter Management: [place] Latex: Cath Placed During This Visit: yes Reason for Continuing Indwelling Catheter: Hospice/Comfort/Palliative Care Urinary Catheter Date of Insertion: 02/25/24 Urinary Catheter Time of Insertion: 22:30 Data 02/29/24 05:16 02/29/24 05:16 A&P Assessment and plan (1) Sigmoid volvulus: Plan Patient has had very good progression after exploratory laparotomy sigmoid colectomy and end colostomy for sigmoid volvulus. The plan is to discharge home in the next 24 hours. Currently he has noted to be hypokalemic so he is receiving replacement for this. Once electrolyte abnormalities have been corrected and we can ensure that he will have a safe discharge to home hospice patient will be discharged home. Vegas catheter will remain in place and MARYJANE drain will be removed the day of discharge. No further recommendations will be needed from the general surgery standpoint, he will receive ostomy care at home by hospice nurse. He can follow-up with me in 2 weeks to remove the mora from the abdomen. Attestations 2 Medical Necessity Statement*: Per medical team Coding Level of Care Code Acute Code for Chg Fwd Diagnoses Sigmoid volvulus K56.2
--- NOTE | 2024-02-29 10:56 | P.PN_ITS ---
Subjective 2 Subjective: Potassium replenished this morning Patient has poor p.o. intake Spoke with the who is at the bedside We will watch him on IV fluids for 1 more day will change IV fluids to D5 normal saline at 75 mill per hour Sodium has improved I do anticipate patient will take time to regain his appetite, I will add citalopram dose Vitals/I&O/Wt Last Vital Signs Temp 98.8 F 02/29/24 07:36 Pulse 60 02/29/24 07:36 Resp 17 02/29/24 07:36 BP 152/80 02/29/24 07:36 Pulse Ox 93 02/29/24 07:36 O2 Del Method Room Air 02/29/24 07:36 O2 Flow Rate 2 02/26/24 08:30 02/28/24 02/29/24 02/29/24 22:59 06:59 14:59 Intake Total 250 / 8490.363 2544.75 / 2272.917 Output Total 840 / 1315 705 / 2020 850 / 850 Balance -590 / -110.833 363.75 / 252.917 -850 / -850 Weight last 48 hrs Weight 85.548 kg Weight 88.269 kg Physical Exam 2 Narrative: Patient is awake, oriented to himself Able to answer simple questions Resting tremors noted MARYJANE drain in place Colostomy bag with good output Clinical signs of dehydration present Good urine output in the bag Urinary Catheter Management: [place] Latex: Cath Placed During This Visit: yes Reason for Continuing Indwelling Catheter: Hospice/Comfort/Palliative Care Urinary Catheter Date of Insertion: 02/25/24 Urinary Catheter Time of Insertion: 22:30 Data 02/29/24 05:16 02/29/24 05:16 A&P Assessment and plan (1) Hospice care patient: (2) Dysphagia: (3) Chronic constipation: (4) 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: (7) Lewy body dementia: Plan Our plan is to change D5 IV fluids to D5 normal saline Sodium has improved significantly Hypernatremia improving with IV fluid hydration Added citalopram and gabapentin home regimen Patient not complaining of active pain Good output noted from the colostomy bag Plan to discharge him on 03/01 on hospice DNR/DNI Continue dysphagia diet Patient has chronic dysphagia I do anticipate patient will take time to recover his appetite Will remove MARYJANE drain tomorrow Hypokalemia: Replenished Attestations 2 Medical Necessity Statement*: Continue medical management Diagnoses Hospice care patient Z51.5 Dysphagia R13.10 Chronic constipation K59.09 Sigmoid volvulus K56.2 BPH NOS w ur obs/LUTS N40.1 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
[2024-02-29 11:28] VITALS: BP 147/70; PULSE 76; RESP 15; TEMP 36.9; O2SAT 94
--- NOTE | 2024-02-29 12:05 | PC.SLP ---
Attempted to see patient prior to lunch, however, the patient was not alert enough to participate in a swallowing/dysphagia assessment. 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
[2024-02-29] MEDS: dextrose 5%-sod chloride 0.9% 1,000 ML 75 ML IV (12:42)
[2024-02-29 15:56] VITALS: BP 145/79; PULSE 78; RESP 18; TEMP 37; O2SAT 93
--- NOTE | 2024-02-29 17:38 | PC.SLP ---
MANAGER REPORTING attempted to follow-up with the patient. The patient did try 1 bite of pudding for the MANAGER REPORTING, but would not try any other intake. MANAGER REPORTING will attempt to follow-up with the patient tomorrow.
--- NOTE | 2024-02-29 19:01 | PC.NURSE ---
Educated patients this am on emptying colostomy. watched but would not participate in the empty. Educated daughter this evening but daughter would not get out of the chair to participate in emptying colostomy
[2024-02-29 20:00] VITALS: BP 154/84; PULSE 74; RESP 17; TEMP 37; O2SAT 96
[2024-02-29] MEDS: gabapentin 300 mg Capsule PO (20:30)
[2024-03-01] VITALS: BP 163/78; PULSE 72; RESP 20; TEMP 37; O2SAT 96
[2024-03-01] MEDS: dextrose 5%-sod chloride 0.9% 1,000 ML 75 ML IV (01:40)
[2024-03-01 04:00] VITALS: BP 157/73; PULSE 66; RESP 17; TEMP 36.8; O2SAT 96
[2024-03-01] MEDS: piperacillin-tazobactam 3.375 GM in sodium chloride 0.9% (plus) 100 ML IV (05:33)
[2024-03-01 06:07] LABS: Basophils # 0.1 10^3/uL (0.0-0.1); Basophils % 0.6 %; Eosinophils # 0.9 10^3/uL (0.0-0.8); Eosinophils % 10.4 %; Lymphocytes # 1.4 10^3/uL (0.8-4.8); Lymphocytes % 16.1 %; Mean Corpuscular HGB Conc 31.5 g/dL (30-55); Mean Corpuscular Hemoglobin 33.4 pg (27-33); Mean Corpuscular Volume 106.3 fl (82-101); Mean Platelet Volume 10.5 fL (7.4-10.4); Monocytes # 0.6 10^3/uL (0.2-0.9); Monocytes % 7.4 %; Neutrophils # 5.64 10^3/uL (1.8-7.7); Nucleated Red Blood Cells % 0 %; Platelet Count 234 10^3/cmm (157-399); Red Cell Distribution Width 13.1 % (12.1-15.1); White Blood Count 8.66 10^3/uL (3.29-11.43)
[2024-03-01] MEDS: citalopram 20 mg Tablet 60 MG PO (06:13)
[2024-03-01 06:28] LABS: Blood Urea Nitrogen 17 mg/dL (8-23); Calcium 8.6 mg/dL (8.5-10.5); Carbon Dioxide 23 mmol/L (22-29); Chloride 110 mmol/L (98-107); Creatinine Clr Calc Pharmacy 54.2228; Glucose 104 mg/dL (65-115); Osmolality Calculated 298 mOsm/kg (285-295); Sodium 143 mmol/L (136-145)
[2024-03-01 06:31] LABS: Anion Gap 13.1 (5-19); Potassium 3.1 mmol/L (3.5-5.1)
--- NOTE | 2024-03-01 07:31 | P.PN_ITS ---
Subjective 2 Subjective: Postoperative day 5 status post exploratory laparotomy, sigmoid colectomy and end colostomy for sigmoid volvulus. From the general surgery standpoint patient is doing okay, no significant abdominal pain the ostomy is productive of gas and stool wounds look fine drain output is serosanguineous. He is mentation though has not recovered since surgery he appears to be in the slight and more somnolent than usual. Vitals/I&O/Wt Last Vital Signs Temp 98.3 F 03/01/24 04:00 Pulse 66 03/01/24 04:00 Resp 17 03/01/24 04:00 BP 157/73 03/01/24 04:00 Pulse Ox 96 03/01/24 04:00 O2 Del Method Room Air 03/01/24 04:00 O2 Flow Rate 2 02/26/24 08:30 02/29/24 03/01/24 03/01/24 22:59 06:59 14:59 Intake Total 100 / 1100 1072.5 / 2172.5 Output Total 1263 / 2363 1265 / 3628 Balance -1163 / -1263 -192.5 / -1455.5 Weight last 48 hrs Weight 187 lb 6.4 oz Weight 188 lb 9.6 oz Physical Exam 2 GI: OTHER: Abdominal exam is benign, abdomen is soft, nontender, nondistended, surgical incision is healing well no evidence of infection, MARYJANE drain was removed, ostomy bag follow-up gas and stool. Ostomy viable Urinary Catheter Management: [place] Latex: Cath Placed During This Visit: yes Reason for Continuing Indwelling Catheter: Hospice/Comfort/Palliative Care Urinary Catheter Date of Insertion: 02/25/24 Urinary Catheter Time of Insertion: 22:30 Data 03/01/24 05:41 03/01/24 05:41 A&P Assessment and plan (1) Sigmoid volvulus: Plan This 88-year-old male who was admitted to the hospital with a sigmoid volvulus and underwent exploratory laparotomy sigmoid colectomy and end colostomy. From the surgical standpoint progression is very good, vitals are stable, white count is normal, abdominal examination is good wounds are healing well and ostomy is healthy. He was noted to have slight hyponatremia and poor oral intake and therefore is receiving additional management for this by the medical team. This morning he appears to be more somnolent. Will discuss with medical team and may consider decreasing the amount of citalopram and gabapentin as this may be affecting his mental status. Plan for the patient is to return [facility] on hospice, from the surgical standpoint I do not see any contraindication for these at this time. Patient can follow-up with me in 2 weeks to remove the mora. Attestations 2 Medical Necessity Statement*: Per medical team Coding Level of Care Code Acute Code for Chg Fwd Diagnoses Sigmoid volvulus K56.2
[2024-03-01 08:00] VITALS: BP 140/75
--- NOTE | 2024-03-01 09:20 | P.DS_ITS ---
Discharge Providers Date of Admission: 02/26/24 02:00 Date of Discharge: March 01, 2024 Attending Provider at Admission: Luis Carlos Cade MD Attending Provider at Discharge: Lei Hercules MD Primary Care Provider: [place] Mancini MD Diagnoses at Discharge Discharge Diagnosis (1) Sigmoid volvulus: Status: Acute Reason for Visit Reason for Visit: ABD PAIN Hospital Course Hospital Course 88-year male who was on hospice at home for advanced Parkinson's, bedbound, chronic dysphagia, presented for recurrent nausea vomiting he was diagnosed with sigmoid volvulus, general surgery was consulted patient went for the surgery with exploratory laparotomy sigmoid colectomy and end colostomy, 48 hours after surgery patient was started on clear liquid diet, he remained hemodynamically stable, no fever at all, good output noted from the colostomy bag, MARYJANE drain was removed on the day of discharge. Patient became dehydrated and required D5 IV fluid for about 48 hours, his mentation is fluctuating, he has chronic dysphagia, limited p.o. intake, carries a guarded prognosis, he will be discharged back to hospice care at home, will arrange a ride at the time of discharge. I have counseled his not to give him medications if his mentation gets worse. Colostomy supplies will be arranged at the time of discharge Physical Exam Narrative: Drowsy, Able to answer only simple questions Oriented to himself Hemodynamically stable Currently on room air IV fluids running at the bedside Colostomy bag in place with flatus, healthy-looking Tissue MARYJANE drain removed Urinary Catheter Management: [place] Latex: Cath Placed During This Visit: yes Reason for Continuing Indwelling Catheter: Hospice/Comfort/Palliative Care Urinary Catheter Date of Insertion: 02/25/24 Urinary Catheter Time of Insertion: 22:30 Discharge Data Studies Completed and Pending Completed Studies During Hospitalization Category Date Time Status CT abdomen pelvis w con* [id number] Stat Cat Scan 02/25/24 19:04 Completed XR KUB [id number] Stat Exams 02/25/24 18:46 Completed Pending at discharge Category Date Time Status Pathology: Surgical [PTH] Routine Pth 02/26/24 00:59 Received Radiology Impressions KUB X-Ray 02/25/24 18:46 IMPRESSION: Diffuse gas distension of the colon. Possible distal obstruction or ileus. Abdomen/Pelvis CT 02/25/24 19:04 IMPRESSION: 1. High-grade obstruction of the distal sigmoid colon due to sigmoid volvulus. 2. Rectal mucosal thickening and perirectal edema consistent with proctitis. No sign of bowel necrosis or perforation. 3. Small simple dependent bilateral pleural effusions and associated atelectasis in both lower lobes. Superimposed infection cannot be excluded. 4. Incidental findings above. COMMENTS: Consistent with the [place] [employer]'s Incidental Findings Committee white paper (J Am Karol Radiol 2018): Any incidental renal lesion less than 1 cm or classified as too small to characterize, or any incidental cystic renal lesion characterized as simple-appearing, is likely benign. No follow-up imaging is recommended for these lesions per consensus recommendations based on imaging criteria. ADDENDUM: 02/25/242019 THIS REPORT CONTAINS FINDINGS THAT MAY BE CRITICAL TO PATIENT CARE. The findings and recommendations were verbally communicated by me via telephone conference with KENZIE METCALF at 8:18 PM CDT on 02/25/2024. The findings were acknowledged and understood. Laboratory Results WBC 8.66 10^3/uL (3.29-11.43) 03/01/24 05:41 Corrected WBC Cancelled 02/26/24 05:50 RBC 3.20 10^6/uL (3.85-5.65) L 03/01/24 05:41 Hgb 10.70 g/dL (11.27-16.99) L 03/01/24 05:41 Hct 34.0 % (37-53) L 03/01/24 05:41 MCV 106.3 fl (82-101) H 03/01/24 05:41 MCH 33.4 pg (27-33) H 03/01/24 05:41 MCHC 31.5 g/dL (30-55) 03/01/24 05:41 RDW 13.1 % (12.1-15.1) 03/01/24 05:41 Plt Count 234 10^3/cmm (157-399) 03/01/24 05:41 MPV 10.5 fL (7.4-10.4) H 03/01/24 05:41 Gran % Cancelled 02/26/24 05:50 Neut % (Auto) 65.0 % 03/01/24 05:41 Lymph % (Auto) 16.1 % 03/01/24 05:41 [place] % (Auto) 7.4 % 03/01/24 05:41 Eos % (Auto) 10.4 % 03/01/24 05:41 Baso % (Auto) 0.6 % 03/01/24 05:41 Neut # (Auto) 5.64 10^3/uL (1.8-7.7) 03/01/24 05:41 Lymph # (Auto) 1.4 10^3/uL (0.8-4.8) 03/01/24 05:41 [place] # (Auto) 0.6 10^3/uL (0.2-0.9) 03/01/24 05:41 Eos # (Auto) 0.9 10^3/uL (0.0-0.8) H 03/01/24 05:41 Baso # (Auto) 0.1 10^3/uL (0.0-0.1) 03/01/24 05:41 Absolute Gran (auto) Cancelled 02/26/24 05:50 Nucleated RBC % (auto) 0 % 03/01/24 05:41 Nucleated RBCs # 0.0 /100WBC 03/01/24 05:41 Sodium 143 mmol/L (136-145) 03/01/24 05:41 Potassium 3.1 mmol/L (3.5-5.1) L 03/01/24 05:41 Chloride 110 mmol/L (98-107) H 03/01/24 05:41 Carbon Dioxide 23 mmol/L (22-29) 03/01/24 05:41 Anion Gap 13.1 (5-19) 03/01/24 05:41 BUN 17 mg/dL (8-23) 03/01/24 05:41 Creatinine 1.0 mg/dL (0.7-1.2) 03/01/24 05:41 GFR Calculation Not Reportable 03/01/24 05:41 Glucose 104 mg/dL (65-115) 03/01/24 05:41 Calculated Osmolality 298 mOsm/kg (285-295) H 03/01/24 05:41 Calcium 8.6 mg/dL (8.5-10.5) 03/01/24 05:41 Phosphorus 3.8 mg/dL (2.5-4.5) 02/26/24 05:50 Magnesium 1.8 mg/dL (1.7-2.3) 02/29/24 05:16 Total Bilirubin 0.8 mg/dL (0.15-1.2) 02/26/24 05:50 AST 22 U/L (0-40) 02/26/24 05:50 ALT 11 U/L (0-41) 02/26/24 05:50 Alkaline Phosphatase 97 U/L (40-130) 02/26/24 05:50 Total Protein 6.8 g/dL (6.6-8.7) 02/26/24 05:50 Albumin 3.5 g/dL (3.5-5.2) 02/26/24 05:50 Globulin 3.3 g/dL (1.3-4.6) 02/26/24 05:50 Lipase 26 U/L (13-60) 02/25/24 19:56 Vitals Last Vital Signs Temp 98.3 F 03/01/24 04:00 Pulse 66 03/01/24 04:00 Resp 17 03/01/24 04:00 BP 140/75 03/01/24 08:00 Pulse Ox 96 03/01/24 04:00 O2 Del Method Room Air 03/01/24 04:00 O2 Flow Rate 2 02/26/24 08:30 Discharge Plan Discharge Patient Disposition: Home Condition: Stable Prescriptions: Continued gabapentin 300 mg capsule 300 mg PO BEDTIME carbidopa-levodopa 25-100 mg tablet 1 tab PO TID Qty: 270 2RF Rx Instructions: Take 1 at 630AM, 1 at 12PM, and 1 at 5PM. fludrocortisone 0.1 mg tablet 0.1 mg PO DAILY Qty: 30 3RF ondansetron 4 mg tablet,disintegrating 4 mg translingual Q4-5H PRN (Reason: nausea) Qty: 5 0RF Rx Instructions: Dissolve 1 tablet under tongue every 4 hours PRN for nausea midodrine 10 mg tablet See Rx Instructions .ROUTE .COMPLEX Qty: 90 3RF Dose Instruction: TAKE 1 TABLET BY MOUTH THREE TIMES DAILY Rx Instructions: TAKE 1 TABLET BY MOUTH Daily Vitamin B-12 1 tab PO QAM Vitamin D3 1 cap PO QAM finasteride 5 mg tablet 5 mg PO BEDTIME potassium chloride 10 mEq capsule, extended release 10 meq PO BID polyethylene glycol 3350 [Miralax] 17 gram/dose Powder 17 g PO DAILY ibuprofen 200 mg Tablet 200 mg PO Q6H PRN (Reason: Pain) Held citalopram 40 mg tablet 60 mg PO QAM Qty: 90 3RF Hold Instructions: Resume on 03/03/24. Discontinued aspirin 81 mg Tablet,Delayed Release (Dr/Ec) 81 mg PO BEDTIME Discharge Orders: Discharge Order (Routine); Ordered 03/01/24 Ordered By: Lei Hercules Referrals: [facility] [Outside] Luis Carlos Cade MD [Physician] - 03/14/24 9:15 am [place] Mancini MD [Primary Care Provider] - 03/06/24 12:00 pm Patient Instructions: Opioid Safety Discharge Attestations Time Spent in Discharge Care*: greater than 30 min Status at Discharge: Cognitive status at discharge: moderately impaired cognition , Behavioral status at discharge: can be uncooperative , Quality Metrics Clinical Quality Measures [ No reported AMI, CVA or VTE this stay] Coding Level of Care Code Acute Code for Chg Fwd Diagnoses Sigmoid volvulus K56.2
[2024-03-01] MEDS: carbidopa-levodopa 25-100mg Tablet 1 EACH PO (09:25)
[2024-03-01] MEDS: fludrocortisone 0.1 mg Tablet 0.100000000000000006 MG PO (09:25)
[2024-03-01] MEDS: midodrine 5 mg TABLET 10 MG PO (09:25)
--- NOTE | 2024-03-01 10:07 | PC.SLP ---
RN ONCOLOGY RESEARCH attempted to follow-up with the patient. Patient was non responsive per nursing.
[2024-03-01 12:00] VITALS: BP 159/87
--- NOTE | 2024-03-01 14:05 | PC.NURSE ---
Patient's spouse watched while removing ostomy bag today. Spouse placed a new bag on the ostomy site. Spouse verbalized understanding and stated she can do it at home.
--- NOTE | 2024-03-01 14:06 | PC.NURSE ---
Discussed discharge medications, changed and held medications, ostomy care, surgical incision care and follow up appointments. All of spouses questions were answered and patient verbalized understanding.
[2024-03-01 14:09] VITALS: BP 159/87; PULSE 66; RESP 17; O2SAT 98
== END 2024-03-01 13:23 | disposition hospice, home (50) | DRG 330 ==
LOC: ER 21:12 → OR 21:17 → ICU 02-26 02:02 → MEDSURG 02-27 18:26
PROVIDERS: Internal Medicine; Admitting Provider Surgery; Emergency Provider Emergency Medicine; PCP Family Medicine; Visit Provider Internal Medicine
PROC: (CPT 49000; principal; 2024-02-25 21:30)
PROC: (CPT 44320; 2024-02-25 21:30)
DX: K56.2 Volvulus (principal); E87.1 Hypo-osmolality and hyponatremia; F02.83 Dementia in other diseases classified elsewhere, unspecified severity, with mood disturbance; G31.83 Neurocognitive disorder with Lewy bodies; K59.09 Other constipation; I73.9 Peripheral vascular disease, unspecified; N18.9 Chronic kidney disease, unspecified; N40.1 Benign prostatic hyperplasia with lower urinary tract symptoms; Z96.653 Presence of artificial knee joint, bilateral; R13.10 Dysphagia, unspecified; Z66 Do not resuscitate; E87.6 Hypokalemia; E86.0 Dehydration; Z86.16 Personal history of COVID-19; Z86.73 Personal history of transient ischemic attack (TIA), and cerebral infarction without residual deficits
CPT/HCPCS: 36415; 51702; 74018; 74177; 80048; 80053; 83690; 83735; 84100; 85025; 88309; 92523; 92610; 96365; 96374; 96376; 99285; J1100; J2270; J2371; J2405; J2543; J2704; J3010; J3490; J7042; J7070; P9045; Q9967